=== PATIENT | male | born 1945 | race Caucasian/White ===

== ENCOUNTER 2018-03-03 17:55 | Emergency (ER) | payer MEDICARE, MEDICAID ==
[2018-03-03] MEDS ORDERED: Adacel (T-DAP) 0.5 ML VIAL ONE (18:05)
[2018-03-03] MEDS ORDERED: CEFAZOLIN/Water 2 GM/20 ML SYRINGE ONE (18:05)
[2018-03-03 18:41] LABS: #Basophils 0.1 thou/uL (0.0-0.2); #Eosinphils 0.1 thou/uL (0.0-0.7); #Lymphocytes 3.2 thou/uL (1.20-3.40); #Monocytes 0.6 thou/uL (0.11-0.59); #Neutrophils 4.7 thou/uL (1.40-6.50); %Basophils 0.6 % (0.0-1.0); %Eosinophils 1.7 % (0.0-10.0); %Lymphocytes 36.9 % (21.0-51.0); %Monocytes 6.5 % (0.0-10.0); %Neutrophils 54.3 % (42.0-75.0); Hemoglobin 13.3 g/dL (14.0-18.0); Mean Corpuscular HGB CONC 34.7 g/dL (32.0-36.0); Mean Corpuscular Hemoglobin 33.3 pg (27.0-31.0); Mean Corpuscular Volume 96.2 fl (80.0-94.0); Mean Platelet Volume 6.6 fL (7.4-10.4); Platelet Count 173 thou/uL (130-400); RBC Distribution Width 13.2 % (11.5-14.5); Red Blood Cell (RBC) Count 3.99 mill/uL (4.70-6.10); White Blood Cell (WBC) Count 8.6 thou/uL (4.8-10.8)
[2018-03-03 18:47] LABS: PTT 27.6 SEC (22.9-36.1); Prothrombin Time 13.5 SEC (12.0-14.7)
--- NOTE | 2018-03-03 18:50 | RAD ---
LEFT FOREARM: 03/03/18 Two views. HISTORY: Injury. Pain. No evidence of fracture or osseous abnormality. there is evidence of soft tissue disruption mid forea rm. IMPRESSION: No acute osseous abnormality. POS: [facility]
[2018-03-03 19:07] LABS: ALT (SGPT) 85 U/L (8-55); AST (SGOT) 97 U/L (5-34); Albumin 4.3 g/dL (3.4-4.8); Alkaline Phosphatase 75 U/L (40-150); Anion Gap 17 mmol/L (10-20); BUN (Urea Nitrogen) 18 mg/dL (8.4-25.7); Bilirubin, Total 0.5 mg/dL (0.2-1.2); Calc. Creatinine Clearance 0 mL/min (70-130); Calcium 9.5 mg/dL (7.8-10.44); Carbon Dioxide 20 mmol/L (23-31); Chloride 102 mmol/L (98-107); Estimated GFR-MDRD 68; Globulin 5.3 g/dL (2.4-3.5); Glucose 86 mg/dL (80-115); Potassium 5.8 mmol/L (3.5-5.1); Protein, Total 9.6 g/dL (5.8-8.1); Sodium 133 mmol/L (136-145)
[2018-03-03] MEDS ORDERED: Lidocaine 1% (PF) 30 ML VIAL ONE (20:15)
[2018-03-03] MEDS ORDERED: Acetaminophen 500 MG TAB ONE (20:55)
== END 2018-03-03 22:28 | disposition home or self-care (01) ==
LOC: ERS 17:55
DX: S51.812A Laceration without foreign body of left forearm, initial encounter (principal); I10 Essential (primary) hypertension; F17.210 Nicotine dependence, cigarettes, uncomplicated; Z71.6 Tobacco abuse counseling; Z79.899 Other long term (current) drug therapy; W26.8XXA Contact with other sharp object(s), not elsewhere classified, initial encounter
CPT/HCPCS: 12002; 80053; 85025; 85610; 85730; 86850; 86900; 86901; 90471; 90715; 99406; J2001

== ENCOUNTER 2019-02-23 20:51 | Inpatient (IN) | payer MEDICARE, MEDICAID ==
[2019-02-23 21:41] LABS: #Lymphocytes 1.6 thou/uL (1.20-3.40); #Monocytes 0.4 thou/uL (0.11-0.59); #Neutrophils 2.4 thou/uL (1.40-6.50); %Basophils 0.7 % (0.0-1.0); %Eosinophils 0.9 % (0.0-10.0); %Lymphocytes 35.4 % (21.0-51.0); %Monocytes 9.4 % (0.0-10.0); %Neutrophils 53.6 % (42.0-75.0); Hemoglobin 10.9 g/dL (14.0-18.0); Mean Corpuscular HGB CONC 32.8 g/dL (32.0-36.0); Mean Corpuscular Hemoglobin 31.6 pg (27.0-31.0); Mean Corpuscular Volume 96.5 fL (78.0-98.0); Mean Platelet Volume 8.1 fL (7.4-10.4); Platelet Count 130 thou/uL (130-400); RBC Distribution Width 14.2 % (11.5-14.5); Red Blood Cell (RBC) Count 3.43 mill/uL (4.70-6.10); White Blood Cell (WBC) Count 4.4 thou/uL (4.8-10.8)
--- NOTE | 2019-02-23 21:51 | RAD ---
UPRIGHT PORTABLE CHEST 1 VIEW: Date: 02/23/19 HISTORY: Altered mental status. COMPARISON: 01/09/12. FINDINGS: Heart size is within normal limits. Lungs are clear. No pneumonia, edema, pleural effusion, or other acute process. IMPRESSION: No acute intrathoracic disease. Stable cardiomegaly. Atherosclerosis of aorta. POS: [facility]
[2019-02-23 22:33] LABS: Albumin 3.9 g/dL (3.4-4.8)
[2019-02-23 22:34] LABS: Chloride 106 mmol/L (98-107); Potassium 4.7 mmol/L (3.5-5.1); Sodium 136 mmol/L (136-145)
[2019-02-23 22:35] LABS: Calcium 9.5 mg/dL (7.8-10.44); Globulin 4.2 g/dL (2.4-3.5); Glucose 104 mg/dL (83-110); Protein, Total 8.1 g/dL (5.8-8.1)
[2019-02-23 22:37] LABS: Anion Gap 15 mmol/L (10-20); Bilirubin, Total 0.4 mg/dL (0.2-1.2); Carbon Dioxide 20 mmol/L (23-31)
[2019-02-23 22:38] LABS: Alkaline Phosphatase 79 U/L (40-150); Calc. Creatinine Clearance 0 mL/min (70-130); Estimated GFR-MDRD 67
[2019-02-23 22:39] LABS: BUN (Urea Nitrogen) 29 mg/dL (8.4-25.7)
[2019-02-23 22:40] LABS: AST (SGOT) 71 U/L (5-34)
[2019-02-23 22:41] LABS: ALT (SGPT) 59 U/L (8-55)
[2019-02-24 01:14] VITALS: BMI 19.0
[2019-02-24] MEDS ORDERED: Ondansetron ODT 4 MG TAB PO PRN (04:09)
[2019-02-24] MEDS ORDERED: Ondansetron PF 4 MG/2 ML Vial IVP PRN (04:09)
[2019-02-24] MEDS ORDERED: Acetaminophen 325 MG TAB PO PRN (04:09)
[2019-02-24] MEDS ORDERED: HYDROcodone/Acetaminophen 10/325 mg Tablet PO PRN (04:10)
--- NOTE | 2019-02-24 07:53 | HP ---
PRIMARY CARE PHYSICIAN: Dr. Andrew Mendoza CODE STATUS: Full code. TIME OF EVALUATION: 3:10 a.m. CHIEF COMPLAINT: Irregular heartbeat. HISTORY OF PRESENT ILLNESS: 73 years old male patient with past medical history of hepatitis C, AAA, and hypertension, came to the hospital after having an episode of palpitation while he was carrying some batteries up a hill. He also reported that he passed out during the exercise and has been having these episodes recently. Not clear if the patient had loss of consciousness. He does not recall well the details. He also reported some cramping. Symptoms were severe with no clear triggers, no alleviating factors. He was found to be in AFib with RVR. REVIEW OF SYSTEMS: CONSTITUTIONAL: No fever, chills, or generalized weakness. RESPIRATORY: No cough, sputum production, or shortness of breath. CARDIOVASCULAR: The patient has palpitations. No chest pain. GASTROINTESTINAL: No nausea. No vomiting, diarrhea, or abdominal pain. [employer]: No dizziness, headache, or feeling lightheaded. GENITOURINARY: No burning on urination. EXTREMITIES: No leg swelling. All other systems were reviewed and negative except for the findings mentioned above. PAST MEDICAL HISTORY: As mentioned in the HPI. SURGICAL HISTORY: AAA surgery. PSYCHIATRIC HISTORY: No previous psych history. FAMILY HISTORY: Reviewed, noncontributory to current presentation. SOCIAL HISTORY: No alcohol. No drugs. The patient smokes 1.5 packs per day. KNOWN ALLERGIES: No known drug allergies. REPORTED MEDICATIONS: 1. Lisinopril. 2. Metoprolol. PHYSICAL EXAMINATION: VITAL SIGNS: On presentation, blood pressure 165/89 with heart rate 120, respiratory rate was 20, oxygen saturation 97% on room air. GENERAL APPEARANCE: The patient is alert, oriented, not in acute distress. HEENT: Eyes; normal conjunctivae. Moist oral mucosa. Anicteric. No JVD. RESPIRATORY: Bilateral air entry. No rales. No wheezes. Symmetric expansion. CARDIOVASCULAR: The patient has irregular rhythm with tachycardia. No murmurs. No gallop. No edema. ABDOMEN: Soft. Normal bowel sounds. MUSCULOSKELETAL: Baseline range of motion and strength. No tenderness. SKIN: Warm, intact. No pallor. No rash. No redness. Peripheral pulses are present. Capillary refill seems to intact. NEURO: No evidence of any new focal weakness. Cranial nerves seems to be intact. PSYCH: The patient is in good mood. No anxiety. Optimal judgment. DIAGNOSTIC DATA: EKG was reviewed and the patient has atrial fibrillation with RVR at a rate of 108, some PVCs. No acute intrathoracic disease. Stable cardiomegaly. Atherosclerosis of the aorta. LABORATORY DATA: Labs were reviewed. The patient has a white count of 4.4, hemoglobin 10.9, MCV 96.5, platelet count 230. Chemistry; sodium 136, potassium 4.7, chloride 106, carbon dioxide 20, anion gap 15, BUN 29, creatinine 1.0, GFR 67, glucose 104, calcium 9.5. LFTs were normal. Troponin 0.020. ASSESSMENT AND PLAN: The patient will be placed in the hospital with following medical problems: 1. Atrial fibrillation with rapid ventricular response. The patient has been placed on Cardizem drip. We will adjust the dose to get a rate control. We will consult Cardiology. We will do echo in the morning. Continue to monitor on tele. Metoprolol has been restarted. Continue diltiazem drip. 2. Chronic normocytic anemia of unclear etiology. We will monitor hemoglobin, does not seem to be related to current presentation. It could be followed as outpatient. 3. Uncontrolled hypertension, systolic blood pressure 165. We will monitor. We will treat accordingly. reconcile home meds 4. Deep venous thrombosis prophylaxis. Job ID: [id number] MTDD
[2019-02-24] MEDS ORDERED: Lisinopril 10 MG TAB PO SCH (09:00)
[2019-02-24] MEDS: Enoxaparin Sodium 40 MG/0.4 ML SYRINGE SC SCH (10:25)
[2019-02-24] MEDS: HYDROcodone/Acetaminophen 10/325 mg Tablet PO PRN ×3 (10:27→21:27)
--- NOTE | 2019-02-24 17:53 | CT ---
CT HEAD WITHOUT IV CONTRAST COMPARISON: None HISTORY: Stroke. Syncopal episode yesterday afternoon. Patient has slurred speech. TECHNIQUE: Axial CT imaging at 5 mm intervals from vertex through skull base without contrast FINDINGS: Small subcentimeter focus of diminished attenuation in the anterior aspect left thalamus related to a lacunar infarction of indeterminate age. There is a low-density area seen within the more inferior aspect of the left occipital lobe which hannah ears to represent a small focal area of encephalomalacia likely related to a remote infarction. There is a subtle small low-density area in the left occipital lobe, only seen on a single slice trae ction, which may be artifactual as opposed to an infarction in the left cerebellar hemisphere. A few subtle low-density areas are seen in the periventricular white matter which are nonspecific but likely reflective of mild chronic small vessel ischemic changes. No definite acute cortical infarction or hemorrhage is seen. There is no mass effect or midline shift. The ventricular system is normal in size, shape, and position. Visualized paranasal sinuses are clear. Osseous structures appear intact. IMPRESSION: 1. Small lacunar infarction left thalamus of indeterminate age. 2. Low-density area inferior aspect left occipital lobe which appears to represent a small focal area of encephalomalacia and is likely related to a remote infarction. 3. Mild chronic small vessel ischemic changes. 4. MRI brain would be more sensitive study of choice for evaluation of an acute infarction.
--- NOTE | 2019-02-24 18:06 | CON ---
DATE OF CONSULTATION: 02/24/2019 REASON FOR CONSULTATION: Atrial fibrillation with RVR. HISTORY OF PRESENT ILLNESS: Mr. Fish is a pleasant 73-year-old white gentleman, who comes to the hospital for having palpitations and slurred speech. He was carrying some batteries up a hill yesterday and felt a sudden onset of extreme dizziness, weakness on his left side. He could not control his left arm or his left leg adequately and he noticed that he felt like he had a mouthful of marshmallows. He felt he was slurring his speech, he could not talk like he normally does. He decided to come in. He was found to be in atrial fibrillation with RVR. He was started on diltiazem drip to slow him down and Cardiology has been consulted for this. On my evaluation today, he is still slurring his speech according to him. His left arm is still difficult to control. He is strong with it, but is unable to synchronize with it. He denies any chest pain, tightness, or pressure. No shortness of breath. He tells me he has been feeling palpitations for at least the last couple of months. He tells me also that several years back, he was told that he threw a clot to his eye as he lost vision on half of the right eye, he had hemianopsia. He states that he has recovered some of that vision, but he still has visual disturbances. He does not remember being told that he had a stroke, only that he had thrown a clot to his eye. PAST MEDICAL HISTORY: 1. Hepatitis C. 2. AAA, status post repair. 3. Hypertension. 4. Tobacco use. 5. Alcohol use. PAST SURGICAL HISTORY: AAA repair. SOCIAL HISTORY: Smokes about a pack and a half a day. Social alcohol use. No drug. He also uses marijuana. OUTPATIENT MEDICATIONS: 1. Lisinopril 10 mg at bedtime. 2. [place] 10/325 p.r.n. pain. 3. Toprol-XL 50 mg a day. ALLERGIES: NO KNOWN DRUG ALLERGIES. REVIEW OF SYSTEMS: A 12-point review of systems was done and was all negative unless stated in History of Present Illness. PHYSICAL EXAMINATION: VITAL SIGNS: Temperature 97.9, pulse 70, respiratory rate 17, saturating 100% on room air, blood pressure 112/58. GENERAL: Awake, alert, oriented x3. No distress. HEENT: Normocephalic and atraumatic. NECK: Supple. LUNGS: Reduced breath sounds bilaterally. CARDIOVASCULAR: S1 and S2. Irregularly irregular heart rate in the 70s to 90s. ABDOMEN: Soft. Positive bowel sounds. EXTREMITIES: No edema. NEUROLOGICAL: Cranial nerves are intact. He has difficulty with rapid alternating movements on his left arm. His strength is about 4+ in the left arm and his left leg as compared to the right arm and right leg. When he walks, he is unsteady and falls to the left because of inability to control the left side of his body that well. LABORATORY DATA: Laboratory work was reviewed. White count of 4, hemoglobin of 10, hematocrit of 33, and platelet count of 130. Chemistries were reviewed. GFR of 67. Troponin is negative x1. Albumin of 3.9. IMAGING DATA: Chest x-ray was reviewed, showed no acute intrathoracic disease with cardiomegaly and atherosclerosis of the aorta. ASSESSMENT: 1. Atrial fibrillation with rapid ventricular response. 2. Likely an acute cerebrovascular accident that happened yesterday when his event of dizziness started. 3. History of abdominal aortic aneurysm repair. 4. 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 PLAN: 1. We will do a CT without contrast tonight and make sure there is no bleeding. If there is no bleeding, we can start antiplatelets. He will also need full anticoagulation. We will await for the MRI as for the timing of the anticoagulation as he is concerned about the size of the stroke and some inflammation around it. We will have more recommendations pending results of brain imaging. 2. For atrial fibrillation, right now the only thing that can be done is rate controlled given his possible acute CVA. Thank you for letting me participate in the care of your patient. We will follow. Job ID: [id number]
[2019-02-24] MEDS: Nicotine 14 MG PATCH TD PRN (18:09)
[2019-02-24] MEDS: Diltiazem HCl 125 MG, Admixture Fee 1 EACH in Sodium Chloride 0.9% 100 ML IVPB SCH (19:53)
[2019-02-24] MEDS: Lisinopril 10 MG TAB PO SCH (21:23)
[2019-02-25] MEDS: HYDROcodone/Acetaminophen 10/325 mg Tablet PO PRN ×3 (05:31→16:27)
[2019-02-25 06:55] LABS: Anion Gap 16 mmol/L (10-20); Calcium 8.9 mg/dL (7.8-10.44); Carbon Dioxide 19 mmol/L (23-31); Chloride 103 mmol/L (98-107); Potassium 4.5 mmol/L (3.5-5.1); Sodium 133 mmol/L (136-145)
[2019-02-25 07:12] LABS: BUN (Urea Nitrogen) 17 mg/dL (8.4-25.7); Calc. Creatinine Clearance 68 mL/min (70-130); Estimated GFR-MDRD Greater than 90; Glucose 98 mg/dL (83-110)
[2019-02-25] MEDS: Enoxaparin Sodium 40 MG/0.4 ML SYRINGE SC SCH (08:32)
[2019-02-25 08:53] LABS: #Eosinphils 0.1 thou/uL (0.0-0.7); #Lymphocytes 1.5 thou/uL (1.20-3.40); #Monocytes 0.3 thou/uL (0.11-0.59); #Neutrophils 2.6 thou/uL (1.40-6.50); %Basophils 0.6 % (0.0-1.0); %Eosinophils 1.8 % (0.0-10.0); %Lymphocytes 33.7 % (21.0-51.0); %Neutrophils 57.9 % (42.0-75.0); Hemoglobin 12.7 g/dL (14.0-18.0); Mean Corpuscular HGB CONC 34.4 g/dL (32.0-36.0); Mean Corpuscular Hemoglobin 32.7 pg (27.0-31.0); Mean Corpuscular Volume 95.2 fL (78.0-98.0); Mean Platelet Volume 7.9 fL (7.4-10.4); Platelet Count 110 thou/uL (130-400); RBC Distribution Width 14.1 % (11.5-14.5); Red Blood Cell (RBC) Count 3.89 mill/uL (4.70-6.10); White Blood Cell (WBC) Count 4.5 thou/uL (4.8-10.8)
[2019-02-25 09:15] LABS: Platelet Morphology Comment Appears Decreased; RBC Morphology Normal
--- NOTE | 2019-02-25 09:50 | MRI ---
Exam: Brain MRI with and without contrast HISTORY: Atrial fibrillation. Left-sided weakness. Slurred speech. COMPARISON: None Correlation: Noncontrast head CT 02/24/2019 FINDINGS: Gradient echo sequence: No hemorrhage Calvarium: Appropriate T1 marrow signal intensity Midline brain parenchyma: Unremarkable Cerebrum:No parenchymal mass, mass effect or midline shift. Brain volume, age-appropriate. Cortical g ray-white matter differentiation preserved. T2 and FLAIR white matter hyperintensities due to chronic small vessel ischemic change. Ventricles: No evidence of hydrocephalus. Sinuses and mastoid air cells: Adequate aeration Diffusion: Central arterial flow voids are maintained. No evidence of restricted diffusion with regar ds to the cerebrum. There are 2 separate areas of restricted diffusion involving the left cerebellar hemisphere. Restricted diffusion is just inferior to the left brachium pontis and along th e posterior left cerebellar. There is associated subtle T2 and FLAIR hyperintensity. Postcontrast images: No pathologic enhancement of the brain parenchyma. IMPRESSION: 1. Acute infarct involving the left cerebellum. 2. Age-appropriate atrophy. Chronic small vessel ischemic changes. 3. No pathologic enhancement the brain parenchyma.
[2019-02-25] MEDS ORDERED: Aspirin 325 mg Enteric Coated Tablet PO SCH (15:45)
[2019-02-25 16:24] LABS: Amphetamine Detected (NotDetected); Barbiturates Screen Not Detected (NotDetected); Benzodiazepine Screen Not Detected (NotDetected); Cocaine Metabolite Screen Not Detected (NotDetected); Medtox Reader # READER 4; Methadone Not Detected (NotDetected); Methamphetamine Detected (NotDetected); Opiate Screen Detected (NotDetected); Oxycodone Screen Not Detected (NotDetected); Phencyclidine (PCP) Not Detected (NotDetected); THC/Cannabinoid Screen Not Detected (NotDetected); Tricyclic Screen Not Detected (NotDetected)
[2019-02-25 16:25] LABS: Medtox Control Line Valid? VALID (VALID)
--- NOTE | 2019-02-25 17:26 | PDOC.PN ---
- Subjective Encounter Start Date: 02/25/19 Encounter Start Time: 16:00 Patient seen and examined for Acute CVA. MRI positive for Acute CVA. Left sided weakness improving. No other complaints. No overnight events. No new focal deficits. - Objective Resuscitation Status - Order Detail: 02/24/19 04:09 Resuscitation Status Routine Resuscitation Status: FULL: Full Resuscitation MAR Reviewed: Yes Vital Signs & Weight: Vital Signs (12 hours) Temp Pulse Resp BP Pulse Ox 02/25/19 16:00 97.8 F 72 19 124/68 97 02/25/19 12:00 98.0 F 87 18 126/63 96 02/25/19 08:00 96.9 F L 76 17 131/63 97 Weight Weight 125 lb 4 oz I&O: 02/24/19 02/25/19 02/26/19 06:59 06:59 06:59 Intake Total 1550 530 Output Total 1275 800 Balance 275 -270 Result Diagrams: 02/25/19 08:44 02/25/19 06:28 Radiology Reviewed by me: Yes (MRI - reviewed) EKG Reviewed by me: Yes (Tele Afib) Phys Exam - Physical Examination Constitutional: NAD Respiratory: no wheezing, no rales, no rhonchi, clear to auscultation bilateral Cardiovascular: no rub, irregular no heaves/pulsations Gastrointestinal: soft, non-tender, no distention, positive bowel sounds Musculoskeletal: no edema Neurological: moves all 4 limbs minimal LUE weakness, No new focal deficits. Sensation to touch normal B/L Psychiatric: normal affect, A&O x 3 Skin: no rash Dx/Plan - Plan DVT proph w/lovenox, DVT proph w/SCDs IMPRESSION: Afib with RVR Acute CVA in left cerebellum Tobacco and Meth abuse Pancytopenia HTN Chronic Hep C h/o AAA repair Abn LFTs due to Hep C PLAN: Cont Cardizem drip Start Aspirin with low dose Statins due to abn LFTs Cont Lisinopril Counselled to quit Tobacco/Meth Start anticoagulants for Afib if ok with Neurology Cont current meds as below Lipid profile in AM Review of Systems - Review of Systems Respiratory: negative: Cough, Dry, Shortness of Breath, Hemoptysis, SOB with Excertion, Pleuritic Pain, Sputum, Wheezing Cardiovascular: negative: chest pain, palpitations, orthopnea, paroxysmal nocturnal dyspnea, edema, light headedness, other Gastrointestinal: negative: Nausea, Vomiting, Abdominal Pain, Diarrhea, Constipation, Melena, Hematochezia, Other - Medications/Allergies Allergies/Adverse Reactions: Allergies Allergy/AdvReac Type Severity Reaction Status Date / Time No Known Drug Allergies Allergy Verified 02/24/19 11:44 Medications: Current Medications Acetaminophen (Tylenol) 650 mg PO Q4H PRN PRN Reason: Headache/Fever/Mild Pain (1-3) Hydrocodone Bitart/Acetaminophen ([place] 10/325) 1 tab PO Q4H PRN PRN Reason: Severe Pain (7-10) Last Admin: 02/25/19 16:27 Dose: 1 tab Aspirin (Ecotrin) 325 mg PO NOW [facility] Stop: 02/25/19 17:45 Last Admin: 02/25/19 16:24 Dose: 325 mg Aspirin (Ecotrin) 325 mg PO DAILY [facility] Atorvastatin Calcium (Lipitor) 40 mg PO HS [facility] Enoxaparin Sodium (Lovenox) 40 mg SC 0900 [facility] Last Admin: 02/25/19 08:32 Dose: 40 mg Diltiazem HCl 125 mg/Miscellaneous Medication 1 each/ Sodium Chloride 125 mls @ 0 mls/hr IVPB INF [facility]; Protocol Last Admin: 02/24/19 19:53 Dose: 125 mls Lisinopril (Zestril) 10 mg PO HS [facility] Last Admin: 02/24/19 21:23 Dose: Not Given Metoprolol Succinate (Toprol Xl) 50 mg PO DAILY [facility] Last Admin: 02/25/19 08:32 Dose: 50 mg Nicotine (Nicoderm Patch) 14 mg TD Q24HR PRN PRN Reason: Smoking craving Last Admin: 02/24/19 18:09 Dose: 14 mg Ondansetron HCl (Zofran Odt) 4 mg PO Q6H PRN PRN Reason: Nausea/Vomiting Ondansetron HCl (Zofran) 4 mg IVP Q6H PRN PRN Reason: Nausea/Vomiting Sodium Chloride (Flush - Normal Saline) 10 ml IVF PRN PRN PRN Reason: Saline Flush
[2019-02-25] MEDS: Nicotine 14 MG PATCH TD PRN (18:10)
--- NOTE | 2019-02-25 19:38 | PDOC.CTH ---
Cardiology Progress Note - Subjective No new issues. He states he is able to talk better today. Still unsteady when he walks. - Objective Vital Signs Temp Pulse Resp BP Pulse Ox 02/25/19 18:43 98.0 F 80 18 149/62 H 100 02/25/19 16:00 97.8 F 72 19 124/68 97 02/25/19 12:00 98.0 F 87 18 126/63 96 02/25/19 08:00 96.9 F L 76 17 131/63 97 Weight 125 lb 4 oz 02/24/19 02/25/19 02/26/19 06:59 06:59 06:59 Intake Total 1550 530 Output Total 1275 800 Balance 275 -270 - Physical Examination General/Neuro: alert & oriented x3, NAD Neck: no JVD present Lungs: CTA, unlabored respirations Heart: RRR Abdomen: NT/ND Extremities: other: (no edema) - Telemetry Telemetry Rhythm: Afib HR 70's. - Labs Result Diagrams: 02/25/19 08:44 02/25/19 06:28 Troponin/CKMB Troponin I 0.020 ng/mL (< 0.028) 02/23/19 21:06 - Assessment/Plan 1. Acute CVA 2. Afib RVR, new onset 3. Tobacco use PLAN: - Will do full anticoagulation with Lovenox SQ - Change ASA to 81 mg daily. - Cause of CVA is afib.
[2019-02-25] MEDS ORDERED: Atorvastatin Calcium 40 MG TAB PO SCH (21:00)
[2019-02-25] MEDS ORDERED: Atorvastatin Calcium 10 MG TAB PO SCH (21:00)
[2019-02-25] MEDS: Enoxaparin Sodium 60 MG/0.6 ML SYRINGE SC SCH (22:12)
[2019-02-25] MEDS: Diltiazem HCl 125 MG, Admixture Fee 1 EACH in Sodium Chloride 0.9% 100 ML IVPB SCH (22:12)
[2019-02-25] MEDS: Lisinopril 10 MG TAB PO SCH (22:13)
[2019-02-26 05:52] LABS: Cardiac Risk 3.3 (Less than 4.5)
[2019-02-26] MEDS ORDERED: Aspirin 81 mg Enteric Coated Tablet PO SCH (09:00)
[2019-02-26] MEDS ORDERED: Aspirin 325 mg Enteric Coated Tablet PO SCH (09:00)
[2019-02-26] MEDS: HYDROcodone/Acetaminophen 10/325 mg Tablet PO PRN ×2 (09:39→22:06)
[2019-02-26] MEDS: Multivit, Therapeutic 1 TAB PO SCH (09:40)
[2019-02-26] MEDS: Enoxaparin Sodium 60 MG/0.6 ML SYRINGE SC SCH (09:41)
--- NOTE | 2019-02-26 10:56 | PDOC.PN ---
- Subjective Encounter Start Date: 02/26/19 Encounter Start Time: 10:53 Patient seen and examined for Acute CVA/Afib. On Cardizem drip. No CP or new focal deficits. No new complaints. No overnight events - Objective Resuscitation Status - Order Detail: 02/24/19 04:09 Resuscitation Status Routine Resuscitation Status: FULL: Full Resuscitation MAR Reviewed: Yes Vital Signs & Weight: Vital Signs (12 hours) Temp Pulse Resp BP Pulse Ox 02/26/19 08:00 98.5 F 77 16 138/79 95 02/26/19 03:39 97.9 F 70 16 112/63 99 02/26/19 00:00 97.8 F 73 16 137/77 95 Weight Weight 125 lb 4 oz I&O: 02/25/19 02/26/19 02/27/19 06:59 06:59 06:59 Intake Total 1550 650 Output Total 1275 800 Balance 275 -150 Result Diagrams: 02/25/19 08:44 02/25/19 06:28 EKG Reviewed by me: Yes (Tele Afib) Phys Exam - Physical Examination Constitutional: NAD Respiratory: no wheezing, no rhonchi Cardiovascular: no rub, irregular Gastrointestinal: soft, non-tender, positive bowel sounds Musculoskeletal: no edema Neurological: moves all 4 limbs Dx/Plan - Plan DVT proph w/lovenox, DVT proph w/SCDs IMPRESSION: Afib with RVR - on Cardizem drip, on anticoag 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 Cont current meds as below Monitor Platelets Review of Systems - Review of Systems Respiratory: negative: Cough, Dry, Shortness of Breath, Hemoptysis, SOB with Excertion, Pleuritic Pain, Sputum, Wheezing Cardiovascular: negative: chest pain, palpitations, orthopnea, paroxysmal nocturnal dyspnea, edema, light headedness, other Gastrointestinal: negative: Nausea, Vomiting, Abdominal Pain, Diarrhea, Constipation, Melena, Hematochezia, Other - Medications/Allergies Allergies/Adverse Reactions: Allergies Allergy/AdvReac Type Severity Reaction Status Date / Time No Known Drug Allergies Allergy Verified 02/24/19 11:44 Medications: Current Medications Acetaminophen (Tylenol) 650 mg PO Q4H PRN PRN Reason: Headache/Fever/Mild Pain (1-3) Hydrocodone Bitart/Acetaminophen ([place] 10/325) 1 tab PO Q4H PRN PRN Reason: Severe Pain (7-10) Last Admin: 02/26/19 09:39 Dose: 1 tab Aspirin (Ecotrin) 81 mg PO DAILY [facility] Last Admin: 02/26/19 09:40 Dose: 81 mg Atorvastatin Calcium (Lipitor) 10 mg PO HS [facility] Last Admin: 02/25/19 22:13 Dose: 10 mg Enoxaparin Sodium (Lovenox) 60 mg SC 0900,2100 [facility] Last Admin: 02/26/19 09:41 Dose: 60 mg Diltiazem HCl 125 mg/Miscellaneous Medication 1 each/ Sodium Chloride 125 mls @ 0 mls/hr IVPB INF [facility]; Protocol Last Admin: 02/25/19 22:12 Dose: 125 mls Lisinopril (Zestril) 10 mg PO HS [facility] Last Admin: 02/25/19 22:13 Dose: Not Given Metoprolol Succinate (Toprol Xl) 50 mg PO DAILY [facility] Last Admin: 02/26/19 09:40 Dose: 50 mg Multivitamins (Theragran) 1 tab PO DAILY [facility] Last Admin: 02/26/19 09:40 Dose: 1 tab Nicotine (Nicoderm Patch) 14 mg TD Q24HR PRN PRN Reason: Smoking craving Last Admin: 02/25/19 18:10 Dose: 14 mg Ondansetron HCl (Zofran Odt) 4 mg PO Q6H PRN PRN Reason: Nausea/Vomiting Ondansetron HCl (Zofran) 4 mg IVP Q6H PRN PRN Reason: Nausea/Vomiting Sodium Chloride (Flush - Normal Saline) 10 ml IVF PRN PRN PRN Reason: Saline Flush
--- NOTE | 2019-02-26 16:30 | CON ---
DATE OF TELEMEDICINE CONSULTATION: 02/26/2019 Registered nurse, Wyatt Martines. CHIEF COMPLAINT: Dizziness and weakness with acute stroke. HISTORY OF PRESENT ILLNESS: The patient is a 73-year-old man, [place]. He was carrying battery to hookup his solar panel and he felt a spinning sensation which lasts about 30 to 40 minutes , he was out of it. He crawled in his bed and his brother came and called 911. He experienced significant lightheadedness and felt that the left side was not under control, is a lot better now since admission. He has slurred speech for a couple of days and is better, which is improved. He is also able to walk now. No history of difficulty with vision or loss of consciousness. PREVIOUS MEDICAL HISTORY: The patient has atrial fibrillation, hypertension, AAA surgery, blood clot in the right eye 5 to 6 years ago, and hepatitis C. PAST SURGICAL HISTORY: Abdominal aortic aneurysm repair 5 to 6 years ago after they discovered the clot in the right eye, which resulted in loss of field of vision. SOCIAL HISTORY: He smokes pot occasionally. He used to drink a lot. He use to drink up to 12 beers per day. He started drinking in high school and he stopped drinking much in the last 6 months to 1 year. He does smoke one and half pack of cigarettes per day and he also has been smoking since high school and he lives by himself. FAMILY HISTORY: Positive for COPD in one of his brothers, who at 65. His second brother is healthy and he is 67. His father in his late 60s following cancer of the esophagus and stomach. Mother in her early 70s from congestive heart failure. HOME MEDICATIONS: The patient reports he takes aspirin 325 mg per day without statin. LABORATORY WORKUP: White count 4.5, hemoglobin 12.7, hematocrit 37, platelets 110. Chemistry; sodium 133, potassium 4.5, chloride 103, BUN 17, creatinine 0.8, glucose 98, and calcium 8.9. AST 71, ALT 59, alkaline phosphatase 79, and his triglycerides 114. Cholesterol 144, LDL 78, HDL 43, heart disease risk ratio 3.3. Urine was positive for methamphetamines and amphetamines. His MRI of the brain showed acute left cerebellar infarct. No CT angiogram was available for review. REVIEW OF SYSTEMS: PULMONARY: Negative for shortness of breath or cough. GI: Negative for nausea, vomiting, or abdominal pain. NEUROLOGIC: Positive for loss of balance and dizziness plus left-sided incoordination. CARDIAC: Negative for chest pain or palpitations. GENITOURINARY: Negative for bladder dysfunction,. HEMATOLOGICAL: Negative for bleeding diathesis or clotting dysfunction. DERMATOLOGIC: Negative for any skin rash. PHYSICAL EXAMINATION: VITAL SIGNS: Blood pressure was 116/74, pulse 97, and temperature 98.8. GENERAL APPEARANCE: Well-built, well-nourished gentleman, who seems comfortable. CHEST: Clear vesicular breathing. CARDIOVASCULAR: S1 and S2 heard. No murmurs. ABDOMEN: Soft. NEUROLOGICAL: Higher intellectual functions. Normal orientation to time, place , and person. Cranial nerves 2 through 12: normal extraocular movements. No facial asymmetry noted. Normal sensation of face bilaterally. Tongue midline. No atrophy noted. Normal elevation of palate. Normal hearing to finger rub bilaterally. Extraocular movements are normal. Pupils are 2 mm, reactive bilaterally. Motor examination: bulk normal, tone normal. Strength 5/5 throughout in the iliopsoas , hamstrings, quadriceps, ankle dorsiflexion, plantar flexion, deltoid, biceps, triceps, wrist extension and flexion, and finger extension and flexion bilaterally. Deep tendon reflexes were 2+ throughout. Sensory examination: normal to touch bilaterally. Cerebellar examination: normal [id number]. No dysdiadochokinesis on the right side. On the left side, he had dysdiadochokinesis and incoordination on the left side. Gait was normal. IMPRESSION: The patient is a 73-year-old man with atrial fibrillation and rapid ventricular rate. He was brought in with dizziness and left-sided incoordination. He had dizziness which lasted about 30 to 40 minutes. He felt his left side was not under control. He also experienced slurred speech. He has multiple cardiac issues including atrial fibrillation, hypertension, prior history of abdominal aortic aneurysm repair. His family history is negative for coronary artery disease or stroke. His examination shows left-sided incoordination. Rest of examination is normal. Clinical diagnosis is consistent with an acute infarct in the left cerebellum and his MRI showed appropriate localization of the infarct. However , due to symptoms of dizziness, it is important to make sure there is no basilar artery occlusion. RECOMMENDATIONS: 1. CT angiogram. 2. Please add aspirin 325 mg instead of 81 mg along with statin. 3. Please consult Cardiology and see if we can add Plavix to his medication regimen. I will follow up the patient tomorrow. Job ID: [id number] MTDD
--- NOTE | 2019-02-26 16:39 | PDOC.CTH ---
Cardiology Progress Note - Subjective Doing much better. No new issues. Walking better, using his left side better. - Objective Vital Signs Temp Pulse Pulse Pulse Resp BP BP 02/26/19 16:06 97.9 F 85 16 02/26/19 14:14 68 87 136/70 156/83 H 02/26/19 11:31 98.8 F 73 16 02/26/19 08:42 97 80 133/83 116/74 02/26/19 08:00 98.5 F 77 16 BP Pulse Ox 02/26/19 16:06 111/60 98 02/26/19 14:14 02/26/19 11:31 126/71 97 02/26/19 08:42 02/26/19 08:00 138/79 95 Weight 125 lb 4 oz 02/25/19 02/26/19 02/27/19 06:59 06:59 06:59 Intake Total 1550 650 Output Total 1275 800 Balance 275 -150 - Physical Examination General/Neuro: alert & oriented x3, NAD Neck: no JVD present Lungs: CTA, unlabored respirations Heart: other: (Irreg irreg) Abdomen: NT/ND Extremities: + edema B - Telemetry Telemetry Rhythm: Afib HR 70's. - Labs Result Diagrams: 02/25/19 08:44 02/25/19 06:28 Troponin/CKMB Troponin I 0.020 ng/mL (< 0.028) 02/23/19 21:06 - Assessment/Plan 1. Acute CVA 2. Afib RVR, new onset 3. Tobacco use PLAN: - Will switch full anticoagulation to Eliquis 5 mg BID. - ASA to 81 mg daily. - Cause of CVA is afib. - Switch diltiazem to PO for rate control. - May discharge home any time from cardiac perspective.
[2019-02-26] MEDS ORDERED: Melatonin 3 MG TAB PO PRN (20:41)
[2019-02-26] MEDS: Apixaban 5 MG TAB PO SCH (22:03)
[2019-02-26] MEDS: Diltiazem HCl SR 60 mg Capsule PO SCH (22:04)
[2019-02-26] MEDS: Atorvastatin Calcium 20 MG TAB PO SCH (22:04)
[2019-02-26] MEDS: Lisinopril 10 MG TAB PO SCH (22:05)
[2019-02-27 06:53] LABS: #Eosinphils 0.1 thou/uL (0.0-0.7); #Lymphocytes 1.7 thou/uL (1.20-3.40); #Monocytes 0.5 thou/uL (0.11-0.59); #Neutrophils 2.5 thou/uL (1.40-6.50); %Basophils 0.8 % (0.0-1.0); %Eosinophils 2.2 % (0.0-10.0); %Lymphocytes 35.2 % (21.0-51.0); %Monocytes 9.8 % (0.0-10.0); Hemoglobin 12.2 g/dL (14.0-18.0); Mean Corpuscular HGB CONC 32.6 g/dL (32.0-36.0); Mean Corpuscular Hemoglobin 31.5 pg (27.0-31.0); Mean Corpuscular Volume 96.6 fL (78.0-98.0); Mean Platelet Volume 7.3 fL (7.4-10.4); Platelet Count 119 thou/uL (130-400); Red Blood Cell (RBC) Count 3.88 mill/uL (4.70-6.10); White Blood Cell (WBC) Count 4.8 thou/uL (4.8-10.8)
[2019-02-27 07:01] LABS: Anion Gap 14 mmol/L (10-20); BUN (Urea Nitrogen) 16 mg/dL (8.4-25.7); Calc. Creatinine Clearance 69 mL/min (70-130); Carbon Dioxide 20 mmol/L (23-31); Chloride 101 mmol/L (98-107); Estimated GFR-MDRD Greater than 90; Glucose 90 mg/dL (83-110); Potassium 4.3 mmol/L (3.5-5.1); Sodium 131 mmol/L (136-145)
--- NOTE | 2019-02-27 07:43 | CT ---
CT HEAD NONCONTRAST CTA HEAD WITH CONTRAST CTA NECK WITH CONTRAST 3D VOLUME RENDERING: Date: 02/26/19 INDICATION: 73-year-old male with syncope. FINDINGS: The noncontrast head CT portion of the exam reveals microvascular ischemic disease without intracrani al hemorrhage, mass effect, or midline shift. There are focal hypodensities of the left cerebellar he misphere indicative of lacunar infarction. There is vascular calcification involving the aortic arch and calcific plaque involving the proximal subclavian arteries bilaterally. There is a dominant right vertebral artery which is patent throughou t its course. There is diffuse small caliber of the nondominant left vertebral artery. The basilar ar tyrone is patent. There is scattered mild atherosclerotic plaque of each common carotid artery. There i s a moderate degree of localized plaque of the right carotid bulb producing mild to moderate focal st enosis of the proximal aspect of the cervical right ICA. There is mild multifocal calcific plaque of the cervical left ICA. There is calcific plaque of the bilateral carotid siphons, mild in degree. No high grade stenosis of either MCA. Each A1 segment is patent and the anterior communicating artery is patent. From the A2 level, distally, there is predominantly one visualized anterior cerebral artery which is dominant, and this could relate to a variant circulation versus sequelae from noncalcified o cclusive disease of distal anterior circulation, although there is no evidence of ischemia within thi s distribution to indicate acuity. The right CORE WINDER is patent. There is a patent left CORE WINDER. The visualize d proximal, small caliber superior cerebellar arteries are grossly patent. IMPRESSION: Scattered atherosclerotic vascular disease without high grade stenosis or occlusion. There is mild to moderate focal stenosis at the origin of the cervical right ICA. POS: MACKENZIE
[2019-02-27] MEDS ORDERED: Aspirin 325 MG TAB PO SCH (09:00)
[2019-02-27] MEDS: Diltiazem HCl SR 60 mg Capsule PO SCH ×2 (09:36→20:30)
[2019-02-27] MEDS: HYDROcodone/Acetaminophen 10/325 mg Tablet PO PRN ×2 (09:37→19:26)
[2019-02-27] MEDS: Aspirin 81 mg Enteric Coated Tablet PO SCH (09:37)
[2019-02-27] MEDS: Apixaban 5 MG TAB PO SCH ×2 (09:38→20:30)
[2019-02-27] MEDS: Multivit, Therapeutic 1 TAB PO SCH (09:38)
--- NOTE | 2019-02-27 10:40 | PDOC.PN ---
- Subjective Encounter Start Date: 02/27/19 (f/u stroke) Encounter Start Time: 10:39 Subjective: Pt without complaints, ready to go home. Denies any pain, reports -: balance is improved. Denies any new concerns. has chronic leg -: skin wounds - denies any pain - Objective Resuscitation Status - Order Detail: 02/24/19 04:09 Resuscitation Status Routine Resuscitation Status: FULL: Full Resuscitation Vital Signs & Weight: Vital Signs (12 hours) Temp Pulse Resp BP Pulse Ox 02/27/19 08:00 97.7 F 53 L 16 127/71 98 02/27/19 03:25 97.5 F L 88 16 136/84 96 02/27/19 00:00 98.2 F 80 16 120/70 98 Weight Weight 125 lb 4 oz I&O: 02/26/19 02/27/19 02/28/19 06:59 06:59 06:59 Intake Total 650 1920 Output Total 800 Balance -150 1920 Result Diagrams: 02/27/19 06:33 02/27/19 06:33 EKG Reviewed by me: Yes (tele - a fib 70's, occ 40's with slow vent response) Phys Exam - Physical Examination Constitutional: NAD thin/cachectic male Respiratory: no wheezing, no rales, no rhonchi, clear to auscultation bilateral Cardiovascular: no significant murmur, irregular Gastrointestinal: soft, non-tender Musculoskeletal: no edema Deviation from normal: multiple areas of crusting, along legs. One area along lateral right -: LE - surrounding erythema and slight induration Dx/Plan (1) Cellulitis Code(s): L03.90 - CELLULITIS, UNSPECIFIED Status: Acute Qualifiers: Site of cellulitis: extremity Site of cellulitis of extremity: lower extremity Laterality: right Qualified Code(s): L03.115 - Cellulitis of right lower limb (2) Hyponatremia Code(s): E87.1 - HYPO-OSMOLALITY AND HYPONATREMIA Status: Acute (3) Stroke Code(s): I63.9 - CEREBRAL INFARCTION, UNSPECIFIED Status: Acute Qualifiers: CVA mechanism: embolism (4) Atrial fibrillation Code(s): I48.91 - UNSPECIFIED ATRIAL FIBRILLATION Status: Acute Qualifiers: Atrial fibrillation type: chronic Qualified Code(s): I48.2 - Chronic atrial fibrillation (5) Anemia Code(s): D64.9 - ANEMIA, UNSPECIFIED Status: Chronic Qualifiers: Anemia type: unspecified type Qualified Code(s): D64.9 - Anemia, unspecified (6) Thrombocytopenia Code(s): D69.6 - THROMBOCYTOPENIA, UNSPECIFIED Status: Chronic (7) Tobacco abuse Code(s): Z72.0 - TOBACCO USE Status: Chronic (8) Methamphetamine abuse Code(s): F15.10 - OTHER STIMULANT ABUSE, UNCOMPLICATED Status: Chronic - Plan * RLE cellulitis - start Rocephin and outline erytheamtous area * Hyponatremia - urine studies, fluid restrict, monitor * anemia/thrombocytopenia stable * stroke - pt reports improvement - on low dose ASA and full anticoagulation * A fib - rate controlled on metoprolol and on full anticoagulation * * gi prophy - not indicated * code status full * * recommend hold on discharge until hyponatremia is stable * pt remains at high risk in current condition * reviewed plan of care with pt/RN, no questions or further needs at end of eval. * Reviewed urine studies - pt appears euvolemic, and FeNA <1% and urine osm >100. Suggestive of SIADH. No change to fluid restriction and monitoring.
[2019-02-27] MEDS ORDERED: cefTRIAXone\\ROCEPHIN 1 GM in Sodium Chloride 0.9% 100 ML IVPB SCH (11:00)
[2019-02-27 13:36] LABS: Bilirubin Negative (Negative); Blood, Urine Negative (Negative); Clarity CLEAR (Clear); Glucose, Urine (Dipstick) Negative (Negative); Leukocyte Negative (Negative); Nitrite Negative (Negative); Protein, Urine (Dipstick) Negative (Neg-Trace); Specific Gravity, Urine 1.022 (1.002-1.036); pH, Urine 6.5 (5.0-9.0)
[2019-02-27 13:48] LABS: Creatinine, Urine 44.26 mg/dL (63-166)
--- NOTE | 2019-02-27 14:10 | PRG ---
DATE OF SERVICE: 02/27/2019 This followup is via telemedicine and nurse accompanying is Eloisa. INTERVAL HISTORY: The patient is stable and doing well. He has been cleared from Cardiology standpoint for discharge and he has been started on Eliquis for anticoagulation. No new symptoms are reported. LABORATORY WORKUP: White count 4.8, hemoglobin 12.2, hematocrit 37.5, platelet count 119. Sodium 131, potassium 4.3, chloride 101, bicarb 20, BUN 16, creatinine 0.79. CT angiography was completed and CT angio of the neck and head was reported as scattered atherosclerotic vascular disease without high-grade stenosis or occlusion. There is [id number] focal stenosis at the origin of right cervical ICA. PHYSICAL EXAMINATION: VITAL SIGNS: Blood pressure was 127/71, temperature 97.7, pulse 53. GENERAL APPEARANCE: Well-built, well-nourished gentleman, who is comfortable in bed. NEUROLOGIC: Higher intellectual functions normal. Orientation to time, place, and person. Appropriate conversation. Cranial nerve examination, normal extraocular movements. No asymmetry of face. Motor examination, strength normal bilaterally. Coordination, improved coordination on the left side since yesterday. IMPRESSION: The patient with left cerebellar infarct. He is stable and improving steadily. There does not seem to be significant atherosclerotic disease in the cervical and cranial vasculature at this time. RECOMMENDATIONS: He can continue anticoagulation per Cardiology. He can follow up with his regular physician about his carotid occlusion which needs a followup ultrasound scan. Job ID: [id number]
[2019-02-27] MEDS: Nicotine 14 MG PATCH TD PRN (16:31)
[2019-02-27] MEDS: Atorvastatin Calcium 20 MG TAB PO SCH (20:30)
[2019-02-27] MEDS: Lisinopril 10 MG TAB PO SCH (20:31)
[2019-02-28] MEDS: HYDROcodone/Acetaminophen 10/325 mg Tablet PO PRN ×2 (01:41→08:03)
[2019-02-28 06:01] LABS: ALT (SGPT) 75 U/L (8-55); AST (SGOT) 101 U/L (5-34); Albumin 3.6 g/dL (3.4-4.8); Alkaline Phosphatase 71 U/L (40-150); Anion Gap 14 mmol/L (10-20); BUN (Urea Nitrogen) 19 mg/dL (8.4-25.7); Bilirubin, Total 0.5 mg/dL (0.2-1.2); Calc. Creatinine Clearance 67 mL/min (70-130); Carbon Dioxide 22 mmol/L (23-31); Chloride 102 mmol/L (98-107); Estimated GFR-MDRD Greater than 90; Globulin 4.1 g/dL (2.4-3.5); Glucose 90 mg/dL (83-110); Protein, Total 7.7 g/dL (5.8-8.1); Sodium 134 mmol/L (136-145)
[2019-02-28] MEDS: Aspirin 81 mg Enteric Coated Tablet PO SCH (08:02)
[2019-02-28] MEDS: Diltiazem HCl SR 60 mg Capsule PO SCH (08:02)
[2019-02-28] MEDS: Apixaban 5 MG TAB PO SCH (08:02)
[2019-02-28] MEDS: Multivit, Therapeutic 1 TAB PO SCH (08:03)
[2019-02-28 08:04] VITALS: BP 152/79; TEMP 99
[2019-02-28 08:18] LABS: #Basophils 0.1 thou/uL (0.0-0.2); #Eosinphils 0.2 thou/uL (0.0-0.7); #Lymphocytes 2.1 thou/uL (1.20-3.40); #Monocytes 0.4 thou/uL (0.11-0.59); %Basophils 1.1 % (0.0-1.0); %Eosinophils 3.2 % (0.0-10.0); %Lymphocytes 36.8 % (21.0-51.0); %Monocytes 7.1 % (0.0-10.0); %Neutrophils 51.9 % (42.0-75.0); Hemoglobin 11.7 g/dL (14.0-18.0); Mean Corpuscular HGB CONC 31.8 g/dL (32.0-36.0); Mean Corpuscular Hemoglobin 30.1 pg (27.0-31.0); Mean Corpuscular Volume 94.9 fL (78.0-98.0); Mean Platelet Volume 7.9 fL (7.4-10.4); Platelet Count 120 thou/uL (130-400); Red Blood Cell (RBC) Count 3.89 mill/uL (4.70-6.10); White Blood Cell (WBC) Count 5.7 thou/uL (4.8-10.8)
[2019-02-28] MEDS ORDERED: cefTRIAXone\\ROCEPHIN 1 GM VIAL IM SCH ×2 (09:30→10:00)
[2019-02-28] MEDS ORDERED: Lidocaine 1% PF 10 ML AMP FS SCH (10:00)
[2019-02-28] MEDS ORDERED: Lidocaine 1% PF 5 ML VIAL FS SCH (10:00)
--- NOTE | 2019-02-28 19:52 | DIS ---
DATE OF ADMISSION: 02/24/2019 DATE OF DISCHARGE: 02/28/2019 CONSULTANTS: 1. Dr. Coleman of Cardiology. 2. Dr. Otto of Neurology. MEDICATIONS: Reconciled at discharge. Medication to Continue; 1. Lisinopril 10 mg at bedtime. 2. Metoprolol succinate 50 mg daily. 3. Mayo 10/325 one tablet as directed on the bottle. New medications are; 1. Eliquis 5 mg p.o. b.i.d. 2. Aspirin 81 mg daily. 3. Lipitor 20 mg at bedtime. 4. Keflex 500 mg 4 times daily for 7 days. 5. Cardizem sustained release 60 mg b.i.d. All prescriptions provided for 30 days with further refills to come from either Dr. Coleman or the primary care provider with the exception of Keflex is only for 7 days, and aspirin is [id number]. FINAL DIAGNOSES: 1. Ischemic cerebellar stroke secondary to atrial fibrillation.. 2. Atrial fibrillation with rapid ventricular response, now rate controlled. 3. Hyponatremia, likely secondary to syndrome of inappropriate antidiuretic hormone secretion. 4. Right lower extremity cellulitis. 5. Anemia. 6. Thrombocytopenia. SECONDARY DIAGNOSES: 1. Chronic hepatitis C. 2. Tobacco abuse. 3. Methamphetamine abuse. 4. Hypertension. 5. Elevated LFTs. 6. Chronic right shoulder pain. HISTORY OF PRESENT ILLNESS: Mr. Fish is a 73-year-old male with the above medical problems, who presented to the emergency room after passing out during exercise. He was found in the emergency room to be in atrial fibrillation with rapid ventricular response. HOSPITAL COURSE: The patient admitted with a diagnosis of atrial fibrillation with RVR, as well as uncontrolled hypertension. He has been monitored on telemetry, and the following problems have been addressed. New ischemic stroke. The dizziness that the patient was experiencing was likely secondary to an acute stroke. He did receive a CT exam which was negative for an acute process, and underwent a brain MRI which showed a cerebellar stroke. He has worked with Physical Therapy, Occupational Therapy, and Speech Therapy and is overall improved. For the atrial fibrillation with rapid ventricular response, patient was kept on his home Toprol-XL and was also started on diltiazem. He has been rate controlled and is on oral medication now. He remains in atrial fibrillation with a rate in the 60s, occasionally going down into the 40s due to slow ventricular response, he is asymptomatic with this. He will follow up with Dr. Coleman in the outpatient setting within a month for re-evaluation, refills of medication, and to address any other health needs. Because of the current stroke, he was started on Eliquis as secondary stroke risk reduction, I will continue this along with a low-dose aspirin. In addition, he was also started on Lipitor for the ischemic stroke. The patient was evaluated by Neurology with recommendation to address the underlying atrial fibrillation, see above. The patient can follow up in the outpatient setting with Neurology, as the neurologist was Tele Neurology here. Cellulitis. The patient has multiple skin wounds on his legs with crusting and frequent scratching. Yesterday on exam, he had an area of erythema and induration around one of the areas of crusting on his right lower extremity. He was started on Rocephin and given one dose with minimal extension of the erythema today. He will receive a 2nd dose of Rocephin and will be discharged on a week course of Keflex. It is highly recommended that he follow up with his primary care provider for monitoring of this, determination of antibiotics, duration and type if a change is needed, in addition to stop scratching of his legs, and stop hydrogen peroxide use on his legs. Hyponatremia. The patient has had a mild hyponatremia while here with the lowest sodium of 131 yesterday. 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 This will need monitoring in the outpatient setting and it is recommended that patient be on a 2 L fluid restricted diet. The patient has known multiple medical problems to include chronic hepatitis C, elevated LFTs, tobacco and methamphetamine abuse, pancytopenia, which now is his anemia and thrombocytopenia. For all these conditions, he is recommended to avoid/abstain, and follow up in the primary care setting. PHYSICAL EXAMINATION: VITAL SIGNS: On day of discharge, blood pressure 152/79 prior to medications, temp 99, pulse 70, respirations 16, sats 98% on room air. GENERAL: Awake, alert, responsive, in no apparent distress. Able to speak in full sentences. LUNGS: Clear to auscultation bilateral. HEART: Irregularly irregular. No audible murmurs. ABDOMEN: Soft with present bowel sounds. EXTREMITIES: On his right lower extremity laterally, an area of crusting with surrounding induration and erythema. No tenderness to palpation with mild extension medially. There is no palpable fluctuance. CARREON FINDINGS AND TEST RESULTS: CBC today; 5.7, 11.7, 36.9, 120. Chemistry; 134, 4.0, 102, 22, 19, 0.81, 90. The lowest sodium here was 131 yesterday. T bilirubin 0.5, AST 101, ALT 75, alkaline phosphatase 71, total protein 7.7, albumin is 3.6. Triglycerides 114, cholesterol 144, LDL 78. HDL 43. Urinalysis negative. Urine osmolality 354. Urine creatinine 44, urine sodium 55. Toxicology is positive for opiates, amphetamine, and methamphetamine. Chest x-ray on 02/23, shows no acute intrathoracic disease, and stable cardiomegaly. Brain CT without contrast shows small lacunar infarct of the left thalamus of indeterminate age, low-density area in inferior left occipital lobe which appears to represent a small focal area of encephalomalacia, likely remote infarction, mild chronic small-vessel ischemic changes. MRI of the brain shows an acute infarct of the left cerebellum, age-appropriate atrophy and chronic small-vessel ischemic changes. CT angiogram of the head and neck shows scattered atherosclerotic vascular disease without high-grade stenosis or occlusion, mild to moderate focal stenosis at the origin of the right cervical ICA. FOLLOWUP: 1. Follow up with primary care per provider to evaluate all of these medical conditions of chronic nature, cellulitis, monitor blood pressure, monitor hyponatremia and liver function. Followup is needed regarding the carotid occlusion identified on CT angiogram. 2. Follow up with Dr. Coleman within a month for refills of medication if not able to receive from his primary care provider, monitoring of atrial fibrillation and medications for this. DIET: Heart healthy. ACTIVITY: As tolerated. The patient is counseled on avoiding all NSAIDs as this can increase the risk of bleeding in association with Eliquis. Reviewed with patient this hospitalization, the importance of followup, and to seek care precautions. He demonstrates understanding. DISCHARGE DISPOSITION: Home. CODE STATUS: Full. TOTAL TIME COORDINATING DISCHARGE: 45 minutes. Job ID: [id number] MTDD
[2019-03-01] MEDS ORDERED: Lidocaine 1% PF 10 ML AMP FS SCH (10:00)
== END 2019-02-28 10:40 | disposition home or self-care (01) | DRG 308 ==
LOC: ERS 20:51 → 2NO 02-24 00:11 → 2SE 02-25 19:02
PROVIDERS: ADMIT Hospitalist; ATTEND Hospitalist
DX: I48.91 Unspecified atrial fibrillation (principal); I63.442 Cerebral infarction due to embolism of left cerebellar artery; D61.818 Other pancytopenia; G81.94 Hemiplegia, unspecified affecting left nondominant side; L03.115 Cellulitis of right lower limb; E22.2 Syndrome of inappropriate secretion of antidiuretic hormone; I10 Essential (primary) hypertension; F17.210 Nicotine dependence, cigarettes, uncomplicated; B18.2 Chronic viral hepatitis C; G89.29 Other chronic pain; R47.81 Slurred speech; F15.10 Other stimulant abuse, uncomplicated; M25.511 Pain in right shoulder; Z86.79 Personal history of other diseases of the circulatory system; Z79.899 Other long term (current) drug therapy; D64.9 Anemia, unspecified
CPT/HCPCS: 36415; 36416; 70450; 70496; 70498; 70553; 71045; 80048; 80053; 80061; 80306; 81003; 82550; 82570; 83735; 83935; 84300; 84484; 85025; 93005; 93306; 96365; 96366; 96376; J0696; J1650; J2001; J3490

== ENCOUNTER 2019-04-08 09:52 | Observation (INO) | payer MEDICARE, MEDICAID ==
--- NOTE | 2019-04-08 10:24 | CT ---
CT BRAIN WITHOUT CONTRAST: HISTORY: Level 2 stroke. Dizziness and left-sided numbness to face COMPARISON: 02/24/2019 FINDINGS: Old infarcts in the left cerebellum and left thalamus are again seen. No evidence of acute infarct, h emorrhage, midline shift or abnormal extra-axial fluid collections is noted. The ventricular size is stable and the basilar cisterns are patent.The bony calvarium is intact. IMPRESSION: No CT evidence of acute intracranial process. Discussed over the telephone with ER physician Dr. Maycol Cabral at 10:20 AM.
[2019-04-08 10:49] LABS: Hemoglobin 10.6 g/dL (14.0-18.0); Mean Corpuscular HGB CONC 33.1 g/dL (32.0-36.0); Mean Corpuscular Volume 96.8 fL (78.0-98.0); Mean Platelet Volume 7.5 fL (7.4-10.4); Platelet Count 88 thou/uL (130-400); RBC Distribution Width 13.7 % (11.5-14.5); Red Blood Cell (RBC) Count 3.32 mill/uL (4.70-6.10); White Blood Cell (WBC) Count 5.8 thou/uL (4.8-10.8)
[2019-04-08 10:52] LABS: INR-International Normal Ratio 1.1; PTT 24.7 SEC (22.9-36.1); Prothrombin Time 14.5 SEC (12.0-14.7)
[2019-04-08 11:01] LABS: ALT (SGPT) 102 U/L (8-55); AST (SGOT) 106 U/L (5-34); Albumin 3.7 g/dL (3.4-4.8); Alkaline Phosphatase 112 U/L (40-150); Anion Gap 13 mmol/L (10-20); BUN (Urea Nitrogen) 17 mg/dL (8.4-25.7); Bilirubin, Total 0.5 mg/dL (0.2-1.2); Calc. Creatinine Clearance 0 mL/min (70-130); Calcium 9.1 mg/dL (7.8-10.44); Carbon Dioxide 22 mmol/L (23-31); Chloride 101 mmol/L (98-107); Estimated GFR-MDRD Greater than 90; Globulin 4.1 g/dL (2.4-3.5); Glucose 98 mg/dL (83-110); Potassium 4.3 mmol/L (3.5-5.1); Protein, Total 7.8 g/dL (5.8-8.1); Sodium 132 mmol/L (136-145)
[2019-04-08 11:23] LABS: Band 3 % (5-11); Eosinophils 1 % (0-10); Lymphocytes 29 % (21-51); Monocytes 6 % (0-10); Neutrophil 61 % (42-75)
[2019-04-08 13:22] LABS: Bilirubin Negative (Negative); Blood, Urine Negative (Negative); Clarity Clear (Clear); Glucose, Urine (Dipstick) Normal (Negative); Leukocyte Negative Leu/uL (Negative); Nitrite Negative (Negative); Protein, Urine (Dipstick) Negative (Neg-Trace); Urobilinogen Normal mg/dL (Less than 2)
[2019-04-08] MEDS ORDERED: Senokot S 8.6-50 MG TAB PO PRN (13:27)
[2019-04-08] MEDS ORDERED: Ondansetron PF 4 MG/2 ML Vial IVP PRN (13:27)
[2019-04-08] MEDS ORDERED: Ondansetron ODT 4 MG TAB PO PRN (13:27)
[2019-04-08 13:54] LABS: Amphetamine Not Detected (NotDetected); Barbiturates Screen Not Detected (NotDetected); Benzodiazepine Screen Not Detected (NotDetected); Cocaine Metabolite Screen Not Detected (NotDetected); Medtox Control Line Valid? VALID (VALID); Medtox Reader # READER 4; Methadone Not Detected (NotDetected); Methamphetamine Not Detected (NotDetected); Opiate Screen Detected (NotDetected); Oxycodone Screen Not Detected (NotDetected); Phencyclidine (PCP) Not Detected (NotDetected); THC/Cannabinoid Screen Not Detected (NotDetected); Tricyclic Screen Not Detected (NotDetected)
[2019-04-08 13:55] VITALS: BMI 19.2
[2019-04-08] MEDS: Sodium Chloride 0.9% 1,000 ML IV SCH (14:23)
--- NOTE | 2019-04-08 14:28 | MRI ---
MRI BRAIN WITHOUT CONTRAST: HISTORY: Dizziness, weakness on the left side, left-sided numbness to face COMPARISON: 02/25/2019 CORRELATION: CT scan from 04/08/2019. FINDINGS: There are small old infarcts in the left thalamus, the left cerebellum, and the left occipital lobe.. There is a tiny hemosiderin deposit in the left occipital lobe on the gradient echo sequences. No restricted diffusion is seen. There are multiple foci of T2 prolongation in the periventricular wh ite matter, consistent with chronic small vessel ischemic disease. The ventricular size is appropriate and the basilar cisterns are patent. No evidence of acute infarct, acute hemorrhage, midline shift or abnormal extra-axial fluid collectio ns is seen. The visualized paranasal sinuses and mastoid air cells are well-aerated. IMPRESSION: No evidence of acute intracranial process.
[2019-04-08] MEDS: HYDROcodone/Acetaminophen 5/325 mg Tablet PO PRN ×2 (14:35→20:20)
--- NOTE | 2019-04-08 15:24 | HP ---
CHIEF COMPLAINT: Left facial numbness. HISTORY OF PRESENT ILLNESS: Mr. Fish is a 73-year-old man, who has presented after developing left-sided numbness early hours this morning at approximately 6 a.m. The patient states the symptoms resolved after approximately 50 minutes; however, he has continued to feel slightly dizzy since then. Denies any falls or trauma. Denies any staggering weight or lightheaded. Denies any spinning sensation. No further numbness or weakness in the face or in any of his extremities. The patient was recently discharged from the hospital on 02/28/2019 after being admitted with an ischemic stroke secondary to atrial fibrillation. The patient was seen by Dr. Coleman and Dr. Otto at that time. Advised to continue aspirin 81 mg, which he has done so, as well as his statin, which he has also been compliant with. The patient was started on diltiazem and recommended Eliquis 5 mg twice daily secondary to stroke risk reduction. The patient states he lost his bottle of Eliquis one week ago. He has been staying with some friends and states he is unsure of what happened to the prescription bottle, but has otherwise been compliant with all other medications. He denies any headache. No vision or speech disturbances. No recent fevers, chills, or sweats. Reports having occasional issues with swallowing. Denies any choking episodes, but feels it is hard to get the food to go down and initiate the swallow reflex. He states it has been intermittent for quite sometime. No trauma or injuries. No falls. No fevers, chills, or sweats. All other review of systems is negative. PAST MEDICAL HISTORY: 1. CVA. 2. Atrial fibrillation. 3. Hepatitis C. 4. Hypertension. 5. History of right lower extremity cellulitis. 6. Thrombocytopenia. 7. Anemia. 8. Tobacco abuse. 9. History of methamphetamine abuse. 10. Chronic right shoulder pain. 11. Blood clot in right eye 5-6 years ago. 12. Abdominal aortic aneurysm. PAST SURGICAL HISTORY: Abdominal aortic aneurysm repair 5-6 years ago. SOCIAL HISTORY: The patient reports smoking one pack a day. Denies any drug use. Reports occasional alcohol, 2-3 beers a day, but states this is not every day. Denies any history of withdrawal seizures or tremors. ALLERGIES: NO KNOWN DRUG ALLERGIES. CURRENT MEDICATIONS: 1. Hydrocodone. 2. Lisinopril. 3. Metoprolol. 4. Eliquis. 5. Aspirin. 6. Atorvastatin. 7. Diltiazem. PHYSICAL EXAMINATION: GENERAL: The patient appears thin, well developed and in no acute distress. VITAL SIGNS: Temperature 98, pulse 87, respirations 16, O2 saturation 98% on room air, blood pressure 132/74. HEENT: Normocephalic and atraumatic. Extraocular movements intact. Sclerae without icterus. Oropharynx is clear. NECK: Supple. LUNGS: Clear to auscultation. CARDIAC: Regular rate and rhythm. ABDOMEN: Soft, nondistended, nontender. Normoactive bowel sounds present. EXTREMITIES: No lower leg swelling or edema. NEUROLOGIC: Alert and oriented x3. Power 5/5 in all limbs. Facial movements and sensation intact. No tongue deviation. No cerebellar signs. No neuro deficits on exam. SKIN: Warm and dry. No rash or jaundice. LABORATORY DATA: White blood count 5.8, hemoglobin 10.6, hematocrit 32.1, platelets 88,000. PT 14.5, INR 1.1, APTT 24.7. Sodium 132, potassium 4.3, anion gap 13, BUN 17, GFR greater than 90, creatinine 0.83, calcium 9.1. AST 106, ALT 102, total bilirubin 0.5, alkaline phosphatase 112. Troponin negative. Albumin 3.7. Urinalysis negative. IMAGING DATA: CT of the brain showed no CT evidence of acute intracranial process. CT angiogram done on 02/26/2019 of the head and neck showed scattered atherosclerotic vascular disease without high-grade stenosis or occlusion. Mild to moderate focal stenosis at the origin of the cervical right ICA. MRI of the brain on 02/25/2019. Acute infarct involving the left cerebellum. Chronic small-vessel ischemic changes. No pathologic enhancement in the brain parenchyma. IMPRESSION AND PLAN: Mr. Fish is a 73-year-old man, who is being admitted for management of the followin. Cerebrovascular accident/transient ischemic attack. The patient is known to have a history of an acute ischemic left cerebellar stroke in February 2019 secondary to atrial fibrillation. The patient was discharged on a statin, baby aspirin, and Eliquis 5 mg twice daily. He was compliant with all medications until 1 week ago when he lost his prescription of Eliquis. The patient has been asymptomatic until today when he developed left facial numbness that lasted [address] of the brain showed no acute changes. MRI of the brain has been requested. The patient noted to have some moderate stenosis at the origin of the cervical right ICA. Followup carotid Doppler was advised, however, perhaps too soon to repeat at this time per radiologist. Therefore, carotid Doppler canceled. The patient had an EKG done in the ER showing atrial fibrillation with controlled ventricular response, heart rate of 79. We will order echocardiogram. We will resume statin, aspirin and Eliquis. The patient is asymptomatic at present. Continue stroke protocol. 2. Atrial fibrillation. The patient started on diltiazem when discharged last month. Continuous telemetry monitoring. Echo requested. We will resume Eliquis. We will discuss with attending if Cardiology consult is needed. 3. Anemia. The patient noted to have chronic anemia. Continue to monitor hemoglobin. 4. Tobacco use. The patient requesting nicotine patch. 5. Methamphetamine abuse. The patient denies any recent drug use or alcohol consumption. We will obtain urine drug screen. 6. Transaminitis. The patient with elevated AST and ALT in the 100s. We will check alcohol level and will monitor liver functions. Lipase added on. The patient without any abdominal pain or GI symptoms. 7. Gastrointestinal prophylaxis. 8. Deep venous thrombosis prophylaxis with mechanical SCDs. The patient will resume anticoagulation as stated above. 9. Code status: Full. His surrogate decision maker is Kathryn Stovall, his friend. The patient's case to be discussed with Dr. Sidhu for further recommendations. Job ID: [id number]
[2019-04-08 15:25] LABS: Troponin I Less than 0.010 ng/mL (< 0.028)
[2019-04-08 18:16] LABS: Troponin I Less than 0.010 ng/mL (< 0.028)
[2019-04-08] MEDS: Famotidine/PF 20 mg/2ml Vial SLOW IVP SCH (20:18)
[2019-04-08] MEDS: Diltiazem HCl SR 60 mg Capsule PO SCH (20:19)
[2019-04-08] MEDS: Apixaban 5 MG TAB PO SCH (20:19)
[2019-04-08] MEDS ORDERED: Lisinopril 10 MG TAB PO SCH (21:00)
[2019-04-08] MEDS ORDERED: Atorvastatin Calcium 20 MG TAB PO SCH (21:00)
[2019-04-08] MEDS ORDERED: Nicotine 14 MG PATCH TD SCH (21:00)
[2019-04-09] MEDS: HYDROcodone/Acetaminophen 5/325 mg Tablet PO PRN (00:32)
[2019-04-09] MEDS: Sodium Chloride 0.9% 1,000 ML IV SCH ×2 (03:40→10:20)
[2019-04-09 06:48] LABS: #Eosinphils 0.1 thou/uL (0.0-0.7); #Lymphocytes 1.8 thou/uL (1.20-3.40); #Monocytes 0.5 thou/uL (0.11-0.59); #Neutrophils 2.9 thou/uL (1.40-6.50); %Basophils 0.5 % (0.0-1.0); %Eosinophils 1.1 % (0.0-10.0); %Lymphocytes 33.9 % (21.0-51.0); %Monocytes 9.6 % (0.0-10.0); %Neutrophils 54.9 % (42.0-75.0); Hemoglobin 10.2 g/dL (14.0-18.0); Mean Corpuscular HGB CONC 31.8 g/dL (32.0-36.0); Mean Corpuscular Hemoglobin 30.9 pg (27.0-31.0); Mean Corpuscular Volume 97.1 fL (78.0-98.0); Platelet Count 117 thou/uL (130-400); RBC Distribution Width 13.7 % (11.5-14.5); Red Blood Cell (RBC) Count 3.29 mill/uL (4.70-6.10); White Blood Cell (WBC) Count 5.3 thou/uL (4.8-10.8)
[2019-04-09 06:55] LABS: ALT (SGPT) 98 U/L (8-55); AST (SGOT) 102 U/L (5-34); Albumin 3.4 g/dL (3.4-4.8); Alkaline Phosphatase 109 U/L (40-150); Anion Gap 11 mmol/L (10-20); BUN (Urea Nitrogen) 14 mg/dL (8.4-25.7); Bilirubin, Direct 0.3 mg/dL (0.1-0.3); Bilirubin, Total 0.5 mg/dL (0.2-1.2); Calc. Creatinine Clearance 69 mL/min (70-130); Carbon Dioxide 21 mmol/L (23-31); Chloride 102 mmol/L (98-107); Estimated GFR-MDRD Greater than 90; Glucose 102 mg/dL (83-110); Potassium 3.8 mmol/L (3.5-5.1); Protein, Total 7.5 g/dL (5.8-8.1); Sodium 130 mmol/L (136-145)
[2019-04-09] MEDS ORDERED: HYDROcodone/Acetaminophen 10/325 mg Tablet PO PRN ×2 (08:05→08:23)
[2019-04-09] MEDS: Diltiazem HCl SR 60 mg Capsule PO SCH (08:55)
[2019-04-09] MEDS: Apixaban 5 MG TAB PO SCH (08:55)
[2019-04-09] MEDS: Famotidine/PF 20 mg/2ml Vial SLOW IVP SCH (08:56)
[2019-04-09] MEDS ORDERED: Aspirin 81 mg Enteric Coated Tablet PO SCH (09:00)
[2019-04-09] MEDS ORDERED: Aspirin 325 mg Enteric Coated Tablet PO SCH (09:00)
[2019-04-09 12:15] VITALS: BP 144/70; TEMP 98
--- NOTE | 2019-04-09 12:39 | CON ---
DATE OF CONSULTATION: 04/09/2019 CHIEF COMPLAINT: Possible acute stroke. HISTORY OF PRESENT ILLNESS: The patient reports he had numbness of the left face and felt lightheaded and came in because he was afraid he was having another stroke. He did this as a matter of precaution. His AC broke down. He lives in the [facility]. We had seen him last in February. The patient thinks he had pills in his box and lost a few bottles. He thinks he lost Eliquis and another medication, he could not remember, but he has not been taking his meds for a week. At this time, his symptoms are back to baseline. PAST MEDICAL HISTORY: As noted, he was recently admitted for a stroke in last month. He has atrial fibrillation, hepatitis C, hypertension, right lower extremity cellulitis, thrombocytopenia, anemia, history of abdominal aortic aneurysm, and methamphetamine abuse. PAST SURGICAL HISTORY: Positive for abdominal aortic aneurysm repair 5 to 6 years ago and . SOCIAL HISTORY: Smokes pot occasionally. He used to drink a lot. He used to drink up to 12 beers a day, and he stopped drinking about 6 months ago. He does smoke 1-1/2 pack of cigarettes per day and lives by himself. Brother checks on him. He lives in the [facility] in a cabin. FAMILY HISTORY: Positive for COPD in his brother, who at age 65. Father in his 60s following esophagus and stomach cancer. Mother in her early 70s from heart failure. MEDICATIONS: He forgot that he is supposed to take his medicines at home, but lost some Eliquis recently and has stopped it. REVIEW OF SYSTEMS: PULMONARY: Negative for shortness of breath or cough. GI: Negative for nausea, vomiting, or diarrhea. GENITOURINARY: Negative for any bladder dysfunction. NEUROLOGICAL: Positive for numbness of the left side of face and dizziness. HEMATOLOGICAL: Negative for any bleeding diathesis or anemia. DERMATOLOGIC: Negative for any rash. LABORATORY WORKUP: White count 5.3, hemoglobin 10.2, hematocrit 31.9, platelets 117. Sodium 130, potassium 3.8, chloride 102, bicarb 21, BUN is 14, creatinine 0.8. His coagulation panel is within normal limits. Urine tox screen is positive for opiates. IMAGING STUDIES: His MRI of the brain was completed and it is negative for any evidence any acute stroke. PHYSICAL EXAMINATION: VITAL SIGNS: Blood pressure 152/85, pulse 79, temperature 97.5. GENERAL APPEARANCE: Thin-built, well-nourished man. CHEST: Clear vesicular breathing. CARDIOVASCULAR: S1 and S2 heard. No murmurs. ABDOMEN: Soft and nontender. No organomegaly noted. NEUROLOGICAL: General; thin built, well-nourished man, oriented to time, place, person and appropriate conversation. Cranial nerves 2 through 12. Pupils 2 mm reactive bilaterally and normal extraocular movements. Tongue midline. Normal sensation of face bilaterally. Normal elevation of palate. Motor and bulk normal tone, normal strength, 5/5 in upper and lower extremities. Muscle groups tested are deltoid, biceps, triceps, wrist extension and flexion, finger extension and flexion bilaterally. Sensory exam, normal to touch bilaterally. Cerebellar, normal [id number] and [id number] and gait not tested. IMPRESSION: The patient is a 73-year-old man, who came in with numbness of the left side of his face and his recent workup showed atrial fibrillation and he had no acute stroke in February of this year. At this time, he is back to baseline and his examination is normal. Diagnosis is more consistent with a transient ischemic attack rather than acute stroke. MRI is negative. RECOMMENDATIONS: The patient was noncompliant with his medication since he lost his med supply recently. I advised him to go back to this medication regimen with Eliquis and aspirin on a daily basis. I will see him again as needed. Job ID: [id number]
== END 2019-04-09 12:11 | disposition home or self-care (01) ==
LOC: ERS 09:52 → 2SE 12:00
PROVIDERS: ADMIT Internal Medicine; ATTEND Internal Medicine
DX: I65.21 Occlusion and stenosis of right carotid artery (principal); I48.91 Unspecified atrial fibrillation; D64.9 Anemia, unspecified; I10 Essential (primary) hypertension; F15.10 Other stimulant abuse, uncomplicated; D69.6 Thrombocytopenia, unspecified; M25.511 Pain in right shoulder; G89.29 Other chronic pain; F17.210 Nicotine dependence, cigarettes, uncomplicated; R74.0 Nonspecific elevation of levels of transaminase and lactic acid dehydrogenase [LDH]; Z86.73 Personal history of transient ischemic attack (TIA), and cerebral infarction without residual deficits; Z91.14 Patient's other noncompliance with medication regimen; Z79.82 Long term (current) use of aspirin; Z79.899 Other long term (current) drug therapy
CPT/HCPCS: 70450; 70551; 80048; 80053; 80076; 80306; 80307; 81003; 83690; 84484 ×2; 85025 ×2; 85610; 85730; 93005; 93306; 96361 ×3; 96374; 96376; 97139 ×2; 99285; G0378 ×3; 36415; 96360; S0028

== ENCOUNTER 2019-07-01 11:01 | Inpatient (IN) | payer MEDICARE, MEDICAID ==
[2019-07-01] MEDS ORDERED: Aspirin Chewable 81 MG TAB ONE (11:43)
[2019-07-01] MEDS ORDERED: Nitroglycerin 2% Ointment 1 INCH/1 GM Packet ONE (11:44)
[2019-07-01 12:06] LABS: INR-International Normal Ratio 1.1; PTT 34.4 SEC (22.9-36.1); Prothrombin Time 14.3 SEC (12.0-14.7)
--- NOTE | 2019-07-01 12:09 | RAD ---
EXAM: Chest one view: HISTORY: Dyspnea COMPARISON: 04/20/2019 and 05/12/2019 FINDINGS: Heart size: Upper range of normal. Lungs: Clear of acute process. No evidence for pneumonia, pleural effusion, acute edema, or pneumothorax, or other significant acute process. IMPRESSION: No significant acute intrathoracic disease. Atherosclerosis of the aorta. Stable exam.
[2019-07-01 12:12] LABS: #Eosinphils 0.1 thou/uL (0.0-0.7); #Lymphocytes 1.6 thou/uL (1.20-3.40); #Monocytes 0.5 thou/uL (0.11-0.59); #Neutrophils 2.7 thou/uL (1.40-6.50); %Basophils 0.3 % (0.0-1.0); %Eosinophils 1.9 % (0.0-10.0); %Lymphocytes 32.1 % (21.0-51.0); %Monocytes 10.7 % (0.0-10.0); Hemoglobin 9.7 g/dL (14.0-18.0); Mean Corpuscular HGB CONC 33.6 g/dL (32.0-36.0); Mean Corpuscular Hemoglobin 32.6 pg (27.0-31.0); Mean Corpuscular Volume 96.9 fL (78.0-98.0); Mean Platelet Volume 7.8 fL (7.4-10.4); Platelet Count 106 thou/uL (130-400); RBC Distribution Width 13.3 % (11.5-14.5); Red Blood Cell (RBC) Count 2.97 mill/uL (4.70-6.10)
[2019-07-01 12:22] LABS: ALT (SGPT) 70 U/L (8-55); AST (SGOT) 80 U/L (5-34); Albumin 3.6 g/dL (3.4-4.8); Alkaline Phosphatase 73 U/L (40-110); Anion Gap 12 mmol/L (10-20); BUN (Urea Nitrogen) 16 mg/dL (8.4-25.7); Bilirubin, Total 0.4 mg/dL (0.2-1.2); CK (CPK) 71 U/L (30-200); Calc. Creatinine Clearance 0 mL/min (70-130); Calcium 8.9 mg/dL (7.8-10.44); Carbon Dioxide 24 mmol/L (23-31); Chloride 101 mmol/L (98-107); Estimated GFR-MDRD 84; Globulin 3.9 g/dL (2.4-3.5); Glucose 116 mg/dL (83-110); Potassium 4.3 mmol/L (3.5-5.1); Protein, Total 7.5 g/dL (5.8-8.1); Sodium 133 mmol/L (136-145)
[2019-07-01] MEDS ORDERED: Furosemide 40 MG/4 ML VIAL ONE (12:57)
[2019-07-01] MEDS ORDERED: Enoxaparin Sodium 60 MG/0.6 ML SYRINGE ONE (13:20)
[2019-07-01] MEDS ORDERED: Acetaminophen 650 MG Suppository PR PRN (14:11)
[2019-07-01] MEDS ORDERED: Ondansetron ODT 4 MG TAB PO PRN (14:11)
[2019-07-01] MEDS ORDERED: Acetaminophen 325 MG TAB PO PRN (14:11)
[2019-07-01] MEDS ORDERED: Ondansetron PF 4 MG/2 ML Vial IVP PRN (14:11)
[2019-07-01] MEDS ORDERED: Nicotine 14 MG PATCH ONE (15:10)
[2019-07-01 15:16] LABS: Troponin I 0.028 ng/mL (< 0.028)
--- NOTE | 2019-07-01 15:32 | HP ---
TIME OF ASSESSMENT: 1300 hours. PRIMARY CARE PHYSICIAN: Dr. Mendoza. CHIEF COMPLAINT: Progressive exertional shortness of breath and orthopnea. HISTORY OF PRESENT ILLNESS: Mr. Fish is a very pleasant 74-year-old gentleman with a known history of COPD, hypertension, and atrial fibrillation, who presents with complaints of worsening shortness of breath for the last 3 to 4 weeks. The patient states it tends to be noticeable at night when he is trying to sleep. He finds it most comfortable when he is lying on his side, but is able to sleep flat on his back without any increased shortness of breath. He states the episodes are associated with palpitations causing him to get up out of bed and walk around. He denies any associated lightheadedness, dizziness, or chest pain. He also reports in the last week noting worsening shortness of breath with exertion. He had difficulty sleeping the last couple of nights and then today when walking to his truck, he noted he was extremely winded. He denies any cough or hemoptysis. Did not note any lower extremity swelling. Has not had any recent fevers, chills, or sweats. He does continue smoking about a pack per day. He also smokes marijuana occasionally. Denies any other drug use, though he does have a history of polysubstance abuse in the past. He also reports drinking heavily previously, but in the last several months he drinks 2 to 3 beers a week and it can go several days without drinking at all. He denies any withdrawal symptoms or seizures associated with alcohol abstinence. In the emergency department, the patient has undergone laboratory studies, which were notable for hemoglobin of 9.7 and BNP of 707. He underwent a chest x-ray which showed no significant acute intrathoracic disease. There was atherosclerosis of the aorta present. Otherwise, exam appeared stable. Given the elevated BNP and shortness of breath, the patient was referred to us for further management and workup of new onset CHF. The patient has undergone an echocardiogram in the past on April 09, 2019 as part of TIA workup. At that time, the echo showed an EF of 45% to 50% with overall left ventricular function mildly depressed, left atrium mildly dilated, mildly enlarged right atrium, moderate mitral regurgitation present. Also present was severe tricuspid regurgitation. The patient has been seen by Cardiology during a previous admission in February 2019 for atrial fibrillation, RVR and seen by Dr. Coleman with recommendations to follow up with him as an outpatient, however, he never attended. The patient states he has continued to take the metoprolol, but ran out of his Eliquis one week ago and has not followed up with his primary care physician. REVIEW OF SYSTEMS: Apart from those mentioned above in HPI, all other review of systems are negative. PAST MEDICAL HISTORY: 1. COPD. 2. Hypertension. 3. Atrial fibrillation. 4. Severe tricuspid regurgitation and moderate mitral valve regurgitation. 5. Hypertension. 6. Tobacco use. 7. Chronic hepatitis, never treated. 8. History of TIA. 9. Dyslipidemia. 10. Polysubstance abuse. PAST SURGICAL HISTORY: AAA repair. FAMILY HISTORY: Noncontributory. SOCIAL HISTORY: The patient smokes a pack a day. He drinks 2 to 3 beers a week. Reports occasional marijuana use. No other illicit drug use for the last several months. ALLERGIES: NO KNOWN DRUG ALLERGIES. CURRENT MEDICATIONS: 1. Metoprolol. 2. Eliquis, ran out one week ago. 3. Lisinopril. PHYSICAL EXAMINATION: GENERAL: The patient appears thin, well developed, and in no acute distress. VITAL SIGNS: Temperature 98.4, pulse 59, respirations 18, O2 saturation 99% on room air, blood pressure 140/61. HEENT: Normocephalic and atraumatic. Pupils are equal, round, and reactive to light. Sclerae icterus. Oropharynx is clear. NECK: Supple. LUNGS: Clear to auscultation bilaterally without any wheezes, rales, or rhonchi. CARDIAC: Irregular, no audible murmurs, rubs, or gallops. ABDOMEN: Soft, nontender, nondistended. Normoactive bowel sounds present. EXTREMITIES: No calf tenderness. He does have +1 pitting edema. NEUROLOGIC: Alert and oriented x3. SKIN: Warm and dry. No rash or jaundice. INVESTIGATIONS: As mentioned above in HPI. IMPRESSION AND PLAN: Mr. Fish is a pleasant 74-year-old gentleman, who is being admitted for management of the following. 1. Progressive exertional shortness of breath. The patient with an elevated BNP in the 700s. Last echo done in March 2019 showed an EF of 45% to 50% with moderate MR and severe TR. We will repeat an echo to assess for any further changes and have consulted Cardiology. We will discuss with Dr. Flores who is on-call today regarding resumption of Eliquis. Initial troponin negative. We will obtain urine drug screen. We will place consultation to cardiac rehab. 2. Atrial fibrillation. EKG done in the emergency department showed atrial fibrillation with controlled ventricular response. Heart rate 72. Again, we will discuss with Dr. Flores if okay to resume Eliquis or if need to hold until evaluated by them. 3. Hypertension. Monitor blood pressure and resume home medications once reconciled. 4. Chronic obstructive pulmonary disease. P.r.n. DuoNeb. 5. GI prophylaxis. Famotidine. 6. Deep venous thrombosis prophylaxis. Mechanical SCDs. 7. Code status, full. His surrogate decision maker is his friend, Kathryn Wilman. The patient's case was discussed with Dr. Montalvo, who agrees with plan of care as described above. Job ID: [id number]
[2019-07-01 17:35] LABS: Bilirubin Negative (Negative); Blood, Urine Negative (Negative); Clarity Clear (Clear); Glucose, Urine (Dipstick) Normal (Negative); Leukocyte Negative Leu/uL (Negative); Nitrite Negative (Negative); Protein, Urine (Dipstick) Negative (Neg-Trace); Urobilinogen Normal mg/dL (Less than 2)
[2019-07-01 17:37] LABS: Urine Culture Reflex No No
[2019-07-01 17:49] LABS: Amphetamine Not Detected (NotDetected); Barbiturates Screen Not Detected (NotDetected); Benzodiazepine Screen Not Detected (NotDetected); Cocaine Metabolite Screen Not Detected (NotDetected); Medtox Control Line Valid? VALID (VALID); Medtox Reader # READER 4; Methadone Not Detected (NotDetected); Methamphetamine Not Detected (NotDetected); Opiate Screen Detected (NotDetected); Oxycodone Screen Not Detected (NotDetected); Phencyclidine (PCP) Not Detected (NotDetected); THC/Cannabinoid Screen Not Detected (NotDetected); Tricyclic Screen Not Detected (NotDetected)
[2019-07-01 18:25] LABS: Troponin I Less than 0.010 ng/mL (< 0.028)
--- NOTE | 2019-07-01 19:20 | CON ---
DATE OF CONSULTATION: REASON FOR CONSULTATION: Elevated BNP and history of mild cardiomyopathy and COPD. Dr. Coleman is the primary buckle and button maker. HISTORY OF PRESENT ILLNESS: Mr. Fish is an unfortunate 74-year-old gentleman, who has had a previous history of atrial fibrillation. In addition to mild cardiomyopathy, he ran out of his medications. He states over the last several days he has had progressive shortness of breath. He has had minimal lower extremity edema. No changes in weight. No PND or orthopnea. He likely has underlying COPD. He continues to smoke both tobacco and marijuana. He states he feels much better and is back to baseline. PAST MEDICAL HISTORY: Atrial fibrillation, COPD, hypertension, severe tricuspid regurgitation, tobacco abuse, hepatitis, TIA, and hyperlipidemia. SOCIAL HISTORY: As above. ALLERGIES: NONE. HOME MEDICATIONS: Include: 1. Metoprolol. 2. Lisinopril. REVIEW OF SYSTEMS: A 10-point review of systems is reviewed and as above, otherwise negative. PHYSICAL EXAMINATION: GENERAL: Patient is a pleasant gentleman, who is in no acute distress. The patient appears their stated age. He does appear older than stated age. VITAL SIGNS: Blood pressure 132/81, pulse 87, and temperature 97.3. NEUROLOGIC: The patient is alert and oriented x3 with no focal neurologic deficits. HEENT: Sclerae without icterus. Mouth has moist mucous membranes with normal pallor. NECK: No JVD. Carotid upstroke brisk. No bruits bilaterally. LUNGS: Clear to auscultation with unlabored respirations. BACK: No scoliosis or kyphosis. CARDIAC: Regular rate and rhythm with normal S1 and S2. No S3 or S4 noted. No significant rubs, murmurs, thrills, or gallops noted throughout the precordium. PMI is not displaced. There is no parasternal heave. ABDOMEN: Soft, nontender, nondistended. No peritoneal signs present. No hepatosplenomegaly. No abnormal striae. EXTREMITIES: 2+ femoral and 2+ dorsalis pedis pulses. No cyanosis, clubbing, or edema. SKIN: No gross abnormalities. PERTINENT LABORATORY DATA: Hemoglobin 9.7. Creatinine 0.9 and BNP of 707. Troponin negative. IMPRESSION: 1. Shortness of breath. 2. Elevated BNP. 3. Likely chronic obstructive pulmonary disease. 4. Tobacco abuse. RECOMMENDATIONS: Mr. Fish does have a mild cardiomyopathy. LVEF 45% to 50%. He also has severe TR, likely related to underlying lung disease. At this point, we will treat his lungs aggressively. He does not appear to be volume overloaded from a physical examination standpoint. He feels much better. He has no lower extremity edema and no crackles noted bilaterally. The patient has been on a previous anticoagulation therapy for atrial fibrillation, will resume. His heart rate appears stable. I counseled on cessation of tobacco products. Otherwise, I have no further recommendations. Job ID: [id number]
[2019-07-01] MEDS: Famotidine/PF 20 mg/2ml Vial SLOW IVP SCH (20:22)
[2019-07-01] MEDS ORDERED: HYDROcodone/Acetaminophen 10/325 mg Tablet PO SCH (21:15)
[2019-07-02 06:25] LABS: #Eosinphils 0.1 thou/uL (0.0-0.7); #Lymphocytes 1.7 thou/uL (1.20-3.40); #Monocytes 0.4 thou/uL (0.11-0.59); %Basophils 0.7 % (0.0-1.0); %Eosinophils 2.9 % (0.0-10.0); %Lymphocytes 40.4 % (21.0-51.0); %Monocytes 8.7 % (0.0-10.0); %Neutrophils 47.3 % (42.0-75.0); Hemoglobin 10.7 g/dL (14.0-18.0); Mean Corpuscular HGB CONC 33.8 g/dL (32.0-36.0); Mean Corpuscular Hemoglobin 32.5 pg (27.0-31.0); Mean Platelet Volume 7.7 fL (7.4-10.4); Platelet Count 118 thou/uL (130-400); RBC Distribution Width 13.2 % (11.5-14.5); Red Blood Cell (RBC) Count 3.28 mill/uL (4.70-6.10); White Blood Cell (WBC) Count 4.1 thou/uL (4.8-10.8)
[2019-07-02 06:35] LABS: Anion Gap 12 mmol/L (10-20); BUN (Urea Nitrogen) 17 mg/dL (8.4-25.7); Calc. Creatinine Clearance 60 mL/min (70-130); Calcium 9.2 mg/dL (7.8-10.44); Carbon Dioxide 25 mmol/L (23-31); Chloride 100 mmol/L (98-107); Estimated GFR-MDRD 87; Glucose 86 mg/dL (83-110); Potassium 4.1 mmol/L (3.5-5.1); Sodium 133 mmol/L (136-145)
[2019-07-02] MEDS ORDERED: Rivaroxaban 10 MG TAB PO SCH (07:45)
[2019-07-02] MEDS: Famotidine/PF 20 mg/2ml Vial SLOW IVP SCH ×2 (08:14→21:30)
[2019-07-02] MEDS ORDERED: Furosemide 40 MG/4 ML VIAL IVP SCH (10:45)
--- NOTE | 2019-07-02 11:17 | PRG ---
DATE OF SERVICE: 07/02/2019 SUBJECTIVE: Mr. Fish states he has had some shortness of breath overnight. He is much better than his arrival. He states he did feel much better after neb treatment. He has not received Lasix. OBJECTIVE: VITAL SIGNS: Blood pressure 165/81, pulse 88, and temperature 97.6. LUNGS: Crackles noted bilaterally. HEART: Regular rate and rhythm. ABDOMEN: Soft, nontender, nondistended. EXTREMITIES: No edema. PERTINENT LABORATORY DATA: Hemoglobin 10.7, creatinine 0.86. IMPRESSION: 1. Mild cardiomyopathy. 2. Shortness of breath. 3. Chronic obstructive pulmonary disease. 4. Continued tobacco abuse. 5. Paroxysmal atrial fibrillation. RECOMMENDATIONS: 1. Give one dose of Lasix IV at 40 mg. 2. Continue pulmonary support. 3. I feel his pulmonary status is likely causing most of his symptoms. He has no lower extremity edema with minimal crackles noted. We will challenge with Lasix. 4. Add novel oral anticoagulation therapy as specified by Dr. Coleman on his previous admission. 5. Home soon. Job ID: [id number]
[2019-07-02] MEDS ORDERED: Aspirin 81 mg Enteric Coated Tablet PO SCH (13:15)
[2019-07-02] MEDS ORDERED: Cyanocobalamin (Vitamin B-12) 1,000 MCG TAB PO SCH (13:15)
[2019-07-02] MEDS ORDERED: Famotidine/PF 20 mg/2ml Vial SLOW IVP SCH (13:15)
[2019-07-02] MEDS ORDERED: Folic Acid 1 MG TAB PO SCH (13:15)
[2019-07-02] MEDS ORDERED: Diltiazem HCl SR 60 mg Capsule PO SCH (13:15)
[2019-07-02] MEDS: Nicotine 21 MG PATCH TD SCH (13:41)
--- NOTE | 2019-07-02 14:25 | PDOC.HOSPP ---
- Subjective Encounter Date: 07/02/19 Encounter Time: 07:40 Subjective: Pt seen for followup re: shortness of breath. Feels slightly better. - Objective Vital Signs & Weight: Vital Signs (12 hours) Temp Pulse Resp BP Pulse Ox 07/02/19 11:25 98.2 F 83 18 151/76 H 100 07/02/19 08:10 97.6 F 88 16 165/81 H 99 07/02/19 03:28 98.1 F 84 16 126/66 97 Weight Weight 119 lb 8 oz I&O: 07/01/19 07/02/19 07/03/19 06:59 06:59 06:59 Intake Total 390 Output Total 300 Balance 90 Result Diagrams: 07/02/19 04:58 07/02/19 04:58 Additional Labs: Labs and MARs reviewed by wi Hospitalist ROS - Review of Systems Respiratory: reports: SOB with excertion. denies: cough, shortness of breath, pleuritic pain, wheezing Cardiovascular: denies: chest pain, palpitations, orthopnea, paroxysmal noc. dyspnea, edema, light headedness - Medication Medications: Active Medications Generic Name Dose Route Start Last Admin Trade Name Freq PRN Reason Stop Dose Admin Aspirin 81 mg 07/02/19 13:15 07/02/19 13:40 Ecotrin PO 07/02/19 15:15 81 mg NOW HIPOLITO Administration Cyanocobalamin 1,000 mcg 07/02/19 13:15 07/02/19 13:40 Vitamin B-12 PO 07/02/19 15:15 1,000 mcg NOW HIPOLITO Administration Famotidine 20 mg 07/01/19 21:00 07/02/19 08:14 Pepcid SLOW IVP 20 mg Q12HR HIPOLITO Administration Folic Acid 1 mg 07/02/19 13:15 07/02/19 13:40 Folvite PO 07/02/19 15:15 1 mg NOW HIPOLITO Administration Metoprolol Succinate 50 mg 07/02/19 13:15 07/02/19 13:40 Toprol Xl PO 07/02/19 15:15 50 mg NOW HIPOLITO Administration Nicotine 21 mg 07/02/19 14:00 07/02/19 13:41 Nicoderm Patch TD 21 mg Q24HR HIPOLITO Administration Sodium Chloride 10 ml 07/01/19 14:11 07/02/19 11:28 Flush - Normal Saline IVF 10 ml Q12H PRN Administration Saline Flush - Exam General Appearance: NAD Eye: anicteric sclera ENT: normocephalic atraumatic, moist mucosa Neck: supple Heart: RRR, no rubs Respiratory - other findings: few bibasal crackles Gastrointestinal: soft, non-tender Extremities: no edema Psychiatric: normal affect, normal behavior Hosp A/P (1) Shortness of breath Code(s): R06.02 - SHORTNESS OF BREATH Status: Acute (2) Hyponatremia Code(s): E87.1 - HYPO-OSMOLALITY AND HYPONATREMIA Status: Acute (3) Hypertension Code(s): I10 - ESSENTIAL (PRIMARY) HYPERTENSION Status: Chronic (4) PAF (paroxysmal atrial fibrillation) Code(s): I48.0 - PAROXYSMAL ATRIAL FIBRILLATION Status: Chronic (5) Protein-calorie malnutrition, mild Code(s): E44.1 - MILD PROTEIN-CALORIE MALNUTRITION Status: Chronic (6) Tobacco abuse Code(s): Z72.0 - TOBACCO USE Status: Chronic - Plan out of bed/ambulate Shortnerss of breath improving, likely combination of COPD and CHRF. Hyponatremia mild, likely asymptomatic. Pt counseled re; tobacco and marijuana cessation, start nicotine replacement therapy. Echo pending.
[2019-07-02 14:43] VITALS: BMI 18.1
[2019-07-02] MEDS ORDERED: Prevnar 13-Val Conj/PF 0.5 ML SYRINGE IM ONE (18:15)
[2019-07-02] MEDS ORDERED: FLU VACC TS2019-20(65YR UP)/PF 180 MCG/0.5 ML SYRINGE IM ONE (18:15)
[2019-07-02] MEDS: Lisinopril 10 MG TAB PO SCH (21:29)
[2019-07-02] MEDS: Diltiazem HCl SR 60 mg Capsule PO SCH (21:29)
[2019-07-02] MEDS: Atorvastatin Calcium 20 MG TAB PO SCH (21:30)
[2019-07-03] MEDS ORDERED: Rivaroxaban 10 MG TAB PO SCH (06:00)
[2019-07-03] MEDS: Cyanocobalamin (Vitamin B-12) 1,000 MCG TAB PO SCH (08:46)
[2019-07-03] MEDS: Aspirin 81 mg Enteric Coated Tablet PO SCH (08:46)
[2019-07-03] MEDS: Diltiazem HCl SR 60 mg Capsule PO SCH (08:46)
[2019-07-03] MEDS: Folic Acid 1 MG TAB PO SCH (08:46)
[2019-07-03] MEDS: Famotidine/PF 20 mg/2ml Vial SLOW IVP SCH (08:52)
[2019-07-03] MEDS ORDERED: Famotidine 20 MG TAB PO SCH (10:45)
[2019-07-03] MEDS ORDERED: ALPRAZolam 0.25 MG TAB PO PRN (12:28)
--- NOTE | 2019-07-03 12:35 | PDOC.HOSPP ---
- Subjective Encounter Date: 07/03/19 Encounter Time: 08:00 Subjective: Pt seen for followup re: cardiomyopathy. Feels okay. - Objective Vital Signs & Weight: Vital Signs (12 hours) Temp Pulse Resp BP Pulse Ox 07/03/19 12:00 98.3 F 70 17 126/65 98 07/03/19 07:59 98.3 F 82 17 117/69 82 L 07/03/19 04:00 98.1 F 82 18 114/62 96 Weight Admit Weight 122 lb 12.8 oz Weight 119 lb 8 oz I&O: 07/02/19 07/03/19 07/04/19 06:59 06:59 06:59 Intake Total 390 1400 Output Total 300 725 Balance 90 675 Result Diagrams: 07/02/19 04:58 07/02/19 04:58 Additional Labs: labs and MARs reviewed by me EKG Reviewed by me: Yes (Tele: kun mcfadden) Hospitalist ROS - Review of Systems Respiratory: reports: SOB with excertion. denies: cough, shortness of breath, pleuritic pain, wheezing Cardiovascular: denies: chest pain, palpitations, orthopnea, paroxysmal noc. dyspnea, edema, light headedness - Medication Medications: Active Medications Generic Name Dose Route Start Last Admin Trade Name Freq PRN Reason Stop Dose Admin Albuterol/Ipratropium 3 ml 07/01/19 14:27 07/02/19 21:34 Duoneb NEB 3 ml [id number] PRN Administration SOB &/or Wheezing Aspirin 81 mg 07/03/19 09:00 07/03/19 08:46 Ecotrin PO 81 mg DAILY HIPOLITO Administration Atorvastatin Calcium 20 mg 07/02/19 21:00 07/02/19 21:30 Lipitor PO 20 mg HS HIPOLITO Administration Cyanocobalamin 1,000 mcg 07/03/19 09:00 07/03/19 08:46 Vitamin B-12 PO 1,000 mcg DAILY HIPOLITO Administration Famotidine 20 mg 07/03/19 10:45 07/03/19 12:08 Pepcid PO 07/03/19 12:45 20 mg NOW HIPOLITO Administration Folic Acid 1 mg 07/03/19 09:00 07/03/19 08:46 Folvite PO 1 mg DAILY HIPOLITO Administration Lisinopril 10 mg 07/02/19 21:00 07/02/19 21:29 Zestril PO 10 mg HS HIPOLITO Administration Nicotine 21 mg 07/02/19 14:00 07/02/19 13:41 Nicoderm Patch TD 21 mg Q24HR HIPOLITO Administration Pantoprazole Sodium 40 mg 07/03/19 09:00 07/03/19 08:47 Protonix PO 40 mg DAILY HIPOLITO Administration Sodium Chloride 10 ml 07/01/19 14:11 07/02/19 11:28 Flush - Normal Saline IVF 10 ml Q12H PRN Administration Saline Flush - Exam General - other findings: malnourished Eye: anicteric sclera ENT: normocephalic atraumatic, moist mucosa Neck: supple, no thyromegaly Heart: irregular, murmur present Respiratory: wheezes Gastrointestinal: soft, non-tender Neurological: no weakness Musculoskeletal: normal strength Psychiatric: normal affect, normal behavior Hosp A/P (1) Cardiomyopathy Code(s): I42.9 - CARDIOMYOPATHY, UNSPECIFIED Status: Acute (2) Acute on chronic systolic heart failure, NYHA class 3 Code(s): I50.23 - ACUTE ON CHRONIC SYSTOLIC (CONGESTIVE) HEART FAILURE Status : Acute (3) Hyponatremia Code(s): E87.1 - HYPO-OSMOLALITY AND HYPONATREMIA Status: Acute (4) Hypertension Code(s): I10 - ESSENTIAL (PRIMARY) HYPERTENSION Status: Chronic (5) PAF (paroxysmal atrial fibrillation) Code(s): I48.0 - PAROXYSMAL ATRIAL FIBRILLATION Status: Chronic (6) Protein-calorie malnutrition, mild Code(s): E44.1 - MILD PROTEIN-CALORIE MALNUTRITION Status: Chronic (7) Tobacco abuse Code(s): Z72.0 - TOBACCO USE Status: Chronic - Plan Shortnes of breath improving, likely from systolic CHF. Hyponatremia likely asymptomatic. Continue nicotine replacement therapy. EF 30-35%, pt needs Life Vest.
[2019-07-03] MEDS: Nicotine 21 MG PATCH TD SCH (13:21)
[2019-07-03] MEDS ORDERED: Carvedilol 3.125 MG TAB PO SCH (17:00)
[2019-07-03] MEDS: Atorvastatin Calcium 20 MG TAB PO SCH (22:14)
[2019-07-03] MEDS: Lisinopril 10 MG TAB PO SCH ×2 (22:14→22:15)
[2019-07-03] MEDS: Apixaban 5 MG TAB PO SCH (22:16)
[2019-07-03] MEDS: Famotidine 20 MG TAB PO SCH (22:16)
--- NOTE | 2019-07-04 02:52 | EKG ---
Test Reason : WEAKNESS Blood Pressure : / mmHG Vent. Rate : 072 BPM Atrial Rate : 089 BPM P-R Int : 000 ms QRS Dur : 088 ms QT Int : 416 ms P-R-T Axes : 000 006 003 degrees QTc Int : 455 ms Atrial fibrillation rate controlled Low voltage QRS Septal infarct , age undetermined Abnormal ECG Confirmed by CARLO CHIU, PILI ([id number]), school photograph editor TRACIE GANDHI ([id number]) on 07/04/2019 2:52:24 AM Referred By: Confirmed By:PILI MATOS MD
[2019-07-04] MEDS: Folic Acid 1 MG TAB PO SCH (09:33)
[2019-07-04] MEDS: Famotidine 20 MG TAB PO SCH (09:33)
[2019-07-04] MEDS: Aspirin 81 mg Enteric Coated Tablet PO SCH (09:33)
[2019-07-04] MEDS: Apixaban 5 MG TAB PO SCH (09:33)
[2019-07-04] MEDS: Cyanocobalamin (Vitamin B-12) 1,000 MCG TAB PO SCH (09:33)
[2019-07-04 11:34] VITALS: BP 127/66; TEMP 97.6
--- NOTE | 2019-07-04 16:25 | DIS ---
DATE OF ADMISSION: 07/01/2019 DATE OF DISCHARGE: 07/04/2019 PRIMARY CARE PHYSICIAN: Dr. Heriberto Mendoza. DISCHARGE DIAGNOSES: 1. Cardiomyopathy. 2. Acute on chronic systolic congestive heart failure, [place] [employer], class III. 3. Hyponatremia. 4. Paroxysmal atrial fibrillation. 5. Mild protein-calorie malnutrition. 6. Tobacco abuse. CONDITION: Condition of the patient on the day of discharge: Stable. I assessed Mr. Fish on the day of discharge. He denies any chest pain or shortness of breath. Vital signs are stable. S1 and S2 are heard, regular. Lungs are clear to auscultation bilaterally. FOLLOWUP APPOINTMENTS: With primary care provider in 3 to 5 days' time and with onsite health coach, Dr. Coleman, in 2 weeks' time. CONSULTATIONS DURING THIS HOSPITALIZATION: Cardiology, Dr. Flores. DISCHARGE MEDICATIONS: 1. [place] p.r.n. 2. Lisinopril 10 mg at bedtime. 3. Nicoderm 21 mg patch daily. 4. Apixaban 5 mg 2 times a day. 5. Aspirin 81 mg daily. 6. Lipitor 20 mg at bedtime. 7. Coreg 3.125 mg 2 times a day. 8. Vitamin B12 of 1000 mcg daily. 9. Folic acid 1 mg daily. 10. Protonix 40 mg daily. 11. Metoprolol has been discontinued. 12. Cardizem is contraindicated because of low ejection fraction. HOSPITAL COURSE: Mr. Fish is a pleasant 74-year-old gentleman, who was admitted to [facility] on July 01, 2019, for congestive heart failure exacerbation. He was treated with intravenous diuretics with improvement in his symptoms. He underwent transthoracic echocardiogram, which showed moderately increased left ventricular size, left ventricular ejection fraction estimated at 30% to 35% and atrial fibrillation. Right ventricular size and function were normal. Left atrium was severely dilated. He had moderate to severely enlarged right atrium size, [id number] mitral regurgitation, severe tricuspid regurgitation, and moderately to severely elevated pulmonary artery pressure. There was no evidence of pericardial effusion. Because of his low ejection fraction, he was advised LifeVest. He is being discharged home on LifeVest. Many thanks for allowing me to participate in your patient's care. Please feel free to contact me with any questions or concerns. He has been advised to stop smoking. DISCHARGE DESTINATION: Home. TIME SPENT: Total amount of time spent in coordinating this discharge: 32 minutes. Job ID: [id number]
[2019-07-04] MEDS ORDERED: Carvedilol 3.125 MG TAB PO SCH (17:00)
== END 2019-07-04 12:55 | disposition home or self-care (01) | DRG 292 ==
LOC: ERS 11:01 → 2NO 13:01
PROVIDERS: ADMIT Internal Medicine; ATTEND Internal Medicine
DX: I11.0 Hypertensive heart disease with heart failure (principal); E44.1 Mild protein-calorie malnutrition; E87.1 Hypo-osmolality and hyponatremia; Z68.1 Body mass index [BMI] 19.9 or less, adult; J96.11 Chronic respiratory failure with hypoxia; J44.9 Chronic obstructive pulmonary disease, unspecified; I08.1 Rheumatic disorders of both mitral and tricuspid valves; B18.2 Chronic viral hepatitis C; E78.5 Hyperlipidemia, unspecified; F19.10 Other psychoactive substance abuse, uncomplicated; I48.0 Paroxysmal atrial fibrillation; I50.23 Acute on chronic systolic (congestive) heart failure; I42.9 Cardiomyopathy, unspecified; F17.210 Nicotine dependence, cigarettes, uncomplicated; Z79.01 Long term (current) use of anticoagulants; Z86.73 Personal history of transient ischemic attack (TIA), and cerebral infarction without residual deficits
CPT/HCPCS: 36415; 71045; 80048; 80053; 80306; 81001; 82550; 83880; 84484; 85025; 85610; 85730; 93005; 93306; 93798; 94640; 94760; 96372; 96374; J1650; J1940; J7620; S0028

== ENCOUNTER 2019-07-05 15:18 | Observation (INO) | payer MEDICARE, MEDICAID ==
[2019-07-05 17:17] LABS: #Eosinphils 0.1 thou/uL (0.0-0.7); #Lymphocytes 1.7 thou/uL (1.20-3.40); #Monocytes 0.7 thou/uL (0.11-0.59); #Neutrophils 3.1 thou/uL (1.40-6.50); %Basophils 0.6 % (0.0-1.0); %Eosinophils 1.6 % (0.0-10.0); %Lymphocytes 31.4 % (21.0-51.0); %Monocytes 11.6 % (0.0-10.0); %Neutrophils 54.8 % (42.0-75.0); Hemoglobin 10.3 g/dL (14.0-18.0); Mean Corpuscular Hemoglobin 32.5 pg (27.0-31.0); Mean Corpuscular Volume 95.7 fL (78.0-98.0); Mean Platelet Volume 7.2 fL (7.4-10.4); Platelet Count 128 thou/uL (130-400); RBC Distribution Width 13.2 % (11.5-14.5); Red Blood Cell (RBC) Count 3.18 mill/uL (4.70-6.10); White Blood Cell (WBC) Count 5.6 thou/uL (4.8-10.8)
--- NOTE | 2019-07-05 17:43 | RAD ---
Exam: Chest one view HISTORY:Dyspnea Comparison: 07/01/2019 FINDINGS: Lungs: Hyperinflated. No consolidation. Mild interstitial prominence of the left lung base. Cardiac silhouette:Enlarged. Vascular calcification is present Pulmonary vessels: Normal Pleural Spaces: Clear Pneumothorax: None Osseous abnormalities: Stable chronic deformity of the posterior left fifth rib IMPRESSION: Stable chest.
[2019-07-05 17:47] LABS: ALT (SGPT) 89 U/L (8-55); AST (SGOT) 100 U/L (5-34); Albumin 3.8 g/dL (3.4-4.8); Alkaline Phosphatase 70 U/L (40-110); Anion Gap 12 mmol/L (10-20); BUN (Urea Nitrogen) 26 mg/dL (8.4-25.7); Bilirubin, Total 0.6 mg/dL (0.2-1.2); CK (CPK) 38 U/L (30-200); Calc. Creatinine Clearance 0 mL/min (70-130); Calcium 9.6 mg/dL (7.8-10.44); Carbon Dioxide 24 mmol/L (23-31); Chloride 101 mmol/L (98-107); Estimated GFR-MDRD 69; Globulin 3.8 g/dL (2.4-3.5); Glucose 104 mg/dL (83-110); Protein, Total 7.6 g/dL (5.8-8.1); Sodium 133 mmol/L (136-145)
[2019-07-05] MEDS ORDERED: Digoxin 0.5 MG/2 ML AMP ONE (18:55)
[2019-07-05] MEDS ORDERED: Acetaminophen 325 MG TAB PO PRN (22:10)
--- NOTE | 2019-07-05 22:38 | PDOC.EVN ---
Event Note - Event Note Event Note: H and P dictated. Has afib with variable rate. Had Dig 0.5 mg IV. HR decreased to 80's for two hours. Now starting to increase a bit again. Will give Lopressor 5 mg IV. If he does not improve, may need amio gtt.
[2019-07-05] MEDS ORDERED: Metoprolol Tartrate 25 MG TAB ONE (22:39)
[2019-07-05] MEDS ORDERED: Metoprolol Tartrate 5 MG/5 ML VIAL ONE (22:41)
[2019-07-05] MEDS ORDERED: Metoprolol Tartrate 5 MG/5 ML VIAL IVP SCH (22:45)
--- NOTE | 2019-07-05 23:38 | HP ---
CHIEF COMPLAINT: Shortness of breath. HISTORY OF PRESENT ILLNESS: This patient is a 74-year-old male, who was just discharged from the hospital yesterday. At that time, the patient was admitted on July 01 with some congestive heart failure exacerbation, had a transthoracic echo revealing an EF of 30% to 35%, and the patient was in atrial fibrillation as well, had a severely dilated left atrium, moderate to severely enlarged right atrium, moderate to severe mitral regurgitation, severe tricuspid regurgitation, and moderate to severe elevated pulmonary artery pressures. Now the patient was felt to have a primary pulmonary disease resulting in significant congestive heart failure and valvular disease. He had medications initiated and was discharged to home on a LifeVest. Today, the patient was at home. He tried to walk around his house a little bit and felt the onset of some shortness of breath. Subsequently, he started feeling palpitations and his defibrillator started to vibrate, per his report in the right back area. It subsequently made some noise and he pushed some buttons and its a treatment delayed bystander stand back and he subsequently got scared, called an ambulance, came to the emergency department. En route, the patient had an EKG showing atrial fibrillation with a rate of 128 beats per minute. On arrival to the emergency department, he continued to have similar heart rate and was given 0.5 of IV digoxin load and subsequently his heart rate has improved. His EKG with a heart rate at 128 revealed some T-wave inversions and ST-segment changes in anterolateral leads, which may have been purely rate related. The patient currently is feeling better. He reports that he did not actually have any discharge of the defibrillator. REVIEW OF SYSTEMS: The patient has had no significant other issues since his discharge from the hospital yesterday. All symptoms reviewed and all pertinent positives and negatives in the HPI. PAST MEDICAL HISTORY: COPD, hypertension, atrial fibrillation. The cardiomyopathy with an EF of 30% to 35% with the above-listed valvular disease, has hypertension, tobacco abuse, marijuana abuse, chronic hepatitis, history of TIA, dyslipidemia. PAST SURGICAL HISTORY: AAA repair. FAMILY HISTORY: Reviewed, noncontributory. SOCIAL HISTORY: The patient is a pack-a-day smoker. Drinks 2 to 3 beers a week. Occasional marijuana use. He denies any other drug use. He is full code. ALLERGIES: NONE. MEDICATIONS: 1. [place] p.r.n. 2. Lisinopril 10 mg at bedtime. 3. Nicoderm 21 mg patch daily. 4. Apixaban 5 mg b.i.d. 5. Aspirin 81 mg daily. 6. Lipitor 20 mg at bedtime. 7. Coreg 3.125 b.i.d. 8. Vitamin B12 1000 mcg daily. 9. Folic acid 1 mg daily. 10. Protonix 40 mg daily. PHYSICAL EXAMINATION: VITAL SIGNS: Most recent vitals, BP 137/79, pulse 82, respirations 19, O2 saturation 99% on 2 L oxygen. Currently he is taking his oxygen off. Appears quite comfortable. HEENT: PERRL. No OP lesions. NECK: Supple and symmetric without lymphadenopathy, JVD, or bruits. HEART: Irregular rate without murmurs, gallops, or rubs. LUNGS: Clear bilaterally. ABDOMEN: Soft, nontender, and nondistended. Positive bowel sounds. No masses. No organomegaly. There is a ventral hernia at the superior abdomen. EXTREMITIES: No cyanosis, clubbing, or edema. PSYCHIATRIC: Normal affect and behavior. NEUROLOGIC: Cognitively intact. He has no focal deficits. LABORATORY DATA: White count 5.6, hemoglobin 10.3, platelets 128. Sodium 133, potassium 4.0, chloride 101, CO2 24, BUN 26, creatinine 1.05, glucose 104, total bilirubin 0.6, AST 100, ALT 89. BNP 332.5. Troponin 0.019. Chest x-ray, stable chest. IMPRESSION AND PLAN: 1. Atrial fibrillation with rapid ventricular response. The patient currently has improved rate control with 0.5 of IV digoxin. We will keep the patient in observation. Keep him on telemetry. Ask Cardiology to see him to see if we get any more information from the LifeVest in order to determine if this was purely just the atrial fibrillation that might have triggered whatever occurred with the LifeVest versus true ventricular tachycardia episode. In the interim, we will continue with his Coreg and apixaban for the atrial fibrillation. We will not give any further digoxin unless indicated at this time. 2. Chronic obstructive pulmonary disease. We will give p.r.nWill Narvaez. Some possible ischemic changes on EKG with the tachycardia and not clear the patient has had ischemic workup previously. We will defer that to Cardiology. Job ID: [id number]
[2019-07-06 03:58] VITALS: BMI 19.3
[2019-07-06 05:04] LABS: Cocaine Metabolite Screen Not Detected (NotDetected); Medtox Reader # READER 4; Phencyclidine (PCP) Not Detected (NotDetected); THC/Cannabinoid Screen Detected (NotDetected)
[2019-07-06 05:05] LABS: Amphetamine Not Detected (NotDetected); Barbiturates Screen Not Detected (NotDetected); Benzodiazepine Screen Not Detected (NotDetected); Medtox Control Line Valid? VALID (VALID); Methadone Not Detected (NotDetected); Methamphetamine Not Detected (NotDetected); Opiate Screen Detected (NotDetected); Oxycodone Screen Not Detected (NotDetected); Tricyclic Screen Not Detected (NotDetected)
[2019-07-06] MEDS: Carvedilol 3.125 MG TAB PO SCH ×2 (08:22→16:16)
[2019-07-06] MEDS ORDERED: Apixaban 5 MG TAB PO SCH (09:00)
[2019-07-06] MEDS ORDERED: Aspirin 81 mg Enteric Coated Tablet PO SCH (09:00)
[2019-07-06] MEDS ORDERED: Nicotine 21 MG PATCH TOP SCH (12:00)
[2019-07-06] MEDS ORDERED: HYDROcodone/Acetaminophen 5/325 mg Tablet PO PRN (12:14)
--- NOTE | 2019-07-06 12:16 | PDOC.HOSPP ---
- Subjective Encounter Date: 07/06/19 Encounter Time: 11:00 Subjective: no chest pain or palp now - Objective Vital Signs & Weight: Vital Signs (12 hours) Temp Pulse Resp BP BP BP Pulse Ox 07/06/19 11:28 97.7 F 78 16 103/64 97 07/06/19 08:20 98.3 F 83 18 136/82 94 L 07/06/19 03:44 97.5 F L 66 18 129/78 97 Weight Weight 123 lb I&O: 07/05/19 07/06/19 07/07/19 06:59 06:59 06:59 Intake Total 120 Output Total 200 Balance -80 Result Diagrams: 07/05/19 17:08 07/05/19 17:08 Hospitalist ROS - Medication Medications: Active Medications Generic Name Dose Route Start Last Admin Trade Name Freq PRN Reason Stop Dose Admin Apixaban 5 mg 07/06/19 09:00 07/06/19 08:22 Eliquis PO 5 mg BID HIPOLITO Administration Aspirin 81 mg 07/06/19 09:00 07/06/19 08:22 Ecotrin PO 81 mg DAILY HIPOLITO Administration Carvedilol 3.125 mg 07/06/19 08:00 07/06/19 08:22 Coreg PO 3.125 mg BID-WM HIPOLITO Administration Pantoprazole Sodium 40 mg 07/06/19 09:00 07/06/19 08:22 Protonix PO 40 mg DAILY HIPOLITO Administration - Exam General Appearance: NAD, awake alert Eye: PERRL, anicteric sclera ENT: no oropharyngeal lesions, moist mucosa Neck: symmetric, no JVD Heart: no murmur, irregular Respiratory: no wheezes, no rales Gastrointestinal: soft, non-distended, normal bowel sounds Extremities: no clubbing, no edema Neurological: cranial nerve grossly intact, no focal deficits Psychiatric: normal affect, A&O x 3 Hosp A/P (1) Afib Code(s): I48.91 - UNSPECIFIED ATRIAL FIBRILLATION Status: Acute (2) COPD (chronic obstructive pulmonary disease) Status: Chronic Qualifiers: COPD type: chronic bronchitis (3) Hepatitis C Code(s): B19.20 - UNSPECIFIED VIRAL HEPATITIS C WITHOUT HEPATIC COMA Status: Chronic Qualifiers: Viral hepatitis chronicity: chronic Hepatic coma status: without hepatic coma Qualified Code(s): B18.2 - Chronic viral hepatitis C (4) h/o aaa repair Status: Chronic (5) Dyslipidemia Code(s): E78.5 - HYPERLIPIDEMIA, UNSPECIFIED Status: Chronic (6) Cardiomyopathy Code(s): I42.9 - CARDIOMYOPATHY, UNSPECIFIED Status: Chronic Plan: ef of 30% (7) Hypertension Code(s): I10 - ESSENTIAL (PRIMARY) HYPERTENSION Status: Chronic Qualifiers: Hypertension type: essential hypertension Qualified Code(s): I10 - Essential (primary) hypertension (8) Tobacco abuse Code(s): Z72.0 - TOBACCO USE Status: Chronic - Plan hemostable needs [employer] life vest teaching, he is not sure what the various warnings that come out of it are for? life vest report shows he has afib with rvr will need rate control meds, prior ef is 30%, ?amiodarone (on going tob use/copd ), ?sotalol/digoxin await cardiology opinion dc plan per cardio adv if patient needs to stay overnight will switch to inpatient status (afib with rvr)
[2019-07-06 16:08] VITALS: BP 115/60; TEMP 97.6
--- NOTE | 2019-07-06 18:01 | CON ---
DATE OF CONSULTATION: 07/06/2019 REASON FOR CONSULTATION: LifeVest suggesting shocks. HISTORY OF PRESENT ILLNESS: Mr. Fish is a pleasant 74-year-old white gentleman, who comes to the hospital a day after he was discharged. He was admitted on 07/01 with CHF exacerbation. He was found to have a new onset EF of 30% to 35%. In the past, he was at 45% to 50%. He is mostly in chronic AFib now and was rate controlled and discharged home on a LifeVest. He came back yesterday as his device was recommending a shock. He felt palpitations, so he decided to come in. He aborted the shock by hitting the button and did not require another pushing the button since then. Interrogating the device, he actually had AFib in RVR. He was given 0.5 IV digoxin when he came into the hospital as he was in AFib with RVR and admitted for further evaluation. He denies any chest pain, tightness, or pressure. PAST MEDICAL HISTORY: 1. COPD. 2. Hypertension. 3. Atrial fibrillation, mostly chronic. 4. Cardiomyopathy, EF at 30% to 35%. 5. Hypertension. 6. Tobacco use. 7. Marijuana use. 8. Chronic hepatitis. 9. History of TIAs. 10. Hyperlipidemia. SURGICAL HISTORY: AAA repair. FAMILY HISTORY: Noncontributory. SOCIAL HISTORY: Half a pack a day smoker. Drinks about 2-3 beers a week. Uses marijuana occasionally. OUTPATIENT MEDICATIONS: 1. [place] p.r.n. 2. Lisinopril 10 mg nightly. 3. Nicoderm patch. 4. Apixaban 5 mg b.i.d. 5. Aspirin 81 a day. 6. Lipitor 20 mg nightly. 7. Coreg 3.125 b.i.d. 8. Vitamin B12. 9. Folic acid. 10. Protonix 40 mg a day. ALLERGIES: NO KNOWN DRUG ALLERGIES. REVIEW OF SYSTEMS: A 12-point review of systems was done and is all negative except noted in the history of present illness. PHYSICAL EXAMINATION: VITAL SIGNS: Temperature 97.6, pulse 76, respiratory rate 16, saturating 99% on room air, and blood pressure 115/60. GENERAL: Awake, alert, and oriented x3, in no distress. HEENT: Normocephalic and atraumatic. NECK: Supple. LUNGS: Clear. CARDIOVASCULAR: S1 and S2. Irregularly irregular. Heart rate in the 70s. ABDOMEN: Soft. Positive bowel sounds. EXTREMITIES: No edema. SKIN: Warm and dry. LABORATORY DATA: Laboratory work was reviewed. CBC is unremarkable except for hemoglobin of 10.3, which is most likely anemia of chronic disease and is chronic for him. Chemistries were unremarkable. BNP was 332 and troponin was negative. Albumin was normal. Toxicology with positive cannabis and opiates. Review of telemetry, he is in AFib, mostly rate controlled in the 70s. Review of the tracings from his LifeVest show AFib with RVR. No VT or VF is seen. ASSESSMENT AND PLAN: 1. Atrial fibrillation with rapid ventricular rate, likely related to his drug use and medication noncompliance. 2. Dilated cardiomyopathy, ejection fraction at 30% to 35%. 3. Presence of a LifeVest. PLAN: 1. Continue rate control. He was restarted on all his medications and he is rate controlled again in the 70s. 2. He may be discharged home today. We will follow up in 1 month. At that point, we will consider heart catheterization as long as he is compliant with follows. 3. Continue other medications for heart failure. 4. Continue LifeVest use. 5. May be discharged home from the cardiac perspective. Thank you for letting us to participate in the care of your patient. We will sign off. Please call with any questions. Job ID: [id number]
--- NOTE | 2019-07-07 12:03 | DIS ---
DATE OF ADMISSION: 07/05/2019 DATE OF DISCHARGE: 07/06/2019 PRIMARY DISCHARGE DIAGNOSES: Atrial fibrillation with rapid ventricular response, rate controlled. History of new onset dilated cardiomyopathy with ejection fraction of around 30%, chronic hepatitis C, chronic obstructive pulmonary disease, dyslipidemia, history of abdominal aortic aneurysm repair, marijuana abuse, hypertension, tobacco abuse. PROCEDURES DONE DURING HOSPITALIZATION: The patient's LifeVest was interrogated which showed atrial fibrillation with RVR. Chest x-ray done showed no acute infiltrate. There is stable chronic deformity of the posterior left 5th rib. H and H 10 and 30, platelet count 128, white count of 5.6, BUN 26, creatinine 1.0, BNP 332. Troponin I was normal. AST 100, ALT 89, total bilirubin 0.6, alkaline phosphatase 70, albumin 3.8. Urine drug screen was positive for cannabinoids and opiates. INPATIENT CONSULT: Dr. Coleman for Cardiology. DISCHARGE PLAN: The patient to follow up with [facility] in 1 week. He needs to follow up with Dr. Coleman in [address] Andrew Mendoza, his primary care physician on 07/09/2019, at 10:20 a.m. DISCHARGE MEDICATIONS: 1. Lisinopril 10 mg p.o. at bedtime. 2. Eliquis 5 mg p.o. twice daily. 3. Aspirin 81 mg p.o. daily. 4. Atorvastatin 20 mg p.o. at bedtime. 5. Coreg 3.125 mg p.o. twice daily. 6. Vitamin B12 1000 mcg p.o. daily. 7. Folic acid 1 mg p.o. daily. 8. Nicoderm transdermal patch 21 mg for 2 weeks. 9. Protonix 40 mg p.o. daily. ALLERGIES: NO KNOWN DRUG ALLERGIES. BRIEF COURSE DURING HOSPITALIZATION: The patient initially came back after being discharged within 24 hours with complaints of his LifeVest attempting to shock him. He was also short of breath on arrival. In view of this, the patient was placed under observation on telemetry. His LifeVest was interrogated. He was found to have had incidences of atrial fibrillation with RVR on the LifeVest interrogation. The patient's urine drug screen was also positive for marijuana. The patient was not sure if he took all his medications. He was placed back on all his home medications which he was recently discharged and his atrial fibrillation was rate controlled in the 70s. No further addition of any medications was done. He was re-educated on LifeVest use and various alarms that go off. He was counseled with regard to medication compliance and dietary compliance. He is also counseled against using any substance use or alcohol in view of his new onset cardiomyopathy. The patient likely will need a coronary angiogram in the next 4-6 weeks if he is very compliant with his medications. He is otherwise hemodynamically stable, ambulating in the room. He is cleared for discharge by Dr. Coleman. Please note , I have seen and examined the patient on the day of discharge. Job ID: [id number] MTDD
== END 2019-07-06 18:20 | disposition home or self-care (01) ==
LOC: ERS 15:18 → ERHOLD 18:43 → 2NO 07-06 03:38
PROVIDERS: ADMIT Internal Medicine; ATTEND Internal Medicine
DX: I48.91 Unspecified atrial fibrillation (principal); J44.9 Chronic obstructive pulmonary disease, unspecified; I08.1 Rheumatic disorders of both mitral and tricuspid valves; E78.5 Hyperlipidemia, unspecified; I10 Essential (primary) hypertension; B18.2 Chronic viral hepatitis C; F17.210 Nicotine dependence, cigarettes, uncomplicated; Z79.82 Long term (current) use of aspirin; Z79.01 Long term (current) use of anticoagulants; Z79.899 Other long term (current) drug therapy; Z86.73 Personal history of transient ischemic attack (TIA), and cerebral infarction without residual deficits
CPT/HCPCS: 71045; 80053; 80306; 82550; 83880; 84484; 85025; 93005; 96374; 99285; G0378 ×3; 36415; J1160

== ENCOUNTER 2019-07-13 21:58 | Emergency (ER) | payer MEDICARE, MEDICAID ==
[2019-07-13 23:47] LABS: #Eosinphils 0.1 thou/uL (0.0-0.7); #Monocytes 0.7 thou/uL (0.11-0.59); #Neutrophils 2.9 thou/uL (1.40-6.50); %Basophils 0.7 % (0.0-1.0); %Eosinophils 2.2 % (0.0-10.0); %Lymphocytes 34.9 % (21.0-51.0); %Monocytes 11.6 % (0.0-10.0); %Neutrophils 50.6 % (42.0-75.0); Hemoglobin 10.9 g/dL (14.0-18.0); Mean Corpuscular HGB CONC 34.2 g/dL (32.0-36.0); Mean Corpuscular Hemoglobin 32.6 pg (27.0-31.0); Mean Corpuscular Volume 95.3 fL (78.0-98.0); Mean Platelet Volume 7.2 fL (7.4-10.4); Platelet Count 168 thou/uL (130-400); RBC Distribution Width 12.8 % (11.5-14.5); Red Blood Cell (RBC) Count 3.35 mill/uL (4.70-6.10); White Blood Cell (WBC) Count 5.6 thou/uL (4.8-10.8)
[2019-07-14 00:18] LABS: ALT (SGPT) 90 U/L (8-55); AST (SGOT) 94 U/L (5-34); Albumin 3.9 g/dL (3.4-4.8); Alkaline Phosphatase 77 U/L (40-110); Anion Gap 10 mmol/L (10-20); BUN (Urea Nitrogen) 17 mg/dL (8.4-25.7); Bilirubin, Total 0.4 mg/dL (0.2-1.2); CK (CPK) 62 U/L (30-200); Calc. Creatinine Clearance 0 mL/min (70-130); Calcium 9.6 mg/dL (7.8-10.44); Carbon Dioxide 31 mmol/L (23-31); Chloride 97 mmol/L (98-107); Estimated GFR-MDRD 81; Globulin 4.3 g/dL (2.4-3.5); Glucose 97 mg/dL (83-110); Potassium 4.6 mmol/L (3.5-5.1); Protein, Total 8.2 g/dL (5.8-8.1); Sodium 133 mmol/L (136-145)
[2019-07-14 00:31] LABS: CKMB 1.7 ng/mL (0-6.6)
[2019-07-14 03:53] LABS: Troponin I Less than 0.010 ng/mL (< 0.028)
--- NOTE | 2019-07-14 07:21 | RAD ---
PORTABLE AP CHEST: Date: 07/13/19 HISTORY: Chest pain. Patient reports the defibrillator has discharged 6 or 7 times today. COMPARISON: 07/05/19. FINDINGS: Multiple monitor leads overlie the chest. Cardiac silhouette and pulmonary vasculature are within nor mal limits. Lungs are clear. Vascular calcifications seen in thoracic aorta. There has been no signif icant interval change compared to prior study. IMPRESSION: Limited evaluation of the chest due to overlying monitor leads, but no definite acute cardiopulmonary process is seen. POS: OFF
== END 2019-07-14 04:35 | disposition home or self-care (01) ==
LOC: ERS 21:58
DX: T82.199A Other mechanical complication of unspecified cardiac device, initial encounter (principal); I11.0 Hypertensive heart disease with heart failure; I50.9 Heart failure, unspecified; I48.91 Unspecified atrial fibrillation; Z79.82 Long term (current) use of aspirin; Z79.899 Other long term (current) drug therapy; Z87.891 Personal history of nicotine dependence
CPT/HCPCS: 36415; 71045; 80053; 82550; 82553; 84484; 85025; 93005; 94760

== ENCOUNTER 2019-08-06 07:53 | Inpatient (IN) | payer MEDICARE, MEDICAID ==
[2019-08-06 08:19] LABS: #Basophils 0.1 thou/uL (0.0-0.2); #Eosinphils 0.1 thou/uL (0.0-0.7); #Lymphocytes 2.4 thou/uL (1.20-3.40); #Monocytes 0.6 thou/uL (0.11-0.59); #Neutrophils 2.1 thou/uL (1.40-6.50); %Eosinophils 2.5 % (0.0-10.0); %Lymphocytes 45.2 % (21.0-51.0); %Monocytes 10.8 % (0.0-10.0); %Neutrophils 40.5 % (42.0-75.0); Hemoglobin 11.9 g/dL (14.0-18.0); Mean Corpuscular HGB CONC 34.1 g/dL (32.0-36.0); Mean Corpuscular Hemoglobin 32.5 pg (27.0-31.0); Mean Corpuscular Volume 95.3 fL (78.0-98.0); Mean Platelet Volume 6.7 fL (7.4-10.4); Platelet Count 169 thou/uL (130-400); RBC Distribution Width 13.1 % (11.5-14.5); Red Blood Cell (RBC) Count 3.66 mill/uL (4.70-6.10); White Blood Cell (WBC) Count 5.3 thou/uL (4.8-10.8)
--- NOTE | 2019-08-06 08:29 | RAD ---
Exam: Chest one view HISTORY:Pain Comparison: 07/13/2019 FINDINGS: Lungs: No masses or consolidation. Cardiac silhouette:Accentuated by technique. There is vascular calcification. Pulmonary vessels: Normal Pleural Spaces: Clear Pneumothorax: None Osseous abnormalities: End-stage osteoarthritis, right shoulder IMPRESSION: No focal consolidation.
[2019-08-06 08:42] LABS: ALT (SGPT) 93 U/L (8-55); AST (SGOT) 96 U/L (5-34); Albumin 4.2 g/dL (3.4-4.8); Alkaline Phosphatase 60 U/L (40-110); Anion Gap 12 mmol/L (10-20); BUN (Urea Nitrogen) 31 mg/dL (8.4-25.7); Bilirubin, Total 0.5 mg/dL (0.2-1.2); CK (CPK) 68 U/L (30-200); Calc. Creatinine Clearance 0 mL/min (70-130); Calcium 9.7 mg/dL (7.8-10.44); Carbon Dioxide 29 mmol/L (23-31); Chloride 98 mmol/L (98-107); Estimated GFR-MDRD 69; Globulin 4.3 g/dL (2.4-3.5); Glucose 99 mg/dL (83-110); Potassium 4.8 mmol/L (3.5-5.1); Protein, Total 8.5 g/dL (5.8-8.1); Sodium 134 mmol/L (136-145)
--- NOTE | 2019-08-06 09:36 | CT ---
CTA OF THE CHEST AND ABDOMEN UTILIZING AN AORTIC DISSECTION PROTOCOL AND 3-D REFORMATTED IMAGING INDICATION: Chest pain and abdominal pain COMPARISON: None FINDINGS: Aorta: There are severe vascular calcifications seen involving the visualized vasculature. There is p ostprocedural change of an aortobiiliac bypass. There is mild diffuse aneurysmal dilatation of the aortic arch and descending thoracic aorta. There is diffuse aneurysmal dilatation of the abdominal ao rta. There is mild aneurysmal dilatation of the right common iliac artery measuring 1.8 cm. There is 40% luminal caliber narrowing involving the proximal left subclavian artery. There is mild/moderat e narrowing involving the origin of the SMA. There is mild narrowing involving the origin left renal artery. 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 Central pulmonary artery: No central pulmonary embolus demonstrated. Additional thorax findings: No focal consolidation, pleural effusion or pneumothorax is evident. Additional abdominal findings: No focal hepatic lesion is evident. The pancreas, adrenal glands and s pleen appear within normal limits. There are small bilateral renal cysts. There are layered gallstones within the gallbladder. Unopacified large and small bowel is visualized appear within norm al limits. Osseous structures: No acute osseous abnormality. IMPRESSION: 1. Mild diffuse aneurysmal dilatation of the aorta. No acute aortic stenosis, occlusion or dissection demonstrated. There is post procedural change of an aortobiiliac bypass. There is mild aneurysmal dilatation of the right common iliac artery. 2. Mild/moderate narrowing involving the origin of the SMA. 3. Mild narrowing involving the origin of the left renal artery. 4. Cholelithiasis. 5. Bilateral renal cysts
[2019-08-06] MEDS ORDERED: Guaifenesin DM 100-10/5 ML UDCUP PO PRN (11:35)
[2019-08-06] MEDS ORDERED: Ondansetron PF 4 MG/2 ML Vial IVP PRN (11:35)
[2019-08-06] MEDS ORDERED: Acetaminophen 325 MG TAB PO PRN (11:35)
[2019-08-06] MEDS ORDERED: Bisacodyl 10 MG SUPP PR PRN (11:35)
[2019-08-06] MEDS ORDERED: Senokot S 8.6-50 MG TAB PO PRN (11:35)
[2019-08-06] MEDS ORDERED: Diltiazem 125 MG in Sodium Chloride 0.9% 100 ML IVPB SCH (13:00)
[2019-08-06] MEDS ORDERED: Sodium Chloride 0.9% 1,000 ML IV SCH (13:15)
--- NOTE | 2019-08-06 14:54 | HP ---
REASON FOR ADMISSION: AFib with RVR. HISTORY OF PRESENTING ILLNESS: The patient gives history of developing palpitations and dizziness. He has been getting these off and on for the last 3 to 4 days now. His LifeVest has been giving him warnings at least 2 times a day. When it starts a beep, he cuts it off, sometimes the LifeVest tells the bystanders to standby. This morning when home health nurse came to check on him and take him for cardiac cath around [address] Coleman, he was dizzy and had severe palpitation. His heart rates were in the 140s. He has been in the LifeVest for the last 1 month now for low ejection fraction of around 30% to 35%. PAST MEDICAL AND SURGICAL HISTORY: History of chronic hepatitis C, cardiomyopathy with EF of 30% to 35%, hypertension, chronic AFib, history of CVA with right eye blindness, and history of AAA repair. CURRENT MEDICATIONS: The patient is on, 1. Eliquis 5 mg twice daily. 2. Aspirin 81 mg daily. 3. Lipitor 20 mg daily. 4. Carvedilol 3.125 mg twice daily. 5. Aldactone 25 mg daily. 6. Xanax twice daily p.r.n. ALLERGIES: NO KNOWN DRUG ALLERGIES. PERSONAL HISTORY: The patient states he quit smoking around 3 to 4 weeks now. He has smoked 2 packs a day for nearly 60 years. He drinks 1 to 2 beers off and on. Prior to this, the patient was drinking 12 pack a day and he quit this 6 months back. He also mentions that he quit IV drug abuse 2 years back. He last used marijuana 3 weeks ago. He does not use methamphetamine, heroin, or cocaine anymore. FAMILY HISTORY: He has 2 brothers and the patient has 3 children. Father at the age of 65 years, he had esophageal and stomach cancer. Mom at the age of 72 years, she has had history of heart failure. CODE STATUS: Full. Power of attorney law clerk is his brother, Mr. Reddy Fish. REVIEW OF SYSTEMS: CONSTITUTIONAL: Negative for weight loss or gain, ability to conduct usual activities. SKIN: Negative for rash, itching. EYES: Negative for double vision, pain. ENT/MOUTH: Negative for nose bleeding, neck stiffness, pain, tenderness. CARDIOVASCULAR: Negative for palpitations, dyspnea on exertion, orthopnea. RESPIRATORY: Negative for shortness of breath, wheezing, cough, hemoptysis, fever or night sweats. GASTROINTESTINAL: Negative for poor appetite, abdominal pain, heartburn, nausea , vomiting, constipation, or diarrhea. GENITOURINARY: Negative for urgency, frequency, dysuria, nocturia. MUSCULOSKELETAL: Negative for pain, swelling. NEUROLOGIC/PSYCHIATRIC: Negative for anxiety, depression. ALLERGY/IMMUNOLOGIC: Negative for skin rash, bleeding tendency. PHYSICAL EXAMINATION: GENERAL: The patient is a 74-year-old male, who is currently not in any acute distress. VITAL SIGNS: Blood pressure 130/64, pulse 68 per minute, respiratory rate 18 per minute, temperature 97.8 degrees Fahrenheit, and saturating 95% on room air. NECK: Supple. No elevated JVD. HEENT: Eyes; extraocular muscles intact. Pupils reacting to light. Oral cavity, mucous membranes are moist. No exudates or congestion. CARDIOVASCULAR: S1 and S2 heard, irregular rhythm. RESPIRATORY: Air entry 1+ bilateral. Scattered rhonchi plus no rales or wheezes. ABDOMEN: Soft. Bowel sounds heard. No tenderness, rigidity, or guarding. EXTREMITIES: No peripheral edema or calf tenderness. VASCULAR: Peripheral pulses 1+ bilateral. No ischemic ulcerations or gangrene. CENTRAL NERVOUS SYSTEM: No gross focal deficits noted. The patient is alert, awake, and oriented well. PSYCHIATRIC: The patient's mood is euthymic. No hallucinations or delusions. LABORATORY AND DIAGNOSTIC DATA: CT dissection protocol done, shows mild diffuse aneurysmal dilatation of the aorta. No acute aortic stenosis or occlusion or dissection seen. Mild aneurysmal dilatation of the right common iliac artery, [id number] narrowing involving the origin of SMA. Mild narrowing involving the origin of left renal artery. Cholelithiasis. Bilateral renal cysts. EKG done shows atrial fibrillation at 80 beats per minute, it has low voltage. Serum bicarb 29, BUN 31, creatinine 1.0, AST 96, ALT 93, and alkaline phosphatase 60. Troponin I x2 negative. BNP 413. Albumin is 4.2. TSH 1.57. Electrolytes stable. White count of 5, H and H 11 and 34, and platelet count 169 with 40% neutrophils, 45% lymphocytes. CLINICAL IMPRESSION AND PLAN: The patient will be admitted to telemetry for atrial fibrillation with rapid ventricular response, off and on for last 3 to 4 days now. The patient is symptomatic with it and is feeling dizzy as well. He will be on Cardizem drip 5 mg an hour. I have discussed his findings with Dr. Bradford. We will continue his Eliquis, aspirin, Lipitor, Coreg, vitamin B12, Zullinger, Protonix, and spironolactone as before. I have discussed code status with him and he wants to be a full code. His brother is his POA. We will consult Dr. Bradford who is on- call for Dr. Coleman. Please note, his LifeVest has not given him any shocks so far. Job ID: [id number] [facility]
[2019-08-06 15:05] LABS: Troponin I Less than 0.010 ng/mL (< 0.028)
[2019-08-06] MEDS ORDERED: Iopamidol-370 76% 500 ML 1 ML ONE (16:10)
--- NOTE | 2019-08-06 18:31 | CON ---
DATE OF CONSULTATION: 08/06/2019 REASON FOR CONSULTATION: Atrial fibrillation with a rapid rate. PRIMARY STAMPING BENCH DIE MAKER: [place] Coleman MD HISTORY OF PRESENT ILLNESS: Mr. Fish is a pleasant 74-year-old gentleman. He was diagnosed with having depressed left ventricular function and also atrial fibrillation, was fitted for LifeVest. He did have a defibrillator discharge previously due to atrial fibrillation with a rapid rate. Today, he had episodes where the device was telling him that he was about to be shocked, but fortunately, was not shocked again. He came to the hospital, where he was found to have atrial fibrillation with increased ventricular response intermittently, rate still going up to 150 at times. The patient is not having chest pain or pressure. Otherwise, feels well. MEDICATIONS: 1. Coreg 3.125 mg twice a day, which he has been taking. 2. Atorvastatin. 3. Apixaban. 4. Spironolactone. 5. Entresto. ALLERGIES: NONE KNOWN. REVIEW OF SYSTEMS: CONSTITUTIONAL: No significant weight gain or loss. VISION: No changes. HEARING: No changes. PULMONARY: No cough or wheezing. GASTROINTESTINAL: No nausea, vomiting, or diarrhea. SKIN: No rashes. NEUROLOGIC: No unilateral weakness or numbness. PSYCHIATRIC: No unusual depression or anxiety. PHYSICAL EXAMINATION: GENERAL: This is a pleasant elderly gentleman. He is alert and oriented. VITAL SIGNS: Blood pressure was 106/60; pulse was very variable, sometimes in the 90s, sometimes up to 140, atrial fibrillation. EYES: Sclerae, nonicteric. MOUTH: Mucous membranes moist. NECK: Supple. No lymphadenopathy. LUNGS: Clear. CARDIAC: Irregularly irregular. ABDOMEN: Soft and nontender. EXTREMITIES: Warm and dry. No clubbing or cyanosis. There is no edema. PERTINENT LABORATORY DATA: Hemoglobin is 11.9. Sodium is 134. BNP 413. Troponins are negative. ASSESSMENT: 1. Atrial fibrillation with intermittent rapid ventricular response, nearly a triggering defibrillator discharge. 2. Gjoiwuxroz-[id number]-uaathscd depressed left ventricular function. PLAN: 1. He is on intravenous diltiazem. 2. Increase carvedilol. 3. Keep a day or two to make sure his heart rate is adequate before releasing home. Ultimately, the patient will be a candidate for defibrillator implantation. Job ID: [id number]
[2019-08-06] MEDS ORDERED: Carvedilol 6.25 MG TAB PO SCH (21:00)
[2019-08-06] MEDS ORDERED: Carvedilol 3.125 MG TAB PO SCH (21:00)
[2019-08-06] MEDS: Atorvastatin Calcium 20 MG TAB PO SCH (21:16)
[2019-08-06] MEDS: Apixaban 5 MG TAB PO SCH (21:16)
[2019-08-06] MEDS: HYDROcodone/Acetaminophen 10/325 mg Tablet PO PRN (21:17)
[2019-08-06] MEDS: Carvedilol 6.25 MG TAB PO SCH (21:17)
[2019-08-07 05:03] LABS: #Eosinphils 0.2 thou/uL (0.0-0.7); #Lymphocytes 2.7 thou/uL (1.20-3.40); #Monocytes 0.6 thou/uL (0.11-0.59); #Neutrophils 2.2 thou/uL (1.40-6.50); %Basophils 0.7 % (0.0-1.0); %Eosinophils 3.2 % (0.0-10.0); %Lymphocytes 47.4 % (21.0-51.0); %Monocytes 10.1 % (0.0-10.0); %Neutrophils 38.6 % (42.0-75.0); Hemoglobin 11.6 g/dL (14.0-18.0); Mean Corpuscular HGB CONC 34.5 g/dL (32.0-36.0); Mean Corpuscular Hemoglobin 32.6 pg (27.0-31.0); Mean Corpuscular Volume 94.6 fL (78.0-98.0); Mean Platelet Volume 6.8 fL (7.4-10.4); Platelet Count 133 thou/uL (130-400); Red Blood Cell (RBC) Count 3.54 mill/uL (4.70-6.10); White Blood Cell (WBC) Count 5.8 thou/uL (4.8-10.8)
[2019-08-07 05:17] LABS: ALT (SGPT) 85 U/L (8-55); AST (SGOT) 91 U/L (5-34); Albumin 3.8 g/dL (3.4-4.8); Alkaline Phosphatase 53 U/L (40-110); Anion Gap 14 mmol/L (10-20); BUN (Urea Nitrogen) 30 mg/dL (8.4-25.7); Bilirubin, Total 0.6 mg/dL (0.2-1.2); Calc. Creatinine Clearance 52 mL/min (70-130); Carbon Dioxide 23 mmol/L (23-31); Chloride 99 mmol/L (98-107); Estimated GFR-MDRD 79; Globulin 3.7 g/dL (2.4-3.5); Glucose 90 mg/dL (83-110); Magnesium 2.2 mg/dL (1.6-2.6); Potassium 4.7 mmol/L (3.5-5.1); Protein, Total 7.5 g/dL (5.8-8.1); Sodium 131 mmol/L (136-145)
[2019-08-07] MEDS: Carvedilol 6.25 MG TAB PO SCH ×2 (08:13→20:28)
[2019-08-07] MEDS: Apixaban 5 MG TAB PO SCH (08:14)
[2019-08-07] MEDS: Folic Acid 1 MG TAB PO SCH (08:14)
[2019-08-07] MEDS: Cyanocobalamin (Vitamin B-12) 1,000 MCG TAB PO SCH (08:14)
[2019-08-07] MEDS: Aspirin Chewable 81 MG TAB PO SCH (08:14)
[2019-08-07] MEDS: Spironolactone 25 MG TAB PO SCH (08:14)
[2019-08-07] MEDS ORDERED: Prevnar 13-Val Conj/PF 0.5 ML SYRINGE IM ONE (09:00)
--- NOTE | 2019-08-07 11:43 | PDOC.HOSPP ---
- Subjective Encounter Date: 08/07/19 Encounter Time: 10:30 Subjective: no palpitations or sob is off cardizem drip from ovenight ambulating in room watching tv with no dyscomfort now - Objective Vital Signs & Weight: Vital Signs (12 hours) Temp Pulse Resp BP BP Pulse Ox 08/07/19 07:45 98.1 F 67 18 124/65 98 08/07/19 04:15 97.8 F 78 17 128/87 98 Weight Admit Weight 114 lb 4.8 oz Weight 112 lb I&O: 08/06/19 08/07/19 08/08/19 06:59 06:59 06:59 Intake Total 480 Balance 480 Result Diagrams: 08/07/19 04:45 08/07/19 04:45 Hospitalist ROS - Medication Medications: Active Medications Generic Name Dose Route Start Last Admin Trade Name Freq PRN Reason Stop Dose Admin Hydrocodone Bitart/Acetaminophen 1 tab 08/06/19 11:35 08/06/19 21:17 [place] 10/325 PO 1 tab Q6H PRN Administration Moderate to Severe Pain (6-10) Apixaban 5 mg 08/06/19 21:00 08/07/19 08:14 Eliquis PO 5 mg BID HIPOLITO Administration Aspirin 81 mg 08/07/19 09:00 08/07/19 08:14 Aspirin Chewable PO 81 mg DAILY HIPOLITO Administration Atorvastatin Calcium 20 mg 08/06/19 21:00 08/06/19 21:16 Lipitor PO 20 mg HS HIPOLITO Administration Carvedilol 6.25 mg 08/06/19 21:00 08/07/19 08:13 Coreg PO 6.25 mg BID HIPOLITO Administration Cyanocobalamin 1,000 mcg 08/07/19 09:00 08/07/19 08:14 Vitamin B-12 PO 1,000 mcg DAILY HIPOLITO Administration Folic Acid 1 mg 08/07/19 09:00 08/07/19 08:14 Folvite PO 1 mg DAILY HIPOLITO Administration Diltiazem HCl 125 mg/ Sodium 125 mls @ 5 mls/hr 08/06/19 13:00 08/06/19 17:58 Chloride IVPB 125 mls INF HIPOLITO Administration Protocol 5 MG/HR Pantoprazole Sodium 40 mg 08/07/19 09:00 08/07/19 08:14 Protonix PO 40 mg DAILY HIPOLITO Administration Sodium Chloride 10 ml 08/06/19 21:00 08/07/19 08:15 Flush - Normal Saline IVF 10 ml Q12HR HIPOLITO Administration Spironolactone 12.5 mg 08/07/19 08:00 08/07/19 08:14 Aldactone PO 12.5 mg QAM-WM HIPOLITO Administration - Exam General Appearance: awake alert Eye: PERRL, anicteric sclera ENT: no oropharyngeal lesions, moist mucosa Neck: supple, no JVD Heart: no murmur, irregular Respiratory: no wheezes, no rales Gastrointestinal: soft, non-tender, non-distended, normal bowel sounds Extremities: no cyanosis, no edema Neurological: cranial nerve grossly intact, no focal deficits Psychiatric: normal affect, A&O x 3 Hosp A/P (1) PAF (paroxysmal atrial fibrillation) Code(s): I48.0 - PAROXYSMAL ATRIAL FIBRILLATION Status: Chronic (2) Chronic systolic CHF (congestive heart failure), NYHA class 3 Code(s): I50.22 - CHRONIC SYSTOLIC (CONGESTIVE) HEART FAILURE Status: Chronic (3) COPD (chronic obstructive pulmonary disease) Status: Chronic Qualifiers: COPD type: chronic bronchitis (4) Cardiomyopathy Code(s): I42.9 - CARDIOMYOPATHY, UNSPECIFIED Status: Chronic Qualifiers: Cardiomyopathy type: unspecified Qualified Code(s): I42.9 - Cardiomyopathy , unspecified (5) Dyslipidemia Code(s): E78.5 - HYPERLIPIDEMIA, UNSPECIFIED Status: Chronic (6) Hepatitis C Code(s): B19.20 - UNSPECIFIED VIRAL HEPATITIS C WITHOUT HEPATIC COMA Status: Chronic Qualifiers: (7) Hypertension Code(s): I10 - ESSENTIAL (PRIMARY) HYPERTENSION Status: Chronic Qualifiers: (8) h/o aaa repair Status: Chronic - Plan has recurrent afib with rvr on asp, lipitor, coreg, spironolactone hold eliquis, likely cath on friday, await 's opinion about it was scheduled for cath yesterday which couldn't be done due to afib with rvr is off tobacco and drugs, may qualify for aicd this admission, await cardio input has had 2 hospitalizations for life vest going off/alarms (he usually has 2 alarms/day at home) to ambulate as tolerated
[2019-08-07 16:09] LABS: Hemoglobin 11.3 g/dL (14.0-18.0); Platelet Count 158 thou/uL (130-400)
[2019-08-07] MEDS: Atorvastatin Calcium 20 MG TAB PO SCH (20:29)
[2019-08-07] MEDS: HYDROcodone/Acetaminophen 10/325 mg Tablet PO PRN (20:30)
[2019-08-08] MEDS: Spironolactone 25 MG TAB PO SCH (08:19)
[2019-08-08] MEDS: Cyanocobalamin (Vitamin B-12) 1,000 MCG TAB PO SCH (08:20)
[2019-08-08] MEDS: Carvedilol 6.25 MG TAB PO SCH ×2 (08:20→16:22)
[2019-08-08] MEDS: Folic Acid 1 MG TAB PO SCH (08:20)
[2019-08-08] MEDS: Aspirin Chewable 81 MG TAB PO SCH (08:20)
--- NOTE | 2019-08-08 10:14 | PDOC.HOSPP ---
- Subjective Encounter Date: 08/08/19 Encounter Time: 10:10 Subjective: Patient seen and examined. No new complaints. No overnight events. No cp or sob reported. No palpitations. - Objective Vital Signs & Weight: Vital Signs (12 hours) Temp Pulse Resp BP Pulse Ox 08/08/19 07:36 97.7 F 94 18 127/67 93 L 08/08/19 03:45 97.4 F L 90 16 106/62 98 Weight Admit Weight 114 lb 4.8 oz Weight 112 lb 8 oz I&O: 08/07/19 08/08/19 08/09/19 06:59 06:59 06:59 Intake Total 480 2160 Balance 480 2160 Result Diagrams: 08/07/19 15:38 08/07/19 15:38 Hospitalist ROS - Medication Medications: Active Medications Generic Name Dose Route Start Last Admin Trade Name Freq PRN Reason Stop Dose Admin Hydrocodone Bitart/Acetaminophen 1 tab 08/06/19 11:35 08/07/19 20:30 [place] 10/325 PO 1 tab Q6H PRN Administration Moderate to Severe Pain (6-10) Aspirin 81 mg 08/07/19 09:00 08/08/19 08:20 Aspirin Chewable PO 81 mg DAILY HIPOLITO Administration Atorvastatin Calcium 20 mg 08/06/19 21:00 08/07/19 20:29 Lipitor PO 20 mg HS HIPOLITO Administration Cyanocobalamin 1,000 mcg 08/07/19 09:00 08/08/19 08:20 Vitamin B-12 PO 1,000 mcg DAILY HIPOLITO Administration Folic Acid 1 mg 08/07/19 09:00 08/08/19 08:20 Folvite PO 1 mg DAILY HIPOLITO Administration Diltiazem HCl 125 mg/ Sodium 125 mls @ 5 mls/hr 08/06/19 13:00 08/06/19 17:58 Chloride IVPB 125 mls INF HIPOLITO Administration Protocol 5 MG/HR Pantoprazole Sodium 40 mg 08/07/19 09:00 08/08/19 08:20 Protonix PO 40 mg DAILY HIPOLITO Administration Sodium Chloride 10 ml 08/06/19 21:00 08/08/19 08:21 Flush - Normal Saline IVF 10 ml Q12HR HIPOLITO Administration Spironolactone 12.5 mg 08/07/19 08:00 08/08/19 08:19 Aldactone PO 12.5 mg QAM-WM HIPOLITO Administration - Exam General Appearance: NAD Eye: anicteric sclera ENT: normocephalic atraumatic Neck: supple Heart: irregular Respiratory: CTAB Gastrointestinal: soft Extremities: no edema Neurological: no weakness, no focal deficits Psychiatric: normal affect Hosp A/P (1) Chronic systolic CHF (congestive heart failure), NYHA class 3 Code(s): I50.22 - CHRONIC SYSTOLIC (CONGESTIVE) HEART FAILURE Status: Chronic (2) Afib Code(s): I48.91 - UNSPECIFIED ATRIAL FIBRILLATION Status: Acute (3) Hyponatremia Code(s): E87.1 - HYPO-OSMOLALITY AND HYPONATREMIA Status: Acute (4) COPD (chronic obstructive pulmonary disease) Status: Chronic Qualifiers: COPD type: chronic bronchitis (5) Cardiomyopathy Code(s): I42.9 - CARDIOMYOPATHY, UNSPECIFIED Status: Chronic Qualifiers: Cardiomyopathy type: unspecified Qualified Code(s): I42.9 - Cardiomyopathy , unspecified (6) Chronic anticoagulation Code(s): Z79.01 - SHELTER (CURRENT) USE OF ANTICOAGULANTS Status: Chronic (7) Dyslipidemia Code(s): E78.5 - HYPERLIPIDEMIA, UNSPECIFIED Status: Chronic (8) Hypertension Code(s): I10 - ESSENTIAL (PRIMARY) HYPERTENSION Status: Chronic Qualifiers: (9) Tobacco abuse Code(s): Z72.0 - TOBACCO USE Status: Chronic (10) h/o aaa repair Status: Chronic - Plan PT/OT, social services coordinator continue cardiac meds Rate better. on ASA, coreg and lipitor with aldactone Eliquis on hold tentative plan to have LHC tomorrow. NPO past MN. continue life vest need AICD eventually. Appreciate cardiology input. AM labs.
[2019-08-08 14:55] LABS: AST (SGOT) 101 U/L (5-34); Anion Gap 17 mmol/L (10-20); Bilirubin, Total 0.4 mg/dL (0.2-1.2); Calcium 8.8 mg/dL (7.8-10.44); Carbon Dioxide 16 mmol/L (23-31); Chloride 103 mmol/L (98-107); Potassium 5.6 mmol/L (3.5-5.1); Protein, Total 5.3 g/dL (5.8-8.1); Sodium 130 mmol/L (136-145)
[2019-08-08 15:02] LABS: Albumin 3.8 g/dL (3.4-4.8); Globulin 1.5 g/dL (2.4-3.5)
[2019-08-08 15:05] LABS: Glucose 116 mg/dL (83-110)
[2019-08-08 15:08] LABS: Alkaline Phosphatase 48 U/L (40-110); Calc. Creatinine Clearance 37 mL/min (70-130); Estimated GFR-MDRD 54
[2019-08-08 15:11] LABS: ALT (SGPT) 91 U/L (8-55)
[2019-08-08 15:27] LABS: BUN (Urea Nitrogen) 31 mg/dL (8.4-25.7)
[2019-08-08 16:12] LABS: #Eosinphils 0.1 thou/uL (0.0-0.7); #Lymphocytes 1.6 thou/uL (1.20-3.40); #Monocytes 0.5 thou/uL (0.11-0.59); #Neutrophils 2.2 thou/uL (1.40-6.50); %Basophils 0.4 % (0.0-1.0); %Eosinophils 2.4 % (0.0-10.0); %Lymphocytes 37.2 % (21.0-51.0); %Monocytes 10.3 % (0.0-10.0); %Neutrophils 49.7 % (42.0-75.0); Hemoglobin 11.2 g/dL (14.0-18.0); Mean Corpuscular HGB CONC 33.6 g/dL (32.0-36.0); Mean Corpuscular Hemoglobin 31.8 pg (27.0-31.0); Mean Corpuscular Volume 94.8 fL (78.0-98.0); Mean Platelet Volume 6.9 fL (7.4-10.4); Platelet Count 144 thou/uL (130-400); RBC Distribution Width 13.1 % (11.5-14.5); Red Blood Cell (RBC) Count 3.53 mill/uL (4.70-6.10); White Blood Cell (WBC) Count 4.4 thou/uL (4.8-10.8)
[2019-08-08] MEDS: HYDROcodone/Acetaminophen 10/325 mg Tablet PO PRN (21:00)
[2019-08-08] MEDS: ALPRAZolam 0.5 MG TAB PO PRN (21:00)
[2019-08-08] MEDS: Atorvastatin Calcium 20 MG TAB PO SCH (21:01)
[2019-08-09 05:32] LABS: #Eosinphils 0.1 thou/uL (0.0-0.7); #Lymphocytes 2.1 thou/uL (1.20-3.40); #Monocytes 0.4 thou/uL (0.11-0.59); %Basophils 0.8 % (0.0-1.0); %Lymphocytes 44.9 % (21.0-51.0); %Neutrophils 42.3 % (42.0-75.0); Hemoglobin 10.7 g/dL (14.0-18.0); Mean Corpuscular HGB CONC 34.2 g/dL (32.0-36.0); Mean Corpuscular Hemoglobin 32.8 pg (27.0-31.0); Mean Corpuscular Volume 95.8 fL (78.0-98.0); Platelet Count 122 thou/uL (130-400); Red Blood Cell (RBC) Count 3.25 mill/uL (4.70-6.10); White Blood Cell (WBC) Count 4.7 thou/uL (4.8-10.8)
[2019-08-09 06:07] LABS: ALT (SGPT) 86 U/L (8-55); AST (SGOT) 89 U/L (5-34); Albumin 3.7 g/dL (3.4-4.8); Alkaline Phosphatase 48 U/L (40-110); Anion Gap 11 mmol/L (10-20); BUN (Urea Nitrogen) 28 mg/dL (8.4-25.7); Bilirubin, Total 0.4 mg/dL (0.2-1.2); Calc. Creatinine Clearance 41 mL/min (70-130); Calcium 9.3 mg/dL (7.8-10.44); Carbon Dioxide 26 mmol/L (23-31); Chloride 99 mmol/L (98-107); Estimated GFR-MDRD 61; Globulin 3.5 g/dL (2.4-3.5); Glucose 90 mg/dL (83-110); Potassium 4.5 mmol/L (3.5-5.1); Protein, Total 7.2 g/dL (5.8-8.1); Sodium 131 mmol/L (136-145)
[2019-08-09] MEDS: Carvedilol 6.25 MG TAB PO SCH ×2 (08:30→17:20)
[2019-08-09] MEDS: Cyanocobalamin (Vitamin B-12) 1,000 MCG TAB PO SCH (08:30)
[2019-08-09] MEDS: Aspirin Chewable 81 MG TAB PO SCH (08:30)
[2019-08-09] MEDS: Spironolactone 25 MG TAB PO SCH (08:31)
[2019-08-09] MEDS: Folic Acid 1 MG TAB PO SCH (08:32)
[2019-08-09] MEDS ORDERED: Lidocaine 1% (PF) 30 ML VIAL ONE (10:33)
[2019-08-09] MEDS ORDERED: Heparin (Artline) 1,000 ML ONE (10:33)
[2019-08-09] MEDS ORDERED: Iopamidol 370 76% 100 ML VIAL ONE (10:53)
--- NOTE | 2019-08-09 12:21 | PDOC.HOSPP ---
- Subjective Encounter Date: 08/09/19 Encounter Time: 09:45 Subjective: no chest pain or palp is npo for cath today - Objective Vital Signs & Weight: Vital Signs (12 hours) Temp Pulse Resp BP BP Pulse Ox 08/09/19 08:16 98.4 F 72 14 143/78 H 99 08/09/19 04:20 97.7 F 62 16 103/56 L 95 Weight Admit Weight 114 lb 4.8 oz Weight 111 lb 12.8 oz I&O: 08/08/19 08/09/19 08/10/19 06:59 06:59 06:59 Intake Total 2160 2880 Balance 2160 2880 Result Diagrams: 08/09/19 05:07 08/09/19 05:07 Hospitalist ROS - Medication Medications: Active Medications Generic Name Dose Route Start Last Admin Trade Name Freq PRN Reason Stop Dose Admin Hydrocodone Bitart/Acetaminophen 1 tab 08/06/19 11:35 08/08/19 21:00 [place] 10/325 PO 1 tab Q6H PRN Administration Moderate to Severe Pain (6-10) Alprazolam 0.5 mg 08/06/19 11:35 08/08/19 21:00 Xanax PO 0.5 mg BIDPRN PRN Administration Anxiety/Agitation Aspirin 81 mg 08/07/19 09:00 08/09/19 08:30 Aspirin Chewable PO 81 mg DAILY HIPOLITO Administration Atorvastatin Calcium 20 mg 08/06/19 21:00 08/08/19 21:01 Lipitor PO 20 mg HS HIPOLITO Administration Carvedilol 12.5 mg 08/08/19 17:00 08/09/19 08:30 Coreg PO 12.5 mg BID-WM HIPOLITO Administration Cyanocobalamin 1,000 mcg 08/07/19 09:00 08/09/19 08:30 Vitamin B-12 PO 1,000 mcg DAILY HIPOLITO Administration Folic Acid 1 mg 08/07/19 09:00 08/09/19 08:32 Folvite PO 1 mg DAILY HIPOLITO Administration Diltiazem HCl 125 mg/ Sodium 125 mls @ 5 mls/hr 08/06/19 13:00 08/06/19 17:58 Chloride IVPB 125 mls INF HIPOLITO Administration Protocol 5 MG/HR Pantoprazole Sodium 40 mg 08/07/19 09:00 08/09/19 08:30 Protonix PO 40 mg DAILY HIPOLITO Administration Sodium Chloride 10 ml 08/06/19 21:00 08/09/19 08:32 Flush - Normal Saline IVF 10 ml Q12HR HIPOLITO Administration Spironolactone 12.5 mg 08/07/19 08:00 08/09/19 08:31 Aldactone PO 12.5 mg QAM-WM HIPOLITO Administration - Exam General Appearance: NAD, awake alert Eye: PERRL, anicteric sclera ENT: no oropharyngeal lesions, moist mucosa Neck: symmetric, no JVD Heart: RRR, no murmur Respiratory: no wheezes, no rales Gastrointestinal: soft, non-tender, non-distended, normal bowel sounds Extremities: no cyanosis, no edema Neurological: cranial nerve grossly intact, no focal deficits Psychiatric: normal affect, A&O x 3 Hosp A/P (1) PAF (paroxysmal atrial fibrillation) Code(s): I48.0 - PAROXYSMAL ATRIAL FIBRILLATION Status: Chronic (2) Chronic systolic CHF (congestive heart failure), NYHA class 3 Code(s): I50.22 - CHRONIC SYSTOLIC (CONGESTIVE) HEART FAILURE Status: Chronic (3) COPD (chronic obstructive pulmonary disease) Status: Chronic Qualifiers: COPD type: chronic bronchitis (4) Cardiomyopathy Code(s): I42.9 - CARDIOMYOPATHY, UNSPECIFIED Status: Chronic Qualifiers: Cardiomyopathy type: unspecified Qualified Code(s): I42.9 - Cardiomyopathy , unspecified (5) Dyslipidemia Code(s): E78.5 - HYPERLIPIDEMIA, UNSPECIFIED Status: Chronic (6) Hepatitis C Code(s): B19.20 - UNSPECIFIED VIRAL HEPATITIS C WITHOUT HEPATIC COMA Status: Chronic Qualifiers: (7) Hypertension Code(s): I10 - ESSENTIAL (PRIMARY) HYPERTENSION Status: Chronic Qualifiers: (8) h/o aaa repair Status: Chronic - Plan For cath today has recurrent afib with rvr on asp, lipitor, coreg, spironolactone was scheduled for cath on friday which couldn't be done due to afib with rvr is off tobacco and drugs, may qualify for aicd this admission, await cardio input has had 2 hospitalizations for life vest going off/alarms (he usually has 2 alarms/day at home) to ambulate as tolerated
[2019-08-09] MEDS ORDERED: Fentanyl 100 MCG/2 ML VIAL ONE (12:35)
[2019-08-09] MEDS ORDERED: Midazolam HCl 2 mg/2 ml Vial ONE (12:35)
[2019-08-09] MEDS ORDERED: Nitroglycerin 0.4 MG TAB (25 Tab Bottle) SL PRN (13:11)
[2019-08-09] MEDS ORDERED: Acetaminophen/Codeine 30-300mg Tablet PO PRN (13:11)
[2019-08-09] MEDS ORDERED: Sodium Chloride 0.9% 250 ML IV SCH (13:15)
[2019-08-09] MEDS: HYDROcodone/Acetaminophen 10/325 mg Tablet PO PRN (14:11)
[2019-08-09] MEDS: ALPRAZolam 0.5 MG TAB PO PRN (14:12)
[2019-08-09 19:20] LABS: Platelet Count 140 thou/uL (130-400)
[2019-08-09] MEDS: Atorvastatin Calcium 20 MG TAB PO SCH (22:02)
--- NOTE | 2019-08-10 00:42 | CON ---
DATE OF CONSULTATION: HISTORY OF PRESENT ILLNESS: This is a 74-year-old gentleman with multiple medical problems, who underwent cardiac catheterization today showing a 60% left main, 70% LAD lesion and a very small right coronary artery with significant proximal disease. He has been hospitalized several times this summer with atrial fibrillation with RVR and was wearing a LifeVest for an EF of 30% to 35%, which has fired at least one time and threatened to fire again for rapid ventricular response to his atrial fibrillation. He has had negative troponins on this admission. PAST MEDICAL HISTORY: Significant for untreated hepatitis C with probable cirrhosis per Dr. Danny Barbosa on an evaluation earlier this summer. He also has COPD and the atrial fibrillation. He has known polysubstance drug abuse including a smoking history of 2 packs a day. He states he has been off it for 1 month. He has had positive drug screens for both amphetamine, opiates and cannabis. He had a stroke earlier this year with some left-sided weakness, they resolved over the course of a couple of days. 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 He currently lives alone in [place]. PHYSICAL EXAMINATION: GENERAL: On examination, he is thin, ill-appearing gentleman with a height of 5 feet 7 inches, a weight of 110 pounds with the a BMI of 17. NECK: No carotid bruits. LUNGS: Clear to auscultation. CARDIAC: Irregular rhythm. No murmurs. ABDOMEN: Well-healed midline scar. No ascites. EXTREMITIES: He has palpable femoral and pedal pulses with multiple healed wounds in the bilateral lower legs. He has no edema. PAST SURGICAL HISTORY: Abdominal aortic aneurysm repair for ruptured abdominal aneurysm that included a left iliac limb. This surgery was complicated by requiring prolonged ventilation. Cardiac catheterization, a 5-Pashto catheter wedged in the left main. Estimated left main stenosis of 60%, LAD stenosis 70%. Left ventricle ejection fraction appeared to be about 35%. The patient with multiple medical problems, malnutrition, cirrhosis, probably Child-A with a platelet count of a 122,000, normal albumin and normal INR. Potential targets include LAD, diagonal, OM and on the right probably is too small to graft. We will have to give this some given his general condition. Job ID: [id number]
[2019-08-10 04:35] LABS: #Eosinphils 0.1 thou/uL (0.0-0.7); #Lymphocytes 1.7 thou/uL (1.20-3.40); #Monocytes 0.4 thou/uL (0.11-0.59); #Neutrophils 1.9 thou/uL (1.40-6.50); %Basophils 0.9 % (0.0-1.0); %Eosinophils 3.3 % (0.0-10.0); %Lymphocytes 40.7 % (21.0-51.0); %Monocytes 9.3 % (0.0-10.0); %Neutrophils 45.8 % (42.0-75.0); Hemoglobin 10.3 g/dL (14.0-18.0); Mean Corpuscular HGB CONC 33.9 g/dL (32.0-36.0); Mean Corpuscular Volume 94.5 fL (78.0-98.0); Platelet Count 120 thou/uL (130-400); RBC Distribution Width 12.8 % (11.5-14.5); Red Blood Cell (RBC) Count 3.22 mill/uL (4.70-6.10); White Blood Cell (WBC) Count 4.1 thou/uL (4.8-10.8)
[2019-08-10 04:59] LABS: ALT (SGPT) 91 U/L (8-55); AST (SGOT) 92 U/L (5-34); Albumin 3.6 g/dL (3.4-4.8); Alkaline Phosphatase 51 U/L (40-110); Anion Gap 11 mmol/L (10-20); BUN (Urea Nitrogen) 25 mg/dL (8.4-25.7); Bilirubin, Total 0.3 mg/dL (0.2-1.2); Calc. Creatinine Clearance 44 mL/min (70-130); Calcium 9.1 mg/dL (7.8-10.44); Carbon Dioxide 28 mmol/L (23-31); Chloride 99 mmol/L (98-107); Estimated GFR-MDRD 66; Globulin 3.7 g/dL (2.4-3.5); Glucose 96 mg/dL (83-110); Potassium 4.6 mmol/L (3.5-5.1); Protein, Total 7.3 g/dL (5.8-8.1); Sodium 133 mmol/L (136-145)
[2019-08-10] MEDS: Carvedilol 6.25 MG TAB PO SCH ×2 (10:36→16:33)
[2019-08-10] MEDS: Spironolactone 25 MG TAB PO SCH (10:36)
[2019-08-10] MEDS: Aspirin Chewable 81 MG TAB PO SCH (10:37)
[2019-08-10] MEDS: Cyanocobalamin (Vitamin B-12) 1,000 MCG TAB PO SCH (10:37)
[2019-08-10] MEDS: Folic Acid 1 MG TAB PO SCH (10:37)
--- NOTE | 2019-08-10 11:51 | PDOC.HOSPP ---
- Subjective Encounter Date: 08/10/19 Encounter Time: 09:00 Subjective: no chest pain or palp is amb in room - Objective Vital Signs & Weight: Vital Signs (12 hours) Temp Pulse Resp BP BP Pulse Ox 08/10/19 07:13 98.8 F 84 22 H 115/72 99 08/10/19 04:00 97.4 F L 76 14 113/62 99 08/09/19 23:53 88 104/67 Weight Admit Weight 114 lb 4.8 oz Weight 118 lb 11.2 oz I&O: 08/09/19 08/10/19 08/11/19 06:59 06:59 06:59 Intake Total 2880 960 Balance 2880 960 Result Diagrams: 08/10/19 04:14 08/10/19 04:14 Hospitalist ROS - Medication Medications: Active Medications Generic Name Dose Route Start Last Admin Trade Name Freq PRN Reason Stop Dose Admin Hydrocodone Bitart/Acetaminophen 1 tab 08/06/19 11:35 08/09/19 14:11 [place] 10/325 PO 1 tab Q6H PRN Administration Moderate to Severe Pain (6-10) Alprazolam 0.5 mg 08/06/19 11:35 08/09/19 14:12 Xanax PO 0.5 mg BIDPRN PRN Administration Anxiety/Agitation Aspirin 81 mg 08/07/19 09:00 08/10/19 10:37 Aspirin Chewable PO 81 mg DAILY [facility] Administration Atorvastatin Calcium 20 mg 08/06/19 21:00 08/09/19 22:02 Lipitor PO 20 mg HS [facility] Administration Carvedilol 12.5 mg 08/08/19 17:00 08/10/19 10:36 Coreg PO 12.5 mg BID-WM [facility] Administration Cyanocobalamin 1,000 mcg 08/07/19 09:00 08/10/19 10:37 Vitamin B-12 PO 1,000 mcg DAILY [facility] Administration Folic Acid 1 mg 08/07/19 09:00 08/10/19 10:37 Folvite PO 1 mg DAILY [facility] Administration Diltiazem HCl 125 mg/ Sodium 125 mls @ 5 mls/hr 08/06/19 13:00 08/06/19 17:58 Chloride IVPB 125 mls INF [facility] Administration Protocol 5 MG/HR Pantoprazole Sodium 40 mg 08/07/19 09:00 08/10/19 10:37 Protonix PO 40 mg DAILY [facility] Administration Sodium Chloride 10 ml 08/06/19 21:00 08/10/19 10:38 Flush - Normal Saline IVF 10 ml Q12HR [facility] Administration Spironolactone 12.5 mg 08/07/19 08:00 08/10/19 10:36 Aldactone PO 12.5 mg QAM-WM [facility] Administration - Exam General Appearance: NAD, awake alert Eye: PERRL, anicteric sclera ENT: no oropharyngeal lesions, moist mucosa Neck: supple, no JVD Heart: no murmur, irregular Respiratory: no wheezes, no rales Gastrointestinal: soft, non-tender, non-distended, normal bowel sounds Extremities: no cyanosis, no edema Neurological: cranial nerve grossly intact, no focal deficits Psychiatric: normal affect, A&O x 3 Hosp A/P (1) CAD (coronary artery disease) Code(s): I25.10 - ATHSCL HEART DISEASE OF [place] CORONARY ARTERY W/O ANG PCTRS Status: Acute Qualifiers: Coronary Disease-Associated Artery/Lesion type: [place] artery [place] vs. transplanted heart: [place] heart Associated angina: without angina Qualified Code(s): I25.10 - Atherosclerotic heart disease of [place] coronary artery without angina pectoris (2) PAF (paroxysmal atrial fibrillation) Code(s): I48.0 - PAROXYSMAL ATRIAL FIBRILLATION Status: Chronic (3) Chronic systolic CHF (congestive heart failure), NYHA class 3 Code(s): I50.22 - CHRONIC SYSTOLIC (CONGESTIVE) HEART FAILURE Status: Chronic (4) COPD (chronic obstructive pulmonary disease) Status: Chronic Qualifiers: COPD type: chronic bronchitis (5) Cardiomyopathy Code(s): I42.9 - CARDIOMYOPATHY, UNSPECIFIED Status: Chronic Qualifiers: Cardiomyopathy type: ischemic Qualified Code(s): I25.5 - Ischemic cardiomyopathy (6) Dyslipidemia Code(s): E78.5 - HYPERLIPIDEMIA, UNSPECIFIED Status: Chronic (7) Hepatitis C Code(s): B19.20 - UNSPECIFIED VIRAL HEPATITIS C WITHOUT HEPATIC COMA Status: Chronic Qualifiers: (8) Hypertension Code(s): I10 - ESSENTIAL (PRIMARY) HYPERTENSION Status: Chronic Qualifiers: (9) h/o aaa repair Status: Chronic (10) Malnutrition of moderate degree Code(s): E44.0 - MODERATE PROTEIN-CALORIE MALNUTRITION Status: Chronic - Plan cath showed left main and lad disease, rca is a small vessel has recurrent afib with rvr on asp, lipitor, increased dose of coreg, spironolactone is off tobacco and drugs, may qualify for aicd this admission, await cardio input has had 2 hospitalizations for life vest going off/alarms (he usually has 2 alarms/day at home) to ambulate as tolerated dc plan per cardiology adv he needs to f/u with Dr.Charles Barbosa for Hep C treatment if he qualifies. Likely cabg when he is more stronger physically and gains a bit of weight (bmi is 18 now) and stays away from drugs/alc and tobacco.
--- NOTE | 2019-08-10 18:04 | PDOC.CPN ---
- Subjective Date: 08/10/19 Time: 17:57 Interval history: No new issues. He had his LHC yesterday and it showed 50-60% left main disease and diffuse RCA disease. He denies angina. - Review of Systems General: denies: fever/chills, weight/appetite/sleep changes, night sweats, fatigue Respiratory: denies: cough, congestion, shortness of breath, exercise intolerance Cardiovascular: denies: chest pain, palpitation, edema, paroxysmal nocturnal dyspnea, orthopnea Gastrointestinal: denies: nausea, vomiting, diarrhea, constipation, abd pain, GI bleeding Musculoskeletal: denies: pain, tenderness, stiffness, swelling, arthritis/ arthralgias Neurological: denies: numbness, syncope, seizure, weakness - Objective Allergies/Adverse Reactions: Allergies Allergy/AdvReac Type Severity Reaction Status Date / Time No Known Drug Allergies Allergy Verified 08/06/19 14:38 Visit Medications: Current Medications Acetaminophen (Tylenol) 650 mg PO Q4H PRN PRN Reason: Headache/Fever/Mild Pain (1-3) Acetaminophen/Codeine Phosphate (Tylenol #3) 1 tab PO Q4H PRN PRN Reason: Mild Pain (1-3) Hydrocodone Bitart/Acetaminophen ([place] 10/325) 1 tab PO Q6H PRN PRN Reason: Moderate to Severe Pain (6-10) Last Admin: 08/09/19 14:11 Dose: 1 tab Alprazolam (Xanax) 0.5 mg PO BIDPRN PRN PRN Reason: Anxiety/Agitation Last Admin: 08/09/19 14:12 Dose: 0.5 mg Aspirin (Aspirin Chewable) 81 mg PO DAILY [facility] Last Admin: 08/10/19 10:37 Dose: 81 mg Atorvastatin Calcium (Lipitor) 20 mg PO HS [facility] Last Admin: 08/09/19 22:02 Dose: 20 mg Bisacodyl (Dulcolax) 10 mg [place] DAILYPRN PRN PRN Reason: Constipation Carvedilol (Coreg) 12.5 mg PO BID-[facility] Last Admin: 08/10/19 16:33 Dose: 12.5 mg Cyanocobalamin (Vitamin B-12) 1,000 mcg PO DAILY [facility] Last Admin: 08/10/19 10:37 Dose: 1,000 mcg Folic Acid (Folvite) 1 mg PO DAILY [facility] Last Admin: 08/10/19 10:37 Dose: 1 mg Guaifenesin/Dextromethorphan (Robitussin Dm) 15 ml PO Q4H PRN PRN Reason: Cough Diltiazem HCl 125 mg/ Sodium (Chloride) 125 mls @ 5 mls/hr IVPB INF [facility]; Protocol Last Admin: 08/06/19 17:58 Dose: 125 mls Nitroglycerin (Nitrostat) 0.4 mg SL Q5MIN PRN PRN Reason: Chest Pain Ondansetron HCl (Zofran) 4 mg IVP Q6H PRN PRN Reason: Nausea/Vomiting Pantoprazole Sodium (Protonix) 40 mg PO DAILY [facility] Last Admin: 08/10/19 10:37 Dose: 40 mg Senna/Docusate Sodium (Senokot S) 2 tab PO BID PRN PRN Reason: Constipation Sodium Chloride (Flush - Normal Saline) 10 ml IVF Q12HR [facility] Last Admin: 08/10/19 10:38 Dose: 10 ml Sodium Chloride (Flush - Normal Saline) 10 ml IVF PRN PRN PRN Reason: Saline Flush Spironolactone (Aldactone) 12.5 mg PO QAM-WM [facility] Last Admin: 08/10/19 10:36 Dose: 12.5 mg Vital Signs & Weight: Vital Signs Temp Pulse Pulse Resp BP BP BP 08/10/19 16:00 98.0 F 76 16 122/60 08/10/19 13:48 69 107/61 08/10/19 12:00 97.9 F 80 18 158/72 H 08/10/19 07:13 98.8 F 84 22 H 115/72 Pulse Ox 08/10/19 16:00 95 08/10/19 13:48 08/10/19 12:00 97 08/10/19 07:13 99 Admit Weight 114 lb 4.8 oz Weight 118 lb 11.2 oz - Physical Exam General: alert & oriented x3 HEENT: mucus membranes moist Neck: supple neck Cardiac: regular rate and rhythm Lungs: clear to auscultation Neuro: grossly intact Abdomen: active bowel sounds Extremities: no edema Skin: clear Musculoskeletal: no pain - Labs Result Diagrams: 08/10/19 04:14 08/10/19 04:14 Troponin/CKMB Troponin I Less than 0.010 ng/mL (< 0.028) 08/06/19 14:18 - Telemetry Sinus rhythms and dysrhythmias: sinus rhythm - Assessment/Plan Assessment/Plan: 1. Ischemic CM. 2. CAD, LM and RCA 3. Chronic afib, rate controlled. 4. EF at 40% PLAN: - He is certainly high risk for open heart surgery given his social situation, he lives out in the [facility] and [place] no one to be with him after surgery, he has been trying to get a place in the city but has bee unable to. Would also need his Hep C treated. - Will plan tyo do medical therpay for his ischemic CM. - Continue rate control. - Restart Eliquis now. - May stop using lifevest as LV function improved.
[2019-08-10] MEDS: HYDROcodone/Acetaminophen 10/325 mg Tablet PO PRN (18:36)
[2019-08-10] MEDS: ALPRAZolam 0.5 MG TAB PO PRN (18:37)
[2019-08-10] MEDS: Apixaban 5 MG TAB PO SCH (20:48)
[2019-08-10] MEDS: Atorvastatin Calcium 20 MG TAB PO SCH (20:48)
[2019-08-11 05:00] LABS: #Eosinphils 0.2 thou/uL (0.0-0.7); #Lymphocytes 1.7 thou/uL (1.20-3.40); #Monocytes 0.3 thou/uL (0.11-0.59); #Neutrophils 2.2 thou/uL (1.40-6.50); %Eosinophils 4.5 % (0.0-10.0); %Lymphocytes 37.6 % (21.0-51.0); %Monocytes 7.8 % (0.0-10.0); %Neutrophils 49.2 % (42.0-75.0); Hemoglobin 9.8 g/dL (14.0-18.0); Mean Corpuscular HGB CONC 33.6 g/dL (32.0-36.0); Mean Corpuscular Hemoglobin 32.1 pg (27.0-31.0); Mean Corpuscular Volume 95.4 fL (78.0-98.0); Platelet Count 124 thou/uL (130-400); RBC Distribution Width 12.9 % (11.5-14.5); Red Blood Cell (RBC) Count 3.04 mill/uL (4.70-6.10); White Blood Cell (WBC) Count 4.4 thou/uL (4.8-10.8)
[2019-08-11 05:22] LABS: ALT (SGPT) 95 U/L (8-55); AST (SGOT) 96 U/L (5-34); Albumin 3.9 g/dL (3.4-4.8); Alkaline Phosphatase 48 U/L (40-110); Anion Gap 13 mmol/L (10-20); BUN (Urea Nitrogen) 28 mg/dL (8.4-25.7); Bilirubin, Total 0.5 mg/dL (0.2-1.2); Calc. Creatinine Clearance 39 mL/min (70-130); Calcium 9.5 mg/dL (7.8-10.44); Carbon Dioxide 28 mmol/L (23-31); Chloride 98 mmol/L (98-107); Estimated GFR-MDRD 55; Globulin 3.6 g/dL (2.4-3.5); Glucose 94 mg/dL (83-110); Potassium 4.6 mmol/L (3.5-5.1); Protein, Total 7.5 g/dL (5.8-8.1); Sodium 134 mmol/L (136-145)
--- NOTE | 2019-08-11 08:28 | CT ---
PRELIMINARY REPORT/[facility]/EMERGENCY AFTER HOURS PROCEDURE: PROCEDURE INFORMATION: Exam: CT Head Without Contrast Exam date and time: 08/11/2019 3:40 AM Age: 74 years old Clinical history: Injury or trauma; Initial encounter; Abrasion; Not specified; Patient HX: Fall form standing TECHNIQUE: Imaging protocol: Computed tomography of the head without contrast. COMPARISON: No relevant prior studies available. FINDINGS: Brain: Normal. No hemorrhage. Unremarkable white matter. No mass effect. Ventricles: Normal. No ventriculomegaly. Bones/joints: Unremarkable. No acute fracture. Sinuses: Visualized sinuses are unremarkable. No fluid levels. Mastoid air cells: Visualized mastoid air cells are well aerated. Soft tissues: Unremarkable. IMPRESSION: No acute intracranial hemorrhage. Thank you for allowing us to participate in the care of your patient. Dictated and Authenticated by: Shemar Edmonds MD 08/11/2019 3:53 AM Central Time ([place] & [place]) FINAL REPORT HEAD CT WITHOUT CONTRAST: HISTORY: Fall from standing position. COMPARISON: 04/08/19. FINDINGS/IMPRESSION: This report is in agreement with the preliminary report by Didi. No intracranial post-traumatic seque lae. POS: [facility]
[2019-08-11] MEDS: Carvedilol 6.25 MG TAB PO SCH ×2 (08:44→15:46)
[2019-08-11] MEDS: Spironolactone 25 MG TAB PO SCH (08:44)
[2019-08-11] MEDS: Cyanocobalamin (Vitamin B-12) 1,000 MCG TAB PO SCH (08:45)
[2019-08-11] MEDS: Folic Acid 1 MG TAB PO SCH (08:45)
[2019-08-11] MEDS: Aspirin Chewable 81 MG TAB PO SCH (08:45)
[2019-08-11] MEDS: Apixaban 5 MG TAB PO SCH ×2 (08:45→19:07)
[2019-08-11 14:15] VITALS: BMI 18.2
[2019-08-11 14:17] LABS: Hemoglobin 10.3 g/dL (14.0-18.0); Platelet Count 132 thou/uL (130-400)
--- NOTE | 2019-08-11 17:46 | PDOC.CPN ---
- Subjective Date: 08/11/19 Time: 17:45 Interval history: He is doing well. No new issues. - Review of Systems General: denies: fever/chills, weight/appetite/sleep changes, night sweats, fatigue Respiratory: denies: cough, congestion, shortness of breath, exercise intolerance Cardiovascular: denies: chest pain, palpitation, edema, paroxysmal nocturnal dyspnea, orthopnea Gastrointestinal: denies: nausea, vomiting, diarrhea, constipation, abd pain, GI bleeding Musculoskeletal: denies: pain, tenderness, stiffness, swelling, arthritis/ arthralgias - Objective Allergies/Adverse Reactions: Allergies Allergy/AdvReac Type Severity Reaction Status Date / Time No Known Drug Allergies Allergy Verified 08/06/19 14:38 Visit Medications: Current Medications Acetaminophen (Tylenol) 650 mg PO Q4H PRN PRN Reason: Headache/Fever/Mild Pain (1-3) Acetaminophen/Codeine Phosphate (Tylenol #3) 1 tab PO Q4H PRN PRN Reason: Mild Pain (1-3) Hydrocodone Bitart/Acetaminophen ([place] 10/325) 1 tab PO Q6H PRN PRN Reason: Moderate to Severe Pain (6-10) Last Admin: 08/10/19 18:36 Dose: 1 tab Alprazolam (Xanax) 0.5 mg PO BIDPRN PRN PRN Reason: Anxiety/Agitation Last Admin: 08/10/19 18:37 Dose: 0.5 mg Apixaban (Eliquis) 5 mg PO BID [facility] Last Admin: 08/11/19 08:45 Dose: 5 mg Aspirin (Aspirin Chewable) 81 mg PO DAILY [facility] Last Admin: 08/11/19 08:45 Dose: 81 mg Atorvastatin Calcium (Lipitor) 20 mg PO HS [facility] Last Admin: 08/10/19 20:48 Dose: 20 mg Bisacodyl (Dulcolax) 10 mg [place] DAILYPRN PRN PRN Reason: Constipation Carvedilol (Coreg) 12.5 mg PO BID[facility] Last Admin: 08/11/19 15:46 Dose: Not Given Cyanocobalamin (Vitamin B-12) 1,000 mcg PO DAILY [facility] Last Admin: 08/11/19 08:45 Dose: 1,000 mcg Folic Acid (Folvite) 1 mg PO DAILY [facility] Last Admin: 08/11/19 08:45 Dose: 1 mg Guaifenesin/Dextromethorphan (Robitussin Dm) 15 ml PO Q4H PRN PRN Reason: Cough Nitroglycerin (Nitrostat) 0.4 mg SL Q5MIN PRN PRN Reason: Chest Pain Ondansetron HCl (Zofran) 4 mg IVP Q6H PRN PRN Reason: Nausea/Vomiting Pantoprazole Sodium (Protonix) 40 mg PO DAILY [facility] Last Admin: 08/11/19 08:45 Dose: 40 mg Sacubitril/Valsartan (Entresto 24 Mg-26 Mg Tablet) 1 tab PO BID [facility] Last Admin: 08/11/19 08:45 Dose: 1 tab Senna/Docusate Sodium (Senokot S) 2 tab PO BID PRN PRN Reason: Constipation Sodium Chloride (Flush - Normal Saline) 10 ml IVF Q12HR [facility] Last Admin: 08/11/19 08:45 Dose: 10 ml Sodium Chloride (Flush - Normal Saline) 10 ml IVF PRN PRN PRN Reason: Saline Flush Spironolactone (Aldactone) 12.5 mg PO QAM-WM [facility] Last Admin: 08/11/19 08:44 Dose: 12.5 mg Vital Signs & Weight: Vital Signs Temp Pulse Pulse Pulse Resp BP BP 08/11/19 15:40 97.9 F 87 16 08/11/19 12:26 103 H 86 113/75 115/55 L 08/11/19 11:33 98.2 F 98 18 08/11/19 07:52 98.5 F 80 14 BP BP Pulse Ox 08/11/19 15:40 93/62 96 08/11/19 12:26 08/11/19 11:33 93/62 95 08/11/19 07:52 126/67 94 L Admit Weight 114 lb 4.8 oz Weight 116 lb 9 oz - Physical Exam General: alert & oriented x3 HEENT: mucus membranes moist, normocephaly Neck: supple neck, midline trachea Cardiac: no murmur, irregularly regular Lungs: normal breath sounds, normal exam Neuro: grossly intact Abdomen: active bowel sounds Extremities: no edema Skin: clear Musculoskeletal: no pain - Labs Result Diagrams: 08/11/19 14:12 08/11/19 14:12 Troponin/CKMB Troponin I Less than 0.010 ng/mL (< 0.028) 08/06/19 14:18 - Telemetry Supraventricular conduction: atrial fibrillation - Assessment/Plan Assessment/Plan: 1. Ischemic CM. 2. CAD, LM and RCA 3. Chronic afib, rate controlled. 4. EF at 40% PLAN: - He is certainly high risk for open heart surgery given his social situation, he lives out in the [facility] and [place] no one to be with him after surgery, he has been trying to get a place in the city but has bee unable to. Would also need his Hep C treated. - Continue medical therapy. - Continue rate control. - Continue Eliquis. - May stop using lifevest as LV function improved. - May discharge tomorrow and will follow up in the office in 1 month.
--- NOTE | 2019-08-11 18:39 | PDOC.HOSPP ---
- Subjective Encounter Date: 08/11/19 Encounter Time: 10:37 Subjective: 74 y/o male with cardimyopathy with EF of 30-35 , Hep C, COPD admitted with recurrent palpitations and dizziness associated with recurrent lifevest alarms. Found to have paroxysmal atrial fib with RVR and was started on cardizen infusion which was later transition to beta mya. Later had LHC which showed multiple vessel disease with involvement of left main and LAD. cardothoracic surgery consult was obtained but patient was deem high risk for due to moderate PCM and post surgery care as patient lives in the [facility] hence medical management recommended. Feeling better. - Objective Vital Signs & Weight: Vital Signs (12 hours) Temp Pulse Pulse Pulse Resp BP BP 08/11/19 15:40 97.9 F 87 16 08/11/19 12:26 103 H 86 113/75 115/55 L 08/11/19 11:33 98.2 F 98 18 08/11/19 07:52 98.5 F 80 14 BP BP Pulse Ox 08/11/19 15:40 93/62 96 08/11/19 12:26 08/11/19 11:33 93/62 95 08/11/19 07:52 126/67 94 L Weight Admit Weight 114 lb 4.8 oz Weight 116 lb 9 oz I&O: 08/10/19 08/11/19 08/12/19 06:59 06:59 06:59 Intake Total 702 795 3325 Balance 052 896 8328 Result Diagrams: 08/11/19 14:12 08/11/19 14:12 Hospitalist ROS - Medication Medications: Active Medications Generic Name Dose Route Start Last Admin Trade Name Freq PRN Reason Stop Dose Admin Hydrocodone Bitart/Acetaminophen 1 tab 08/06/19 11:35 08/10/19 18:36 [place] 10/325 PO 1 tab Q6H PRN Administration Moderate to Severe Pain (6-10) Alprazolam 0.5 mg 08/06/19 11:35 08/10/19 18:37 Xanax PO 0.5 mg BIDPRN PRN Administration Anxiety/Agitation Apixaban 5 mg 08/10/19 21:00 08/11/19 08:45 Eliquis PO 5 mg BID [facility] Administration Aspirin 81 mg 08/07/19 09:00 08/11/19 08:45 Aspirin Chewable PO 81 mg DAILY [facility] Administration Atorvastatin Calcium 20 mg 08/06/19 21:00 08/10/19 20:48 Lipitor PO 20 mg HS [facility] Administration Carvedilol 12.5 mg 08/08/19 17:00 08/11/19 15:46 Coreg PO Not Given BID-WM [facility] Cyanocobalamin 1,000 mcg 08/07/19 09:00 08/11/19 08:45 Vitamin B-12 PO 1,000 mcg DAILY [facility] Administration Folic Acid 1 mg 08/07/19 09:00 08/11/19 08:45 Folvite PO 1 mg DAILY [facility] Administration Pantoprazole Sodium 40 mg 08/07/19 09:00 08/11/19 08:45 Protonix PO 40 mg DAILY [facility] Administration Sacubitril/Valsartan 1 tab 08/10/19 21:00 08/11/19 08:45 Entresto 24 Mg-26 Mg Tablet PO 1 tab BID [facility] Administration Sodium Chloride 10 ml 08/06/19 21:00 08/11/19 08:45 Flush - Normal Saline IVF 10 ml Q12HR [facility] Administration Spironolactone 12.5 mg 08/07/19 08:00 08/11/19 08:44 Aldactone PO 12.5 mg QAM-WM [facility] Administration - Exam General Appearance: awake alert Eye: anicteric sclera ENT: normocephalic atraumatic Neck: symmetric, no JVD Heart: irregular Respiratory: no wheezes, no ronchi, normal chest expansion Gastrointestinal: soft, non-tender, non-distended, normal bowel sounds Extremities: no cyanosis, no edema Neurological: cranial nerve grossly intact, no focal deficits Psychiatric: normal affect, A&O x 3 Hosp A/P (1) CAD (coronary artery disease) Code(s): I25.10 - ATHSCL HEART DISEASE OF [place] CORONARY ARTERY W/O ANG PCTRS Status: Acute Qualifiers: Coronary Disease-Associated Artery/Lesion type: [place] artery [place] vs. transplanted heart: [place] heart Associated angina: without angina Qualified Code(s): I25.10 - Atherosclerotic heart disease of [place] coronary artery without angina pectoris (2) Malnutrition of moderate degree Code(s): E44.0 - MODERATE PROTEIN-CALORIE MALNUTRITION Status: Chronic (3) Acute on chronic systolic heart failure, NYHA class 3 Code(s): I50.23 - ACUTE ON CHRONIC SYSTOLIC (CONGESTIVE) HEART FAILURE Status : Acute (4) Anemia due to acute blood loss Code(s): D62 - ACUTE POSTHEMORRHAGIC ANEMIA Status: Acute (5) Hepatitis C Code(s): B19.20 - UNSPECIFIED VIRAL HEPATITIS C WITHOUT HEPATIC COMA Status: Chronic Qualifiers: (6) Hypertension Code(s): I10 - ESSENTIAL (PRIMARY) HYPERTENSION Status: Chronic Qualifiers: (7) Methamphetamine abuse Code(s): F15.10 - OTHER STIMULANT ABUSE, UNCOMPLICATED Status: Chronic (8) Moderate mitral regurgitation by prior echocardiography Code(s): I34.0 - NONRHEUMATIC MITRAL (VALVE) INSUFFICIENCY Status: Chronic (9) PAF (paroxysmal atrial fibrillation) Code(s): I48.0 - PAROXYSMAL ATRIAL FIBRILLATION Status: Chronic (10) Severe tricuspid regurgitation by prior echocardiography Code(s): I07.1 - RHEUMATIC TRICUSPID INSUFFICIENCY Status: Chronic (11) Tobacco abuse Code(s): Z72.0 - TOBACCO USE Status: Chronic (12) h/o aaa repair Status: Chronic (13) Cardiomyopathy Code(s): I42.9 - CARDIOMYOPATHY, UNSPECIFIED Status: Chronic Qualifiers: Cardiomyopathy type: ischemic Qualified Code(s): I25.5 - Ischemic cardiomyopathy - Plan Continue current medications. Monitor BP with commencemnt of entresto. Continue rate control as per cardiology. Continue anticoagulation For discharge tomorrow.
[2019-08-11] MEDS: HYDROcodone/Acetaminophen 10/325 mg Tablet PO PRN (19:06)
[2019-08-11] MEDS: ALPRAZolam 0.5 MG TAB PO PRN (19:07)
[2019-08-11] MEDS: Atorvastatin Calcium 20 MG TAB PO SCH (19:07)
[2019-08-12 04:46] LABS: #Eosinphils 0.3 thou/uL (0.0-0.7); #Lymphocytes 2.1 thou/uL (1.20-3.40); #Monocytes 0.7 thou/uL (0.11-0.59); #Neutrophils 5.2 thou/uL (1.40-6.50); %Basophils 0.4 % (0.0-1.0); %Eosinophils 3.6 % (0.0-10.0); %Lymphocytes 25.6 % (21.0-51.0); %Monocytes 8.2 % (0.0-10.0); %Neutrophils 62.3 % (42.0-75.0); Hemoglobin 9.8 g/dL (14.0-18.0); Mean Corpuscular Hemoglobin 33.9 pg (27.0-31.0); Mean Corpuscular Volume 94.3 fL (78.0-98.0); Mean Platelet Volume 7.3 fL (7.4-10.4); Platelet Count 104 thou/uL (130-400); RBC Distribution Width 12.8 % (11.5-14.5); White Blood Cell (WBC) Count 8.3 thou/uL (4.8-10.8)
[2019-08-12 05:00] LABS: ALT (SGPT) 82 U/L (8-55); AST (SGOT) 84 U/L (5-34); Albumin 3.4 g/dL (3.4-4.8); Alkaline Phosphatase 51 U/L (40-110); Anion Gap 12 mmol/L (10-20); BUN (Urea Nitrogen) 29 mg/dL (8.4-25.7); Bilirubin, Total 0.4 mg/dL (0.2-1.2); Calc. Creatinine Clearance 49 mL/min (70-130); Calcium 9.1 mg/dL (7.8-10.44); Carbon Dioxide 27 mmol/L (23-31); Chloride 97 mmol/L (98-107); Estimated GFR-MDRD 69; Globulin 3.5 g/dL (2.4-3.5); Glucose 105 mg/dL (83-110); Potassium 4.9 mmol/L (3.5-5.1); Protein, Total 6.9 g/dL (5.8-8.1); Sodium 131 mmol/L (136-145)
[2019-08-12] MEDS: HYDROcodone/Acetaminophen 10/325 mg Tablet PO PRN (08:53)
[2019-08-12] MEDS: Apixaban 5 MG TAB PO SCH (08:54)
[2019-08-12] MEDS: Carvedilol 6.25 MG TAB PO SCH (08:54)
[2019-08-12] MEDS: Folic Acid 1 MG TAB PO SCH (08:54)
[2019-08-12] MEDS: Aspirin Chewable 81 MG TAB PO SCH (08:54)
[2019-08-12] MEDS: Spironolactone 25 MG TAB PO SCH (08:57)
[2019-08-12] MEDS: Cyanocobalamin (Vitamin B-12) 1,000 MCG TAB PO SCH (08:57)
[2019-08-12 11:06] VITALS: BP 95/53; TEMP 98.1
--- NOTE | 2019-08-13 07:33 | DIS ---
DATE OF ADMISSION: 08/06/2019 DATE OF DISCHARGE: 08/12/2019 PRIMARY CARE PHYSICIAN: Heriberto Mendoza MD. DISCHARGE DIAGNOSES: 1. Paroxysmal atrial fibrillation with rapid ventricular response. 2. Acute on chronic systolic heart failure. 3. Multivessel coronary artery disease. 4. Moderate protein-calorie malnutrition. 5. Hepatitis C infection. 6. Hypertension. 7. History of methamphetamine abuse. 8. History of tobacco abuse. 9. Moderate mitral regurgitation. 10. Severe tricuspid regurgitation. 11. Tobacco abuse disorder. 12. History of abdominal aortic aneurysm repair. 13. Cardiomyopathy with ejection fraction of 40%. CONSULTATIONS: 1. Cardiology. 2. Cardiothoracic Surgery. PROCEDURES PERFORMED: Left heart catheterization. The patient had multiple vessel disease with involvement of left main and LAD as well as diffuse disease of right coronary artery. HOSPITAL COURSE: A 74-year-old male with known history of cardiomyopathy with ejection fraction of 30-35% on LifeVest, hepatitis C, COPD, admitted with recurrent palpitations and dizziness associated with recurrent LifeVest alarms. Note that there was no shock. The patient was found to have paroxysmal atrial fibrillation with rapid ventricular response on presentation and was started on Cardizem infusion. Cardizem infusion was later transitioned to beta mya by Cardiology. The patient later was further evaluated with left heart catheterization, which showed multiple vessel disease with involvement of left main as well as LAD and diffuse disease of right coronary artery. Cardiothoracic Surgery consult was obtained and the patient was deemed to be high risk due to moderate protein-calorie malnutrition and anticipated difficulty post surgery care as the patient lives in the [facility]. Because of these, medical management was recommended at this time and the patient was advised to improve his nutrition, stop smoking and recreational drugs. He will be re-evaluated later for possible CABG. Atrial fibrillation, rate control improved and the patient remained stable and was subsequently discharged home. Given that the left heart catheterization showed improved cardiomyopathy with ejection fraction now said to be 40% the patient was instructed to stop using LifeVest. PHYSICAL EXAMINATION: VITAL SIGNS: Temperature 98.1, pulse 80, respiratory rate 18, SpO2 of 96% on room air, and blood pressure is 95/53. GENERAL: Slim, elderly male, in no distress. Afebrile. Anicteric. Acyanotic. HEENT: Normocephalic and atraumatic. Oral mucosa is moist. CARDIOVASCULAR: Irregular rhythm and rate. Systolic murmur noted. RESPIRATORY: Fair air entry bilaterally with no obvious crackle or rhonchi or use of accessory muscles. GI: Full, soft, nontender, nondistended with normal bowel sounds. EXTREMITIES: Grossly normal looking, atraumatic with no edema or erythema. STORE MANAGER: Conscious, alert and oriented x3 with appropriate mental status. The patient is ambulant. DISCHARGE CONDITION: Improved. DISCHARGE DISPOSITION: Home. DISCHARGE INSTRUCTIONS: 1. The patient is to follow up with PCP in 7 days. 2. The patient is to follow up with Cardiology, Dr. Coleman, in 2 to 3 weeks. DISCHARGE MEDICATIONS: 1. Hydrocodone-acetaminophen 1 tablet q.6 p.r.n. for pain. 2. Entresto 24/26 mg 1 tablet p.o. b.i.d. 3. Spironolactone 25 mg p.o. daily. 4. Nitroglycerin 0.4 mg sublingual q.5 minutes for chest pain. 5. Eliquis 5 mg p.o. b.i.d. 6. Aspirin 81 mg p.o. daily. 7. Lipitor 20 mg p.o. daily at bedtime. 8. Coreg 12.5 mg p.o. b.i.d. 9. Cyanocobalamin 1000 mcg p.o. daily. 10. Folic acid 1 mg p.o. daily. This discharge took more than 37 minutes. Job ID: [id number]
== END 2019-08-12 12:01 | disposition home or self-care (01) | DRG 286 ==
LOC: ERS 07:53 → 2NO 11:10
PROVIDERS: ADMIT Internal Medicine Cardiovascular Disease; ATTEND Internal Medicine
PROC: 4A023N7 Measurement of Cardiac Sampling and Pressure, Left Heart, Percutaneous Approach (ICD-10-PCS; principal; 2019-08-09)
PROC: B2111ZZ Fluoroscopy of Multiple Coronary Arteries using Low Osmolar Contrast (ICD-10-PCS; 2019-08-09)
PROC: B2151ZZ Fluoroscopy of Left Heart using Low Osmolar Contrast (ICD-10-PCS; 2019-08-09)
DX: I48.0 Paroxysmal atrial fibrillation (principal); I50.23 Acute on chronic systolic (congestive) heart failure; E87.1 Hypo-osmolality and hyponatremia; E44.0 Moderate protein-calorie malnutrition; D62 Acute posthemorrhagic anemia; I69.354 Hemiplegia and hemiparesis following cerebral infarction affecting left non-dominant side; Z68.1 Body mass index [BMI] 19.9 or less, adult; B18.2 Chronic viral hepatitis C; I11.0 Hypertensive heart disease with heart failure; I25.10 Atherosclerotic heart disease of native coronary artery without angina pectoris; H54.40 Blindness, one eye, unspecified eye; J44.9 Chronic obstructive pulmonary disease, unspecified; E78.5 Hyperlipidemia, unspecified; K74.60 Unspecified cirrhosis of liver; I25.5 Ischemic cardiomyopathy; F15.10 Other stimulant abuse, uncomplicated; I08.1 Rheumatic disorders of both mitral and tricuspid valves; Z87.891 Personal history of nicotine dependence; I69.398 Other sequelae of cerebral infarction; Z95.810 Presence of automatic (implantable) cardiac defibrillator; Z79.01 Long term (current) use of anticoagulants; Z79.82 Long term (current) use of aspirin; Z79.899 Other long term (current) drug therapy
CPT/HCPCS: 36415; 36416; 70450; 71045; 71275; 72191; 74175; 80053; 82550; 82565; 83735; 83880; 84443; 84484; 85014; 85018; 85025; 85049; 93005; 93458; 93798; 99152; 99153; C1769; J1644; J2001; J2250; J3010; J3490; Q9967

== ENCOUNTER 2019-11-25 09:37 | Outpatient (CLI) | payer MEDICARE, MEDICAID ==
--- NOTE | 2019-11-26 14:29 | NM ---
NUCLEAR MEDICINE MYOCARDIAL THALLIUM SCAN: HISTORY: A 74-year-old male with coronary artery disease of [place] artery of [place] heart with stable angina p ectoris. TECHNIQUE: A thallium viability scan was performed following the intravenous administration of 3.7 mCi thallium- 201. SPECT imaging at rest was performed at 15 minutes and 24 hours. FINDINGS: There is fairly homogeneous tracer distribution to all the myocardial segments on 15-minute and 24-ho ur delayed images. IMPRESSION: Viable left ventricular myocardium. POS: [facility]
== END 2019-11-25 09:38 | disposition home or self-care (01) ==
LOC: NM 09:37
PROVIDERS: ATTEND Internal Medicine Cardiovascular Disease
DX: I25.118 Atherosclerotic heart disease of native coronary artery with other forms of angina pectoris (principal)
CPT/HCPCS: 78466; A9505

== ENCOUNTER 2019-12-28 01:45 | Emergency (ER) | payer MEDICARE, MEDICAID ==
[2019-12-28] MEDS ORDERED: Ketorolac Tromethamine 30 MG/ML VIAL ONE (01:56)
[2019-12-28] MEDS ORDERED: Acetaminophen 500 MG TAB ONE (02:46)
--- NOTE | 2019-12-28 07:07 | RAD ---
3 VIEWS RIGHT SHOULDER: Date: 12/28/2019 INDICATION: Right shoulder pain. COMPARISON: None. FINDINGS: There is moderate right glenohumeral osteoarthrosis. There is moderate to severe right AC joint osteo arthrosis. No acute fracture is evident. Visualized right lung is clear. IMPRESSION: No acute osseous abnormality. POS: [facility]
== END 2019-12-28 02:38 | disposition home or self-care (01) ==
LOC: ERS 01:45
DX: M25.511 Pain in right shoulder (principal); I48.91 Unspecified atrial fibrillation; I11.0 Hypertensive heart disease with heart failure; I50.9 Heart failure, unspecified; Z86.73 Personal history of transient ischemic attack (TIA), and cerebral infarction without residual deficits; Z87.891 Personal history of nicotine dependence; Z79.82 Long term (current) use of aspirin; Z79.01 Long term (current) use of anticoagulants; Z79.899 Other long term (current) drug therapy
CPT/HCPCS: 96372; J1885

== ENCOUNTER 2020-01-07 13:37 | Inpatient (IN) | payer MEDICARE, MEDICAID, OTHER ==
[2020-01-07] MEDS ORDERED: Ketorolac Tromethamine 30 MG/ML VIAL ONE (14:07)
[2020-01-07 15:03] LABS: #Eosinphils 0.1 thou/uL (0.0-0.7); #Monocytes 0.3 thou/uL (0.11-0.59); #Neutrophils 9.1 thou/uL (1.40-6.50); %Basophils 0.1 % (0.0-1.0); %Eosinophils 0.5 % (0.0-10.0); %Lymphocytes 9.9 % (21.0-51.0); %Monocytes 2.7 % (0.0-10.0); %Neutrophils 86.8 % (42.0-75.0); Hemoglobin 7.5 g/dL (14.0-18.0); Mean Corpuscular HGB CONC 32.5 g/dL (32.0-36.0); Mean Corpuscular Hemoglobin 31.2 pg (27.0-31.0); Mean Corpuscular Volume 96.3 fL (78.0-98.0); Mean Platelet Volume 7.2 fL (7.4-10.4); Platelet Count 218 thou/uL (130-400); RBC Distribution Width 13.9 % (11.5-14.5); Red Blood Cell (RBC) Count 2.39 mill/uL (4.70-6.10); White Blood Cell (WBC) Count 10.5 thou/uL (4.8-10.8)
--- NOTE | 2020-01-07 15:10 | CT ---
Exam: Head CT without contrast HISTORY: Altered mental status COMPARISON: 08/11/2019 FINDINGS: Hemorrhage: No intraparenchymal hemorrhage or extra-axial hematoma. Brain parenchyma: Cortical cheatham-white matter differentiation is preserved. No mass effect or midline shift. Basilar cisterns are patent. Ventricular system: Ventricles and sulci are patent and symmetric. Calvarium: Intact. Sinuses and mastoid air cells: Adequate aeration. IMPRESSION: No acute intracranial process.
[2020-01-07 15:23] LABS: Alcohol Less than 10 mg/dL (Less than 10); Salicylate Less than 8.0 mg/dL (15.0-30.0)
[2020-01-07 15:24] LABS: ALT (SGPT) 35 U/L (8-55); AST (SGOT) 46 U/L (5-34); Albumin 2.4 g/dL (3.4-4.8); Alkaline Phosphatase 80 U/L (40-110); Anion Gap 16 mmol/L (10-20); BUN (Urea Nitrogen) 60 mg/dL (8.4-25.7); Bilirubin, Total 0.5 mg/dL (0.2-1.2); Calc. Creatinine Clearance 0 mL/min (70-130); Calcium 8.1 mg/dL (7.8-10.44); Carbon Dioxide 19 mmol/L (23-31); Chloride 99 mmol/L (98-107); Estimated GFR-MDRD 42; Globulin 3.5 g/dL (2.4-3.5); Glucose 109 mg/dL (83-110); Potassium 3.3 mmol/L (3.5-5.1); Protein, Total 5.9 g/dL (5.8-8.1); Sodium 131 mmol/L (136-145)
[2020-01-07 16:55] LABS: Bacteria/HPF None Seen HPF (None Seen); Bilirubin Negative (Negative); Blood, Urine Negative (Negative); Clarity Clear (Clear); Glucose, Urine (Dipstick) Normal (Negative); Leukocyte Negative Leu/uL (Negative); Nitrite Negative (Negative); Protein, Urine (Dipstick) 50 mg/dL (Neg-Trace); RBC/HPF None Seen HPF (0-3); Squamous Epithelial 0-3 HPF (0-3); Urobilinogen Normal mg/dL (Less than 2); WBC/HPF 0-3 HPF (0-3)
[2020-01-07 17:00] LABS: Cocaine Metabolite Screen Not Detected (NotDetected); Medtox Reader # READER 1; Methamphetamine Not Detected (NotDetected); Phencyclidine (PCP) Not Detected (NotDetected); THC/Cannabinoid Screen Not Detected (NotDetected)
[2020-01-07 17:01] LABS: Amphetamine Not Detected (NotDetected); Barbiturates Screen Not Detected (NotDetected); Benzodiazepine Screen Detected (NotDetected); Medtox Control Line Valid? VALID (VALID); Methadone Not Detected (NotDetected); Opiate Screen Detected (NotDetected); Oxycodone Screen Not Detected (NotDetected); Tricyclic Screen Not Detected (NotDetected)
[2020-01-07] MEDS ORDERED: Acetaminophen 325 MG TAB ONE (17:46)
[2020-01-07] MEDS ORDERED: Morphine 2 MG/ML SYRINGE ONE (20:31)
[2020-01-07 20:51] LABS: CKMB 2.6 ng/mL (0-6.6)
[2020-01-07] MEDS ORDERED: Morphine 4 MG/ML VIAL ONE (22:28)
--- NOTE | 2020-01-07 23:44 | PDOC.FPRHP ---
- History of Present Illness Chief Complaint: Shoulder pain History of Present Illness: Pt is a 74 yo M with pmh Torn rotator cuff, HTN, AAA s/p repair, A-fib, Hx of CVA, HFrEF, and Hep C who present for shoulder pain. He says he hurt his right shoulder 2 weeks ago cutting wood and came to the hospital. He was told not to continued use of that arm so he is using his left arm and has hurt it as well. He says today one of his friends came to his house and said he did not look well and told him he needed to come to the hospital. He denies any chest pain, shortness of breath, N/V/D, edema, AJSMINE, fevers, chills. [employer]: Jared Colonoscopy: Normal- 5 wks ago, does not recall doctors name ED Course: He was given Tylenol and Morphine in the ED. He was found to have an indeterminate trop of 0.047. UA was negative for infection. UDS was positive for opiates and benzos. K was found to be 3.3, Na of 131, BUN/Cre: 60/1.61, and AST 46. CT Brain showed no acute changes. H&H: 7.5/. - Allergies/Adverse Reactions Allergies Allergy/AdvReac Type Severity Reaction Status Date / Time No Known Drug Allergies Allergy Verified 01/07/20 23:11 - Home Medications Medication Instructions Recorded Confirmed Type HYDROcodone/Acetaminophen [[place] 1 each PO Q6HR PRN 02/24/19 01/07/20 History 10-325 Tablet] Aspirin [Ecotrin Low Strength] 81 mg PO DAILY tab 02/28/19 01/08/20 Rx Atorvastatin Calcium [Lipitor] 20 mg PO HS #30 tab 04/09/19 01/08/20 Rx Apixaban [Eliquis] 5 mg PO BID #60 tab 07/06/19 01/08/20 Rx Spironolactone [Aldactone] 25 mg PO DAILY 08/06/19 01/08/20 History Carvedilol [Coreg] 12.5 mg PO BID #60 tab 08/12/19 01/08/20 Rx Folic Acid [Folvite] 1 mg PO DAILY #30 tab 08/12/19 01/08/20 Rx ALPRAZolam [Xanax] 0.25 mg PO DAILY PRN 01/07/20 01/07/20 History Cyanocobalamin (Vitamin B-12) 1,000 mcg PO DAILY 01/08/20 01/08/20 History [Vitamin B-12] Sertraline HCl [Zoloft] 100 mg PO DAILY 01/08/20 01/08/20 History - History PMHx: Torn rotator cuff, HTN, AAA s/p repair, A-fib, Hx of CVA, HFrEF, Hep C PSHx: Triple A Bypass- 7 years ago, Tonsillectomy FHx: Father- Esophageal Cancer (64, ), Mother- CHF (72, ), Brother- COPD Social: Tobacco- quit smoking 4 months ago, smoked 50 years 1 to 1 and half PPD. Alcohol- drank beer, quit 4 months ago. Marijuana- last used 1 month ago, uses it socially. - Review of Systems General: denies: fever/chills Eyes: denies: vision changes ENT: denies: nasal congestion, rhinorrhea Respiratory: denies: cough, congestion, shortness of breath Cardiovascular: denies: chest pain, edema Gastrointestinal: reports: constipation. denies: nausea, vomiting, diarrhea, abdominal pain Genitourinary: denies: dysuria Skin: denies: rashes, lesions Musculoskeletal: denies: pain, tenderness Neurological: denies: numbness, weakness - Vital signs BP: 127/74 HR: 105 RR: 16 Tmax: 97.5 Pox: 96% on RA Wt: 58.377 kg - Physical Exam Constitutional: NAD HEENT: normocephalic and atraumatic, PERRLA, EOMI, conjunctiva clear, no scleral icterus, MMM -HEENT: Dried blood on posterior palate. Neck: supple, trachea midline Heart: RRR, normal S1/S2, no murmurs/rubs/gallops, pulses present, no edema Lungs: CTAB, no respiratory distress, good air movement, no rales/rhonchi, no wheezing, no retractions Abdomen: soft, non-tender, bowel sounds present, other (Ventral hernia over triple A incision) Musculoskeletal: normal structure, normal tone, ROM grossly normal -Musculoskeletal: Strength 5/5 in upper and lower extremities Neurological: CN II-XII intact -Neurological: Normal sensation throughout Skin: no rash/lesions, no jaundice Heme/Lymphatic: no unusual bruising or bleeding, no purpura, no petechia Psychiatric: normal mood and affect FMR H&P: Results - Labs Result Diagrams: 01/08/20 16:29 01/08/20 12:38 Lab results: WBC 10.5 thou/uL (4.8-10.8) 01/07/20 14:54 Hgb 7.5 g/dL (14.0-18.0) L 01/07/20 14:54 Hct 23.0 % (42.0-52.0) L 01/07/20 14:54 MCV 96.3 fL (78.0-98.0) 01/07/20 14:54 Plt Count 218 thou/uL (130-400) 01/07/20 14:54 Neutrophils % 86.8 % (42.0-75.0) H 01/07/20 14:54 Sodium 131 mmol/L (136-145) L 01/07/20 14:54 Potassium 3.3 mmol/L (3.5-5.1) L 01/07/20 14:54 Chloride 99 mmol/L (98-107) 01/07/20 14:54 Carbon Dioxide 19 mmol/L (23-31) L 01/07/20 14:54 BUN 60 mg/dL (8.4-25.7) H 01/07/20 14:54 Creatinine 1.61 mg/dL (0.7-1.3) H 01/07/20 14:54 Glucose 109 mg/dL (83-110) 01/07/20 14:54 Calcium 8.1 mg/dL (7.8-10.44) 01/07/20 14:54 Total Bilirubin 0.5 mg/dL (0.2-1.2) 01/07/20 14:54 AST 46 U/L (5-34) H 01/07/20 14:54 ALT 35 U/L (8-55) 01/07/20 14:54 Alkaline Phosphatase 80 U/L (40-110) 01/07/20 14:54 Ammonia 21 umol/L (18-72) 01/07/20 14:54 CK-MB (CK-2) 2.6 ng/mL (0-6.6) 01/07/20 20:04 Serum Total Protein 5.9 g/dL (5.8-8.1) 01/07/20 14:54 Albumin 2.4 g/dL (3.4-4.8) L 01/07/20 14:54 Urine Ketones Negative mg/dL (Negative) 01/07/20 16:00 Urine Blood Negative (Negative) 01/07/20 16:00 Urine Nitrite Negative (Negative) 01/07/20 16:00 Ur Leukocyte Esterase Negative Nell/uL (Negative) 01/07/20 16:00 Urine RBC None Seen HPF (0-3) 01/07/20 16:00 Urine WBC 0-3 HPF (0-3) 01/07/20 16:00 Ur Squamous Epith Cells 0-3 HPF (0-3) 01/07/20 16:00 Urine Bacteria None Seen HPF (None Seen) 01/07/20 16:00 FMR H&P: A/P - Problem List (1) Elevated troponin Current Visit: Yes Status: Acute Code(s): R79.89 - OTHER SPECIFIED ABNORMAL FINDINGS OF BLOOD CHEMISTRY (2) Afib Current Visit: No Status: Acute Code(s): I48.91 - UNSPECIFIED ATRIAL FIBRILLATION (3) Anemia Current Visit: Yes Status: Acute Code(s): D64.9 - ANEMIA, UNSPECIFIED (4) Acute on chronic systolic heart failure, NYHA class 3 Current Visit: No Status: Acute Code(s): I50.23 - ACUTE ON CHRONIC SYSTOLIC (CONGESTIVE) HEART FAILURE (5) Hyponatremia Current Visit: No Status: Acute Code(s): E87.1 - HYPO-OSMOLALITY AND HYPONATREMIA (6) Hepatitis C Current Visit: No Status: Chronic Code(s): B19.20 - UNSPECIFIED VIRAL HEPATITIS C WITHOUT HEPATIC COMA Qualifiers: (7) Hypertension Current Visit: No Status: Chronic Code(s): I10 - ESSENTIAL (PRIMARY) HYPERTENSION Qualifiers: (8) h/o aaa repair Current Visit: No Status: Chronic - Plan Pt is a 74 yo M with pmh Torn rotator cuff, HTN, AAA s/p repair, A-fib, Hx of CVA, HFrEF, and Hep C who is being admitted for elevated troponin and generalized weakness. 1. Elevated Troponin with CAD and Afib Trop: 0.047 * EKG: Afib, No ST elevation or depression, normal axis * Will trend trops * Cath on 08/06 for triple A repair * [employer]: Jared * Continue home medications: ASA, Eliquis, Lipitor, Carvedilol 2. Anemia H&H: 7.02/11 * Pt had dried blood on back of palate, denies coughing or spitting up blood * FOBT ordered * Colonoscopy 5 weeks ago, per patient normal * Rectal Performed 01/07 and showed normal tone, no hemorrhoids, no enlarged prostate, and no blood 3. Torn Rotator Cuff Right shoulder with effusion * Decreased ROM of shoulders * Continue home pain medication: [place] 4. PB Cre: 1.61 * Previously 0.7-1.1 * Will monitor with BMP 5. HTN BP: 127/74 * Continue home medication * Will continue to monitor 6. Hx of Stroke in the past No focal deficits on neuro exam 7. HFrEF Continue home medication: Spironolactone * ECHO (07/02/19): EF 30-35%, Increased LA, LV, RA with Moderate-Severe MR, Severe TR, Mild-Moderate pulmonic regurge 8. Hep C Normal ALT & Alk Phos, Increased AST * Will continue to monitor 9. Hyponatremia Na: 131 * Will monitor with BMP 10. Hypokalemia K: 3.3 * Will replace and monitor Code Status: Full Diet: HHLSo Activity: As tolerated DVT PPx: Eliquis GI PPx: Protonix IVF: SL PCP: GARY Mendoza Dispo: Tele obs to rule out cardiac causes, LOS < 48H. FMR H&P: Upper Level - Pertinent history Mr Fish is a 74yo male with pmh of CAD, HFrEF, Afib, Hx of CVA, Hep C who presents with bilateral shoulder pain. Reports it is chronic and due to a torn rotator cuff but over the past week has become severe after he was chopping wood. He cannot move either shoulder and has been unable to care for himself. Reports decreased PO intake, increased shoulder swelling. Ran out of pain medication 7-10 days ago, has been needing increased amts of [place] that he is prescribed. Unable to have surgery for rotator cuff until he has CABG which he reports has been cancelled due to surgery being nonemergent. Program[employer] is Dr Coleman. Denies chest pain, palpitations, melena, BRBPR. His primary care provider an MARKETING SERVICES SPECIALIST from [facility] came to see him in the ED and reported he was altered, workup including CT was preformed which was all unremarkable. On exam he is A&O x3. [facility] was contacted from ED, pt denied due to Hep C status. [facility] willing to accept on Friday once medically stable per ED. - Pertinent findings PE: General: NAD, A&O x3 CV: Tachycardic, no murmur. No edema Pulm: CTA b/l Abdomen: Vertical incision scar, hernia underlying scar. MSK: Very diminished active and passive ROM of b/l shoulders. Right shoulder with extensive amount of effusion. No overlying redness. Painful to palpation diffusely b/l. A/P: Deconditioning: CM consulted for [place] placement. PT/OT consulted PB: Oral rehydration, Check BMP in AM Afib: Rate controlled, missed AM dose of Coreg so HR higher than usual, 90-110. Restart Coreg. Continue Eliquis. Prolonged QTc: Recheck EKG in AM Anemia: Hgb 7.5. Asymptomatic but does have CAD. Recheck in AM and consider transfusion at that time. Ordered iron studies and peripheral smear. Rectal exam nml. Hep C Hx of drug abuse: UDS appropriately positive for prescribed meds Hx of Alcohol abuse: No daily use for >4 months. Tobacco Abuse: quit 4 months ago. Continue home meds for other chronic medical conditions - Plan Date/Time: 01/07/20 7408 I, Marissa Krause, have evaluated this patient and agree with findings/plan as outlined by international tax manager resident. Pertinent changes/additions are listed here. Addendum - Attending - Attending Attestation Date/Time: 01/08/202014 I personally evaluated the patient and discussed the management with Dr. Krause on 01/06. I agree with the History, Examination, Assessment and Plan documented above with any addition or exceptions noted below. Patient presented for severe shoulder pain and was found to have pb, elevated tnI. He is now unable to care for himself as he cannot use either arm and defers extensive exam 2/2 pain. On exam he is thin, multiple suspicious moles, right shoulder markedly larger than left, ballotable without erythema overlying. Irreg irreg rhythm, no prominent murmur, no edema, lungs ctab s inc wob, abd scaphoid and NTTP. Shoulder pain - likely cuff injury, low suspicion for infection -pain managemetn prn, consider tapping shoulder -pt to eval PB -anticipate prerenal, hydrate and monitor Elevated TnI in setting on CAD -likely just chronic myocardial injury, no evidence of active ischemia Anemia, worsened -fecal occult -trend -possible transfusion if downtrending -iron studies
[2020-01-07 23:49] LABS: Troponin I 0.044 ng/mL (< 0.028)
[2020-01-08] MEDS: HYDROcodone/Acetaminophen 10/325 mg Tablet PO PRN ×4 (00:05→21:26)
[2020-01-08] MEDS ORDERED: Potassium Chloride 20 MEQ TAB PO SCH (02:30)
[2020-01-08 02:35] LABS: Troponin I 0.035 ng/mL (< 0.028)
[2020-01-08] MEDS ORDERED: Digoxin 0.5 MG/2 ML AMP SLOW IVP SCH (06:00)
--- NOTE | 2020-01-08 06:45 | PDOC.FM ---
- Subjective Subjective: Mr. Fish was laying in bed. Denies chest pain, heart palpitations, difficulty breathing. Only complaint is that he wants water to drink. - Objective Vital Signs & Weight: Vital Signs (12 hours) Temp Pulse Resp BP BP Pulse Ox 01/08/20 06:07 115 H 01/08/20 05:49 96/56 L 01/08/20 03:20 98.1 F 115 H 20 103/59 L 98 01/07/20 23:08 97.5 F L 105 H 16 127/74 96 Weight Weight 58.377 kg I&O: 01/06/20 01/07/20 01/08/20 06:59 06:59 06:59 Output Total 550 Balance -550 Result Diagrams: 01/07/20 14:54 01/07/20 14:54 Phys Exam - Physical Examination Constitutional: NAD (thin) Respiratory: no wheezing, clear to auscultation bilateral Cardiovascular: irregular Gastrointestinal: soft, non-tender Musculoskeletal: no edema Neurological: non-focal Skin: normal turgor Dx/Plan - Plan Plan: 74 yo M with pmh Torn rotator cuff, HTN, AAA s/p repair, A-fib, Hx of CVA, HFrEF, and Hep C who is being admitted for elevated troponin and generalized weakness. Afib with RVR - missed AM dose of home Coreg yesterday. Continue Eliquis. - s/p dig x1 this am. - rate ranges 115-140s. Caution as BPs 90/60s, already given home coreg this am - consult cardiology Elevated Troponin, downtrended, likely 2/2 demand * EKG: Afib, No ST elevation or depression, normal axis, prolong qtc * Cath on 08/06 for triple A repair * Intake Nurse: Jared * Continue home medications: ASA, Eliquis, Lipitor, Carvedilol Anemia H&H: 7.02/11 * Pt had dried blood on back of palate, denies coughing or spitting up blood * FOBT pending * Colonoscopy 5 weeks ago, per patient normal * Rectal Performed 01/07 and showed normal tone, no hemorrhoids, no enlarged prostate, and no blood * Iron studies pending Physical Deconditioning - CM consulted for [place] placement. PT/OT consulted Torn Rotator Cuff with effusion, right * Decreased ROM of shoulders * Continue home pain medication: [place] PB Cre: 1.61 * Previously 0.7-1.1 * Will monitor with BMP HTN * Continue home medication Hx of Stroke in the past - No focal deficits on neuro exam HFrEF Continue home medication: Spironolactone * ECHO (07/02/19): EF 30-35%, Increased LA, LV, RA with Moderate-Severe MR, Severe TR, Mild-Moderate pulmonic regurge Hep C Normal ALT & Alk Phos, Increased AST * Will continue to monitor Hyponatremia Na: 131 * Will monitor with BMP, pending Hypokalemia K: 3.3 * am repeat pending Hx of drug abuse: UDS appropriately positive for prescribed meds Hx of Alcohol abuse: No daily use for >4 months. Tobacco Abuse: quit 4 months ago. Code Status: Full Diet: HHLSo Activity: As tolerated DVT PPx: Eliquis GI PPx: Protonix IVF: SL PCP: GARY Mendoza Dispo: Consult cardiology today, s/p dig, will need better rate control. Ordered 1u prbc, anemia workup pending. Addendum - Attending - Attending Attestation Date/Time: 01/08/20 1040 I personally evaluated the patient and discussed the management with Dr. Bro. I agree with the History, Examination, Assessment and Plan documented above with any addition or exceptions noted below. Patient here for Afib RVR. He continues to have RVR despite Digoxin loading. Cardiology consult. 1 unit PRBCs given his cardiac history and anemia, completing workup on cause of that.
[2020-01-08] MEDS: Folic Acid 1 MG TAB PO SCH (08:57)
[2020-01-08] MEDS: Cyanocobalamin (Vitamin B-12) 1,000 MCG TAB PO SCH (08:57)
[2020-01-08] MEDS: ALPRAZolam 0.25 MG TAB PO PRN (08:58)
[2020-01-08] MEDS ORDERED: Apixaban 5 MG TAB PO SCH (09:00)
[2020-01-08] MEDS ORDERED: Spironolactone 25 MG TAB PO SCH (09:00)
[2020-01-08] MEDS ORDERED: Aspirin 81 mg Enteric Coated Tablet PO SCH (09:00)
[2020-01-08] MEDS ORDERED: Carvedilol 6.25 MG TAB PO SCH (09:00)
[2020-01-08] MEDS ORDERED: Heparin 1,000 UNITS/ML VIAL ONE (09:19)
[2020-01-08] MEDS ORDERED: Furosemide 20 MG/2 ML VIAL SLOW IVP SCH (12:00)
[2020-01-08 12:51] LABS: #Lymphocytes 0.8 thou/uL (1.20-3.40); #Monocytes 0.4 thou/uL (0.11-0.59); #Neutrophils 9.8 thou/uL (1.40-6.50); %Basophils 0.1 % (0.0-1.0); %Eosinophils 0.1 % (0.0-10.0); %Lymphocytes 7.1 % (21.0-51.0); %Monocytes 3.5 % (0.0-10.0); %Neutrophils 89.2 % (42.0-75.0); Hemoglobin 6.7 g/dL (14.0-18.0); Mean Corpuscular HGB CONC 32.1 g/dL (32.0-36.0); Mean Corpuscular Hemoglobin 30.6 pg (27.0-31.0); Mean Corpuscular Volume 95.1 fL (78.0-98.0); Mean Platelet Volume 6.9 fL (7.4-10.4); Platelet Count 214 thou/uL (130-400)
[2020-01-08 13:08] LABS: ALT (SGPT) 31 U/L (8-55); AST (SGOT) 47 U/L (5-34); Albumin 2.2 g/dL (3.4-4.8); Alkaline Phosphatase 87 U/L (40-110); Anion Gap 14 mmol/L (10-20); BUN (Urea Nitrogen) 45 mg/dL (8.4-25.7); Bilirubin, Total 0.4 mg/dL (0.2-1.2); Calc. Creatinine Clearance 50 mL/min (70-130); Calcium 8.4 mg/dL (7.8-10.44); Carbon Dioxide 18 mmol/L (23-31); Chloride 99 mmol/L (98-107); Estimated GFR-MDRD 65; Glucose 119 mg/dL (83-110); Potassium 4.3 mmol/L (3.5-5.1); Protein, Total 6.2 g/dL (5.8-8.1); Sodium 127 mmol/L (136-145)
[2020-01-08 13:09] LABS: Iron Less than 8 ug/dL (65-175); Iron Binding Capacity, Total 173 mcg/dL (261-462); Transferrin, Serum 138 mg/dL (163-344)
--- NOTE | 2020-01-08 14:18 | CON ---
DATE OF CONSULTATION: HISTORY OF PRESENT ILLNESS: The patient is a 74-year-old gentleman with a history of atrial fibrillation, coronary artery disease, and cardiomyopathy, who presents for evaluation of weakness and shoulder discomfort. The patient has a long history of coronary artery disease. The patient previously underwent a cardiac evaluation including a cardiac catheterization, which revealed diffuse 3-vessel coronary artery disease. He had an ejection fraction of 30% to 35%. The patient was felt to be a prohibitive risk for undergoing coronary artery bypass graft surgery. The patient has been on medical therapy. The patient presents with increasing weakness. He denied having any chest discomfort. PAST MEDICAL HISTORY: 1. Coronary artery disease. 2. Atrial fibrillation. 3. Cirrhosis. 4. COPD. PAST SURGICAL HISTORY: Abdominal aneurysm surgery. SOCIAL HISTORY: He has a long previous history of drug use and tobacco abuse. FAMILY HISTORY: Positive for family history of coronary artery disease. MEDICATIONS: See nursing list. REVIEW OF SYSTEMS: Ten-point system otherwise unremarkable. The patient denies any bright red blood per rectum or hematuria. PHYSICAL EXAMINATION: GENERAL: Pale gentleman, in acute distress. VITAL SIGNS: With a blood pressure of 93/56, heart rate was 115 and irregular. NECK: No jugular venous distention. LUNGS: Clear to auscultation. HEART: Irregular rate and rhythm. Normal S1 and S2. ABDOMEN: Nondistended. EXTREMITIES: Trace edema. VASCULAR: Radial pulses are 2+. LABORATORY RESULTS: Sodium 131, potassium 3.3, chloride 99, bicarbonate 19, BUN 60, and creatinine 1.6. Troponin was 0.047. White blood cell count 10.5, hemoglobin 7.5, hematocrit 23.0, and platelets are 218. EKG : atrial fibrillation with a rapid ventricular response. IMPRESSION: 1. Atrial fibrillation with rapid ventricular response. 2. Severe inoperable coronary artery disease. 3. History of cerebrovascular accident. 4. History of cardiomyopathy. 5. Renal insufficiency. 6. Malnutrition. PLAN: This unfortunate gentleman with inoperable coronary artery disease and long history of substance abuse. He is markedly anemic with worsening renal failure. From a cardiac standpoint, we would hold all of his antihypertensive medications.At this time, I would discontinue his Lasix. We would hold his Eliquis and aspirin. Would repeat his hemoglobin and hematocrit and transfuse several units of packed red blood cells. We would continue the patient on digoxin to control his heart rate. The patient's prognosis is very guarded. Job ID: [id number] MTDD
[2020-01-08 17:04] LABS: Hemoglobin 8.3 g/dL (14.0-18.0)
[2020-01-08] MEDS: Atorvastatin Calcium 20 MG TAB PO SCH (21:26)
[2020-01-09] MEDS: HYDROcodone/Acetaminophen 10/325 mg Tablet PO PRN ×3 (05:54→21:27)
--- NOTE | 2020-01-09 07:03 | PDOC.FM ---
- Subjective Subjective: Mr. Fish was sitting up in bed having breakfast. Says he still doesnt feel great. Reports continued R shoulder pain. Denies palpitations, chest pain, difficulty breathing. - Objective Vital Signs & Weight: Vital Signs (12 hours) Temp Pulse Pulse Resp BP BP Pulse Ox 01/09/20 03:56 98.0 F 95 16 114/74 95 01/09/20 00:00 98.5 F 98 20 108/69 99 01/08/20 20:00 98.8 F 117 H 26 H 131/88 95 01/08/20 19:22 99.6 F 83 20 126/74 97 Weight Admit Weight 58.06 kg Weight 59.148 kg I&O: 01/08/20 01/09/20 01/10/20 06:59 06:59 06:59 Intake Total 836 1236 Output Total 800 650 Balance 36 586 Result Diagrams: 01/08/20 16:29 01/08/20 12:38 Phys Exam - Physical Examination Constitutional: NAD (thin) Respiratory: clear to auscultation bilateral (anteriorly) Cardiovascular: irregular Gastrointestinal: soft, positive bowel sounds Musculoskeletal: no edema Dx/Plan - Plan Plan: 74 yo M with pmh Torn rotator cuff, HTN, AAA s/p repair, A-fib, Hx of CVA, HFrEF , and Hep C who is being admitted for elevated troponin and generalized weakness. Afib with RVR - Started on digoxin - Rate was up to 140s, now improving. Caution with BP. - Appreciate cardiology recommendations. - Home leiquis held due to Hgb drop Elevated Troponin, downtrended, likely 2/2 demand * EKG: Afib, No ST elevation or depression, normal axis, prolong qtc * Cath on 08/06 for triple A repair * Community Affairs Manager: Jared * Home medications: ASA, Eliquis, Carvedilol all held. Acute on chronic anemia, iron deficient Hgb 7.5 on admission * Pt had dried blood on back of palate on palate, denies change in stool * FOBT positive * Colonoscopy 5 weeks ago, per patient normal * Rectal Performed 01/07 and showed normal tone, no hemorrhoids, no enlarged prostate, and no blood * Iron deficiency- ordered iron infusion today. Consider GI consult tomorrow when things have better improved from cardiac standpoint. No signs of acute bleeding. Repeat Hgb pending this am. Physical Deconditioning - CM consulted for [place] placement. PT/OT consulted Torn Rotator Cuff with effusion, right * Decreased ROM of shoulders * Continue home pain medication: [place] * Try topical NSAID PB * Previously 0.7-1.1 * Will monitor with BMP HTN * Home meds held Hx of Stroke in the past - No focal deficits on neuro exam HFrEF Continue home medication: Spironolactone * ECHO (07/02/19): EF 30-35%, Increased LA, LV, RA with Moderate-Severe MR, Severe TR, Mild-Moderate pulmonic regurge Hep C Normal ALT & Alk Phos, Increased AST * Will continue to monitor Hyponatremia Na: 131 * Will monitor with BMP, pending am repeat Hypokalemia, improved * monitor on BMP Hx of drug abuse: UDS appropriately positive for prescribed meds Hx of Alcohol abuse: No daily use for >4 months. Tobacco Abuse: quit 4 months ago. Code Status: Full Diet: HHLSo Activity: As tolerated DVT PPx: Eliquis (held) IVF: SL PCP: GARY Mendoza Dispo: Appreciate cardiology recommendations, afib management. Patient overall in poor health. Iron infusion today. Addendum - Attending - Attending Attestation Date/Time: 01/09/20 1028 I personally evaluated the patient and discussed the management with Dr. Bro. I agree with the History, Examination, Assessment and Plan documented above with any addition or exceptions noted below. Patient here for Afib RVR and Anemia s/p 2 unit PRBCs. H/H improved. He is still overall generally weak. Cardiology on board for refractory Afib. Currently rate controlled. Iron infusion today for iron deficiency and heart failure.
[2020-01-09] MEDS: ALPRAZolam 0.25 MG TAB PO PRN (08:34)
[2020-01-09] MEDS: Cyanocobalamin (Vitamin B-12) 1,000 MCG TAB PO SCH (08:34)
[2020-01-09] MEDS: Ferrous Sulfate 325 MG TAB PO SCH (08:34)
[2020-01-09] MEDS: Ascorbic Acid 500 mg Chewable Tablet PO SCH (08:34)
[2020-01-09] MEDS: Folic Acid 1 MG TAB PO SCH (08:34)
[2020-01-09] MEDS: Digoxin 0.25 MG TAB PO SCH (08:34)
[2020-01-09] MEDS ORDERED: Iron Sucrose Complex 200 MG in Sodium Chloride 0.9% 250 ML 250 ML IVPB SCH (09:15)
[2020-01-09] MEDS ORDERED: Iron, Sodium Ferric Gluconate 250 MG in Sodium Chloride 0.9% 250 ML 250 ML IVPB SCH (09:30)
[2020-01-09 11:16] LABS: Burr Cells SLIGHT = 2-5 cells (100X) (0-1/hpf); Hemoglobin 8.7 g/dL (14.0-18.0); Lymphocytes 8 % (21-51); MDiff Complete? YES; Mean Corpuscular HGB CONC 33.3 g/dL (32.0-36.0); Mean Corpuscular Hemoglobin 30.5 pg (27.0-31.0); Mean Corpuscular Volume 91.8 fL (78.0-98.0); Mean Platelet Volume 7.7 fL (7.4-10.4); Monocytes 9 % (0-10); Neutrophil 83 % (42-75); Platelet Count 196 thou/uL (130-400); Platelet Morphology Comment Appears Adequate; Red Blood Cell (RBC) Count 2.84 mill/uL (4.70-6.10); Target Cells SLIGHT = 2-5 cells (100X) (0-1/hpf); Vacuoles SLIGHT; White Blood Cell (WBC) Count 23.6 thou/uL (4.8-10.8)
[2020-01-09 11:33] LABS: ALT (SGPT) 32 U/L (8-55); AST (SGOT) 65 U/L (5-34); Albumin 2.1 g/dL (3.4-4.8); Alkaline Phosphatase 94 U/L (40-110); Anion Gap 20 mmol/L (10-20); BUN (Urea Nitrogen) 40 mg/dL (8.4-25.7); Bilirubin, Total 0.8 mg/dL (0.2-1.2); Calc. Creatinine Clearance 55 mL/min (70-130); Calcium 8.6 mg/dL (7.8-10.44); Carbon Dioxide 12 mmol/L (23-31); Chloride 102 mmol/L (98-107); Estimated GFR-MDRD 73; Globulin 4.4 g/dL (2.4-3.5); Glucose 120 mg/dL (83-110); Potassium 5.9 mmol/L (3.5-5.1); Protein, Total 6.5 g/dL (5.8-8.1); Sodium 128 mmol/L (136-145)
[2020-01-09] MEDS: Diclofenac 1% 100 GM GEL TP SCH ×3 (12:09→21:28)
[2020-01-09] MEDS: Carvedilol 3.125 MG TAB PO SCH (17:17)
[2020-01-09] MEDS: Atorvastatin Calcium 20 MG TAB PO SCH (21:27)
[2020-01-10] MEDS: HYDROcodone/Acetaminophen 10/325 mg Tablet PO PRN ×3 (04:57→21:52)
[2020-01-10] MEDS ORDERED: Digoxin 0.5 MG/2 ML AMP SLOW IVP SCH (06:15)
--- NOTE | 2020-01-10 06:18 | PDOC.FM ---
- Subjective Subjective: Patient states he feels SOB and having some congestion. Denies any chest pain. States he overall just doesn't feel good. Telemetry showed runs into HR 130s. Patient was started on Cardizem gtt @ 5 this AM. - Objective Vital Signs & Weight: Vital Signs (12 hours) Temp Pulse Resp BP Pulse Ox 01/10/20 04:25 98.2 F 120 H 20 119/72 96 01/09/20 19:40 98.2 F 105 H 20 124/84 96 Weight Admit Weight 58.06 kg Weight 59.148 kg I&O: 01/08/20 01/09/20 01/10/20 06:59 06:59 06:59 Intake Total 836 1236 740 Output Total 800 650 200 Balance 36 586 540 Result Diagrams: 01/10/20 07:02 01/10/20 07:02 Phys Exam - Physical Examination Constitutional: NAD HEENT: moist MMs, sclera anicteric Neck: supple Rhonchi in bilateral lower lobes Cardiovascular: no significant murmur tachycardic Gastrointestinal: soft, non-tender, positive bowel sounds Musculoskeletal: no edema, pulses present Neurological: normal sensation, moves all 4 limbs Psychiatric: normal affect, A&O x 3 Skin: normal turgor Deviation from normal: multiple scarred lesions on bilateral lower legs Dx/Plan (1) Torn rotator cuff Code(s): M75.100 - UNSP ROTATR-CUFF TEAR/RUPTR OF UNSP SHOULDER, NOT TRAUMA Status: Acute Qualifiers: Rotator cuff tear extent: unspecified tear extent Rotator cuff tear trauma status: unspecified whether traumatic Laterality: right Qualified Code(s): M75.101 - Unspecified rotator cuff tear or rupture of right shoulder, not specified as traumatic (2) Anemia Code(s): D64.9 - ANEMIA, UNSPECIFIED Status: Acute Qualifiers: Anemia type: iron deficiency Iron deficiency anemia type: other iron deficiency Qualified Code(s): D50.8 - Other iron deficiency anemias (3) Elevated troponin Code(s): R79.89 - OTHER SPECIFIED ABNORMAL FINDINGS OF BLOOD CHEMISTRY Status : Acute (4) Afib Code(s): I48.91 - UNSPECIFIED ATRIAL FIBRILLATION Status: Acute Qualifiers: Atrial fibrillation type: other persistent Qualified Code(s): I48.19 - Other persistent atrial fibrillation (5) Hyponatremia Code(s): E87.1 - HYPO-OSMOLALITY AND HYPONATREMIA Status: Acute (6) Chronic systolic CHF (congestive heart failure), NYHA class 3 Code(s): I50.22 - CHRONIC SYSTOLIC (CONGESTIVE) HEART FAILURE Status: Chronic - Plan Plan: 74 yo M with pmh Torn rotator cuff, HTN, AAA s/p repair, A-fib, Hx of CVA, HFrEF , and Hep C who is being admitted for elevated troponin and generalized weakness. #Afib with RVR - Started on digoxin - Rate was up to 140s initially, was controlled on Digoxin 0.25 mg (01/08) but now rate in 130s so starting on Cardizem gtt (01/09) - Caution with BP-holding Lasix & BP meds - Cardiology consulted, Appreciate recommendations. - Home Eliquis & ASA held due to Hgb drop - order CXR this AM given reported sx and exam (01/09) #Elevated Troponin, downtrended, likely 2/2 demand - EKG: Afib, No ST elevation or depression, normal axis, prolong qtc - Cath on 08/06 for triple A repair - outpt [facility]: Jared - Home medications: ASA, Eliquis, Carvedilol all held. #Acute on chronic anemia, iron deficient - Hgb 7.5 on admission, now s/p 2 units pRBCs on 01/07 with most recent Hgb 8.7 on 01/08 Pt had dried blood on back of palate on palate, denies change in stool FOBT positive Colonoscopy 5 weeks ago, per patient normal Rectal Performed 01/07 and showed normal tone, no hemorrhoids, no enlarged prostate, and no blood Iron deficiency- ordered iron infusion today. Consider GI consult when things have better improved from cardiac standpoint. No signs of acute bleeding. - Repeat Hgb pending this am. #Physical Deconditioning - CM consulted for [place] placement. - PT/OT consulted #Torn Rotator Cuff with effusion, right - Decreased ROM of shoulders - Continue home pain medication: [place] - Try topical NSAID-Voltaren gel #PB - Previously 0.7-1.1 - Will monitor with CMP #HTN - Home meds held #Hx of Stroke in the past - No focal deficits on neuro exam #HFrEF - Continue home medication: Spironolactone - ECHO (07/02/19): EF 30-35%, Increased LA, LV, RA with Moderate-Severe MR, Severe TR, Mild-Moderate pulmonic regurge #Hep C - Normal ALT & Alk Phos, Increased AST - Will continue to monitor #Hyponatremia - initial Na: 131 - Will monitor with CMP, pending am repeat #Hypokalemia, improved - monitor on BMP - K actually elevated to 5.9 on 01/08, repeat pending this AM #Hx of drug abuse: UDS appropriately positive for prescribed meds #Hx of Alcohol abuse: No daily use for >4 months. #Tobacco Abuse: quit 4 months ago. Code Status: Full Diet: HHLSo Activity: As tolerated DVT PPx: Eliquis (held) IVF: SL PCP: GARY Mendoza Dispo: Guarded, Appreciate cardiology recommendations, afib management. Patient overall in poor health. CM consulted for [place] placement. Addendum - Attending - Attending Attestation Date/Time: 01/10/20 4467 I personally evaluated the patient and discussed the management with Dr. Stafford. I agree with the History, Examination, Assessment and Plan documented above with any addition or exceptions noted below. Transfuse 1 u PRBC to keep hemoglobin >9. New ground glass opacity on CXR. Procal 0.23. Will start abx for CAP.
[2020-01-10] MEDS: Diltiazem HCl 125 MG, Admixture Fee 1 EACH in Sodium Chloride 0.9% 100 ML IVPB SCH (06:40)
[2020-01-10 07:19] LABS: #Monocytes 0.5 thou/uL (0.11-0.59); #Neutrophils 14.2 thou/uL (1.40-6.50); %Basophils 0.2 % (0.0-1.0); %Eosinophils 0.1 % (0.0-10.0); %Lymphocytes 6.2 % (21.0-51.0); %Monocytes 3.4 % (0.0-10.0); %Neutrophils 90.2 % (42.0-75.0); Hemoglobin 8.5 g/dL (14.0-18.0); Mean Corpuscular Hemoglobin 30.7 pg (27.0-31.0); Mean Corpuscular Volume 93.1 fL (78.0-98.0); Mean Platelet Volume 7.1 fL (7.4-10.4); Platelet Count 223 thou/uL (130-400); Red Blood Cell (RBC) Count 2.75 mill/uL (4.70-6.10); White Blood Cell (WBC) Count 15.7 thou/uL (4.8-10.8)
[2020-01-10 07:41] LABS: ALT (SGPT) 31 U/L (8-55); AST (SGOT) 58 U/L (5-34); Albumin 2.2 g/dL (3.4-4.8); Alkaline Phosphatase 85 U/L (40-110); Anion Gap 12 mmol/L (10-20); BUN (Urea Nitrogen) 27 mg/dL (8.4-25.7); Bilirubin, Total 0.9 mg/dL (0.2-1.2); Calc. Creatinine Clearance 71 mL/min (70-130); Calcium 8.7 mg/dL (7.8-10.44); Carbon Dioxide 20 mmol/L (23-31); Chloride 98 mmol/L (98-107); Estimated GFR-MDRD Greater than 90; Globulin 4.1 g/dL (2.4-3.5); Glucose 100 mg/dL (83-110); Protein, Total 6.3 g/dL (5.8-8.1); Sodium 126 mmol/L (136-145)
[2020-01-10] MEDS: Aspirin 81 mg Enteric Coated Tablet PO SCH (09:14)
[2020-01-10] MEDS: Ferrous Sulfate 325 MG TAB PO SCH (09:14)
[2020-01-10] MEDS: Digoxin 0.25 MG TAB PO SCH (09:14)
[2020-01-10] MEDS: Ascorbic Acid 500 mg Chewable Tablet PO SCH (09:15)
[2020-01-10] MEDS: Carvedilol 3.125 MG TAB PO SCH ×3 (09:15→17:24)
[2020-01-10] MEDS: Diclofenac 1% 100 GM GEL TP SCH ×4 (09:15→21:53)
[2020-01-10] MEDS: Folic Acid 1 MG TAB PO SCH (09:15)
[2020-01-10] MEDS: Cyanocobalamin (Vitamin B-12) 1,000 MCG TAB PO SCH (09:15)
--- NOTE | 2020-01-10 11:00 | RAD ---
CHEST 1 VIEW: HISTORY: Shortness of breath, new chest congestion. FINDINGS: Patchy interstitial and ground-glass opacity changes as well as some linear parenchymal changes noted in the right suprahilar region, right infrahilar region, and left infrahilar regions which are new w hen compared to the prior exam, 08/06/2019. Heart size is within normal limits. Small left pleural effusion. Mild hyperinflation and chronic dee ng changes. IMPRESSION: Patchy alveolar and ground-glass opacity changes in the right upper and right lower and left lower dee ng zones. Mild hyperinflation. Evidence for small left pleural effusion. Atherosclerosis of the ao rta. Continued short-term followup for clearing or stability. POS: C
--- NOTE | 2020-01-10 11:32 | EKG ---
Test Reason : Blood Pressure : / mmHG Vent. Rate : 134 BPM Atrial Rate : 105 BPM P-R Int : 000 ms QRS Dur : 090 ms QT Int : 322 ms P-R-T Axes : 000 008 024 degrees QTc Int : 480 ms Atrial fibrillation with rapid ventricular response Low voltage QRS Cannot rule out Anterior infarct , age undetermined Abnormal ECG Confirmed by NEY DASILVA ([id number]) on 01/10/2020 11:32:07 AM Referred By: ROHAN Confirmed By:NEY DASILVA
[2020-01-10] MEDS: cefTRIAXone\\ROCEPHIN 1 GM in Sodium Chloride 0.9% 100 ML IVPB SCH (15:25)
[2020-01-10] MEDS ORDERED: Furosemide 40 MG/4 ML VIAL SLOW IVP SCH (16:30)
[2020-01-10] MEDS: Azithromycin 500 MG in Sodium Chloride 0.9% 250 ML 250 ML IVPB SCH (16:46)
[2020-01-10 16:56] LABS: Actual Bicarbonate (HCO3a) 21.9 mEq/L (22-28); Base Excess (BEa) -0.6 mEq/L (-2.0 to +3.0); CO2 Tension 28.7 mmHg (35.0-45.0); Calcium, Ionized 1.18 mmol/L (1.12-1.30); Carboxyhemoglobin (COHb) 0.5 gm% (0.0-3.0); Hemoglobin (Hb) 10.4 g/dL (14.0-18.0); O2 Tension (PaO2), arterial 75.9 mmHg (> 70.0); Potassium - ABG Lab 4.24 mmol/L (3.70-5.30)
[2020-01-10 17:00] LABS: ALV-art Gradient 37.955 (0-20); Puncture Site LRA
[2020-01-10 17:33] LABS: Hemoglobin 8.7 g/dL (14.0-18.0)
--- NOTE | 2020-01-10 18:19 | PDOC.CPN ---
- Subjective Date: 01/10/20 Time: 18:17 Interval history: Breathing at baseline. - Review of Systems General: denies: fever/chills, weight/appetite/sleep changes, night sweats, fatigue Respiratory: denies: cough, congestion, shortness of breath, exercise intolerance Cardiovascular: denies: chest pain, palpitation, edema, paroxysmal nocturnal dyspnea, orthopnea Gastrointestinal: denies: nausea, vomiting, diarrhea, constipation, abd pain, GI bleeding Musculoskeletal: reports: pain. denies: tenderness, stiffness, swelling, arthritis/arthralgias Neurological: denies: numbness, syncope, seizure, weakness - Objective Allergies/Adverse Reactions: Allergies Allergy/AdvReac Type Severity Reaction Status Date / Time No Known Drug Allergies Allergy Verified 01/07/20 23:11 Visit Medications: Current Medications Hydrocodone Bitart/Acetaminophen ([place] 10/325) 1 tab PO Q6HR PRN PRN Reason: Pain Last Admin: 01/10/20 11:52 Dose: 1 tab Alprazolam (Xanax) 0.25 mg PO DAILY PRN PRN Reason: Anxiety Last Admin: 01/09/20 08:34 Dose: 0.25 mg Ascorbic Acid (Vitamin C) 500 mg PO DAILY [facility] Last Admin: 01/10/20 09:15 Dose: 500 mg Aspirin (Ecotrin) 81 mg PO DAILY [facility] Last Admin: 01/10/20 09:14 Dose: 81 mg Atorvastatin Calcium (Lipitor) 20 mg PO HS [facility] Last Admin: 01/09/20 21:27 Dose: 20 mg Carvedilol (Coreg) 3.125 mg PO BID-[facility] Last Admin: 01/10/20 17:24 Dose: Not Given Cyanocobalamin (Vitamin B-12) 1,000 mcg PO DAILY [facility] Last Admin: 01/10/20 09:15 Dose: 1,000 mcg Diclofenac Sodium (Voltaren) 4 gm TP QID [facility] Last Admin: 01/10/20 16:47 Dose: 1 applic Digoxin (Lanoxin) 0.25 mg PO DAILY [facility] Last Admin: 01/10/20 09:14 Dose: 0.25 mg Ferrous Sulfate (Feosol) 325 mg PO QAM-[facility] Last Admin: 01/10/20 09:14 Dose: 325 mg Folic Acid (Folvite) 1 mg PO DAILY [facility] Last Admin: 01/10/20 09:15 Dose: 1 mg Diltiazem HCl 125 mg/Miscellaneous Medication 1 each/ Sodium Chloride 125 mls @ 5 mls/hr IVPB INF [facility]; Protocol Last Admin: 01/10/20 06:40 Dose: 125 mls Azithromycin 500 mg/ Sodium (Chloride) 250 mls @ 250 mls/hr IVPB Q24HR [facility] Stop: 01/12/20 14:59 Last Admin: 01/10/20 16:46 Dose: 250 mls Ceftriaxone Sodium 1 gm/ (Sodium Chloride) 100 mls @ 200 mls/hr IVPB Q24HR [facility] Stop: 01/14/20 13:59 Last Admin: 01/10/20 15:25 Dose: 100 mls Pantoprazole Sodium (Protonix) 40 mg PO DAILY [facility] Last Admin: 01/10/20 09:15 Dose: 40 mg Sertraline HCl (Zoloft) 100 mg PO DAILY [facility] Sodium Chloride (Flush - Normal Saline) 10 ml IVF Q12HR [facility] Last Admin: 01/10/20 09:30 Dose: 10 ml Sodium Chloride (Flush - Normal Saline) 10 ml IVF PRN PRN PRN Reason: Saline Flush Vital Signs & Weight: Vital Signs Temp Pulse Pulse Resp BP BP Pulse Ox 01/10/20 16:20 101.5 F H 105 H 22 H 114/56 L 96 01/10/20 14:56 99.3 F 82 22 H 116/60 96 01/10/20 11:20 98.0 F 90 24 H 119/61 97 01/10/20 09:14 112 H 01/10/20 07:39 98.7 F 110 H 18 114/56 L 96 01/10/20 06:40 120 H Admit Weight 128 lb Weight 128 lb 8 oz - Physical Exam General: alert & oriented x3 HEENT: mucus membranes moist Neck: supple neck Cardiac: irregularly regular Lungs: normal breath sounds Neuro: grossly intact Abdomen: active bowel sounds Extremities: no edema Skin: clear Musculoskeletal: no pain - Labs Result Diagrams: 01/11/20 07:14 01/11/20 07:14 Troponin/CKMB CK-MB (CK-2) 2.6 ng/mL (0-6.6) 01/07/20 20:04 Troponin I 0.035 ng/mL (< 0.028) H 01/08/20 02:09 - Telemetry Supraventricular conduction: atrial fibrillation - Assessment/Plan Assessment/Plan: 1. Anemia, likely slow blood loss. 2. Afib RVR, likely from anemia, better now. 3. Type 2 demand ischemia 4. Severe CAD 5. Chronic anticoagulation with Eliquis. PLAN: - Lenient rate control. - Will likely have to stop Eliquis. - May need to consider CABG with MARGE ligation soon. - Continue diltiazem drip.
[2020-01-10] MEDS: Atorvastatin Calcium 20 MG TAB PO SCH (21:52)
[2020-01-10] MEDS: Acetaminophen 650 MG/20.3 ML UDCUP PO PRN (21:53)
[2020-01-11 00:57] LABS: Legionella Urinary Ag Negative (Negative)
[2020-01-11 00:58] LABS: Strep pneumo Urine Ag NEGATIVE (NEGATIVE)
[2020-01-11] MEDS: Diltiazem HCl 125 MG, Admixture Fee 1 EACH in Sodium Chloride 0.9% 100 ML IVPB SCH (03:48)
--- NOTE | 2020-01-11 07:24 | PDOC.FM ---
- Subjective Subjective: Nursing reports ALEXANDRE. She did get checkout that he had a large dark stool last night and that she would keep an eye out for that today. - Objective MAR Reviewed: Yes Vital Signs & Weight: Vital Signs (12 hours) Temp Pulse Pulse Resp BP BP Pulse Ox 01/11/20 05:30 96 F L 96 20 94/49 L 01/11/20 02:26 96.3 F L 96 20 107/53 L 01/11/20 02:11 97.3 F L 83 20 98/48 L 01/10/20 19:41 103 F H 109 H 22 H 129/60 94 L Weight Admit Weight 58.06 kg Weight 58.287 kg I&O: 01/10/20 01/11/20 01/12/20 06:59 06:59 06:59 Intake Total 1090 1310 Output Total 200 Balance 890 1310 Result Diagrams: 01/11/20 07:14 01/11/20 07:14 Phys Exam - Physical Examination Constitutional: NAD More interactive today than yesterday, less work of breathing dry mm Neck: no JVD mild rhonchi bilaterally Cardiovascular: no significant murmur regular rate, irregular rhythm Gastrointestinal: soft, no distention, positive bowel sounds Musculoskeletal: no edema, pulses present Neurological: moves all 4 limbs Skin: cap refill <2 seconds Dx/Plan (1) Anemia Code(s): D64.9 - ANEMIA, UNSPECIFIED Status: Acute Qualifiers: Anemia type: iron deficiency Iron deficiency anemia type: other iron deficiency Qualified Code(s): D50.8 - Other iron deficiency anemias (2) Elevated troponin Code(s): R79.89 - OTHER SPECIFIED ABNORMAL FINDINGS OF BLOOD CHEMISTRY Status : Acute (3) Acute on chronic systolic heart failure, NYHA class 3 Code(s): I50.23 - ACUTE ON CHRONIC SYSTOLIC (CONGESTIVE) HEART FAILURE Status : Acute (4) Afib Code(s): I48.91 - UNSPECIFIED ATRIAL FIBRILLATION Status: Acute Qualifiers: Atrial fibrillation type: other persistent Qualified Code(s): I48.19 - Other persistent atrial fibrillation (5) Anemia due to acute blood loss Code(s): D62 - ACUTE POSTHEMORRHAGIC ANEMIA Status: Acute (6) CAD (coronary artery disease) Code(s): I25.10 - ATHSCL HEART DISEASE OF [place] CORONARY ARTERY W/O ANG PCTRS Status: Acute Qualifiers: Coronary Disease-Associated Artery/Lesion type: [place] artery [place] vs. transplanted heart: [place] heart Associated angina: without angina Qualified Code(s): I25.10 - Atherosclerotic heart disease of [place] coronary artery without angina pectoris (7) Hyponatremia Code(s): E87.1 - HYPO-OSMOLALITY AND HYPONATREMIA Status: Acute (8) Shortness of breath Code(s): R06.02 - SHORTNESS OF BREATH Status: Acute (9) Upper GI bleed Code(s): K92.2 - GASTROINTESTINAL HEMORRHAGE, UNSPECIFIED Status: Acute - Plan Plan: This is a 74 yo male with a pmh of HTN, AAA s/p repair, afib, hx of CVA, HFref, cad Afib with RVR, improved rate -On oral digoxin and IV diltiazem -Cardiology consulted, recommend holding anticoagulation, lenient rate control, and possible CABG with MARGE litigation Acute hypoxic respiratory failure 2/2 possible PNA -New during this hospitalization -Negative procal -CXR shows new patchy alveolar and ground-glass opacity changes in bilateral lung bui -Covid test pending, Influenza negative, Viral respiratory panel negative, strep and legionella urine negative -Azithromycin and rocephin started NSTEMI type 2 -Likely 2/2 anemia and afib -Improved -Cardiology consulted -Continuing ASA and coreg at this time Acute on chronic anemia -S/P 3 units transfused, pending post transfusion H/H -Consider urgent GI consult if acutely worsening and consult when improved Physical deconditioning -CM for manor placement, PT/OT Torn rotator cuff with effusion, right -Decreased ROM -Continue home norco PB, resolved HTN -Continue home meds Hx CVA HFrEF -Echo EF 30-35%, continue spironolactone Hep C Hyponatremia -Will monitor, continue fluid restriction Hypokalemia, improving Hx of drug abuse Hx of alcohol abuse, no recent daily use Tobacco abuse, quit 4 months ago Addendum - Attending - Attending Attestation Date/Time: 01/11/20 0361 I personally evaluated the patient and discussed the management with Dr. Jin. I agree with the History, Examination, Assessment and Plan documented above with any addition or exceptions noted below. Mentation improved today. COVID eval underway. Still on dilt gtt. Will consider stopping but awaiting cards approval. Per cards, may need to consider CABG in near future. will have further discussion with the patient over next few days.
[2020-01-11 07:32] LABS: Hemoglobin 8.9 g/dL (14.0-18.0); Mean Corpuscular HGB CONC 32.3 g/dL (32.0-36.0); Mean Corpuscular Hemoglobin 30.6 pg (27.0-31.0); Mean Corpuscular Volume 94.9 fL (78.0-98.0); Mean Platelet Volume 7.3 fL (7.4-10.4); Platelet Count 177 thou/uL (130-400); RBC Distribution Width 13.9 % (11.5-14.5); Red Blood Cell (RBC) Count 2.92 mill/uL (4.70-6.10); White Blood Cell (WBC) Count 11.7 thou/uL (4.8-10.8)
[2020-01-11 07:43] LABS: ALT (SGPT) 56 U/L (8-55); AST (SGOT) 126 U/L (5-34); Alkaline Phosphatase 79 U/L (40-110); Anion Gap 14 mmol/L (10-20); BUN (Urea Nitrogen) 35 mg/dL (8.4-25.7); Bilirubin, Total 1.3 mg/dL (0.2-1.2); Calc. Creatinine Clearance 57 mL/min (70-130); Carbon Dioxide 19 mmol/L (23-31); Chloride 99 mmol/L (98-107); Estimated GFR-MDRD 77; Globulin 3.5 g/dL (2.4-3.5); Glucose 129 mg/dL (83-110); Potassium 3.4 mmol/L (3.5-5.1); Protein, Total 5.5 g/dL (5.8-8.1); Sodium 129 mmol/L (136-145)
[2020-01-11 08:56] LABS: Band 12 % (5-11); Lymphocytes 8 % (21-51); MDiff Complete? YES; Monocytes 1 % (0-10); Neutrophil 79 % (42-75); Platelet Morphology Comment Appears Adequate; Polychromasia SLIGHT = 2-3 cells (100X) (0-2/hpf)
[2020-01-11] MEDS: Ferrous Sulfate 325 MG TAB PO SCH (09:03)
[2020-01-11] MEDS: Carvedilol 3.125 MG TAB PO SCH ×2 (09:03→16:43)
[2020-01-11] MEDS: Digoxin 0.25 MG TAB PO SCH (09:04)
[2020-01-11] MEDS: Aspirin 81 mg Enteric Coated Tablet PO SCH (09:04)
[2020-01-11] MEDS: Cyanocobalamin (Vitamin B-12) 1,000 MCG TAB PO SCH (09:04)
[2020-01-11] MEDS: Ascorbic Acid 500 mg Chewable Tablet PO SCH (09:04)
[2020-01-11] MEDS: Folic Acid 1 MG TAB PO SCH (09:06)
[2020-01-11] MEDS: Diclofenac 1% 100 GM GEL TP SCH ×4 (09:15→21:24)
[2020-01-11] MEDS: HYDROcodone/Acetaminophen 10/325 mg Tablet PO PRN ×3 (09:32→23:49)
[2020-01-11] MEDS: cefTRIAXone\\ROCEPHIN 1 GM in Sodium Chloride 0.9% 100 ML IVPB SCH (12:40)
[2020-01-11] MEDS ORDERED: Lactated Ringer's 1,000 ML IV SCH (13:00)
[2020-01-11] MEDS: Azithromycin 500 MG in Sodium Chloride 0.9% 250 ML 250 ML IVPB SCH (13:17)
[2020-01-11] MEDS: Acetaminophen 650 MG/20.3 ML UDCUP PO PRN (15:15)
[2020-01-11] MEDS: Potassium Chloride 20 MEQ TAB PO SCH (16:44)
--- NOTE | 2020-01-11 18:16 | PDOC.CPN ---
- Subjective Date: 01/11/20 Time: 18:14 - Review of Systems General: denies: fever/chills, weight/appetite/sleep changes, night sweats, fatigue Respiratory: denies: cough, congestion, shortness of breath, exercise intolerance Cardiovascular: denies: chest pain, palpitation, edema, paroxysmal nocturnal dyspnea, orthopnea Gastrointestinal: denies: nausea, vomiting, diarrhea, constipation, abd pain, GI bleeding Musculoskeletal: denies: pain, tenderness, stiffness, swelling, arthritis/ arthralgias Neurological: denies: numbness, syncope, seizure, weakness - Objective Allergies/Adverse Reactions: Allergies Allergy/AdvReac Type Severity Reaction Status Date / Time No Known Drug Allergies Allergy Verified 01/07/20 23:11 Visit Medications: Current Medications Acetaminophen (Tylenol Elixir) 650 mg PO Q4H PRN PRN Reason: Fever > 101 Last Admin: 01/11/20 15:15 Dose: 650 mg Hydrocodone Bitart/Acetaminophen ([place] 10/325) 1 tab PO Q6HR PRN PRN Reason: Pain Last Admin: 01/11/20 16:44 Dose: 1 tab Alprazolam (Xanax) 0.25 mg PO DAILY PRN PRN Reason: Anxiety Last Admin: 01/09/20 08:34 Dose: 0.25 mg Ascorbic Acid (Vitamin C) 500 mg PO DAILY [facility] Last Admin: 01/11/20 09:04 Dose: 500 mg Aspirin (Ecotrin) 81 mg PO DAILY [facility] Last Admin: 01/11/20 09:04 Dose: 81 mg Atorvastatin Calcium (Lipitor) 20 mg PO [facility] Last Admin: 01/10/20 21:52 Dose: 20 mg Carvedilol (Coreg) 3.125 mg PO BID-[facility] Last Admin: 01/11/20 16:43 Dose: 3.125 mg Cyanocobalamin (Vitamin B-12) 1,000 mcg PO DAILY [facility] Last Admin: 01/11/20 09:04 Dose: 1,000 mcg Diclofenac Sodium (Voltaren) 4 gm TP QID [facility] Last Admin: 01/11/20 16:44 Dose: 1 applic Digoxin (Lanoxin) 0.25 mg PO DAILY [facility] Last Admin: 01/11/20 09:04 Dose: 0.25 mg Ferrous Sulfate (Feosol) 325 mg PO QAM-[facility] Last Admin: 01/11/20 09:03 Dose: 325 mg Folic Acid (Folvite) 1 mg PO DAILY [facility] Last Admin: 01/11/20 09:06 Dose: 1 mg Diltiazem HCl 125 mg/Miscellaneous Medication 1 each/ Sodium Chloride 125 mls @ 5 mls/hr IVPB INF [facility]; Protocol Last Admin: 01/11/20 03:48 Dose: 125 mls Azithromycin 500 mg/ Sodium (Chloride) 250 mls @ 250 mls/hr IVPB Q24HR [facility] Stop: 01/12/20 14:59 Last Admin: 01/11/20 13:17 Dose: 250 mls Ceftriaxone Sodium 1 gm/ (Sodium Chloride) 100 mls @ 200 mls/hr IVPB Q24HR [facility] Stop: 01/14/20 13:59 Last Admin: 01/11/20 12:40 Dose: 100 mls Lactated Ringer's (Lactated Ringer's) 1,000 mls @ 50 mls/hr IV .Q20H [facility] Stop: 01/12/20 08:59 Last Admin: 01/11/20 14:43 Dose: 1,000 mls Pantoprazole Sodium (Protonix) 40 mg PO DAILY [facility] Last Admin: 01/11/20 09:06 Dose: 40 mg Potassium Chloride (K-Dur) 20 meq PO BID-[facility] Stop: 01/13/20 08:01 Last Admin: 01/11/20 16:44 Dose: 20 meq Sertraline HCl (Zoloft) 100 mg PO DAILY [facility] Last Admin: 01/11/20 09:06 Dose: 100 mg Sodium Chloride (Flush - Normal Saline) 10 ml IVF Q12HR [facility] Last Admin: 01/11/20 09:06 Dose: 10 ml Sodium Chloride (Flush - Normal Saline) 10 ml IVF PRN PRN PRN Reason: Saline Flush Vital Signs & Weight: Vital Signs Temp Pulse Resp BP BP Pulse Ox 01/11/20 16:47 99.6 F 01/11/20 15:07 101.0 F H 72 26 H 105/50 L 100 01/11/20 12:32 103/59 L 01/11/20 12:05 99.9 F H 87 24 H 89/50 L 95 01/11/20 09:04 86 01/11/20 07:18 97.2 F L 86 20 104/59 L 94 L Admit Weight 128 lb 11.2 oz Weight 124 lb - Physical Exam General: alert & oriented x3 HEENT: mucus membranes moist Neck: supple neck Cardiac: irregularly regular Lungs: clear to auscultation Neuro: grossly intact Abdomen: active bowel sounds Extremities: no edema Skin: clear Musculoskeletal: no pain - Labs Result Diagrams: 01/11/20 07:14 01/11/20 07:14 Troponin/CKMB CK-MB (CK-2) 2.6 ng/mL (0-6.6) 01/07/20 20:04 Troponin I 0.035 ng/mL (< 0.028) H 01/08/20 02:09 - Telemetry Supraventricular conduction: atrial fibrillation - Assessment/Plan Assessment/Plan: 1. Anemia, likely slow blood loss. 2. Afib RVR, likely from anemia, rate controlled. 3. Type 2 demand ischemia 4. Severe CAD 5. Chronic anticoagulation with Eliquis. 6. Bacteremia. Gram positive cocci on 2 BCx. PLAN: - HR better in the 80's. - Will likely have to stop Eliquis indefinitely. - May need to consider CABG with MARGE ligation soon. - Abx per primary team. - Will get echo to assess valvular structure for endocarditis. - Will stop diltiazem drip.
[2020-01-11] MEDS: Atorvastatin Calcium 20 MG TAB PO SCH (21:23)
--- NOTE | 2020-01-12 07:10 | PDOC.FM ---
- Subjective Subjective: Pt eating breakfast this morning, no complaints, denies fever, chills, or SOB. - Objective MAR Reviewed: Yes Vital Signs & Weight: Vital Signs (12 hours) Temp Pulse Resp BP Pulse Ox 01/12/20 03:23 97.8 F 84 20 130/84 100 01/11/20 19:20 98 F 60 20 114/56 L 96 Weight Admit Weight 58.377 kg Weight 57.334 kg I&O: 01/11/20 01/12/20 01/13/20 06:59 06:59 06:59 Intake Total 2310 1570 Output Total 300 500 Balance 2009 1070 Result Diagrams: 01/12/20 07:18 01/12/20 07:18 Phys Exam - Physical Examination Constitutional: NAD eating breakfast good air movement, improving breath sounds regular rate, irregular rhythm Gastrointestinal: soft, no distention, positive bowel sounds Musculoskeletal: no edema, pulses present Neurological: moves all 4 limbs Skin: cap refill <2 seconds Dx/Plan (1) Anemia Code(s): D64.9 - ANEMIA, UNSPECIFIED Status: Acute Qualifiers: Anemia type: iron deficiency Iron deficiency anemia type: other iron deficiency Qualified Code(s): D50.8 - Other iron deficiency anemias (2) Elevated troponin Code(s): R79.89 - OTHER SPECIFIED ABNORMAL FINDINGS OF BLOOD CHEMISTRY Status : Acute (3) Acute on chronic systolic heart failure, NYHA class 3 Code(s): I50.23 - ACUTE ON CHRONIC SYSTOLIC (CONGESTIVE) HEART FAILURE Status : Acute (4) Afib Code(s): I48.91 - UNSPECIFIED ATRIAL FIBRILLATION Status: Acute Qualifiers: Atrial fibrillation type: other persistent Qualified Code(s): I48.19 - Other persistent atrial fibrillation (5) Anemia due to acute blood loss Code(s): D62 - ACUTE POSTHEMORRHAGIC ANEMIA Status: Acute (6) CAD (coronary artery disease) Code(s): I25.10 - ATHSCL HEART DISEASE OF [place] CORONARY ARTERY W/O ANG PCTRS Status: Acute Qualifiers: Coronary Disease-Associated Artery/Lesion type: [place] artery [place] vs. transplanted heart: [place] heart Associated angina: without angina Qualified Code(s): I25.10 - Atherosclerotic heart disease of [place] coronary artery without angina pectoris (7) Hyponatremia Code(s): E87.1 - HYPO-OSMOLALITY AND HYPONATREMIA Status: Acute (8) Shortness of breath Code(s): R06.02 - SHORTNESS OF BREATH Status: Acute (9) Upper GI bleed Code(s): K92.2 - GASTROINTESTINAL HEMORRHAGE, UNSPECIFIED Status: Acute - Plan Plan: This is a 74 yo male with a pmh of HTN, AAA s/p repair, afib, hx of CVA, HFrEF, cad Afib with RVR, improved rate -On oral digoxin -Cardiology consulted, recommend holding anticoagulation, lenient rate control Acute hypoxic respiratory failure 2/2 possible PNA -New during this hospitalization -Negative procal -CXR shows new patchy alveolar and ground-glass opacity changes in bilateral lung bui -Covid test negative, Influenza negative, Viral respiratory panel negative, strep and legionella urine negative -Azithromycin and rocephin started MRSA bacteremia -Starting vancomycin, pending OSKAR for ID consult -Pending TTE -Consider midline as possible source -Will reculture in 2 days NSTEMI type 2 -Likely 2/2 anemia and afib -Improved -Cardiology consulted -Continuing ASA and coreg at this time Acute on chronic anemia -S/P 3 units transfused, stable Hgb -Consider urgent GI consult if acutely worsening and consult when improved Physical deconditioning -CM for manor placement, PT/OT Torn rotator cuff with effusion, right -Decreased ROM -Continue home norco PB, resolved HTN -Continue home meds Hx CVA HFrEF -Echo EF 30-35%, continue spironolactone Hep C Hyponatremia -Will monitor, continue fluid restriction Hypokalemia, improving Hx of drug abuse Hx of alcohol abuse, no recent daily use Tobacco abuse, quit 4 months ago Addendum - Attending - Attending Attestation Date/Time: 01/12/20 1222 I personally evaluated the patient and discussed the management with Dr. Jin I agree with the History, Examination, Assessment and Plan documented above with any addition or exceptions noted below. Start vanc. Consult ID. TTE to evaluate for valvular disease. No obvious source at this time for MRSA infection. Denies back pain. H&H stable. Sodium stable. continue fluid restriction. Oxygen requirement decreasing.
[2020-01-12 07:55] LABS: #Lymphocytes 1.4 thou/uL (1.20-3.40); #Monocytes 0.4 thou/uL (0.11-0.59); %Basophils 0.1 % (0.0-1.0); %Eosinophils 0.4 % (0.0-10.0); %Lymphocytes 12.5 % (21.0-51.0); %Monocytes 3.8 % (0.0-10.0); %Neutrophils 83.2 % (42.0-75.0); Hemoglobin 9.4 g/dL (14.0-18.0); Mean Corpuscular HGB CONC 32.2 g/dL (32.0-36.0); Mean Corpuscular Hemoglobin 30.6 pg (27.0-31.0); Mean Corpuscular Volume 95.3 fL (78.0-98.0); Mean Platelet Volume 7.6 fL (7.4-10.4); Platelet Count 161 thou/uL (130-400); RBC Distribution Width 13.8 % (11.5-14.5); Red Blood Cell (RBC) Count 3.05 mill/uL (4.70-6.10); White Blood Cell (WBC) Count 10.8 thou/uL (4.8-10.8)
[2020-01-12 08:18] LABS: ALT (SGPT) 70 U/L (8-55); AST (SGOT) 141 U/L (5-34); Albumin 2.1 g/dL (3.4-4.8); Alkaline Phosphatase 89 U/L (40-110); Anion Gap 12 mmol/L (10-20); BUN (Urea Nitrogen) 32 mg/dL (8.4-25.7); Bilirubin, Total 0.5 mg/dL (0.2-1.2); Calc. Creatinine Clearance 66 mL/min (70-130); Calcium 8.6 mg/dL (7.8-10.44); Carbon Dioxide 20 mmol/L (23-31); Chloride 100 mmol/L (98-107); Estimated GFR-MDRD Greater than 90; Glucose 92 mg/dL (83-110); Protein, Total 6.1 g/dL (5.8-8.1); Sodium 128 mmol/L (136-145)
[2020-01-12] MEDS ORDERED: Vancomycin HCl 1 GM in Sodium Chloride 0.9% 250 ML 250 ML IVPB SCH (09:00)
[2020-01-12] MEDS: Vancomycin HCl 1.25 GM in Sodium Chloride 0.9% 250 ML 250 ML IVPB SCH (09:19)
[2020-01-12] MEDS: Cyanocobalamin (Vitamin B-12) 1,000 MCG TAB PO SCH (09:20)
[2020-01-12] MEDS: Digoxin 0.25 MG TAB PO SCH (09:20)
[2020-01-12] MEDS: Folic Acid 1 MG TAB PO SCH (09:20)
[2020-01-12] MEDS: Aspirin 81 mg Enteric Coated Tablet PO SCH (09:20)
[2020-01-12] MEDS: Carvedilol 3.125 MG TAB PO SCH ×2 (09:21→17:16)
[2020-01-12] MEDS: Ferrous Sulfate 325 MG TAB PO SCH (09:21)
[2020-01-12] MEDS: Potassium Chloride 20 MEQ TAB PO SCH ×2 (09:21→17:16)
[2020-01-12] MEDS: Ascorbic Acid 500 mg Chewable Tablet PO SCH (09:21)
[2020-01-12] MEDS: Diclofenac 1% 100 GM GEL TP SCH ×4 (09:22→21:03)
[2020-01-12] MEDS: HYDROcodone/Acetaminophen 10/325 mg Tablet PO PRN ×3 (09:27→23:40)
--- NOTE | 2020-01-12 14:12 | PDOC.CPN ---
- Subjective Date: 01/12/20 Time: 14:10 Interval history: He is more confused today. He asked me today where he was. - Review of Systems ROS unobtainable: due to mental status - Objective Allergies/Adverse Reactions: Allergies Allergy/AdvReac Type Severity Reaction Status Date / Time No Known Drug Allergies Allergy Verified 01/07/20 23:11 Visit Medications: Current Medications Acetaminophen (Tylenol Elixir) 650 mg PO Q4H PRN PRN Reason: Fever > 101 Last Admin: 01/11/20 15:15 Dose: 650 mg Hydrocodone Bitart/Acetaminophen ([place] 10/325) 1 tab PO Q6HR PRN PRN Reason: Pain Last Admin: 01/12/20 09:27 Dose: 1 tab Alprazolam (Xanax) 0.25 mg PO DAILY PRN PRN Reason: Anxiety Last Admin: 01/09/20 08:34 Dose: 0.25 mg Ascorbic Acid (Vitamin C) 500 mg PO DAILY [facility] Last Admin: 01/12/20 09:21 Dose: 500 mg Aspirin (Ecotrin) 81 mg PO DAILY [facility] Last Admin: 01/12/20 09:20 Dose: 81 mg Atorvastatin Calcium (Lipitor) 20 mg PO HS [facility] Last Admin: 01/11/20 21:23 Dose: 20 mg Carvedilol (Coreg) 3.125 mg PO BID-WM [facility] Last Admin: 01/12/20 09:21 Dose: 3.125 mg Cyanocobalamin (Vitamin B-12) 1,000 mcg PO DAILY [facility] Last Admin: 01/12/20 09:20 Dose: 1,000 mcg Diclofenac Sodium (Voltaren) 4 gm TP QID [facility] Last Admin: 01/12/20 09:22 Dose: 1 applic Digoxin (Lanoxin) 0.25 mg PO DAILY [facility] Last Admin: 01/12/20 09:20 Dose: 0.25 mg Ferrous Sulfate (Feosol) 325 mg PO QAM-WM [facility] Last Admin: 01/12/20 09:21 Dose: 325 mg Folic Acid (Folvite) 1 mg PO DAILY [facility] Last Admin: 01/12/20 09:20 Dose: 1 mg Azithromycin 500 mg/ Sodium (Chloride) 250 mls @ 250 mls/hr IVPB Q24HR [facility] Stop: 01/12/20 14:59 Last Admin: 04/21/20 13:17 Dose: 250 mls Ceftriaxone Sodium 1 gm/ (Sodium Chloride) 100 mls @ 200 mls/hr IVPB Q24HR [facility] Stop: 01/14/20 13:59 Last Admin: 01/11/20 12:40 Dose: 100 mls Vancomycin HCl 1.25 gm/ Sodium (Chloride) 250 mls @ 166.67 mls/hr IVPB 0800 [facility] Last Admin: 01/12/20 09:19 Dose: 250 mls Pantoprazole Sodium (Protonix) 40 mg PO DAILY [facility] Last Admin: 01/12/20 09:21 Dose: 40 mg Potassium Chloride (K-Dur) 20 meq PO BID-[facility] Stop: 01/13/20 08:01 Last Admin: 01/12/20 09:21 Dose: 20 meq Sertraline HCl (Zoloft) 100 mg PO DAILY [facility] Last Admin: 01/12/20 09:20 Dose: 100 mg Sodium Chloride (Flush - Normal Saline) 10 ml IVF Q12HR [facility] Last Admin: 01/12/20 10:07 Dose: Not Given Sodium Chloride (Flush - Normal Saline) 10 ml IVF PRN PRN PRN Reason: Saline Flush Vital Signs & Weight: Vital Signs Temp Pulse Pulse Pulse Resp BP BP 01/12/20 12:00 99 F 106 H 16 01/12/20 09:20 108 H 01/12/20 08:45 107 H 87 143/69 H 169/72 H 01/12/20 08:00 99.7 F H 78 18 01/12/20 03:23 97.8 F 84 20 BP BP Pulse Ox 01/12/20 12:00 119/61 99 01/12/20 09:20 01/12/20 08:45 01/12/20 08:00 142/69 H 99 01/12/20 03:23 130/84 100 Admit Weight 128 lb 11.2 oz Weight 126 lb 6.4 oz - Physical Exam General: alert & oriented x3 HEENT: mucus membranes moist Neck: supple neck Cardiac: irregularly regular Lungs: normal breath sounds Neuro: grossly intact Abdomen: active bowel sounds Extremities: no edema Skin: clear Musculoskeletal: no pain - Labs Result Diagrams: 01/12/20 07:18 01/12/20 07:18 Troponin/CKMB CK-MB (CK-2) 2.6 ng/mL (0-6.6) 01/07/20 20:04 Troponin I 0.035 ng/mL (< 0.028) H 01/08/20 02:09 - Telemetry Supraventricular conduction: atrial fibrillation - Assessment/Plan Assessment/Plan: 1. Anemia, likely slow blood loss. 2. Afib RVR, likely from anemia and bacteremia, rate controlled. 3. Type 2 demand ischemia 4. Severe CAD 5. Chronic anticoagulation with Eliquis. 6. MRSA bacteremia. PLAN: - Rate controlled. - Continue to hold Eliquis indefinitely. - May need to consider CABG with MARGE ligation soon. Not at this time given MRSA bacteremia - Abx per primary team to cover MRSA appropriate. - Echo pending to assess valvular structure for endocarditis. - Will follow.
[2020-01-12] MEDS: cefTRIAXone\\ROCEPHIN 1 GM in Sodium Chloride 0.9% 100 ML IVPB SCH (14:23)
[2020-01-12] MEDS: Azithromycin 500 MG in Sodium Chloride 0.9% 250 ML 250 ML IVPB SCH (14:58)
--- NOTE | 2020-01-12 17:15 | CON ---
DATE OF CONSULTATION: 01/12/2020 REQUESTING PHYSICIAN: Dr. Jin. REASON FOR CONSULTATION: Concern for GI bleeding. HISTORY OF PRESENT ILLNESS: Link Fish is a 74-year-old man with a complex past medical history. He has severe coronary artery disease with coronary artery bypass graft considered, but unclear whether he is a good candidate for this. He has CHF with ejection fraction 30% to 35%. He has a prior history of AAA repair as well as alcohol abuse and untreated hepatitis C. He has atrial fibrillation and history of TIA, and he has been on chronic anticoagulation with Eliquis. He presented to the hospital and was admitted 5 days ago on 01/07/2020, complaining of right shoulder pain, but he was found to have acute kidney injury, elevation in troponin as well as significant anemia with hemoglobin 6.7 at that time. The patient was found to have MRSA bacteremia, but which is being treated. Transesophageal echocardiogram has been planned. He went to rapid ventricular rate, which had to be controlled. His Eliquis has been held. He received 3 units of RBC transfusion over the course of this hospitalization with hemoglobin up to 9.4 today. The patient reports 1 to 2 bowel movements per day. He does not ever really look. He thinks sometimes that they are dark. Evidently, there was concern for some GI bleeding today. FOBT is positive, but I do not see any report of concern for melena. His stool in his briefs currently does not appear bloody, but brown in color. Looking back, I note that he had an EGD in March 2019 due to concern for melena and chronic anemia. He was found to have a hiatal hernia, but the EGD was otherwise normal. It does not appear he underwent colonoscopy. There is some documentation in the chart that the patient reported having undergone colonoscopy about 5 weeks to presentation elsewhere, but I do not see that in any of our records, and now he is not so sure. REVIEW OF SYSTEMS: Full review of systems including constitutional; head, eyes, ears, nose, throat; GI; ; cardiovascular; respiratory; musculoskeletal; neurologic systems is negative except as noted in the HPI. Specifically, he denies any abdominal pain or nausea. PAST MEDICAL HISTORY: AAA repair, severe three-vessel coronary artery disease, CHF with ejection fraction 30% to 35%, alcohol abuse, hepatitis C, tobacco abuse, marijuana abuse, C difficile in 2011, hypertension, atrial fibrillation, TIA, hyperlipidemia, hiatal hernia seen on EGD in March 2019. ALLERGIES: HYDROCODONE. CURRENT MEDICATIONS: 1. Acetaminophen p.r.n. 2. [place] p.r.n. 3. Xanax. 4. Vitamin C. 5. Aspirin 81 mg daily. 6. Lipitor. 7. Coreg. 8. Ceftriaxone IV. 9. Vitamin B12. 10. Diclofenac. 11. Digoxin. 12. Ferrous sulfate 325 mg p.o. daily. 13. Folic acid. 14. Pantoprazole 40 mg p.o. daily. 15. Potassium chloride 20 mEq b.i.d. 16. Zoloft. 17. Vancomycin IV. FAMILY HISTORY: His father had esophageal cancer. SOCIAL HISTORY: The patient reports quitting smoking and alcohol 4 months ago. Marijuana use is social. PHYSICAL EXAMINATION: VITAL SIGNS: Temperature 99.0, pulse 106, blood pressure 119/61, 99% oxygen saturation on room air. GENERAL: Very frail and weak appearing 74-year-old man, lying in bed, in mild distress from shoulder pain. SKIN: He is pale. No jaundice. HEENT: Eyes, no scleral icterus. Extraocular movements are intact. ENT, mucous membranes are moist. Poor dentition. LYMPH: No submandibular or supraclavicular lymphadenopathy. THYROID: Nontender to palpation. HEART: Regular, tachycardia. LUNGS: Bibasilar crackles. ABDOMEN: Flat. Bowel sounds present. Soft, nontender to palpation. EXTREMITIES: No peripheral edema. LABORATORY STUDIES: WBC 10.8; hemoglobin initially 6.7, up to 9.4 today, he has received 3 units RBC transfusion, but hemoglobin is stable from yesterday; platelets 161; MCV 95. BUN 32, creatinine 0.82, sodium 128, potassium 4.0. Total bilirubin 0.5, alkaline phosphatase 89, AST 141, ALT 70, albumin 2.1. FOBT is positive. COVID swab negative. Influenza swab negative. Urine Legionella and strep antigens negative. Blood cultures growing MRSA. Urine culture showing staph aureus. IMAGING STUDIES: Brain CT showed no acute processes. Chest x-ray from a couple of days ago showed bilateral patchy opacities. ASSESSMENT AND PLAN: 1. Concern for possible melena. I examined his stools today and it appears normal and brown in color. 2. Chronic anemia. He has received 2 units RBC transfusion here. This is in the context of chronic Eliquis use, but no overt bleeding that I can tell. FOBT is positive, which is not really meaningful in the setting of chronic anticoagulation in a hospitalized patient. Note that, he did have an EGD showing hiatal hernia about 1 year ago, and I am unclear whether he has ever had a colonoscopy. He may indeed have some chronic gastrointestinal hemorrhage at a low rate, but with his overall frailty and tenuous cardiopulmonary status, active bacteremia, I do not think now is the time for any endoscopic investigation. I would advise treating empirically as if he had peptic ulcer disease, so we will go ahead and start Protonix 40 mg IV q.12 hours. Trend the hemoglobin and hematocrit and monitor for any evidence of overt bleeding. Continue to hold the anticoagulation. GI can follow along. 3. Methicillin-resistant Staphylococcus aureus bacteremia. He is on vancomycin and cefepime. Note, Infectious Disease has been consulted and I believe transesophageal echocardiogram was planned to rule out endocarditis. 4. Severe coronary artery disease. The patient is followed by Dr. Coleman. 5. Hepatitis C, untreated. Note, he has a history of thrombocytopenia, but platelets are currently normal. He may have some early cirrhosis. Thank you for the consultation. Please call anytime with questions or concerns. Job ID: [id number]
--- NOTE | 2020-01-12 18:43 | CON ---
DATE OF CONSULTATION: 01/12/2020 REASON FOR CONSULTATION: Bacteremia. HISTORY OF PRESENT ILLNESS: A 74-year-old, history of chronic hep C with unknown history of treatment, the last HCV RNA PCR was 2,000,900 in March last year, as well as a history of abdominal aortic aneurysm, presumably with prior surgery, hypertension, prior CVA, and ischemic cardiomyopathy, who was last in the hospital in July last year with paroxysmal atrial fibrillation with RVR, CHF with systolic heart failure, malnutrition, history of methamphetamine abuse, chronic smoking. He did have at that time left heart catheterization with diffuse coronary artery disease and the patient was deemed to be too high of a risk for surgery, so medical management was recommended. His EF at that time was 40%. This time, he presents with pain, mostly in the upper extremities and shoulders, and he noticed swelling in the right upper extremity as well. On arrival, there was noticeable swelling of the right shoulder, and his BP is 101/64, pulse 104, temperature 97.7, O2 saturation 100. He was described as not being in distress and pain free, which is hard to believe. He is also described as oriented. The remainder aspect of the exam remarkable for limitation in range of motion in right and left shoulders and swelling of the right shoulder. Other findings; the white cell count is 10.5, hemoglobin 7.5, platelets 218, with 86% neutrophils. The creatinine is 1.61, AST 46, ALT 35, albumin 2.4. Urinalysis was within normal limits. He had a COVID rule-out test, which was negative. Two sets of blood cultures were submitted on the and they have been positive for methicillin-resistant Staphylococcus aureus. It looks like the patient had elevation in temperature on the , which prompted the submission of samples of blood for culture and that is what precipitated this consultation. Currently, Mr. Fish is lying bed in the [facility] area. He is awake, but appears to be in quite a bit of distress. The pain is centered around the right and left shoulder. He can barely abduct the upper extremities without feeling intense pain. He also has tenderness in the neck area with pretty much anywhere he moves him, he will have pain, but again mostly in the upper extremities. He denies a headache. No sore throat. No dyspnea or cough. No abdominal pain. PAST MEDICAL HISTORY: Includes atrial fibrillation; CHF, coronary artery disease; ischemic cardiomyopathy; malnutrition; chronic hep C, which appears not to have been treated yet; hypertension; history of methamphetamine use; chronic smoking; tricuspid regurg; abdominal aortic aneurysm repair. SOCIAL HISTORY: History of heroin and methamphetamine use, here it stated that he is a former smoker. He lives alone in the [place] area. ALLERGIES: NONE. CURRENT MEDICATIONS: 1. P.r.n. [place]. 2. Xanax. 3. Vitamin C. 4. Ecotrin. 5. Lipitor. 6. Coreg. 7. Ceftriaxone. 8. Voltaren. 9. Lanoxin. 10. Feosol. 11. Folvite. 12. Protonix. 13. K-Dur. 14. Zoloft. 15. Vancomycin. PHYSICAL EXAMINATION: VITAL SIGNS: T-max 103 recently, he is now 98.2. Blood pressure 140/65, pulse 98, respirations 16, and O2 saturation 95. SKIN: Bruising in upper extremities, probably from venipuncture sites. He does not have any areas of breakdown in the skin of the dependent areas. He is voiding spontaneously. No lymphadenopathy. Temporal wasting and muscle wasting are noted throughout his body. HEENT: Ocular movements are conjugate. Sclerae are white. Conjunctivae are normal. Oral cavity with a few remaining teeth with marked decay and gum disease. Oral mucosa is moist with atrophy of tongue papillae. Marked tenderness in the neck area, right and left shoulder area. LUNGS: Clear to auscultation and percussion. HEART: S1 and S2. No heart murmur noted. No S3. ABDOMEN: Soft. Not distended or tender. No ascites. No bladder distention. MUSCULOSKELETAL: Hips and knees are not tender to range of motion. Pulses 1+ in dorsalis pedis. He is not able to move the upper extremities because of severe inflammatory activity in the shoulders. He is awake. He is a little bit confused, but he knows where he is and he stated [facility] and he knew it was 2019. LABORATORY DATA: Latest labs: White cell count is at 15.7, hemoglobin 8.5, MCV 93, platelets 223, with 90% neutrophils. Sodium 128, creatinine 0.82, with AST 141 , ALT 70, bilirubin 0.5, alkaline phosphatase 89, albumin 2.14. Procalcitonin 0.19. IMAGING: We have a chest x-ray with bilateral infiltrates, patchy ground-glass opacity changes. There is a brain CT, no acute intracranial process noted. There is shoulder x-ray from December 27 with no acute osseous abnormality. ASSESSMENT: 1. Ischemic cardiomyopathy with ejection fraction in the 40% range. Previous abdominal aortic aneurysm, which apparently has had surgery, it looks like this most likely was endovascular implant. 2. Chronic hep C, which appears not to have been treated yet. 3. 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 4. Chronic smoking. 5. Bilateral shoulder and neck pain with progressive worsening over the past few months. May be also with thoracic and lumbosacral spine pain, but hard to tell because the patient hurts in multiple sites. 6. Methicillin-resistant Staphylococcus aureus bacteremia. DISCUSSION: Differential diagnosis includes likely infection of the shoulders, possibly C-spine. Other sites in his thoracic and lumbar spine not ruled out. The lower extremity joints do not appear to be involved at this time. The sources could be the heart with endocarditis for example or the abdominal aortic aneurysm area of repair. He has an endovascular implant, then that could be a source. I believe the urinary tract is likely a secondary site of involvement, not primary. The patient is on vancomycin. We will go ahead and discontinue ceftriaxone that the patient is on. The patient will need protracted therapy and may need a GET. Also an MRI of the shoulders and neck would be also recommended. A CT of chest might show embolic phenomena in the lungs, which would be consistent with right-sided endocarditis. It is not clear that he has completely discontinued IV drug use and maybe actually have endocarditis. Job ID: [id number] [facility]
[2020-01-12] MEDS: Atorvastatin Calcium 20 MG TAB PO SCH (21:02)
[2020-01-12] MEDS: Pantoprazole 40 MG VIAL IVP SCH (21:03)
[2020-01-13] MEDS: HYDROcodone/Acetaminophen 10/325 mg Tablet PO PRN ×2 (05:32→11:47)
--- NOTE | 2020-01-13 06:29 | PDOC.FM ---
- Subjective Subjective: Pt has no complaints this morning. He denies chest pain or SOB. Nursing reports he did well overnight. Plans to go down to MRI this AM. - Objective MAR Reviewed: Yes Vital Signs & Weight: Vital Signs (12 hours) Temp Pulse Resp BP BP Pulse Ox 01/13/20 03:39 98.4 F 87 24 H 148/72 H 93 L 01/12/20 19:33 97.7 F 89 24 H 125/58 L 100 Weight Admit Weight 58.377 kg Weight 58.922 kg I&O: 01/11/20 01/12/20 01/13/20 06:59 06:59 06:59 Intake Total 2310 1570 2774 Output Total 300 500 Balance 2009 1070 2774 Result Diagrams: 01/13/20 08:28 01/12/20 07:18 Phys Exam - Physical Examination Constitutional: NAD HEENT: moist MMs Poor dentition Neck: no JVD Respiratory: no wheezing, clear to auscultation bilateral Cardiovascular: no significant murmur Irregular rhythm, regular rate Gastrointestinal: soft, no distention, positive bowel sounds Neurological: moves all 4 limbs Psychiatric: normal affect Skin: cap refill <2 seconds Dx/Plan (1) Anemia Code(s): D64.9 - ANEMIA, UNSPECIFIED Status: Acute Qualifiers: Anemia type: iron deficiency Iron deficiency anemia type: other iron deficiency Qualified Code(s): D50.8 - Other iron deficiency anemias (2) Elevated troponin Code(s): R79.89 - OTHER SPECIFIED ABNORMAL FINDINGS OF BLOOD CHEMISTRY Status : Acute (3) Acute on chronic systolic heart failure, NYHA class 3 Code(s): I50.23 - ACUTE ON CHRONIC SYSTOLIC (CONGESTIVE) HEART FAILURE Status : Acute (4) Afib Code(s): I48.91 - UNSPECIFIED ATRIAL FIBRILLATION Status: Acute Qualifiers: Atrial fibrillation type: other persistent Qualified Code(s): I48.19 - Other persistent atrial fibrillation (5) Anemia due to acute blood loss Code(s): D62 - ACUTE POSTHEMORRHAGIC ANEMIA Status: Acute (6) CAD (coronary artery disease) Code(s): I25.10 - ATHSCL HEART DISEASE OF [place] CORONARY ARTERY W/O ANG PCTRS Status: Acute Qualifiers: Coronary Disease-Associated Artery/Lesion type: [place] artery [place] vs. transplanted heart: [place] heart Associated angina: without angina Qualified Code(s): I25.10 - Atherosclerotic heart disease of [place] coronary artery without angina pectoris (7) Hyponatremia Code(s): E87.1 - HYPO-OSMOLALITY AND HYPONATREMIA Status: Acute (8) Shortness of breath Code(s): R06.02 - SHORTNESS OF BREATH Status: Acute (9) Upper GI bleed Code(s): K92.2 - GASTROINTESTINAL HEMORRHAGE, UNSPECIFIED Status: Acute - Plan Plan: This is a 74 yo male with a pmh of HTN, AAA s/p repair, afib, hx of CVA, HFrEF, cad Afib with RVR, improved rate -On oral digoxin -Cardiology consulted, recommend holding anticoagulation, lenient rate control Acute hypoxic respiratory failure 2/2 possible PNA, resolved -Covid test negative, Influenza negative, Viral respiratory panel negative, strep and legionella urine negative MRSA bacteremia -Starting vancomycin, pending OSKAR -Pending TTE -Consider midline as possible source -Will reculture in 2 days -MRI of cervical spine and bilateral upper extremities NSTEMI type 2 -Likely 2/2 anemia and afib -Cardiology consulted -Continuing ASA and coreg at this time Acute on chronic anemia -S/P 3 units transfused, stable Hgb -GI consulted, no urgent imaging or procedures required. Will treat empirically with protonix Physical deconditioning -CM for manor placement, PT/OT Torn rotator cuff with effusion, right -Decreased ROM -Continue home norco PB, resolved HTN -Continue home meds Hx CVA HFrEF -Echo EF 30-35%, continue spironolactone Hep C Hyponatremia -Will monitor, continue fluid restriction Hypokalemia, improving Hx of drug abuse Hx of alcohol abuse, no recent daily use Tobacco abuse, quit 4 months ago Addendum - Attending - Attending Attestation Date/Time: 01/13/20 5050 I personally evaluated the patient and discussed the management with Dr. Jin. I agree with the History, Examination, Assessment and Plan documented above with any addition or exceptions noted below. MRI C-spine today to evaluate for osteo. TTE read pending. Continue abx.
[2020-01-13 08:44] LABS: #Eosinphils 0.1 thou/uL (0.0-0.7); #Lymphocytes 1.4 thou/uL (1.20-3.40); #Monocytes 0.5 thou/uL (0.11-0.59); #Neutrophils 8.4 thou/uL (1.40-6.50); %Basophils 0.4 % (0.0-1.0); %Eosinophils 0.7 % (0.0-10.0); %Lymphocytes 13.3 % (21.0-51.0); %Monocytes 4.5 % (0.0-10.0); Hemoglobin 9.2 g/dL (14.0-18.0); Mean Corpuscular HGB CONC 31.5 g/dL (32.0-36.0); Mean Corpuscular Hemoglobin 30.6 pg (27.0-31.0); Mean Corpuscular Volume 97.1 fL (78.0-98.0); Platelet Count 172 thou/uL (130-400); Red Blood Cell (RBC) Count 3.01 mill/uL (4.70-6.10); White Blood Cell (WBC) Count 10.3 thou/uL (4.8-10.8)
[2020-01-13] MEDS: Vancomycin HCl 1.25 GM in Sodium Chloride 0.9% 250 ML 250 ML IVPB SCH (08:52)
[2020-01-13] MEDS: Potassium Chloride 20 MEQ TAB PO SCH (09:21)
[2020-01-13] MEDS: Ascorbic Acid 500 mg Chewable Tablet PO SCH (09:21)
[2020-01-13] MEDS: Digoxin 0.25 MG TAB PO SCH (09:21)
[2020-01-13] MEDS: Cyanocobalamin (Vitamin B-12) 1,000 MCG TAB PO SCH (09:21)
[2020-01-13] MEDS: Aspirin 81 mg Enteric Coated Tablet PO SCH (09:22)
[2020-01-13] MEDS: Ferrous Sulfate 325 MG TAB PO SCH (09:22)
[2020-01-13] MEDS: Folic Acid 1 MG TAB PO SCH (09:22)
[2020-01-13] MEDS: Pantoprazole 40 MG VIAL IVP SCH ×2 (09:22→21:48)
[2020-01-13] MEDS: Carvedilol 3.125 MG TAB PO SCH ×2 (09:23→18:50)
[2020-01-13] MEDS: Diclofenac 1% 100 GM GEL TP SCH ×4 (09:23→21:48)
[2020-01-13] MEDS: ALPRAZolam 0.25 MG TAB PO PRN (11:48)
--- NOTE | 2020-01-13 13:21 | PDOC.CPN ---
- Subjective Date: 01/13/20 Time: 13:19 Interval history: Still confused, no at baseline. - Review of Systems ROS unobtainable: due to mental status - Objective Allergies/Adverse Reactions: Allergies Allergy/AdvReac Type Severity Reaction Status Date / Time No Known Drug Allergies Allergy Verified 01/07/20 23:11 Visit Medications: Current Medications Acetaminophen (Tylenol Elixir) 650 mg PO Q4H PRN PRN Reason: Fever > 101 Last Admin: 01/11/20 15:15 Dose: 650 mg Hydrocodone Bitart/Acetaminophen ([place] 10/325) 1 tab PO Q6HR PRN PRN Reason: Pain Last Admin: 01/13/20 11:47 Dose: 1 tab Alprazolam (Xanax) 0.25 mg PO DAILY PRN PRN Reason: Anxiety Last Admin: 01/13/20 11:48 Dose: 0.25 mg Ascorbic Acid (Vitamin C) 500 mg PO DAILY [facility] Last Admin: 01/13/20 09:21 Dose: 500 mg Aspirin (Ecotrin) 81 mg PO DAILY [facility] Last Admin: 01/13/20 09:22 Dose: 81 mg Atorvastatin Calcium (Lipitor) 20 mg PO HS [facility] Last Admin: 01/12/20 21:02 Dose: 20 mg Carvedilol (Coreg) 3.125 mg PO BID-[facility] Last Admin: 01/13/20 09:23 Dose: 3.125 mg Cyanocobalamin (Vitamin B-12) 1,000 mcg PO DAILY [facility] Last Admin: 01/13/20 09:21 Dose: 1,000 mcg Diclofenac Sodium (Voltaren) 4 gm TP QID [facility] Last Admin: 01/13/20 09:23 Dose: 1 applic Digoxin (Lanoxin) 0.25 mg PO DAILY [facility] Last Admin: 01/13/20 09:21 Dose: 0.25 mg Ferrous Sulfate (Feosol) 325 mg PO QAM-[facility] Last Admin: 01/13/20 09:22 Dose: 325 mg Folic Acid (Folvite) 1 mg PO DAILY [facility] Last Admin: 01/13/20 09:22 Dose: 1 mg Vancomycin HCl 1.25 gm/ Sodium (Chloride) 250 mls @ 166.67 mls/hr IVPB 0800 [facility] Last Admin: 01/13/20 08:52 Dose: 250 mls Pantoprazole Sodium (Protonix) 40 mg IVP Q12HR [facility] Last Admin: 01/13/20 09:22 Dose: 40 mg Sertraline HCl (Zoloft) 100 mg PO DAILY [facility] Last Admin: 01/13/20 09:21 Dose: 100 mg Sodium Chloride (Flush - Normal Saline) 10 ml IVF Q12HR [facility] Last Admin: 01/13/20 09:22 Dose: 10 ml Sodium Chloride (Flush - Normal Saline) 10 ml IVF PRN PRN PRN Reason: Saline Flush Last Admin: 01/12/20 14:24 Dose: 10 ml Vital Signs & Weight: Vital Signs Temp Pulse Resp BP Pulse Ox 01/13/20 09:21 87 01/13/20 08:00 99 01/13/20 03:39 98.4 F 87 24 H 148/72 H 93 L Admit Weight 128 lb 11.2 oz Weight 129 lb 14.4 oz - Physical Exam General: other (Confused but in no distress.) HEENT: normocephaly Neck: midline trachea Cardiac: irregularly regular Lungs: clear to auscultation Neuro: no lateralizing findings Abdomen: active bowel sounds Extremities: no edema Skin: clear Musculoskeletal: no pain - Labs Result Diagrams: 01/13/20 08:28 01/12/20 07:18 Troponin/CKMB CK-MB (CK-2) 2.6 ng/mL (0-6.6) 01/07/20 20:04 Troponin I 0.035 ng/mL (< 0.028) H 01/08/20 02:09 - Telemetry Supraventricular conduction: atrial fibrillation - Assessment/Plan Assessment/Plan: 1. Anemia, likely slow blood loss. 2. Afib RVR, likely from anemia and bacteremia, rate controlled. 3. Type 2 demand ischemia 4. Severe CAD 5. Chronic anticoagulation with Eliquis. 6. MRSA bacteremia. 7. Likely aortic valve endocarditis. PLAN: - Rate controlled. - Continue to hold Eliquis indefinitely. - Abx for MRSa per mario team - He has a small flail mass on aortic valve which likely is consistent with aortic valve endocarditis. Would recommend treating with IV abx for at least 6 weeks.
--- NOTE | 2020-01-13 13:34 | MRI ---
MRI CERVICAL SPINE WITHOUT CONTRAST: HISTORY: Bacteremia. Bilateral shoulder and neck pain.. COMPARISON: None. FINDINGS: Limited evaluation due to motion degradation on multiple sequences. Additionally, gadolinium was not administered due to patient's discomfort and pain. There is overall appropriate T1 marrow signal intensity lumbar vertebra. Lumbar spine vertebral body height is maintained. There is no fracture. No significant STIR hyperintensity to suggest vertebral body edema or ligamentous injury. 2.2 mm of anterolisthesis of C3 upon C4. Visualized brain parenchyma, cervicomedullary junction, cervical cord and the upper thoracic cord hav e a normal size and signal intensity. C2-C3: No significant central canal stenosis or significant neural foraminal narrowing. C3-C4: Broad-based disc bulge. Mild central canal stenosis. Mild to moderate right and moderate to se maria d left neural foraminal narrowing due to uncovertebral hypertrophy. C4-C5: Disc desiccation with moderate loss of disc space height. Broad-based disc bulge results in mo derate central canal stenosis. Moderate to severe bilateral neural foraminal narrowing due to uncovertebral hypertrophy. C5-C6: Broad-based disc bulge with a right paracentral component. Mild central canal stenosis. Mild t o moderate bilateral neural foraminal narrowing. C6-C7: Disc desiccation without significant loss of disc space height. No posterior disc abnormality. No significant central canal stenosis. Mild bilateral neural foraminal narrowing. C7-T1: No significant central canal stenosis or significant neural foraminal narrowing. IMPRESSION: 1. Limited evaluation due to motion degradation. 2. No abnormal signal intensity in the visualized cervical and upper thoracic vertebrae. 3. There are varying degrees of central canal stenosis and neural foraminal narrowing, due to degener ative change. Transcribed Date/Time: 01/13/2020 1:45 PM
--- NOTE | 2020-01-13 14:28 | PRG ---
DATE OF SERVICE: 01/13/2020 SUBJECTIVE: Mr. Fish is very sleepy. He is unable to stay awake long enough to cooperate well with neurological exam to test for asterixis. He is oriented to his name and to [facility], but not the city. OBJECTIVE: LUNGS: Clear to auscultation bilaterally. HEART: Regular rate and rhythm without murmur. ABDOMEN: Soft, nontender, and nondistended. Bowel sounds are present. EXTREMITIES: No lower extremity edema. NEUROLOGIC: No obvious asterixis by finger inventory transcriber. LABORATORY DATA: White blood cell count 10.3, hemoglobin 9.2, platelets 172, creatinine 0.82, bilirubin 0.5, AST 141, ALT 70, alkaline phosphatase 89, albumin 2.1. Ammonia was 21 on 01/06. IMPRESSION: 1. Anemia. He has no overt GI bleeding. His hemoglobin is stable and we will monitor this clinically. No need for immediate endoscopy at this time. 2. History of hepatitis C and alcohol abuse. His albumin is low and his platelets are in the normal range. His transaminases are elevated with an AST greater than ALT. He could have underlying cirrhosis. Ultrasound from last March showed coarse echogenicity of the liver. He is sleepy today suggestive of encephalopathy, but his ammonia has been normal and he has no asterixis. Consider discontinuing the alprazolam at this point. 3. Methicillin-resistant Staphylococcus aureus bacteremia on vancomycin. The patient had echo and the Cardiology note states that the patient mass in the aortic valve consistent with endocarditis. RECOMMENDATIONS: 1. Anticoagulation is held for now. 2. He is on antibiotics for endocarditis. 3. Consider avoiding further benzodiazepines in case he does have underlying cirrhosis. Job ID: [id number]
--- NOTE | 2020-01-13 17:09 | PRG ---
DATE OF SERVICE: 01/13/2020 SUBJECTIVE: Mr. Fish is quite drowsy. He knows his name. He denies any pain at the moment, although when I try to move his body, he immediately flinches probably from the upper extremities. OBJECTIVE: VITAL SIGNS: T-max of 99.7, now he is 98.3, blood pressure 170/70, pulse 80, respirations 18, and O2 saturation 95. GENERAL: He is chronically ill appearing. LUNGS: Symmetric air entry. HEART: S1 and S2 without obvious murmurs. EXTREMITIES: Markedly tender upper extremities, particularly the shoulder location with some swelling on the right side. LABORATORY DATA: White cell count is 10.3, hemoglobin 9.2, platelets 172 with 81% neutrophils. Chemistry with a creatinine 0.82, AST 141, ALT 70, albumin 2.1, and the MRSA positive blood cultures as noted previously. The patient had an MRI C-spine with limited evaluation due to motion, no signal intensity that would suggest an inflammatory process. 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 The differential diagnosis is as noted before. I think the shoulder will have to be evaluated, and maybe an arthrocentesis would be a better approach and may consider Orthopedic Surgery evaluation for arthrocentesis. Continue vancomycin for protracted periods of time, probably until the end of next month, which is February 19, with weekly labs including CBC, CRP, CMP, and vancomycin trough. Site of treatment probably will require skilled unit admission. I do not think he would be able to handle the complexity of the treatment in the area where he lives. Should we evaluate the aortic area, maybe we should with a CT to see if there is fluid collection around the graft. It looks like he must have had an endovascular graft. Job ID: [id number]
[2020-01-13] MEDS: Atorvastatin Calcium 20 MG TAB PO SCH (22:09)
[2020-01-13] MEDS ORDERED: Acetaminophen 650 MG Suppository PR SCH (23:00)
[2020-01-14 06:38] LABS: Vancomycin, Trough 11.2 ug/mL
[2020-01-14] MEDS ORDERED: VANCOMYCIN IVPB PRN (06:59)
--- NOTE | 2020-01-14 07:23 | PDOC.FM ---
- Subjective Subjective: Pt spiked fever overnight 100.9 F. Pt is not verbalizing any complaints this AM, very somnolent. Tele: a fib, with 4 beats v tach - Objective MAR Reviewed: Yes Vital Signs & Weight: Vital Signs (12 hours) Temp Pulse Resp BP Pulse Ox 01/14/20 03:24 98.3 F 87 23 H 142/71 H 93 L 01/13/20 21:16 100.9 F H 01/13/20 21:14 77 24 H 140/64 98 Weight Admit Weight 58.377 kg Weight 59.738 kg I&O: 01/13/20 01/14/20 01/15/20 06:59 06:59 06:59 Intake Total 2774 950 Balance 2774 950 Result Diagrams: 01/13/20 08:28 01/14/20 06:08 Phys Exam - Physical Examination somnolent, but arousable. HEENT: moist MMs Neck: supple good respiratory effort, equal expansion of lungs. No respiratory distress. Few scattered crackles. Cardiovascular: irregular systolic murmur Gastrointestinal: soft, non-tender, no distention Musculoskeletal: no edema, pulses present Deviation from normal: Oriented to person only Skin: normal turgor Dx/Plan (1) Aortic valve endocarditis Code(s): I35.8 - OTHER NONRHEUMATIC AORTIC VALVE DISORDERS Status: Acute (2) MRSA bacteremia Code(s): R78.81 - BACTEREMIA; B95.62 - METHICILLIN RESIS STAPH INFCT CAUSING DISEASES CLASSD ELSWHR Status: Acute (3) Anemia Code(s): D64.9 - ANEMIA, UNSPECIFIED Status: Acute Qualifiers: Anemia type: iron deficiency Iron deficiency anemia type: other iron deficiency Qualified Code(s): D50.8 - Other iron deficiency anemias (4) Torn rotator cuff Code(s): M75.100 - UNSP ROTATR-CUFF TEAR/RUPTR OF UNSP SHOULDER, NOT TRAUMA Status: Acute Qualifiers: Rotator cuff tear extent: unspecified tear extent Rotator cuff tear trauma status: unspecified whether traumatic Laterality: right Qualified Code(s): M75.101 - Unspecified rotator cuff tear or rupture of right shoulder, not specified as traumatic (5) Afib Code(s): I48.91 - UNSPECIFIED ATRIAL FIBRILLATION Status: Acute Qualifiers: Atrial fibrillation type: other persistent Qualified Code(s): I48.19 - Other persistent atrial fibrillation (6) CAD (coronary artery disease) Code(s): I25.10 - ATHSCL HEART DISEASE OF [place] CORONARY ARTERY W/O ANG PCTRS Status: Acute Qualifiers: Coronary Disease-Associated Artery/Lesion type: [place] artery [place] vs. transplanted heart: [place] heart Associated angina: without angina Qualified Code(s): I25.10 - Atherosclerotic heart disease of [place] coronary artery without angina pectoris (7) Hyponatremia Code(s): E87.1 - HYPO-OSMOLALITY AND HYPONATREMIA Status: Acute - Plan Plan: This is a 74 yo male with a pmh of HTN, AAA s/p repair, afib, hx of CVA, HFrEF, cad MRSA bacteremia -blood ccx: MRSA. Will need IV vanc till February 19. Pharm to dose vanc. Trough 11.2. -TTE: Aortic valve endocarditis -MRI of cervical spine: varying degrees of central canal stenosis with no evidence of infectious process. MRI UE's refused by pt. Aortic Valve Endocarditis - Vanc until February 19 - hx IVDA - ID, Dr. Mack consulted: rec MRI R shoulder, possible ortho vs arthrocentesis for eval for septic joint. Vand until February 19. Possible CT of chest to evaluate graft of AAA. Afib with RVR, improved rate -On oral digoxin -Cardiology consulted, recommend holding anticoagulation indefinitely, lenient rate control Acute hypoxic respiratory failure 2/2 possible PNA, resolved -Covid test negative, Influenza negative, Viral respiratory panel negative, strep and legionella urine negative NSTEMI type 2 -Likely 2/2 anemia and afib -Cardiology consulted -Continuing ASA and coreg at this time Acute on chronic anemia -S/P 3 units transfused, stable Hgb -GI consulted, no urgent imaging or procedures required. Will treat empirically with protonix Physical deconditioning -CM for manor placement, PT/OT - approved at [facility] upon D/C. Torn rotator cuff with effusion, right -Decreased ROM -Continue home norco - Martina recommends possible ortho consult as needing arthorcentesis of R shoulder. PB, resolved HTN -Continue home meds Hx CVA HFrEF -Echo EF 30-35%, continue spironolactone - Hx of IVDA. Hep C Hyponatremia -Will monitor, continue fluid restriction Hypokalemia, improved Hx of AAA - hx of graft, Possible CT to evaluate as source of infection. Hx of drug abuse Hx of alcohol abuse, no recent daily use Tobacco abuse, quit 4 months ago Addendum - Attending - Attending Attestation Date/Time: 01/14/20 5119 I personally evaluated the patient and discussed the management with Dr. Araiza. I agree with the History, Examination, Assessment and Plan documented above with any addition or exceptions noted below. CT abdomen/pelvis to evaluate involvement of aortic graft. Ortho consult to see if shoulder needs aspiration. continue vanc. awaiting additional recommendations from specialists. patient mentation stable. Will consider CT vs MRI brain tomorrow if no improvement to evaluate for infectious emboli.
[2020-01-14 08:36] LABS: ALT (SGPT) 75 U/L (8-55); AST (SGOT) 120 U/L (5-34); Albumin 2.1 g/dL (3.4-4.8); Alkaline Phosphatase 85 U/L (40-110); Anion Gap 13 mmol/L (10-20); BUN (Urea Nitrogen) 26 mg/dL (8.4-25.7); Bilirubin, Total 0.7 mg/dL (0.2-1.2); Calc. Creatinine Clearance 73 mL/min (70-130); Carbon Dioxide 20 mmol/L (23-31); Chloride 103 mmol/L (98-107); Estimated GFR-MDRD Greater than 90; Globulin 4.4 g/dL (2.4-3.5); Glucose 95 mg/dL (83-110); Potassium 4.4 mmol/L (3.5-5.1); Protein, Total 6.5 g/dL (5.8-8.1); Sodium 132 mmol/L (136-145)
[2020-01-14] MEDS: Vancomycin 1.5 GRAM/300 ML BAG 1.5 GM in Premix Bag 1 BAG IVPB SCH (08:49)
[2020-01-14] MEDS: Pantoprazole 40 MG VIAL IVP SCH ×2 (09:03→20:28)
[2020-01-14] MEDS: Folic Acid 1 MG TAB PO SCH (09:04)
[2020-01-14] MEDS: Carvedilol 3.125 MG TAB PO SCH ×2 (09:06→18:26)
[2020-01-14] MEDS: Digoxin 0.25 MG TAB PO SCH (09:08)
[2020-01-14] MEDS: Diclofenac 1% 100 GM GEL TP SCH ×4 (09:08→19:45)
[2020-01-14] MEDS ORDERED: Iopamidol 370 76% 100 ML VIAL ONE (09:59)
[2020-01-14] MEDS ORDERED: Lidocaine 1% PF 5 ML VIAL ONE (11:27)
[2020-01-14] MEDS ORDERED: Glycopyrrolate 0.2 MG/ML 5 ML SYRINGE ONE (11:27)
[2020-01-14] MEDS ORDERED: Succinylcholine Chloride 20 MG/ML 10 ml SYRINGE FS ONE (11:27)
[2020-01-14] MEDS ORDERED: Ondansetron PF 4 MG/2 ML Vial ONE (11:27)
[2020-01-14] MEDS ORDERED: PROPOFOL 200 MG/20 ML VIAL ONE (11:27)
[2020-01-14] MEDS ORDERED: Rocuronium Bromide 10 MG/ML (10ML VIAL) ONE (11:27)
[2020-01-14] MEDS ORDERED: Naloxone HCl 0.4 mg/ml Vial IVP SCH (11:30)
[2020-01-14] MEDS: Ascorbic Acid 500 mg Chewable Tablet PO SCH (11:56)
[2020-01-14] MEDS: Aspirin 81 mg Enteric Coated Tablet PO SCH (11:56)
[2020-01-14] MEDS: Ferrous Sulfate 325 MG TAB PO SCH (11:56)
[2020-01-14] MEDS: Cyanocobalamin (Vitamin B-12) 1,000 MCG TAB PO SCH (11:57)
--- NOTE | 2020-01-14 12:03 | PDOC.CPN ---
- Subjective Date: 01/14/20 Time: 12:02 Interval history: Remains confused, opens his eyes to verbal stimuli and moans. - Review of Systems ROS unobtainable: due to mental status - Objective Allergies/Adverse Reactions: Allergies Allergy/AdvReac Type Severity Reaction Status Date / Time No Known Drug Allergies Allergy Verified 01/07/20 23:11 Visit Medications: Current Medications Acetaminophen (Tylenol Elixir) 650 mg PO Q4H PRN PRN Reason: Fever > 101 Last Admin: 01/11/20 15:15 Dose: 650 mg Hydrocodone Bitart/Acetaminophen ([place] 5/325) 1 tab PO Q6H PRN PRN Reason: Pain Ascorbic Acid (Vitamin C) 500 mg PO DAILY [facility] Last Admin: 01/14/20 11:56 Dose: Not Given Aspirin (Ecotrin) 81 mg PO DAILY [facility] Last Admin: 01/14/20 11:56 Dose: Not Given Atorvastatin Calcium (Lipitor) 20 mg PO HS [facility] Last Admin: 01/13/20 22:09 Dose: Not Given Carvedilol (Coreg) 3.125 mg PO BID-[facility] Last Admin: 01/14/20 09:06 Dose: 3.125 mg Cyanocobalamin (Vitamin B-12) 1,000 mcg PO DAILY [facility] Last Admin: 01/14/20 11:57 Dose: Not Given Diclofenac Sodium (Voltaren) 4 gm TP QID [facility] Last Admin: 01/14/20 09:08 Dose: 1 applic Digoxin (Lanoxin) 0.25 mg PO DAILY [facility] Last Admin: 01/14/20 09:08 Dose: 0.25 mg Ferrous Sulfate (Feosol) 325 mg PO QAM-[facility] Last Admin: 01/14/20 11:56 Dose: Not Given Folic Acid (Folvite) 1 mg PO DAILY [facility] Last Admin: 01/14/20 09:04 Dose: Not Given Vancomycin HCl 1.5 gm/ Device 300 mls @ 150 mls/hr IVPB 0800 [facility] Last Admin: 01/14/20 08:49 Dose: 300 mls Miscellaneous Medication (Pharmacy To Dose) 1 each IVPB PRN PRN PRN Reason: Pharmacy to dose Naloxone HCl (Narcan) 0.1 mg IVP NOW [facility] Stop: 01/14/20 13:30 Last Admin: 01/14/20 11:49 Dose: 0.1 mg Pantoprazole Sodium (Protonix) 40 mg IVP Q12HR [facility] Last Admin: 01/14/20 09:03 Dose: Not Given Sertraline HCl (Zoloft) 100 mg PO DAILY [facility] Last Admin: 01/14/20 11:57 Dose: Not Given Sodium Chloride (Flush - Normal Saline) 10 ml IVF Q12HR [facility] Last Admin: 01/14/20 08:59 Dose: 10 ml Sodium Chloride (Flush - Normal Saline) 10 ml IVF PRN PRN PRN Reason: Saline Flush Last Admin: 01/14/20 11:52 Dose: 10 ml Vital Signs & Weight: Vital Signs Temp Pulse Pulse Pulse Resp BP BP 01/14/20 10:36 87 92 170/81 H 142/65 H 01/14/20 09:08 83 01/14/20 07:52 97.6 F 83 20 01/14/20 07:35 01/14/20 03:24 98.3 F 87 23 H BP Pulse Ox 01/14/20 10:36 01/14/20 09:08 01/14/20 07:52 132/95 H 95 01/14/20 07:35 95 01/14/20 03:24 142/71 H 93 L Admit Weight 128 lb 11.2 oz Weight 131 lb 11.2 oz - Physical Exam General: other (non verbal.) HEENT: mucus membranes moist Neck: supple neck Cardiac: irregularly regular Lungs: normal breath sounds Abdomen: active bowel sounds Extremities: no edema Skin: clear Musculoskeletal: no pain - Labs Result Diagrams: 01/13/20 08:28 01/14/20 06:08 Troponin/CKMB CK-MB (CK-2) 2.6 ng/mL (0-6.6) 01/07/20 20:04 Troponin I 0.035 ng/mL (< 0.028) H 01/08/20 02:09 - Telemetry Supraventricular conduction: atrial fibrillation - Assessment/Plan Assessment/Plan: 1. Anemia, likely slow blood loss. 2. Afib RVR, likely from anemia and bacteremia, rate controlled. 3. Type 2 demand ischemia 4. Severe CAD 5. Chronic anticoagulation with Eliquis. 6. MRSA bacteremia. 7. Likely aortic valve endocarditis. PLAN: - Rate controlled. - Continue to hold Eliquis indefinitely. - Abx for MRSA per mario team - He has a small flail mass on aortic valve which likely is consistent with aortic valve endocarditis. Would recommend treating with IV abx for at least 6 weeks. - More confused today. - Will follow.
--- NOTE | 2020-01-14 13:29 | CT ---
CT abdomen and pelvis with IV contrast HISTORY: Infection. Unknown source. COMPARISON: 08/06/2019. FINDINGS: Small amount of fluid at the inferior aspect of each hemithorax with compressive atelectasi s at the lung bases. Small hyperdense stone is apparent in the now nondistended gallbladder lumen. Cysts of the kidneys are stable. No evidence of bowel obstruction. Aortic stent and arterial calcification apparent. Elongated lobular fluid collections are present within each side of the retroperitoneum, extending al oral each psoas muscle. On the right, the multiloculated fluid collection does not contain gas. It measures up to 10.4 cm length by 3.9 cm depth. On the left, the fluid collection is estimated at 7.0 cm length by 2.2 cm depth. No internal gas. Centered within the left anterior abdominal wall musculature near the level of the umbilicus, a well- circumscribed homogeneous fluid density collection is 6.5 cm length by 3.9 cm depth by 2.6 cm width. Small amount of free fluid is present within the dependent portion pelvis. IMPRESSION : Loculated fluid collections within each side of the retroperitoneum and the anterior abdominal wall, likely representing additional sites of inflammation/infection. The retroperitoneal fluid collections do not appear to involve the aorta/stent. No gas is apparent within the fluid collections . Bilateral pleural effusions and dependent bibasilar atelectasis. Cholelithiasis. Findings were discussed with Dr. Araiza at 1320 hours. Code CR.
[2020-01-14] MEDS ORDERED: Lidocaine 1% (PF) 30 ML VIAL SC SCH (13:45)
--- NOTE | 2020-01-14 15:42 | PRG ---
DATE OF SERVICE: 01/14/2020 SUBJECTIVE: Mr. Fish is awake, but he is delirious. He barely answers yes when I ask him for his name, but he does not know where he is. He could not follow commands very well. This is clearly worsen compared with the initial visit. OBJECTIVE: VITAL SIGNS: His T-max of 100.9, BP 180/80, respiratory rate 20, pulse 55, and O2 saturation 95. GENERAL: Chronically ill appearing, he is little tachypneic. HEENT: His oral cavity is dry with sort of kind of a bloody dried up exudate covering his hard palate. LUNGS: With bibasilar inspiratory crackles. HEART: S1 and S2. ABDOMEN: Soft. EXTREMITIES: Able to move extremities, but does not follow commands. LABORATORY DATA: His white cell count 10.3, hemoglobin 9.2, platelets 172, and 81% neutrophils. Creatinine 0.77, AST 120, ALT 75, and albumin 2.1. We need to repeat the blood cultures. His CT of abdomen and pelvis demonstrated a loculated fluid collections in each side of the retroperitoneum and the anterior abdominal wall. The retroperitoneal fluid collections did not appear to involve the stent. ASSESSMENT: Ischemic cardiomyopathy, ejection fraction in the 40s, abdominal aortic aneurysm, chronic hepatitis C untreated, methamphetamine use and heroin use in the past, chronic smoking, shoulder inflammatory changes particularly in the right side, methicillin-resistant Staphylococcus aureus bacteremia, and now evidence of retroperitoneal fluid collections. DISCUSSION: The retroperitoneal fluid collection as described, could originate from the psoas muscle or the spine or any other retroperitoneal organ. The vascular structures are not yet ruled out that is involved in this process, but looking at those collections, they do not seem to be associated with the order. The one on the right side definitely not the one on the left side, a little bit closer to it though. He also has an anterior shaped collection. The spine is a possibility and I guess the psoas muscle is a possibility as well. Right now, I do not think any further imaging would be helpful. He needs to improve his nutritional input. Of note, he is too delirious now to have a safe oral intake. He may need a Dobbhoff feeding or something of that nature. P.S.: communication from attending MD: R shoulder will be washed via arthroscopy following a purulent aspirate by ortho. Job ID: [id number] [facility]
[2020-01-14 15:43] LABS: Synovial Fluid, Glucose Less than 7 mg/dL (Not Available); Synovial Fluid, Protein 4.4 g/dL (Not Available)
[2020-01-14 15:46] LABS: RBC Count-Automated (BF) 93055 /cumm
--- NOTE | 2020-01-14 15:53 | PRG ---
DATE OF SERVICE: 01/14/2020 SUBJECTIVE: Mr. Fish is very sleepy again. He can tell me his name and the year, but not the city. OBJECTIVE: VITAL SIGNS: Temperature 98.9, pulse 55, blood pressure 188/87. GENERAL: Oriented only to name and year. He falls asleep when not stimulated. He has a good strong hand vice president planning. He does not have obvious asterixis with this. LUNGS: Clear to auscultation bilaterally. HEART: Regular rate and rhythm. ABDOMEN: He tenses his abdominal muscles slightly when I palpate his abdomen, but it is not distended or have acute peritoneal signs. EXTREMITIES: No lower extremity edema. LABORATORY DATA: White blood cell count 10.3, hemoglobin 9.2, platelets 172. Sodium 132, creatinine 0.77, bilirubin 0.7, AST 120, ALT 75, alkaline phosphatase 85, and albumin 2.1. DIAGNOSTIC DATA: He had a CT scan of the abdomen and pelvis this afternoon that showed fluid collections along the psoas muscles bilaterally measuring up to 10 cm in length x 3.9 cm in depth. There is left anterior abdominal wall fluid density measuring 6.5 cm within the musculature near the umbilicus. IMPRESSION: 1. Anemia. He has had no overt gastrointestinal bleeding. However, given the fluid collections along the psoas muscles and anterior abdominal muscle in the setting of anticoagulation, these could be sites of spontaneous bleed. 2. History of hepatitis C and alcohol abuse. It is possible he has underlying cirrhosis. 3. Methicillin-resistant Staphylococcus aureus with endocarditis. 4. Confusion. The confusion could be related to medication side effects with opioids in the setting of chronic liver disease. Could be related to acute infectious process and metabolic encephalopathy. Hepatic encephalopathy is in consideration. However, his ammonia has been normal and he does not have obvious asterixis. It might be worth giving a trial of lactulose anyway at this point. RECOMMENDATIONS: 1. If he can safely take it orally, then I will give a dose of lactulose p.o. Otherwise, it can be given rectally. 2. Follow trend of his hemoglobin. He is off anticoagulation now, so if these are sites of muscular retroperitoneal bleeding and anterior abdominal wall bleeding, then his hemoglobin should be stable at this point. He does not appear to have ongoing bleeding into the sites. Job ID: [id number]
[2020-01-14 16:11] LABS: BF Color Yellow; Body Fluid Source Synovial Fluid; Clarity Cloudy/Turbid (Clear); Tube # EDTA; WBC/Nucleated-Auto (BF) Greater than 51000 uL
[2020-01-14] MEDS ORDERED: Phenylephrine 10 MG/ML VIAL ONE (16:31)
[2020-01-14] MEDS ORDERED: Fentanyl 100 MCG/2 ML VIAL ONE (16:38)
[2020-01-14 17:41] LABS: BF Segmented Neutrophils 86 %; Cell Count Non Hematic 10 %; Lymphocytes 4 %
[2020-01-14] MEDS ORDERED: HYDROmorphone 2 MG/ML VIAL SLOW IVP PRN (17:53)
[2020-01-14] MEDS ORDERED: Promethazine HCl 25 MG/ML VIAL IM PRN (17:53)
[2020-01-14] MEDS ORDERED: Promethazine HCl 25 MG/ML VIAL SLOW IVP PRN (17:53)
[2020-01-14] MEDS ORDERED: Meperidine HCl/PF 25 MG/ML VIAL SLOW IVP PRN (17:53)
[2020-01-14] MEDS: Atorvastatin Calcium 20 MG TAB PO SCH (19:45)
--- NOTE | 2020-01-14 22:03 | OP ---
DATE OF PROCEDURE: 01/14/2020 PRE PROCEDURAL DIAGNOSIS: Right shoulder septic arthritis POST PROCEDURAL DIAGNOSIS: same PROCEDURALIST: Gelacio Loaiza PA-C ANESTHESIA: 1% Xylocaine with skin wheal. ESTIMATED BLOOD LOSS: Negligible. INDICATION: A clinically deteriorating 74 year old man with swelling and pain in the right shoulder and blood cultures positive for MRSA. FINDINGS: 140 mL of purulent fluid removed from the subacromial and intra- articular space with an 18-gauge needle. DESCRIPTION OF PROCEDURE: After informed consent was obtained by telephone from the patient's power of banking attorney brother, Guillaume Fish, the patient was positioned appropriately in the left lateral decubitus position. A posterior approach was used. 1% Xylocaine skin wheal anesthesia was administered and this was followed by an 18-gauge needle, which easily entered the subacromial space posteriorly. I was able to aspirate copious amounts of dewitt opaque purulent fluid. I used several large syringes which total up to 140 mL in total of purulent fluid, which decompressed the shoulder quite a bit. At the end of this, I then injected approximately 8 mL of 1% lidocaine without epinephrine. The procedure was terminated without any complication. The patient tolerated the procedure well. Needle was withdrawn. Sterile dressing was applied, and he has been posted for arthroscopic irrigation debridement washout exploration to follow as soon as possible and he has been posted for this by me. PLAN: Gram stain culture and sensitivity, crystal analysis, glucose, protein, cell count with differential have been obtained and ordered on specimen. Job ID: [id number] MTDD
--- NOTE | 2020-01-14 22:59 | CON ---
DATE OF CONSULTATION: 01/14/2020 REQUESTING PHYSICIAN: Dr. Uyen Araiza. CONSULTING PHYSICIAN: Dr. Jerardo Bauer. REASON FOR CONSULTATION: Right swollen shoulder with progressive deterioration and cultures demonstrating MRSA, suspicion of septic process. BRIEF CLINICAL HISTORY: Link is a 74-year-old male who was admitted to the hospital 7 days ago for a chief complaint of right shoulder pain. Apparently, he had been relatively active and was working in his yard, and I believe, cutting wood according to the history and physical when he had an onset of right and left shoulder pain. Apparently, he has been hurting for a couple of weeks. He presented and was treated as an outpatient, and a few days later, he was feeling worse, had some constitutional symptoms and presented to the hospital where he was admitted for further workup. Cardiac rule-out was performed, and Dr. Mack was ultimately consulted on 01/11 for positive blood cultures with MRSA. He recommended having us perform arthrocentesis which is why we have been consulted to evaluate this process. PAST MEDICAL HISTORY: The patient's past medical history is significant for poor health more recently due to lifelong smoking, atrial fibrillation, COPD, and chronic alcoholism. Subjectively, he has deteriorated. He has also run some low-grade fevers. He had a white blood cell count of 23 on 01/08, which was 2 days after admission. It has slowly trended down and normalized, I believe, due to empiric vancomycin treatment. PHYSICAL EXAMINATION: Visual inspection of the patient demonstrates him to be quite somnolent. He will answer questions, but he appears very cloudy and he is a poor historian at this point. He is overall demeanor in appearance, does not match that of his admission history and physical, suggesting this patient was cutting wood in his yard 2 weeks ago. My suspicion is that he has trended down as of late. His vitals remain relatively stable. His white count has come down despite all this. He has had a swollen shoulder, and our plan is to perform arthrocentesis. The shoulder is indeed swollen, it is not hot, but appears quite edematous, but very enlarged on the right as compared to the left. This is a thin built man consistent with a COPD patient. He cannot tolerate any movement of the shoulder. He keeps it adducted and tucked close. It is fluctuant to palpation. It is not red, but is very distended and impressive. He is neurovascularly intact in the right upper extremity otherwise. IMPRESSION: Suspect right shoulder effusion based on clinical progression and elevated white counts prior, this may very well be a septic arthritis of a [place] shoulder. PLAN: Arthrocentesis now at the bedside. Please see procedure note. Job ID: [id number]
--- NOTE | 2020-01-15 00:04 | CON ---
DATE OF CONSULTATION: HISTORY OF PRESENT ILLNESS: Mr. Fish is a 74-year-old male, who is resting in bed, was consulted by primary care service for right shoulder pain and effusion. The patient had aspiration by my physician's starch treating assistant, which had about 120 mL of fluid that was extracted, had a dark purulent nature. He has bacteremia, he is currently being followed by primary care doctor's in-house. The patient has a significant cardiac history as well as IV drug use history. He lives alone in his house. I discussed with the patient's brother, his right shoulder, which has improved swelling and pain. The patient is essentially not very responsive to questioning. He has pain with movement of his right shoulder. IMPRESSION: Right shoulder infection, history of sepsis. ASSESSMENT AND PLAN: The plan will be to take the patient I and D of his right shoulder arthroscopically potentially converting to open. I discussed the risks and benefits with the patient's brother. He understands this is a difficult situation given the patient's health, the current COVID pandemic as well as his inability to try to decrease the burden of the infection of his right shoulder implanted due to arthroscopic if possible and potentially leave the drain in place. The patient will be followed up in-house. We will need to continue antibiotics under the direction of Dr. Mack. Job ID: [id number]
--- NOTE | 2020-01-15 06:56 | PDOC.FM ---
- Subjective Subjective: Pt underwent a surgical wash out of the r shoulder 01/13 evening. Pt awake this morning, but not verbalizing concerns well. No acute overnight events. VSS. - Objective MAR Reviewed: Yes Vital Signs & Weight: Vital Signs (12 hours) Temp Pulse Resp BP BP Pulse Ox 01/15/20 04:00 97.5 F L 55 L 20 145/70 H 100 01/15/20 00:00 98.3 F 82 20 155/73 H 97 01/14/20 20:00 98.2 F 89 18 148/68 H 96 Weight Admit Weight 58.377 kg Weight 59.738 kg I&O: 01/13/20 01/14/20 01/15/20 06:59 06:59 06:59 Intake Total 2774 950 160 Balance 2774 950 160 Result Diagrams: 01/13/20 08:28 01/14/20 06:08 Phys Exam - Physical Examination speaks in mumbled phrases dry MM scattered crackles and loud upper airway noise auscultated. Cardiovascular: irregular sys murmur Gastrointestinal: soft, no distention, positive bowel sounds Musculoskeletal: no edema, pulses present R shoulder bandaged, clean and dry. Pain with active movement of R arm. Neurological: moves all 4 limbs Dx/Plan (1) Aortic valve endocarditis Code(s): I35.8 - OTHER NONRHEUMATIC AORTIC VALVE DISORDERS Status: Acute (2) MRSA bacteremia Code(s): R78.81 - BACTEREMIA; B95.62 - METHICILLIN RESIS STAPH INFCT CAUSING DISEASES CLASSD ELSWHR Status: Acute (3) Anemia Code(s): D64.9 - ANEMIA, UNSPECIFIED Status: Acute Qualifiers: Anemia type: iron deficiency Iron deficiency anemia type: other iron deficiency Qualified Code(s): D50.8 - Other iron deficiency anemias (4) Torn rotator cuff Code(s): M75.100 - UNSP ROTATR-CUFF TEAR/RUPTR OF UNSP SHOULDER, NOT TRAUMA Status: Acute Qualifiers: Rotator cuff tear extent: unspecified tear extent Rotator cuff tear trauma status: unspecified whether traumatic Laterality: right Qualified Code(s): M75.101 - Unspecified rotator cuff tear or rupture of right shoulder, not specified as traumatic (5) Afib Code(s): I48.91 - UNSPECIFIED ATRIAL FIBRILLATION Status: Acute Qualifiers: Atrial fibrillation type: other persistent Qualified Code(s): I48.19 - Other persistent atrial fibrillation (6) CAD (coronary artery disease) Code(s): I25.10 - ATHSCL HEART DISEASE OF [place] CORONARY ARTERY W/O ANG PCTRS Status: Acute Qualifiers: Coronary Disease-Associated Artery/Lesion type: [place] artery [place] vs. transplanted heart: [place] heart Associated angina: without angina Qualified Code(s): I25.10 - Atherosclerotic heart disease of [place] coronary artery without angina pectoris (7) Hyponatremia Code(s): E87.1 - HYPO-OSMOLALITY AND HYPONATREMIA Status: Acute (8) Septic joint of right shoulder region Code(s): M00.9 - PYOGENIC ARTHRITIS, UNSPECIFIED Status: Acute - Plan Plan: This is a 74 yo male with a pmh of HTN, AAA s/p repair, afib, hx of CVA, HFrEF, cad MRSA bacteremia -blood ccx: MRSA. Will need IV vanc till February 19. Pharm to dose vanc. Trough 11.2. -TTE: Aortic valve endocarditis -MRI of cervical spine: varying degrees of central canal stenosis with no evidence of infectious process. MRI UE's refused by pt. -Worsening mentation. Speech re-eval to evaluate safety of swallowing. Aortic Valve Endocarditis - Vanc until February 19 - hx IVDA - ID, Dr. Mack consulted: rec MRI R shoulder, ortho vs arthrocentesis for eval for septic joint. Vanc until February 19. CT of chest to evaluate graft of AAA. CT abd pelvis revealed fluid collections along B psoas muscles and anterior abd wall. See report for full details Septic R shoulder joint -Ortho consulted, appreciate recommendations -Likely source of primary infection vs seeding of bacteria. 140 mL of purulent material aspirated from R shoulder joint before taken to surgery. - Went for wash out surgical procedure on 01/13 evening, report pending. - continue vanc X6 weeks Afib with RVR, improved rate -On oral digoxin -Cardiology consulted, recommend holding anticoagulation indefinitely, lenient rate control Acute hypoxic respiratory failure 2/2 possible PNA, resolved -Covid test negative, Influenza negative, Viral respiratory panel negative, strep and legionella urine negative NSTEMI type 2 -Likely 2/2 anemia and afib -Cardiology consulted -Continuing ASA and coreg at this time Acute on chronic anemia -S/P 3 units transfused, stable Hgb -GI consulted, no urgent imaging or procedures required. Will treat empirically with protonix Physical deconditioning -CM for manor placement, PT/OT - approved at [facility] upon D/C. Torn rotator cuff with effusion, right -Decreased ROM -Continue home norhardeep - Martina recommends ortho consult as needing arthorcentesis of R shoulder. See above. PB, resolved HTN -Continue home meds Hx CVA HFrEF -Echo EF 30-35%, continue spironolactone - Hx of IVDA. Hep C Hyponatremia -Will monitor, continue fluid restriction Hypokalemia, improved Hx of AAA - hx of graft, CT to evaluate as source of infection. See report for full details. Hx of drug abuse Hx of alcohol abuse, no recent daily use Tobacco abuse, quit 4 months ago Addendum - Attending - Attending Attestation Date/Time: 01/15/20 7402 I personally evaluated the patient and discussed the management with Dr. [] I agree with the History, Examination, Assessment and Plan documented above with any addition or exceptions noted below. S/P washout of right shoulder yesterday. Still not mentating well. Nurse unable to get blood from peripheral vein. Will bolus 1L NS and start on maintenance fluids. ID states may need dopphoff tube since unable to tolerate PO. Will talk with family today to see if they will provide consent for feeding tube.
[2020-01-15] MEDS: Digoxin 0.25 MG TAB PO SCH (08:28)
[2020-01-15] MEDS: Carvedilol 3.125 MG TAB PO SCH ×2 (08:28→17:44)
[2020-01-15] MEDS: Aspirin 81 mg Enteric Coated Tablet PO SCH (08:28)
[2020-01-15] MEDS: Pantoprazole 40 MG VIAL IVP SCH ×2 (08:31→21:26)
[2020-01-15] MEDS: Ascorbic Acid 500 mg Chewable Tablet PO SCH (08:44)
[2020-01-15] MEDS: Cyanocobalamin (Vitamin B-12) 1,000 MCG TAB PO SCH (08:44)
[2020-01-15] MEDS: Ferrous Sulfate 325 MG TAB PO SCH (08:44)
[2020-01-15] MEDS: Diclofenac 1% 100 GM GEL TP SCH ×4 (08:46→21:37)
--- NOTE | 2020-01-15 09:56 | SPC ---
SPC CVP LINE PICC INITAL >5: 01/15/2020 9:51 AM INDICATION: Endocarditis, need for long-term IV antibiotics PROCEDURE: Peripherally placed 40 cm single lumen PICC line. PICC Line Placement: The left arm was prepped and draped in sterile fashion. Under fluoroscopic guidance, a microguidewire was utilized to gain access to a left upper extremity v ein that was artery accessed with a small midline peripheral catheter. The guidewire was advanced to the level of IVC. Buffered 1% lidocaine was administered surrounding the skin access point of the left upper extremity. A vascular sheath was then advanced over a guide wire, and a single lumen PICC line was trimmed. The PICC line was then advanced into the central venous system. A final pl acement film demonstrates the tip of the catheter terminated in the caval-atrial junction. After confirmation of the catheter position, the catheter was sutured in place at the skin entry site . There was no immediate complication. Total fluoroscopic time 0.5 minutes. Total exposure 3395 mgray/sq cm IMPRESSION: Peripheral placement of a single lumen power PICC line by fluoroscopic guidance.
[2020-01-15] MEDS: Folic Acid 1 MG TAB PO SCH (10:36)
[2020-01-15] MEDS: Vancomycin 1.5 GRAM/300 ML BAG 1.5 GM in Premix Bag 1 BAG IVPB SCH ×2 (10:37→10:39)
[2020-01-15] MEDS ORDERED: Sodium Chloride 0.9% 1,000 ML IV SCH (12:30)
[2020-01-15] MEDS: Sodium Chloride 0.9% 1,000 ML IV SCH (13:38)
--- NOTE | 2020-01-15 13:46 | PDOC.CPN ---
- Subjective Date: 01/15/20 Time: 13:58 Interval history: The pt seen and examined. No overnight events. the pt is confused today - Objective Allergies/Adverse Reactions: Allergies Allergy/AdvReac Type Severity Reaction Status Date / Time No Known Drug Allergies Allergy Verified 01/07/20 23:11 Visit Medications: Current Medications Acetaminophen (Tylenol Elixir) 650 mg PO Q4H PRN PRN Reason: Fever > 101 Last Admin: 01/11/20 15:15 Dose: 650 mg Hydrocodone Bitart/Acetaminophen ([place] 5/325) 1 tab PO Q6H PRN PRN Reason: Pain Ascorbic Acid (Vitamin C) 500 mg PO DAILY [facility] Last Admin: 01/15/20 08:44 Dose: Not Given Aspirin (Ecotrin) 81 mg PO DAILY [facility] Last Admin: 01/15/20 08:28 Dose: 81 mg Atorvastatin Calcium (Lipitor) 20 mg PO HS [facility] Last Admin: 01/14/20 19:45 Dose: Not Given Carvedilol (Coreg) 3.125 mg PO BID-[facility] Last Admin: 01/15/20 08:28 Dose: 3.125 mg Cyanocobalamin (Vitamin B-12) 1,000 mcg PO DAILY [facility] Last Admin: 01/15/20 08:44 Dose: Not Given Diclofenac Sodium (Voltaren) 4 gm TP QID [facility] Last Admin: 01/15/20 12:35 Dose: 1 applic Digoxin (Lanoxin) 0.25 mg PO DAILY [facility] Last Admin: 01/15/20 08:28 Dose: 0.25 mg Ferrous Sulfate (Feosol) 325 mg PO QAM-[facility] Last Admin: 01/15/20 08:44 Dose: Not Given Folic Acid (Folvite) 1 mg PO DAILY [facility] Last Admin: 01/15/20 10:36 Dose: Not Given Vancomycin HCl 1.5 gm/ Device 300 mls @ 150 mls/hr IVPB 1100 [facility] Last Admin: 01/15/20 10:37 Dose: 300 mls Sodium Chloride (Normal Saline 0.9%) 1,000 mls @ 70 mls/hr IV .[id number] [facility] Last Admin: 01/15/20 13:38 Dose: 1,000 mls Miscellaneous Medication (Pharmacy To Dose) 1 each IVPB PRN PRN PRN Reason: Pharmacy to dose Pantoprazole Sodium (Protonix) 40 mg IVP Q12HR [facility] Last Admin: 01/15/20 08:31 Dose: 40 mg Sertraline HCl (Zoloft) 100 mg PO DAILY [facility] Last Admin: 01/15/20 08:45 Dose: Not Given Sodium Chloride (Flush - Normal Saline) 10 ml IVF Q12HR [facility] Last Admin: 01/15/20 08:46 Dose: 10 ml Sodium Chloride (Flush - Normal Saline) 10 ml IVF PRN PRN PRN Reason: Saline Flush Last Admin: 01/14/20 11:52 Dose: 10 ml Vital Signs & Weight: Vital Signs Temp Pulse Resp BP BP Pulse Ox 01/15/20 08:50 95 01/15/20 08:35 97.9 F 72 18 136/73 94 L 01/15/20 08:28 55 L 01/15/20 04:00 97.5 F L 55 L 20 145/70 H 100 Admit Weight 128 lb 11.2 oz Weight 131 lb 11.2 oz - Physical Exam General: other (confused) Neck: supple neck Cardiac: irregularly regular Lungs: decreased breath sounds Extremities: no edema - Labs Result Diagrams: 01/13/20 08:28 01/14/20 06:08 Troponin/CKMB CK-MB (CK-2) 2.6 ng/mL (0-6.6) 01/07/20 20:04 Troponin I 0.035 ng/mL (< 0.028) H 01/08/20 02:09 - Telemetry Supraventricular conduction: atrial fibrillation - Assessment/Plan Assessment/Plan: 1. Permanent Afib with RVR - Well controlled HR; On coreg, Digoxin, and ASA; not on Eliquis due to anemia 2. Aortic Valve endocarditis - IV ABX for at least 6 wks. 3. Anemia, likely slow blood loss - GI consulted, no urgent imaging or procedures required. On Protonix 3. Type 2 demand ischemia 4. MRSA bacteremia. 5. Chronic systolic HF with EF 35-40% in 12/2019 6. HTN - stable 7. Chronic Hepatitis 8. Hx of CVA in 02/2019 9. COPD 10. hx of AAA repair 11. Tobacco/[place] drug abuse MAR reviewed Pt.seen and eval.by me.I agree with the A/P by the AUTOMOTIVE SERVICE DIRECTOR. Chest clear.Irreg.rhythm.No edema. gjm
--- NOTE | 2020-01-15 15:42 | PRG ---
DATE OF SERVICE: 01/15/2020 SUBJECTIVE: Mr. Fish is much more awake and alert. He is oriented x3 and interactive this afternoon. PHYSICAL EXAMINATION: VITAL SIGNS: Temperature 97.9, pulse 57, blood pressure 132/62. GENERAL: He is in no acute distress. Alert and oriented x3. LUNGS: Clear to auscultation bilaterally. HEART: Regular rate and rhythm without murmur. ABDOMEN: Soft, nontender, and nondistended. Bowel sounds are present. EXTREMITIES: No lower extremity edema. IMPRESSION: 1. Metabolic encephalopathy. This may have been related to his sepsis and endocarditis. He had his shoulder washed, out and today, his mental status is markedly improved. 2. Anemia without overt gastrointestinal bleeding. 3. History of hepatitis C and alcohol abuse. 4. 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 RECOMMENDATIONS: 1. He is tolerating oral diet today so far. 2. He did receive a dose of lactulose yesterday. I doubt this is the reason for the improvement in his mental status. I suspect his mental status is improved due to treatment of his underlying infection, but it could have been related to lactulose. 3. I will sign off for now, please call if GI can be of assistance. Job ID: [id number]
--- NOTE | 2020-01-15 15:58 | OP ---
DATE OF PROCEDURE: 01/14/2020 PREOPERATIVE DIAGNOSIS: Right septic shoulder. POSTOPERATIVE DIAGNOSES: 1. Right septic shoulder. 2. Right massive rotator cuff tear. PROCEDURE: 1. Irrigation and debridement right septic shoulder DIRECTOR DIGITAL ANALYTICS: None. ANESTHESIOLOGIST: Nickie Wilson MD ANESTHESIA: The patient received general endotracheal intubation. ESTIMATED BLOOD LOSS: Less than 50 mL. TOURNIQUET TIME: None. ANTIBIOTICS: Ancef 2 g. FLUIDS: 5 L of fluids, in and out. SPECIMENS: Cultures were taken from the aspiration 3 hours earlier. HISTORY OF PRESENT ILLNESS: Mr. Fish is a 74-year-old male, who presents with bacteremia and aortic vegetations. The patient has had a very painful right shoulder and could not perform an MRI today. We tapped the shoulder pulling out 120 mL of a milk chocolate jai tissue which cultures are pending. The patient has positive cultures of blood as well as urine for MRSA. The patient is currently in-house. He is only minimally responsive to questioning. The patient is consented by his brother who is the [id number] for a right shoulder I and D. Discussed with the family risks and benefits of surgery, pain, scar, bleeding, infection, continued pain, need for further surgeries, loss of life or limb. The patient's family understood the risks and benefits and elected to proceed. DESCRIPTION OF PROCEDURE: Time-out was performed designating the right upper extremity as the operative site based on site, consents, and marking. After time-out, the patient's right shoulder was prepped and draped in sterile fashion. Posterior working portal was placed anterior. I visualized inside the joint, saw the massive rotator cuff tear. I then placed the portal anteriorly which would be into the area of the rotator cuff interval. With placement of that, I started using my shaver to suck out any tissue. There was obviously a massive tear but the fluid immediately filled his entire subdeltoid space. We placed a throw-away cannula to help with evacuation of fluid and kind of milking from the subdeltoid space inferiorly the fluid out, washed a total of 5 L through. I debrided some of the soft tissue that was throughout the shoulder. After completion of my 5 L washout, we left our portals open. The patient will be admitted back to Medicine, continue with his IV antibiotics, will be followed in-house. The patient's outlook is guarded given his multiple medical comorbidities, his right shoulder, no further right shoulder surgeries can be performed, pray that he can heal this right shoulder and clear his infection. Job ID: [id number] [facility] [place] DIVISIONGhassan
--- NOTE | 2020-01-15 21:12 | PRG ---
DATE OF SERVICE: 01/15/2020 HISTORY OF PRESENT ILLNESS: Mr. Fish is a 74-year-old male, presents with right shoulder fullness. The patient was having difficulty because of bacteremia. He has infection also in his right shoulder. We were able to draw fulminant amount of fluid from the patient's right shoulder, which is showing a preliminary staph species. PHYSICAL EXAMINATION: VITAL SIGNS: Currently, the patient's vitals are 97.9, 93, 20, 95% on room air, and 134/82. GENERAL: Alert and oriented male, in no acute distress. EXTREMITIES: Right shoulder dressings clean, dry, and intact. The patient is neurovascularly intact. Still pain with range of motion. LABORATORY DATA: His white count is 10.3 today, which is downtrending. IMPRESSION: Right septic shoulder rotator cuff arthropathy. ASSESSMENT AND PLAN: Given the fulminant infection of his right shoulder, I would recommend repeat washout at 48 hours to be scheduled for tomorrow. The patient will be made n.p.o. at midnight, on-call to the OR for an I and D of his right shoulder arthroscopically for repeat washout. Job ID: [id number]
[2020-01-15] MEDS: Atorvastatin Calcium 20 MG TAB PO SCH (21:26)
[2020-01-16 04:27] LABS: #Eosinphils 0.1 thou/uL (0.0-0.7); #Lymphocytes 1.9 thou/uL (1.20-3.40); #Monocytes 0.5 thou/uL (0.11-0.59); %Basophils 0.1 % (0.0-1.0); %Eosinophils 0.6 % (0.0-10.0); %Lymphocytes 18.3 % (21.0-51.0); %Monocytes 4.8 % (0.0-10.0); %Neutrophils 76.3 % (42.0-75.0); Mean Corpuscular HGB CONC 32.3 g/dL (32.0-36.0); Mean Corpuscular Hemoglobin 30.9 pg (27.0-31.0); Mean Corpuscular Volume 95.9 fL (78.0-98.0); Platelet Count 309 thou/uL (130-400); RBC Distribution Width 13.8 % (11.5-14.5); Red Blood Cell (RBC) Count 3.23 mill/uL (4.70-6.10); White Blood Cell (WBC) Count 10.4 thou/uL (4.8-10.8)
[2020-01-16 06:27] LABS: Albumin 2.3 g/dL (3.4-4.8)
[2020-01-16] MEDS: Sodium Chloride 0.9% 1,000 ML IV SCH ×2 (06:27→17:21)
[2020-01-16 06:29] LABS: Calcium 9.1 mg/dL (7.8-10.44)
[2020-01-16 06:30] LABS: Globulin 4.4 g/dL (2.4-3.5); Glucose 102 mg/dL (83-110)
[2020-01-16 06:31] LABS: Anion Gap 13 mmol/L (10-20); Carbon Dioxide 21 mmol/L (23-31)
[2020-01-16 06:32] LABS: Bilirubin, Total 0.6 mg/dL (0.2-1.2)
[2020-01-16 06:33] LABS: Alkaline Phosphatase 76 U/L (40-110); Calc. Creatinine Clearance 73 mL/min (70-130); Estimated GFR-MDRD Greater than 90
[2020-01-16 06:34] LABS: BUN (Urea Nitrogen) 26 mg/dL (8.4-25.7)
[2020-01-16 06:35] LABS: AST (SGOT) 50 U/L (5-34)
[2020-01-16 06:40] LABS: ALT (SGPT) 40 U/L (8-55); Chloride 107 mmol/L (98-107); Protein, Total 6.7 g/dL (5.8-8.1); Sodium 137 mmol/L (136-145)
[2020-01-16] MEDS: Carvedilol 3.125 MG TAB PO SCH ×2 (06:40→17:21)
[2020-01-16] MEDS ORDERED: Phenylephrine 10 MG/ML VIAL ONE (07:13)
--- NOTE | 2020-01-16 07:26 | PDOC.FM ---
- Subjective Subjective: Pt in surgery this am for repeat R shoulder septic joint wash out. Tolerated procedure well. Up in bed afterwards and taking medications with sips of c[place]-cola. Pt comfortable. A fib tele overnight with rate 70-90's - Objective MAR Reviewed: Yes Vital Signs & Weight: Vital Signs (12 hours) Temp Pulse Resp BP BP Pulse Ox 01/16/20 04:27 98.7 F 84 20 157/65 H 92 L 01/16/20 01:08 97.6 F 90 20 120/80 96 01/15/20 21:26 98.2 F 82 20 117/76 95 Weight Admit Weight 58.377 kg Weight 59.012 kg I&O: 01/15/20 01/16/20 01/17/20 06:59 06:59 06:59 Intake Total 160 2440 Balance 160 2440 Result Diagrams: 01/16/20 04:07 01/16/20 05:38 Phys Exam - Physical Examination Constitutional: NAD HEENT: moist MMs Neck: supple, full ROM Respiratory: no wheezing, no rales, no rhonchi, clear to auscultation bilateral Cardiovascular: no rub, irregular sys murmur Gastrointestinal: soft, non-tender, positive bowel sounds Musculoskeletal: no edema, pulses present R shoulder dressing clean and dry. Neurological: moves all 4 limbs Skin: normal turgor, cap refill <2 seconds Dx/Plan (1) Aortic valve endocarditis Code(s): I35.8 - OTHER NONRHEUMATIC AORTIC VALVE DISORDERS Status: Acute (2) MRSA bacteremia Code(s): R78.81 - BACTEREMIA; B95.62 - METHICILLIN RESIS STAPH INFCT CAUSING DISEASES CLASSD ELSWHR Status: Acute (3) Anemia Code(s): D64.9 - ANEMIA, UNSPECIFIED Status: Acute Qualifiers: Anemia type: iron deficiency Iron deficiency anemia type: other iron deficiency Qualified Code(s): D50.8 - Other iron deficiency anemias (4) Torn rotator cuff Code(s): M75.100 - UNSP ROTATR-CUFF TEAR/RUPTR OF UNSP SHOULDER, NOT TRAUMA Status: Acute Qualifiers: Rotator cuff tear extent: unspecified tear extent Rotator cuff tear trauma status: unspecified whether traumatic Laterality: right Qualified Code(s): M75.101 - Unspecified rotator cuff tear or rupture of right shoulder, not specified as traumatic (5) Afib Code(s): I48.91 - UNSPECIFIED ATRIAL FIBRILLATION Status: Acute Qualifiers: Atrial fibrillation type: other persistent Qualified Code(s): I48.19 - Other persistent atrial fibrillation (6) CAD (coronary artery disease) Code(s): I25.10 - ATHSCL HEART DISEASE OF [place] CORONARY ARTERY W/O ANG PCTRS Status: Acute Qualifiers: Coronary Disease-Associated Artery/Lesion type: [place] artery [place] vs. transplanted heart: [place] heart Associated angina: without angina Qualified Code(s): I25.10 - Atherosclerotic heart disease of [place] coronary artery without angina pectoris (7) Hyponatremia Code(s): E87.1 - HYPO-OSMOLALITY AND HYPONATREMIA Status: Acute (8) Septic joint of right shoulder region Code(s): M00.9 - PYOGENIC ARTHRITIS, UNSPECIFIED Status: Acute - Plan Plan: This is a 74 yo male with a pmh of HTN, AAA s/p repair, afib, hx of CVA, HFrEF, cad MRSA bacteremia -blood ccx: MRSA. Will need IV vanc till February 19. Pharm to dose vanc. Trough 11.2. -TTE: Aortic valve endocarditis, R shoulder septic joint. -MRI of cervical spine: varying degrees of central canal stenosis with no evidence of infectious process. MRI UE's refused by pt. Aortic Valve Endocarditis - Vanc until February 19 - hx IVDA - ID, Dr. Mack consulted: rec MRI R shoulder, ortho vs arthrocentesis for eval for septic joint. Vanc until February 19. CT of chest to evaluate graft of AAA. CT abd pelvis revealed fluid collections along B psoas muscles and anterior abd wall. See report for full details - Cardiology, Dr. Coleman consulted, appreciate recs. Septic R shoulder joint -Ortho consulted, Dr. Bauer; appreciate recommendations -Likely source of primary infection vs seeding of bacteria. 140 mL of purulent material aspirated from R shoulder joint before taken to surgery. CXX growing MRSA. - Went for wash out surgical procedure on 01/13 evening. Repeat arthroscopic washout 01/14. - continue vanc X6 weeks Afib with RVR, improved rate -On oral digoxin -Cardiology consulted, recommend holding anticoagulation indefinitely, lenient rate control Acute hypoxic respiratory failure 2/2 possible PNA, resolved -Covid test negative, Influenza negative, Viral respiratory panel negative, strep and legionella urine negative NSTEMI type 2 -Likely 2/2 anemia and afib -Cardiology consulted -Continuing ASA and coreg at this time Acute on chronic anemia -S/P 3 units transfused, stable Hgb -GI consulted, no urgent imaging or procedures required. Will treat empirically with protonix Physical deconditioning -CM for argyleor placement, PT/OT - approved at [place] upon D/C. Torn rotator cuff with effusion, right -Decreased ROM -Continue home norhardeep - Martina recommends ortho consult as needing arthorcentesis of R shoulder. See above. PB, resolved HTN -Continue home meds Hx CVA HFrEF -Echo EF 30-35%, continue spironolactone - Pt unsure of IVDA in the past. Hep C Hyponatremia -Will monitor, continue fluid restriction Hypokalemia, improved Hx of AAA - hx of graft, CT to evaluate as source of infection. See report for full details. Hx of drug abuse Hx of alcohol abuse, no recent daily use Tobacco abuse, quit 4 months ago Addendum - Attending - Attending Attestation Date/Time: 01/16/20 3070 I personally evaluated the patient and discussed the management with Dr. Araiza. I agree with the History, Examination, Assessment and Plan documented above with any addition or exceptions noted below. His mentation is much improved today but still not eating as well as he should. I don't feel he needs the dopphoff tube at this time as long as his mental status continues to improve. Will continue gentle IV fluids until his PO intake improves. PICC already placed. washout was successful today. Placement at the [facility] has been approved for abx and rehab once d/c is appropriate. Will need at least 6 total weeks of vanc. Awaiting f/u from ID for further recommendations. Will contact patient's brother and provide update as well as discuss possible need for temporary vs permanent feeding tube.
[2020-01-16] MEDS ORDERED: Fentanyl 100 MCG/2 ML VIAL ONE (08:06)
[2020-01-16] MEDS ORDERED: Promethazine HCl 25 MG/ML VIAL SLOW IVP PRN (09:34)
[2020-01-16] MEDS ORDERED: PACU-Morphine 4MG/ML VIAL SLOW IVP PRN (09:34)
[2020-01-16] MEDS ORDERED: Meperidine HCl/PF 25 MG/ML VIAL SLOW IVP PRN (09:34)
[2020-01-16] MEDS ORDERED: Promethazine HCl 25 MG/ML VIAL IM PRN (09:34)
[2020-01-16] MEDS: Digoxin 0.25 MG TAB PO SCH (10:20)
[2020-01-16] MEDS: Aspirin 81 mg Enteric Coated Tablet PO SCH (10:20)
[2020-01-16] MEDS: Diclofenac 1% 100 GM GEL TP SCH ×4 (10:20→20:40)
[2020-01-16] MEDS: Pantoprazole 40 MG VIAL IVP SCH ×2 (10:20→20:39)
[2020-01-16] MEDS: Cyanocobalamin (Vitamin B-12) 1,000 MCG TAB PO SCH (10:27)
[2020-01-16] MEDS: Ascorbic Acid 500 mg Chewable Tablet PO SCH (10:27)
[2020-01-16] MEDS: Folic Acid 1 MG TAB PO SCH (10:27)
[2020-01-16] MEDS: Ferrous Sulfate 325 MG TAB PO SCH (10:27)
[2020-01-16] MEDS ORDERED: Glycopyrrolate 0.2 MG/ML 5 ML SYRINGE ONE (10:44)
[2020-01-16] MEDS ORDERED: Rocuronium Bromide 10 MG/ML (10ML VIAL) ONE (10:44)
[2020-01-16] MEDS ORDERED: PROPOFOL 200 MG/20 ML VIAL ONE (10:44)
[2020-01-16] MEDS ORDERED: Succinylcholine Chloride 20 MG/ML 10 ml SYRINGE FS ONE (10:44)
[2020-01-16] MEDS ORDERED: PHENYLEPHRINE-NS 100 MCG/ML 10 ML SYRINGE ONE (10:44)
[2020-01-16] MEDS ORDERED: Lidocaine 1% PF 5 ML VIAL ONE (10:44)
[2020-01-16] MEDS ORDERED: Ondansetron PF 4 MG/2 ML Vial ONE (10:44)
[2020-01-16] MEDS: Vancomycin 1.5 GRAM/300 ML BAG 1.5 GM in Premix Bag 1 BAG IVPB SCH (11:39)
[2020-01-16 13:05] LABS: Vancomycin, Trough 33.1 ug/mL
--- NOTE | 2020-01-16 14:44 | PDOC.CPN ---
- Subjective Date: 01/16/20 Time: 14:46 Interval history: The pt seen and examined. No overnight events. No cardiac complaints. He is more alerted, but still confused today - Objective Allergies/Adverse Reactions: Allergies Allergy/AdvReac Type Severity Reaction Status Date / Time No Known Drug Allergies Allergy Verified 01/07/20 23:11 Visit Medications: Current Medications Acetaminophen (Tylenol Elixir) 650 mg PO Q4H PRN PRN Reason: Fever > 101 Last Admin: 01/11/20 15:15 Dose: 650 mg Hydrocodone Bitart/Acetaminophen ([place] 5/325) 1 tab PO Q6H PRN PRN Reason: Pain Ascorbic Acid (Vitamin C) 500 mg PO DAILY [facility] Last Admin: 01/16/20 10:27 Dose: 500 mg Aspirin (Ecotrin) 81 mg PO DAILY [facility] Last Admin: 01/16/20 10:20 Dose: 81 mg Atorvastatin Calcium (Lipitor) 20 mg PO HS [facility] Last Admin: 01/15/20 21:26 Dose: 20 mg Carvedilol (Coreg) 3.125 mg PO BID-[facility] Last Admin: 01/16/20 06:40 Dose: 3.125 mg Cyanocobalamin (Vitamin B-12) 1,000 mcg PO DAILY [facility] Last Admin: 01/16/20 10:27 Dose: 1,000 mcg Diclofenac Sodium (Voltaren) 4 gm TP QID [facility] Last Admin: 01/16/20 14:21 Dose: Not Given Digoxin (Lanoxin) 0.25 mg PO DAILY [facility] Last Admin: 01/16/20 10:20 Dose: 0.25 mg Ferrous Sulfate (Feosol) 325 mg PO QAM-WM [facility] Last Admin: 01/16/20 10:27 Dose: 325 mg Folic Acid (Folvite) 1 mg PO DAILY [facility] Last Admin: 01/16/20 10:27 Dose: 1 mg Vancomycin HCl 1.5 gm/ Device 300 mls @ 150 mls/hr IVPB 1100 [facility] Last Admin: 01/16/20 11:39 Dose: 300 mls Sodium Chloride (Normal Saline 0.9%) 1,000 mls @ 70 mls/hr IV .[id number] [facility] Last Admin: 01/16/20 06:27 Dose: Not Given Miscellaneous Medication (Pharmacy To Dose) 1 each IVPB PRN PRN PRN Reason: Pharmacy to dose Pantoprazole Sodium (Protonix) 40 mg IVP Q12HR [facility] Last Admin: 01/16/20 10:20 Dose: 40 mg Sertraline HCl (Zoloft) 100 mg PO DAILY [facility] Last Admin: 01/16/20 10:20 Dose: 100 mg Sodium Chloride (Flush - Normal Saline) 10 ml IVF Q12HR [facility] Last Admin: 01/16/20 10:20 Dose: 10 ml Sodium Chloride (Flush - Normal Saline) 10 ml IVF PRN PRN PRN Reason: Saline Flush Last Admin: 01/14/20 11:52 Dose: 10 ml Vital Signs & Weight: Vital Signs Temp Pulse Resp BP BP Pulse Ox 01/16/20 11:50 97.0 F L 92 20 126/62 94 L 01/16/20 10:20 96 01/16/20 07:20 97.1 F L 96 22 H 117/70 96 01/16/20 04:27 98.7 F 84 20 157/65 H 92 L Admit Weight 128 lb 11.2 oz Weight 130 lb 1.6 oz - Physical Exam General: other (confused) HEENT: mucus membranes moist Neck: supple neck Cardiac: regular rate and rhythm, S1/S2 Lungs: decreased breath sounds - Labs Result Diagrams: 01/16/20 04:07 01/16/20 05:38 Troponin/CKMB CK-MB (CK-2) 2.6 ng/mL (0-6.6) 01/07/20 20:04 Troponin I 0.035 ng/mL (< 0.028) H 01/08/20 02:09 - Telemetry Sinus rhythms and dysrhythmias: sinus rhythm - Assessment/Plan Assessment/Plan: 1. Permanent Afib with RVR - Well controlled HR; On coreg, Digoxin, and ASA; not on Eliquis due to anemia 2. Aortic Valve endocarditis - IV ABX for at least 6 wks. 3. Anemia, likely slow blood loss - GI consulted, no urgent imaging or procedures required. On Protonix 3. Type 2 demand ischemia 4. MRSA bacteremia infection at Rt shoulder - s/p I&D today 5. Chronic systolic HF with EF 35-40% in 12/2019 - on Coreg 6. HTN - stable 7. Chronic Hepatitis 8. Hx of CVA in 02/2019 9. COPD 10. hx of AAA repair 11. Tobacco/Ilicit drug abuse MAR reviewed * Dr Coleman's pt
--- NOTE | 2020-01-16 17:55 | OP ---
DATE OF PROCEDURE: 01/16/2020 PREOPERATIVE DIAGNOSIS: Right shoulder septic joint. POSTOPERATIVE DIAGNOSIS: Right shoulder septic joint. PROCEDURE PERFORMED: arthroscopic Irrigation and drainage, right shoulder. FOOD SERVICE REPRESENTATIVE: None. ANESTHESIA: Dr. Wilson. The patient received a general intubation. ESTIMATED BLOOD LOSS: Less than 50 mL. TOURNIQUET TIME: None. IMPLANTS: None. EXPLANTS: None. ANTIBIOTIC: Ancef 2 g. COMPLICATIONS: None. HISTORY OF PRESENT ILLNESS: Mr. Fish is a 74-year-old male with bacteremia , floridly septic right shoulder. The patient underwent I and D 48 hours ago, and the patient was brought back to the operating suite for repeat washout, given the fulminant nature of his infection and contamination of right shoulder. He has clinically improved, more alert and speaking, he was resting in bed upon evaluation. The patient understood the risks and benefits of surgery, pain, scar, bleeding, infection, continued pain, draining sinus, need for further surgeries, continued chronic infection, loss of life or limb. The patient and family understood the risks and benefits and elected to proceed DESCRIPTION OF PROCEDURE: Time-out was performed, designating the patient's right upper extremity as the operative site based on site, consent, and marking. After time-out, the patient's right upper extremity was prepped and draped with ChloraPrep. We placed back in our working portal the cannula. The patient was in semi beach chair position, placed one in the posterior and one in the anterior. I then switched my camera from anterior to posterior, washed a total 3 L of fluid through the wound, and also manipulating and pushing out any clot and any potential infection. The water was clear and more improved from the previous washout. I was happy with the completion of my wash, 3 L of fluid through, completed and left the portals open to allow for drainage as needed. The patient will be admitted back to Medicine and discharged, requiring long- term IV antibiotics. The patient's outlook is guarded, given his medical history. Job ID: [id number] [facility]
--- NOTE | 2020-01-16 18:47 | PRG ---
DATE OF SERVICE: 01/16/2020 SUBJECTIVE: Mr. Fish had a washout of the right shoulder by Dr. Bauer. The operative note was reviewed. The procedure was on January 13. The patient had a massive rotator cuff tear. There was fluid in the subdeltoid space and he had a washout and debridement, and is currently more alert, awake, establishes eye contact, still a little bit confused, but he states that he is feeling better. The pain in his shoulder is better, the pain in the back is better, but still there. No dyspnea. No abdominal pain. He is voiding in the diaper. OBJECTIVE: VITAL SIGNS: T-max 98.7, blood pressure 120/60, pulse 92, respirations 20, and O2 sat 94. GENERAL: He appears more settled and more alert. HEENT: Ocular movements conjugate. SKIN: Right shoulder dressing not removed. LUNGS: Symmetric, clear breath sounds. HEART: S1 and S2, regular rate without murmurs. ABDOMEN: Soft and not tender. EXTREMITIES: Moves extremities equally. LABORATORY DATA: White cell count 10.4, hemoglobin 10, and platelets 309 with 76% neutrophils. Sodium 137, creatinine 0.76; AST 50, which is improved from previous. Microbiology as noted before with MRSA from the shoulder, urine, and 2 sets of blood cultures. ASSESSMENT AND DISCUSSION: Ischemic cardiomyopathy, ejection fraction in the 40s, abdominal aortic aneurysm, chronic hepatitis C untreated, history of methamphetamine use and heroin use in the past, chronic smoking, septic arthritis in shoulder due to methicillin-resistant Staphylococcus aureus as well as methicillin-resistant Staphylococcus aureus bacteremia, and the retroperitoneal likely abscess has yet not clear cut source, possibilities include spine or some other retroperitoneal organ, the vascular structures are not clearly involved in this process. Anyway, it looks like it is getting better and will need protracted antimicrobial therapy, probably at least 8 weeks of an anti-MRSA agent. The setting will likely require transfer to a intermediate facility since where he lives would be impossible to safely complete the treatment course. He will need weekly labs including CBC, CRP, CMP, and vancomycin trough levels. Follow up blood cultures, make sure that blood is sterilized, and he will need to follow up imaging studies of the retroperitoneal area to see about the progress. MRI of the T and LS spine might be attempted in the near future. Job ID: [id number]
[2020-01-16] MEDS: Atorvastatin Calcium 20 MG TAB PO SCH (20:38)
[2020-01-16] MEDS: HYDROcodone/Acetaminophen 5/325 mg Tablet PO PRN (20:38)
[2020-01-17] MEDS: HYDROcodone/Acetaminophen 5/325 mg Tablet PO PRN ×2 (03:21→21:07)
[2020-01-17 04:23] LABS: #Eosinphils 0.1 thou/uL (0.0-0.7); #Lymphocytes 2.2 thou/uL (1.20-3.40); #Monocytes 0.5 thou/uL (0.11-0.59); #Neutrophils 5.8 thou/uL (1.40-6.50); %Basophils 0.4 % (0.0-1.0); %Eosinophils 0.8 % (0.0-10.0); %Lymphocytes 25.6 % (21.0-51.0); %Monocytes 6.2 % (0.0-10.0); %Neutrophils 66.9 % (42.0-75.0); Hemoglobin 9.9 g/dL (14.0-18.0); Mean Corpuscular HGB CONC 32.7 g/dL (32.0-36.0); Mean Corpuscular Hemoglobin 31.4 pg (27.0-31.0); Mean Corpuscular Volume 95.8 fL (78.0-98.0); Mean Platelet Volume 7.4 fL (7.4-10.4); Platelet Count 246 thou/uL (130-400); RBC Distribution Width 13.8 % (11.5-14.5); Red Blood Cell (RBC) Count 3.15 mill/uL (4.70-6.10); White Blood Cell (WBC) Count 8.7 thou/uL (4.8-10.8)
--- NOTE | 2020-01-17 07:00 | PRG ---
DATE OF SERVICE: 01/16/2020 This is a transition of care note. The patient was originally admitted to the hospital for elevated troponins. Troponin level of 0.047. Cardiology was consulted. The patient was found to be having difficulty breathing on the morning of 01/09. A chest x-ray was performed, which showed patchy alveolar and ground-glass opacity changes in the right upper, right lower, and left lower lung zones and mild hyperinflation, evidence for small left pleural effusion. It was elected to swab the patient for COVID-19, this test came back negative. The patient also had blood cultures drawn on 01/09, which resulted as MRSA. This led to Cardiology to do a TTE where EF was found to be 35% to 40%, and there was a small flailing mass on the right coronary cusp consistent with aortic valve endocarditis. The patient was then seen by Dr. Mack, who recommended vancomycin therapy for at least 6 weeks. He also recommended that the patient undergo cervical and upper extremity MRI. The patient underwent the cervical spine MRI, which did not show any infectious process, but he refused upper extremity MRI. Dr. Mack then recommended that we consult Ortho Surgery who came and saw the patient and did a joint aspiration on the right shoulder as he is complaining of pain and this might be the likely source of the infection. 140 mL of purulent material was aspirated from the shoulder joint, which is about 3 to 4 times normal amount they can usually aspirate from the shoulder. He was taken that evening to an arthroscopic washout for surgery, and this was repeated 48 hours later. The patient's mental status got worse and has waxed and waned, but today on 01/15, his mentation is better than upon admission, and he is deemed by Speech to be able to eat safely. His mental status was likely waxing and waning due to his fevers and infectious and inflammatory process. The patient's main point of contact is Reddy, his brother who lives in [place]. His cell phone number is #[phone]. 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 The patient had a PICC line placed on 01/14, right shoulder washout on 01/15 and 01/13. Right shoulder arthrocentesis on 01/13. Received 1 unit packed red blood cells on 01/09, received 2 units packed red blood cells on 01/07. Consults to date are Cardiology; Palliative Care; GI who has signed off; Dr. Mack with Infectious Disease; and Ortho Surgery, Dr. Bauer. Job ID: [id number]
[2020-01-17] MEDS: Digoxin 0.25 MG TAB PO SCH (08:10)
[2020-01-17] MEDS: Ferrous Sulfate 325 MG TAB PO SCH (08:10)
[2020-01-17] MEDS: Aspirin 81 mg Enteric Coated Tablet PO SCH (08:10)
[2020-01-17] MEDS: Folic Acid 1 MG TAB PO SCH (08:11)
[2020-01-17] MEDS: Pantoprazole 40 MG VIAL IVP SCH ×2 (08:11→21:07)
[2020-01-17] MEDS: Ascorbic Acid 500 mg Chewable Tablet PO SCH (08:11)
[2020-01-17] MEDS: Cyanocobalamin (Vitamin B-12) 1,000 MCG TAB PO SCH (08:11)
[2020-01-17] MEDS: Carvedilol 3.125 MG TAB PO SCH ×2 (08:11→19:37)
[2020-01-17] MEDS: Diclofenac 1% 100 GM GEL TP SCH ×4 (08:13→21:07)
--- NOTE | 2020-01-17 09:00 | PDOC.FM ---
- Subjective Subjective: Pt feeling well with no complaints, no acute events overnight. - Objective Vital Signs & Weight: Vital Signs (12 hours) Temp Pulse Resp BP BP Pulse Ox 01/17/20 08:00 97.7 F 67 18 114/68 95 01/17/20 03:27 97.4 F L 79 20 129/60 95 Weight Admit Weight 58.377 kg Weight 61.19 kg I&O: 01/16/20 01/17/20 01/18/20 06:59 06:59 06:59 Intake Total 2440 1200 Output Total 375 Balance 2440 825 Result Diagrams: 01/17/20 03:54 01/16/20 05:38 Phys Exam - Physical Examination Constitutional: NAD HEENT: moist MMs, sclera anicteric Neck: no JVD, supple Respiratory: no wheezing, clear to auscultation bilateral Cardiovascular: no significant murmur, irregular Gastrointestinal: soft, non-tender Musculoskeletal: pulses present Neurological: normal sensation, moves all 4 limbs Psychiatric: normal affect Skin: no rash, normal turgor Dx/Plan (1) Aortic valve endocarditis Code(s): I35.8 - OTHER NONRHEUMATIC AORTIC VALVE DISORDERS Status: Acute (2) MRSA bacteremia Code(s): R78.81 - BACTEREMIA; B95.62 - METHICILLIN RESIS STAPH INFCT CAUSING DISEASES CLASSD ELSWHR Status: Acute (3) Septic joint of right shoulder region Code(s): M00.9 - PYOGENIC ARTHRITIS, UNSPECIFIED Status: Acute (4) Torn rotator cuff Code(s): M75.100 - UNSP ROTATR-CUFF TEAR/RUPTR OF UNSP SHOULDER, NOT TRAUMA Status: Acute Qualifiers: Rotator cuff tear extent: unspecified tear extent Rotator cuff tear trauma status: unspecified whether traumatic Laterality: right Qualified Code(s): M75.101 - Unspecified rotator cuff tear or rupture of right shoulder, not specified as traumatic (5) Afib Code(s): I48.91 - UNSPECIFIED ATRIAL FIBRILLATION Status: Acute Qualifiers: Atrial fibrillation type: other persistent Qualified Code(s): I48.19 - Other persistent atrial fibrillation (6) CAD (coronary artery disease) Code(s): I25.10 - ATHSCL HEART DISEASE OF [place] CORONARY ARTERY W/O ANG PCTRS Status: Acute Qualifiers: Coronary Disease-Associated Artery/Lesion type: [place] artery [place] vs. transplanted heart: [place] heart Associated angina: without angina Qualified Code(s): I25.10 - Atherosclerotic heart disease of [place] coronary artery without angina pectoris (7) Hypertension Code(s): I10 - ESSENTIAL (PRIMARY) HYPERTENSION Status: Chronic Qualifiers: - Plan Plan: This is a 74 yo male with a pmh of HTN, AAA s/p repair, afib, hx of CVA, HFrEF, cad MRSA bacteremia A- stable, ID consulted, appreciate recs. blood ccx: MRSA. Will need IV vanc till February 19. Pharm to dose vanc. Trough 11.2. TTE: Aortic valve endocarditis , R shoulder septic joint. Pt also has retroperitoneal abscess. MRI of cervical spine: varying degrees of central canal stenosis with no evidence of infectious process. MRI UE's refused by pt. CT of chest to evaluate graft of AAA. CT abd pelvis revealed fluid collections along B psoas muscles and anterior abd wall. See report for full details P- continue Vanc -f/u IDs recs Aortic Valve Endocarditis A- Cardiology, Dr. Coleman consulted, appreciate recs. P- per plan above, ABX and f/u cards recs Septic R shoulder joint A- stable and s/p washout x2. Ortho consulted, Dr. Bauer; appreciate recommendations. Likely source of primary infection vs seeding of bacteria. Went for wash out surgical procedure on 01/13 evening. Repeat arthroscopic washout 01/14. P- ABX per plan above, f/u ortho recs Acute hypoxic respiratory failure A- Covid test negative, Influenza negative, Viral respiratory panel negative, strep and legionella urine negative. Pt was weaned to RA and stable until 01/15 and is now requiring 3L. No complaints of SOB or cough. P- will repeat CXR and procal -consider restarting azithro and rocephin -consider adding duonebs, COPD is listed in an old problem list but I find no documentation of this being a problem. Afib with RVR, improved rate A- Cardiology consulted, recommend holding anticoagulation indefinitely, lenient rate control P- On oral digoxin and coreg NSTEMI type 2 A- Likely 2/2 anemia and afib. Cardiology consulted P- Continuing ASA and coreg at this time Acute on chronic anemia A- S/P 3 units transfused, stable Hgb. GI consulted, no urgent imaging or procedures required. GI signed off P- Will treat empirically with protonix Physical deconditioning - for [facility]or placement, PT/OT. approved at [place] upon D/C. Torn rotator cuff with effusion, right A- Decreased ROM P- Continue home norco PB, resolved HTN -Continue home meds Hx CVA -MD aware HFrEF A- Echo EF 30-35%, cards on board P- strict I/Os -fluid restriction Hep C -MD aware Hyponatremia -resolved Hypokalemia -resolved Hx of AAA - hx of graft, CT to evaluate as source of infection. See report for full details. Social -Hx of drug abuse, Hx of alcohol abuse, no recent daily use, Tobacco abuse, quit 4 months ago CODE: full Addendum - Attending - Attending Attestation Date/Time: 01/17/20 1210 I personally evaluated the patient and discussed the management with Dr. Shelby. I agree with the History, Examination, Assessment and Plan documented above with any addition or exceptions noted below. Multiple active issues, continue IV abx for septic shoulder, bacteremia, and endocarditis. ID, Ortho, Cards on board. Having some increased SOB, will repeat CXR and give diuresis. 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
--- NOTE | 2020-01-17 10:09 | PRG ---
DATE OF SERVICE: 01/17/2020 HISTORY OF PRESENT ILLNESS: Mr. Fish is a 74-year-old male, with septic right shoulder, who has undergone two I and D's yesterday on 01/15 and previously on 01/13. The patient is currently resting in bed, more responsive, on IV antibiotics, followed by ID. OBJECTIVE: GENERAL: Alert, responding to questions. EXTREMITIES: Right upper extremity, the patient has elbow, wrist, and hand motion intact. Dressing is clean, dry, and intact. No strikethrough. No erythema. No increasing pain. IMPRESSION: Right septic shoulder, rotator cuff arthropathy. ASSESSMENT AND PLAN: The patient will be discharged by Family Practice, on long-term IV antibiotics. May begin range of motion as tolerated. May follow up in 2 to 4 weeks depending on disposition. Job ID: [id number]
--- NOTE | 2020-01-17 10:09 | RAD ---
CHEST 1 VIEW: HISTORY: Increased oxygen demand. COMPARISON: Chest radiograph of 01/10/2020. FINDINGS: Enlarging bilateral large pleural effusion. Worsening lower lobe aeration. No pneumothorax. Heart size is enlarged. IMPRESSION: 1. Enlarging bilateral moderate to large layering pleural effusions. 2. Concern for superimposed pneumonia lower lobes. POS: HOME
[2020-01-17] MEDS: Vancomycin 1.5 GRAM/300 ML BAG 1.5 GM in Premix Bag 1 BAG IVPB SCH (10:45)
[2020-01-17] MEDS ORDERED: Furosemide 40 MG/4 ML VIAL SLOW IVP SCH (11:00)
--- NOTE | 2020-01-17 11:37 | PDOC.CPN ---
- Subjective Date: 01/17/20 Time: 11:26 Interval history: He is doing better. More awake. No chest pain. - Review of Systems General: denies: fever/chills, weight/appetite/sleep changes, night sweats, fatigue Respiratory: denies: cough, congestion, shortness of breath, exercise intolerance Cardiovascular: denies: chest pain, palpitation, edema, paroxysmal nocturnal dyspnea, orthopnea Gastrointestinal: denies: nausea, vomiting, diarrhea, constipation, abd pain, GI bleeding Musculoskeletal: reports: pain. denies: tenderness, stiffness, swelling, arthritis/arthralgias Neurological: denies: numbness, syncope, seizure, weakness - Objective Allergies/Adverse Reactions: Allergies Allergy/AdvReac Type Severity Reaction Status Date / Time No Known Drug Allergies Allergy Verified 01/07/20 23:11 Visit Medications: Current Medications Acetaminophen (Tylenol Elixir) 650 mg PO Q4H PRN PRN Reason: Fever > 101 Last Admin: 01/11/20 15:15 Dose: 650 mg Hydrocodone Bitart/Acetaminophen ([place] 5/325) 1 tab PO Q6H PRN PRN Reason: Pain Last Admin: 01/17/20 03:21 Dose: 1 tab Ascorbic Acid (Vitamin C) 500 mg PO DAILY [facility] Last Admin: 01/17/20 08:11 Dose: 500 mg Aspirin (Ecotrin) 81 mg PO DAILY [facility] Last Admin: 01/17/20 08:10 Dose: 81 mg Atorvastatin Calcium (Lipitor) 20 mg PO HS [facility] Last Admin: 01/16/20 20:38 Dose: 20 mg Carvedilol (Coreg) 3.125 mg PO BID-[facility] Last Admin: 01/17/20 08:11 Dose: 3.125 mg Cyanocobalamin (Vitamin B-12) 1,000 mcg PO DAILY [facility] Last Admin: 01/17/20 08:11 Dose: 1,000 mcg Diclofenac Sodium (Voltaren) 4 gm TP QID [facility] Last Admin: 01/17/20 08:13 Dose: Not Given Digoxin (Lanoxin) 0.25 mg PO DAILY [facility] Last Admin: 01/17/20 08:10 Dose: 0.25 mg Ferrous Sulfate (Feosol) 325 mg PO QAM-[facility] Last Admin: 01/17/20 08:10 Dose: 325 mg Folic Acid (Folvite) 1 mg PO DAILY [facility] Last Admin: 01/17/20 08:11 Dose: 1 mg Furosemide (Lasix) 40 mg SLOW IVP NOW [facility] Stop: 01/17/20 14:00 Sodium Chloride (Normal Saline 0.9%) 1,000 mls @ 70 mls/hr IV .[id number] [facility] Last Admin: 01/16/20 17:21 Dose: 1,000 mls Vancomycin HCl 1.25 gm/ Sodium (Chloride) 250 mls @ 166.667 mls/hr IVPB 1100 [facility] Miscellaneous Medication (Pharmacy To Dose) 1 each IVPB PRN PRN PRN Reason: Pharmacy to dose Pantoprazole Sodium (Protonix) 40 mg IVP Q12HR [facility] Last Admin: 01/17/20 08:11 Dose: 40 mg Sertraline HCl (Zoloft) 100 mg PO DAILY [facility] Last Admin: 01/17/20 08:11 Dose: 100 mg Sodium Chloride (Flush - Normal Saline) 10 ml IVF Q12HR [facility] Last Admin: 01/17/20 08:14 Dose: 10 ml Sodium Chloride (Flush - Normal Saline) 10 ml IVF PRN PRN PRN Reason: Saline Flush Last Admin: 01/14/20 11:52 Dose: 10 ml Vital Signs & Weight: Vital Signs Temp Pulse Resp BP BP Pulse Ox 01/17/20 08:00 97.7 F 67 18 114/68 95 01/17/20 03:27 97.4 F L 79 20 129/60 95 Admit Weight 128 lb 11.2 oz Weight 134 lb 14.4 oz - Physical Exam General: no apparent distress HEENT: mucus membranes moist Neck: supple neck Cardiac: irregularly regular Lungs: clear to auscultation Neuro: grossly intact Abdomen: active bowel sounds Extremities: no edema Skin: clear Musculoskeletal: no pain - Labs Result Diagrams: 01/17/20 03:54 01/16/20 05:38 Troponin/CKMB CK-MB (CK-2) 2.6 ng/mL (0-6.6) 01/07/20 20:04 Troponin I 0.035 ng/mL (< 0.028) H 01/08/20 02:09 - Telemetry Supraventricular conduction: atrial fibrillation - Assessment/Plan Assessment/Plan: 1. Anemia, likely slow blood loss. 2. Afib RVR, likely from anemia and bacteremia, rate controlled. 3. Type 2 demand ischemia 4. Severe CAD 5. Chronic anticoagulation with Eliquis. 6. MRSA bacteremia. 7. Possible aortic valve endocarditis. 8. Septic right shoulder. PLAN: - Rate controlled. - Continue to hold Eliquis indefinitely. - Abx for MRSA per nikiy team. - He has a small flail mass on aortic valve which likely is consistent with aortic valve endocarditis. IV abx per ID. - Continue current meds.
--- NOTE | 2020-01-17 13:10 | PQF ---
CLINICAL DOCUMENTATION IMPROVEMENT CLARIFICATION FORM: ICD-10 Updated PLEASE DO AN ADDENDUM TO THE PROGRESS NOTE WITH ANY DOCUMENTATION UPDATES OR ADDITIONS AND CARRY THROUGH TO DC SUMMARY. THANK YOU. DATE: 01/17/2020; 01/18/2020; 01/19/2020; 01/24/2020 ATTN: Dr. Shelby/ Attending Dr. Sandoval Please exercise your independent, professional judgment in responding to the clarification form. Clinical indicators are provided on the bottom of this form for your review Please check appropriate box(es): [ ] Sepsis present on admission [ X ] Sepsis NOT present on admission [ ] Unable to determine [ X ] Due to MRSA bacteremia due to septic right shoulder joint. [ ] Due to MRSA bacteremia not due to septic right shoulder joint. [ ] Due to MRSA bacteremia due to other diagnosis: [ ] Severe sepsis present on admission [ ] Severe Sepsis NOT present on admission [ ] Unable to determine with acute organ dysfunction of: [ X ] Localized infection without sepsis [ ] Other diagnosis [ ] Unable to determine For continuity of documentation, please document condition throughout progress notes and discharge summary. Thank You. CLINICAL INDICATORS - SIGNS / SYMPTOMS / LABS / RESULTS AND LOCATION IN MR 01/10 (Jared) Temp. 101.0, Pulse 72, Resp 26, BP 105/50 01/11 (Jared) Afib RVR, likely from anemia and bacteremia, rate controlled Type 2 demand ischemia MRSA bacteremia 01/14 (Familia) Metabolic encephalopathy. This may have been related to his sepsis and endocarditis. He had his shoulder washed out and today, his mental status is markedly improved. 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 01/16 (Afsaneh) MRSA bacteremia. Aortic valve endocarditis, R shoulder septic joint.Pt also has retroperitoneal abscess. Septic R shoulder joint. Likely source of primary infection vs seeding of bacteria. RISKS: H&P 01/07: 74 yo with pmh Torn rotator cuff, HTN, AAA s/p repair. Hx of CVA. HFrEF, and Hep C. Admitted for Elevated Troponin with CAD and Afib. Anemia. Torn Rotator Cuff. PB. HTN 01/11 (Martina) Chronic hep C. 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 MRSA bacteremia. TREATMENT: ID Consult 01/11 Operative Note 01/13: Irrigation and debridement right septic shoulder. MAR: Order 01/14-01/16: Vancomycin 1.5 gm. IV MAR: Order 01/16: Vancomycin HCl 1.25 gm IV Thank you, Eunice (This form is maintained as a part of the permanent medical record) 2015 [employer]. All Rights Reserved Eunice Musa RN, BSN [email or web address]
[2020-01-17] MEDS: Sodium Chloride 0.9% 1,000 ML IV SCH ×2 (21:03→21:19)
[2020-01-17] MEDS: Atorvastatin Calcium 20 MG TAB PO SCH (21:07)
[2020-01-18] MEDS: HYDROcodone/Acetaminophen 5/325 mg Tablet PO PRN (02:04)
[2020-01-18 04:18] LABS: #Eosinphils 0.1 thou/uL (0.0-0.7); #Monocytes 0.4 thou/uL (0.11-0.59); %Basophils 0.4 % (0.0-1.0); %Eosinophils 0.6 % (0.0-10.0); %Lymphocytes 20.8 % (21.0-51.0); %Monocytes 4.6 % (0.0-10.0); %Neutrophils 73.6 % (42.0-75.0); Hemoglobin 9.7 g/dL (14.0-18.0); Mean Corpuscular HGB CONC 31.5 g/dL (32.0-36.0); Mean Corpuscular Hemoglobin 30.6 pg (27.0-31.0); Mean Corpuscular Volume 96.9 fL (78.0-98.0); Mean Platelet Volume 7.7 fL (7.4-10.4); Platelet Count 259 thou/uL (130-400); RBC Distribution Width 13.9 % (11.5-14.5); Red Blood Cell (RBC) Count 3.17 mill/uL (4.70-6.10); White Blood Cell (WBC) Count 9.6 thou/uL (4.8-10.8)
--- NOTE | 2020-01-18 08:51 | PDOC.FM ---
- Subjective Subjective: pt reports he feels well, denies pain, denies sob, denies fever/chills - Objective Vital Signs & Weight: Vital Signs (12 hours) Temp Pulse Resp BP BP Pulse Ox 01/18/20 07:15 97.5 F L 67 16 137/83 97 01/18/20 05:13 98 F 88 20 119/69 95 01/17/20 20:51 98.9 F 79 16 129/73 95 Weight Admit Weight 58.377 kg Weight 62.414 kg I&O: 01/17/20 01/18/20 01/19/20 06:59 06:59 06:59 Intake Total 1200 2150 Output Total 375 Balance 825 2150 Result Diagrams: 01/18/20 04:06 01/16/20 05:38 Phys Exam - Physical Examination Constitutional: NAD HEENT: moist MMs, sclera anicteric Neck: supple, full ROM Respiratory: no wheezing, clear to auscultation bilateral Cardiovascular: no significant murmur, no rub Gastrointestinal: soft, non-tender Musculoskeletal: pulses present Neurological: normal sensation, moves all 4 limbs Psychiatric: normal affect Skin: no rash, normal turgor Dx/Plan (1) Aortic valve endocarditis Code(s): I35.8 - OTHER NONRHEUMATIC AORTIC VALVE DISORDERS Status: Acute (2) MRSA bacteremia Code(s): R78.81 - BACTEREMIA; B95.62 - METHICILLIN RESIS STAPH INFCT CAUSING DISEASES CLASSD ELSWHR Status: Acute (3) Septic joint of right shoulder region Code(s): M00.9 - PYOGENIC ARTHRITIS, UNSPECIFIED Status: Acute (4) Torn rotator cuff Code(s): M75.100 - UNSP ROTATR-CUFF TEAR/RUPTR OF UNSP SHOULDER, NOT TRAUMA Status: Acute Qualifiers: Rotator cuff tear extent: unspecified tear extent Rotator cuff tear trauma status: unspecified whether traumatic Laterality: right Qualified Code(s): M75.101 - Unspecified rotator cuff tear or rupture of right shoulder, not specified as traumatic (5) Afib Code(s): I48.91 - UNSPECIFIED ATRIAL FIBRILLATION Status: Acute Qualifiers: Atrial fibrillation type: other persistent Qualified Code(s): I48.19 - Other persistent atrial fibrillation (6) CAD (coronary artery disease) Code(s): I25.10 - ATHSCL HEART DISEASE OF [place] CORONARY ARTERY W/O ANG PCTRS Status: Acute Qualifiers: Coronary Disease-Associated Artery/Lesion type: [place] artery [place] vs. transplanted heart: [place] heart Associated angina: without angina Qualified Code(s): I25.10 - Atherosclerotic heart disease of [place] coronary artery without angina pectoris (7) Hypertension Code(s): I10 - ESSENTIAL (PRIMARY) HYPERTENSION Status: Chronic Qualifiers: - Plan Plan: This is a 74 yo male with a pmh of HTN, AAA s/p repair, afib, hx of CVA, HFrEF, cad 01/18/2020 dispo: Possible [facility] to [facility] today with PICC line and plans for continued Vanc. Will touch base with ID and Cards, ortho has plans for oupt f/u. MRSA bacteremia A- stable, ID consulted, appreciate recs. blood ccx: MRSA. Will need IV vanc till February 19. Pharm to dose vanc. Trough 11.2. TTE: Aortic valve endocarditis , R shoulder septic joint. Pt also has retroperitoneal abscess. MRI of cervical spine: varying degrees of central canal stenosis with no evidence of infectious process. MRI UE's refused by pt. CT of chest to evaluate graft of AAA. CT abd pelvis revealed fluid collections along B psoas muscles and anterior abd wall. See report for full details P- continue Vanc -f/u IDs recs Aortic Valve Endocarditis A- Cardiology, Dr. Coleman consulted, appreciate recs. P- per plan above, ABX and f/u cards recs Septic R shoulder joint A- stable and s/p washout x2. Ortho consulted, Dr. Bauer; appreciate recommendations. Likely source of primary infection vs seeding of bacteria. Went for wash out surgical procedure on 01/13 evening. Repeat arthroscopic washout 01/14. P- ABX per plan above, f/u ortho outpt Acute hypoxic respiratory failure A- Likely 2/2 volume overload. Stable/slight increase of O2 need (4L up from 3L) . s/p 1 dose lasix 40mg. Covid test negative, Influenza negative, Viral respiratory panel negative, strep and legionella urine negative. Pt was weaned to RA and stable until 01/15 and is now requiring 3L. No complaints of SOB or cough. P- will give another dose of lasix, monitor further. -possible plan to DC to [facility] on O2 Afib with RVR, improved rate A- Cardiology consulted, recommend holding anticoagulation indefinitely, lenient rate control P- On oral digoxin and coreg NSTEMI type 2 A- Likely 2/2 anemia and afib. Cardiology consulted P- Continuing ASA and coreg at this time Acute on chronic anemia A- S/P 3 units transfused, stable Hgb. GI consulted, no urgent imaging or procedures required. GI signed off P- Will treat empirically with protonix Physical deconditioning - for [facility] placement, PT/OT. approved at [facility] upon D/C. Torn rotator cuff with effusion, right A- Decreased ROM P- Continue home norco PB, resolved HTN -Continue home meds Hx CVA -MD aware HFrEF A- Echo EF 30-35%, cards on board P- strict I/Os -fluid restriction -additional lasix today Hep C -MD aware Hyponatremia -resolved Hypokalemia -resolved Hx of AAA - hx of graft, CT to evaluate as source of infection. See report for full details. Social -Hx of drug abuse, Hx of alcohol abuse, no recent daily use, Tobacco abuse, quit 4 months ago CODE: full Addendum - Attending - Attending Attestation Date/Time: 01/18/20 [id number] I personally evaluated the patient and discussed the management with Dr. Shelby. I agree with the History, Examination, Assessment and Plan documented above with any addition or exceptions noted below. Patient continues to have multiple active issues. Having increased resp effort today. Will get ABG, nebs, administer Lasix and frequent re-eval. Continue abx. Cardiology on board.
[2020-01-18] MEDS ORDERED: Furosemide 40 MG/4 ML VIAL SLOW IVP SCH ×2 (09:00→13:15)
[2020-01-18] MEDS: Folic Acid 1 MG TAB PO SCH (09:20)
[2020-01-18] MEDS: Carvedilol 3.125 MG TAB PO SCH ×2 (09:20→16:41)
[2020-01-18] MEDS: Ferrous Sulfate 325 MG TAB PO SCH (09:20)
[2020-01-18] MEDS: Ascorbic Acid 500 mg Chewable Tablet PO SCH (09:20)
[2020-01-18] MEDS: Digoxin 0.25 MG TAB PO SCH (09:21)
[2020-01-18] MEDS: Cyanocobalamin (Vitamin B-12) 1,000 MCG TAB PO SCH (09:21)
[2020-01-18] MEDS: Diclofenac 1% 100 GM GEL TP SCH ×4 (09:22→20:50)
[2020-01-18] MEDS: Pantoprazole 40 MG VIAL IVP SCH ×2 (09:22→20:50)
[2020-01-18] MEDS: Aspirin 81 mg Enteric Coated Tablet PO SCH (09:36)
[2020-01-18] MEDS ORDERED: Vancomycin HCl 1.25 GM in Sodium Chloride 0.9% 250 ML 250 ML IVPB SCH (11:00)
--- NOTE | 2020-01-18 11:21 | RAD ---
Exam: Chest one view HISTORY:Shortness of breath. Wheezing. Comparison: 01/17/2020 FINDINGS: Cardiac silhouette:Persistent cardiomegaly. Aorta: Atherosclerosis. Pulmonary vessels: Prominent Costophrenic angles: Persistent bilateral pleural effusions. LUNGS: Persistent interstitial and alveolar opacities. Pneumothorax: None Osseous abnormalities: None Lines and tubes: Stable left-sided PICC line. IMPRESSION: 1. Presumed congestive heart failure. Superimposed pneumonia in the lower lobes cannot be excluded. 2. Continued surveillance.
[2020-01-18 13:29] LABS: Actual Bicarbonate (HCO3a) 18.1 mEq/L (22-28); Base Excess (BEa) -5.6 mEq/L (-2.0 to +3.0); CO2 Tension 28.6 mmHg (35.0-45.0); Calcium, Ionized 1.23 mmol/L (1.12-1.30); Hemoglobin (Hb) 8.9 g/dL (14.0-18.0); Potassium - ABG Lab 3.77 mmol/L (3.70-5.30); pH, Arterial 7.42 (7.35-7.45)
[2020-01-18 13:31] LABS: Puncture Site RRA
[2020-01-18 13:52] VITALS: BMI 22.1
--- NOTE | 2020-01-18 14:46 | PDOC.CPN ---
- Subjective Date: 01/18/20 Time: 14:44 Interval history: No new issues. Remains on room air. Still not back to baseline mentation heaton. - Review of Systems ROS unobtainable: due to mental status - Objective Allergies/Adverse Reactions: Allergies Allergy/AdvReac Type Severity Reaction Status Date / Time No Known Drug Allergies Allergy Verified 01/07/20 23:11 Visit Medications: Current Medications Acetaminophen (Tylenol Elixir) 650 mg PO Q4H PRN PRN Reason: Fever > 101 Last Admin: 01/11/20 15:15 Dose: 650 mg Hydrocodone Bitart/Acetaminophen ([place] 5/325) 1 tab PO Q6H PRN PRN Reason: Pain Last Admin: 01/18/20 02:04 Dose: 1 tab Albuterol/Ipratropium (Duoneb) 3 ml NEB [id number] PRN PRN Reason: SOB &/or Wheezing Ascorbic Acid (Vitamin C) 500 mg PO DAILY [facility] Last Admin: 01/18/20 09:20 Dose: 500 mg Aspirin (Ecotrin) 81 mg PO DAILY [facility] Last Admin: 01/18/20 09:36 Dose: 81 mg Atorvastatin Calcium (Lipitor) 20 mg PO HS [facility] Last Admin: 01/17/20 21:07 Dose: 20 mg Carvedilol (Coreg) 3.125 mg PO BID[facility] Last Admin: 01/18/20 09:20 Dose: 3.125 mg Cyanocobalamin (Vitamin B-12) 1,000 mcg PO DAILY [facility] Last Admin: 01/18/20 09:21 Dose: 1,000 mcg Diclofenac Sodium (Voltaren) 4 gm TP QID [facility] Last Admin: 01/18/20 13:38 Dose: Not Given Digoxin (Lanoxin) 0.25 mg PO DAILY [facility] Last Admin: 01/18/20 09:21 Dose: 0.25 mg Ferrous Sulfate (Feosol) 325 mg PO QAM-[facility] Last Admin: 01/18/20 09:20 Dose: 325 mg Folic Acid (Folvite) 1 mg PO DAILY [facility] Last Admin: 01/18/20 09:20 Dose: 1 mg Furosemide (Lasix) 40 mg SLOW IVP NOW [facility] Stop: 01/18/20 15:15 Last Admin: 01/18/20 13:54 Dose: 40 mg Vancomycin HCl 1.25 gm/ Sodium (Chloride) 250 mls @ 166.667 mls/hr IVPB 1100 [facility] Last Admin: 01/18/20 11:53 Dose: 250 mls Miscellaneous Medication (Pharmacy To Dose) 1 each IVPB PRN PRN PRN Reason: Pharmacy to dose Pantoprazole Sodium (Protonix) 40 mg IVP Q12HR [facility] Last Admin: 01/18/20 09:22 Dose: 40 mg Sertraline HCl (Zoloft) 100 mg PO DAILY [facility] Last Admin: 01/18/20 09:20 Dose: 100 mg Sodium Chloride (Flush - Normal Saline) 10 ml IVF Q12HR [facility] Last Admin: 01/18/20 09:22 Dose: 10 ml Sodium Chloride (Flush - Normal Saline) 10 ml IVF PRN PRN PRN Reason: Saline Flush Last Admin: 01/14/20 11:52 Dose: 10 ml Vital Signs & Weight: Vital Signs Temp Pulse Pulse Resp BP BP BP 01/18/20 13:26 63 126/70 01/18/20 11:50 97.6 F 70 16 123/75 01/18/20 09:21 120 H 01/18/20 07:15 97.5 F L 67 16 137/83 01/18/20 05:13 98 F 88 20 119/69 Pulse Ox Pulse Ox Pulse Ox Pulse Ox 01/18/20 13:26 92 L 96 94 L 01/18/20 11:50 97 01/18/20 09:21 01/18/20 07:15 97 01/18/20 05:13 95 Admit Weight 128 lb 11.2 oz Weight 137 lb 9.6 oz - Physical Exam General: no apparent distress HEENT: normocephaly Neck: supple neck Cardiac: irregularly regular Lungs: clear to auscultation Neuro: no lateralizing findings Abdomen: active bowel sounds Extremities: no edema Skin: clear Musculoskeletal: no pain - Labs Result Diagrams: 01/18/20 04:06 01/16/20 05:38 Troponin/CKMB CK-MB (CK-2) 2.6 ng/mL (0-6.6) 01/07/20 20:04 Troponin I 0.035 ng/mL (< 0.028) H 01/08/20 02:09 - Telemetry Supraventricular conduction: atrial fibrillation - Assessment/Plan Assessment/Plan: 1. Anemia, likely slow blood loss. 2. Afib RVR, likely from anemia and bacteremia, rate controlled. 3. Type 2 demand ischemia 4. Severe CAD 5. Chronic anticoagulation with Eliquis. 6. MRSA bacteremia. 7. Possible aortic valve endocarditis. 8. Septic right shoulder. PLAN: - Lenient rate control. - Continue to hold Eliquis indefinitely. - Abx for MRSA per primary team. MCC secondary to osteomyelitis and possible endocarditis. - Continue current meds. - Seems euvolemic today.
--- NOTE | 2020-01-18 15:20 | PRG ---
DATE OF SERVICE: 01/18/2020 SUBJECTIVE: Mr. Fish is a kind of delusional and delirious, complaining of shortness of breath, the patient had removed his nasal cannula O2. The remainder aspect of the review of systems are difficult to ascertain because of the patient's confusional state. OBJECTIVE: VITAL SIGNS: He has a T-max 98.9, blood pressure 120/70, his O2 saturations are 97, and pulse 70. GENERAL: He is awake, but confused, did not establish eye contact more than briefly. NECK: No jugular vein distention. LUNGS: Symmetric, clear breath sounds. HEART: S1 and S2, irregular rate. ABDOMEN: Soft. Not distended. EXTREMITIES: Right shoulder dressing in place. He is able to move extremities, but does not follow commands. LABORATORY DATA: White cell count 9.6, hemoglobin 9.7, platelets 259, and 72% neutrophils. Creatinine is 0.76. Liver profile has improved quite significantly. Cultures from the shoulder with MRSA, he needs repeat blood cultures to verify resolution of bacteremia. Repeat chest x-ray from this morning with CHF, plus/minus pneumonia noted. ASSESSMENT AND DISCUSSION: Ischemic cardiomyopathy, EF in the 40s, abdominal aortic aneurysm, chronic hepatitis C untreated, history of methamphetamine and heroin use in the past, chronic smoking, right shoulder septic arthritis and retroperitoneal abscesses of unclear origin, the possibilities include spine or some other retroperitoneal organ and vascular structures. Still delirious and that is going to be a problem going forward. The patient will need repeat imaging study ensuing 1 to 2 weeks to verify the improvement of the retroperitoneal abscesses, may need an MRI of his spine specifically the thoracic and lumbar spine depending on clinical progress. The patient is currently receiving vancomycin to be continued probably at least 6 to 8 weeks, weekly labs, PICC line and likely need to be transferred to a detention unit once he is clinically stable. Job ID: [id number]
--- NOTE | 2020-01-18 16:10 | PDOC.BPN ---
- Brief Progress Note Called brother to discuss pts progress, AMS, and O2 requirement. MPOA stated that he did not believe his brother would want to be rescuscitated at this time considering his comorbidities. States he has been trying to fax the hospital DNAR orders for his brother since 01/16 but was not sure if they were going through. Palliative care also discussed this with brother at length and greed with DNAR order being appropriate. Will change code status and arrange for out of hospital DNAR. Will confirm with pt once mentation improves.
--- NOTE | 2020-01-18 16:58 | PDOC.PALCO ---
Palliative Care Consult - Consult Details Requesting Physician: Dr Stafford Reason for Consult: goals of care, advance directives assistance - Pertinent HPI Mr Fish is a 74 year old male who has been followed by [facility] most recently outpatient. He presented to the emergency room 01/07 secondary to increasing right shoulder pain, states he injured 2 weeks prior to presentation to the emergency room. Evaluation identified Elevated troponin, anemia, torn rotator cuff, acute kidney injury. Admitted for medical management and further evaluation. - Pertinent PMH HTN, AAA s/p repair, Hx CVA, Hep C, CHF, - Social History Smoking Status: Former smoker Smoking: cigarettes Alcohol Use: heavy (history indicated he has not drank in 4 months) Drug Use History: marijuana (History states he has not smoked marijuana in a month) Living Situation: independent - Medications MAR Reviewed: Yes - Allergies Allergies/Adverse Reactions: Allergies Allergy/AdvReac Type Severity Reaction Status Date / Time No Known Drug Allergies Allergy Verified 01/07/20 23:11 - Subjective Lethargic, opens eyes but non verbal. - ROS Non Response: due to mental status - Objective Vital Signs: Vital Signs - Most Recent Temp Pulse Resp BP Pulse Ox 97.6 F 70 18 137/65 95 01/18/20 15:29 01/18/20 15:29 01/18/20 15:29 01/18/20 15:29 01/18/20 15:29 Palliative Performance Scale: 20 - Physical Exam Constitutional: cachectic, confusion, encephalitic, ill appearing HEENT: EOMI, moist MMs, poor dentition Respiratory: accessory muscle use, labored respirations Deviation from normal: irregular respirations, Cardiovascular: diminished peripheral pulses, irregular Gastrointestinal: soft, non-tender Genitourinary: incontinent Musculoskeletal: no clubbing, diffuse muscle atrophy Neurology: moves all 4 limbs Skin: cap refill <2 seconds, fragile, friable Deviation from normal: encephalopathic - Problem List (1) Palliative care encounter Code(s): Z51.5 - ENCOUNTER FOR PALLIATIVE CARE Current Visit: Yes Status: Acute (2) Physical deconditioning Code(s): R53.81 - OTHER MALAISE Current Visit: Yes Status: Acute (3) Septic joint of right shoulder region Code(s): M00.9 - PYOGENIC ARTHRITIS, UNSPECIFIED Current Visit: Yes Status: Acute (4) Torn rotator cuff Code(s): M75.100 - UNSP ROTATR-CUFF TEAR/RUPTR OF UNSP SHOULDER, NOT TRAUMA Current Visit: Yes Status: Acute Qualifiers: Rotator cuff tear extent: unspecified tear extent Rotator cuff tear trauma status: unspecified whether traumatic Laterality: right Qualified Code(s): M75.101 - Unspecified rotator cuff tear or rupture of right shoulder, not specified as traumatic (5) Acute on chronic systolic heart failure, NYHA class 3 Code(s): I50.23 - ACUTE ON CHRONIC SYSTOLIC (CONGESTIVE) HEART FAILURE Current Visit: No Status: Acute (6) COPD (chronic obstructive pulmonary disease) Current Visit: No Status: Chronic Qualifiers: COPD type: chronic bronchitis (7) Malnutrition of moderate degree Code(s): E44.0 - MODERATE PROTEIN-CALORIE MALNUTRITION Current Visit: No Status: Chronic - Plan/Recommendations Plan: Palliative Care Team has been following Mr Fish. Ghassan Pastor has secured MPOA and is located on paper chart on unit. Spoke with Reddy Fish patient brother who is MPOA. He confirmed DNAR status and this was witnessed by Dania LEVI caring for patient. OOHDNAR will be completed by two physicians secondary to patient current inability to sign for self and MPOA lives in [place]. Mr Fish is awaiting transfer to [facility], however secondary to decline and poor respiratory status consideration may be given to inpatient Hospice consult if he continues to decline. Communicated Dr Shelby [50] minutes spent on this encounter with >50% of the time in counseling and coordination of care. Thank you for this very appropriate consult.
[2020-01-18] MEDS: Atorvastatin Calcium 20 MG TAB PO SCH (20:50)
[2020-01-19] MEDS ORDERED: hydrOXYzine 10 MG/5 ML UDCUP PO SCH (01:15)
[2020-01-19] MEDS ORDERED: hydrOXYzine 25 MG TAB PO SCH (01:30)
[2020-01-19] MEDS: HYDROcodone/Acetaminophen 5/325 mg Tablet PO PRN ×3 (01:34→17:44)
--- NOTE | 2020-01-19 08:21 | PDOC.FM ---
- Subjective Subjective: Pt resting with some agonal breathing, he is oriented to person and place though he was otherwise unable to provide meaningful response to questions. Per nurse and review of tele strip pt had some 3-5 second pauses overnight. - Objective Vital Signs & Weight: Vital Signs (12 hours) Temp Pulse Resp BP Pulse Ox 01/19/20 06:58 97.4 F L 61 18 144/79 H 99 01/19/20 02:17 98.9 F 69 20 143/90 H 95 Weight Admit Weight 58.377 kg Weight 60.827 kg I&O: 01/18/20 01/19/20 01/20/20 06:59 06:59 06:59 Intake Total 2150 920 Output Total 200 Balance 2150 720 Result Diagrams: 01/19/20 10:15 01/19/20 04:07 Phys Exam - Physical Examination Constitutional: NAD HEENT: moist MMs, sclera anicteric Neck: no JVD, supple Respiratory: no wheezing, clear to auscultation bilateral Cardiovascular: no significant murmur, irregular Gastrointestinal: soft, non-tender Musculoskeletal: no edema, pulses present Neurological: normal sensation oriented to person and place Psychiatric: normal affect Skin: no rash, normal turgor Dx/Plan (1) Aortic valve endocarditis Code(s): I35.8 - OTHER NONRHEUMATIC AORTIC VALVE DISORDERS Status: Acute (2) MRSA bacteremia Code(s): R78.81 - BACTEREMIA; B95.62 - METHICILLIN RESIS STAPH INFCT CAUSING DISEASES CLASSD ELSWHR Status: Acute (3) Septic joint of right shoulder region Code(s): M00.9 - PYOGENIC ARTHRITIS, UNSPECIFIED Status: Acute (4) Torn rotator cuff Code(s): M75.100 - UNSP ROTATR-CUFF TEAR/RUPTR OF UNSP SHOULDER, NOT TRAUMA Status: Acute Qualifiers: Rotator cuff tear extent: unspecified tear extent Rotator cuff tear trauma status: unspecified whether traumatic Laterality: right Qualified Code(s): M75.101 - Unspecified rotator cuff tear or rupture of right shoulder, not specified as traumatic (5) Afib Code(s): I48.91 - UNSPECIFIED ATRIAL FIBRILLATION Status: Acute Qualifiers: Atrial fibrillation type: other persistent Qualified Code(s): I48.19 - Other persistent atrial fibrillation (6) CAD (coronary artery disease) Code(s): I25.10 - ATHSCL HEART DISEASE OF [place] CORONARY ARTERY W/O ANG PCTRS Status: Acute Qualifiers: Coronary Disease-Associated Artery/Lesion type: [place] artery [place] vs. transplanted heart: [place] heart Associated angina: without angina Qualified Code(s): I25.10 - Atherosclerotic heart disease of [place] coronary artery without angina pectoris (7) Hypertension Code(s): I10 - ESSENTIAL (PRIMARY) HYPERTENSION Status: Chronic Qualifiers: - Plan Plan: This is a 74 yo male with a pmh of HTN, AAA s/p repair, afib, hx of CVA, HFrEF, cad 01/19/2020 dispo: disposition is overall poor considering severity of condition. Pt may still be able to be discharged to [facility] today or tomorrow however a conversation about goals of care should be had with brother soon. Acute hypoxic respiratory failure A- Likely multifactorial with volume overload and poor respiratory effort 2/2 severe deconditioning. Stable/slight increase of O2 need (4L up from 3L). s/p 3 dose lasix 40mg. Covid test negative, Influenza negative, Viral respiratory panel negative, strep and legionella urine negative. Pt was weaned to RA and stable until 01/15 and is now requiring 4L. No complaints of SOB or cough. P- Will discuss on rounds, considering further diuresis MRSA bacteremia A- stable, ID consulted, appreciate recs. blood ccx: MRSA. Will need IV vanc till February 19. Pharm to dose vanc. Trough 11.2. TTE: Aortic valve endocarditis , R shoulder septic joint. Pt also has retroperitoneal abscess. MRI of cervical spine: varying degrees of central canal stenosis with no evidence of infectious process. MRI UE's refused by pt. CT of chest to evaluate graft of AAA. CT abd pelvis revealed fluid collections along B psoas muscles and anterior abd wall. See report for full details P- continue Vanc -f/u IDs recs Aortic Valve Endocarditis A- Cardiology, Dr. Coleman consulted, appreciate recs. P- per plan above, ABX and f/u cards recs Septic R shoulder joint A- stable and s/p washout x2. Ortho consulted, Dr. Bauer; appreciate recommendations. Likely source of primary infection vs seeding of bacteria. Went for wash out surgical procedure on 01/13 evening. Repeat arthroscopic washout 01/14. P- ABX per plan above, f/u ortho outpt Afib with RVR, improved rate A- Cardiology consulted, recommend holding anticoagulation indefinitely, lenient rate control P- On oral digoxin and coreg NSTEMI type 2 A- Likely 2/2 anemia and afib. Cardiology consulted P- Continuing ASA and coreg at this time Acute on chronic anemia A- S/P 3 units transfused, stable Hgb. GI consulted, no urgent imaging or procedures required. GI signed off P- Will treat empirically with protonix Physical deconditioning - for manor placement, PT/OT. approved at [facility] upon D/C. Torn rotator cuff with effusion, right A- Decreased ROM P- Continue home norco PB, resolved HTN -Continue home meds Hx CVA -MD aware HFrEF A- Echo EF 30-35%, cards on board P- strict I/Os -fluid restriction Hep C -MD aware Hyponatremia -resolved Hypokalemia -resolved Hx of AAA - hx of graft, CT to evaluate as source of infection. See report for full details. Social -Hx of drug abuse, Hx of alcohol abuse, no recent daily use, Tobacco abuse, quit 4 months ago CODE: full Addendum - Attending - Attending Attestation Date/Time: 01/19/20 1150 I personally evaluated the patient and discussed the management with Dr. Shelby. I agree with the History, Examination, Assessment and Plan documented above with any addition or exceptions noted below. Patient continues to decline despite optimal medical therapy. Continue current treatment and specialist involvement. Discussion with brother/MPOA today regarding possible hospice.
[2020-01-19 10:17] LABS: Vancomycin, Trough 27.8 ug/mL
[2020-01-19 10:23] LABS: #Lymphocytes 1.8 thou/uL (1.20-3.40); #Monocytes 0.4 thou/uL (0.11-0.59); #Neutrophils 7.3 thou/uL (1.40-6.50); %Basophils 0.3 % (0.0-1.0); %Eosinophils 0.4 % (0.0-10.0); %Lymphocytes 18.3 % (21.0-51.0); %Monocytes 4.5 % (0.0-10.0); %Neutrophils 76.5 % (42.0-75.0); Hemoglobin 9.1 g/dL (14.0-18.0); Mean Corpuscular HGB CONC 32.3 g/dL (32.0-36.0); Mean Corpuscular Volume 95.9 fL (78.0-98.0); Mean Platelet Volume 7.1 fL (7.4-10.4); Platelet Count 248 thou/uL (130-400); RBC Distribution Width 14.2 % (11.5-14.5); Red Blood Cell (RBC) Count 2.95 mill/uL (4.70-6.10); White Blood Cell (WBC) Count 9.6 thou/uL (4.8-10.8)
[2020-01-19 10:24] LABS: Anion Gap 17 mmol/L (10-20); BUN (Urea Nitrogen) 30 mg/dL (8.4-25.7); Calc. Creatinine Clearance 59 mL/min (70-130); Calcium 8.5 mg/dL (7.8-10.44); Carbon Dioxide 14 mmol/L (23-31); Chloride 110 mmol/L (98-107); Estimated GFR-MDRD 75; Glucose 92 mg/dL (83-110); Potassium 4.1 mmol/L (3.5-5.1); Sodium 137 mmol/L (136-145)
[2020-01-19] MEDS: Pantoprazole 40 MG VIAL IVP SCH ×2 (10:27→20:56)
[2020-01-19] MEDS: Carvedilol 3.125 MG TAB PO SCH ×2 (10:30→17:41)
[2020-01-19] MEDS: Ascorbic Acid 500 mg Chewable Tablet PO SCH (10:30)
[2020-01-19] MEDS: Ferrous Sulfate 325 MG TAB PO SCH (10:30)
[2020-01-19] MEDS: Cyanocobalamin (Vitamin B-12) 1,000 MCG TAB PO SCH (10:31)
[2020-01-19] MEDS: Digoxin 0.25 MG TAB PO SCH (10:31)
[2020-01-19] MEDS: Folic Acid 1 MG TAB PO SCH (10:31)
[2020-01-19] MEDS: Aspirin 81 mg Enteric Coated Tablet PO SCH (10:33)
[2020-01-19] MEDS: Furosemide 40 MG/4 ML VIAL SLOW IVP SCH (10:33)
[2020-01-19] MEDS: Diclofenac 1% 100 GM GEL TP SCH ×4 (10:35→21:16)
--- NOTE | 2020-01-19 12:09 | PRG ---
DATE OF SERVICE: 01/19/2020 SUBJECTIVE: Link is now postop day 6 from arthroscopic washout of his septic right shoulder. He is slowly, but surely improving with antibiotics. PHYSICAL EXAMINATION: VITAL SIGNS: Temperature is 97.6, pulse 85, and blood pressure 137/89. His respiratory rate is 16 and unlabored. He is on 3 L nasal cannula currently, but he does respond appropriately to examiner and converses, albeit slowly. GENERAL: He is alert and responsive, but he appears quite somnolent otherwise, but he is arousable. EXTREMITIES: Visual inspection of the right shoulder demonstrates him to have far less swelling than the last time I saw him, which was preoperatively and just prior to his diagnostic arthrocentesis. His swelling is appreciably improved. IMPRESSION: Postop day #6, right shoulder septic arthritis, status post irrigation and debridement x2. PLAN: Continue antibiotics. He may require long-term care in his current state, but he is improving from the last time I saw him. Job ID: [id number]
--- NOTE | 2020-01-19 12:42 | PDOC.CPN ---
- Subjective Date: 01/19/20 Time: 12:40 Interval history: More awake but still very very weak and unable to answer questions without maximum effort. - Review of Systems ROS unobtainable: due to mental status - Objective Allergies/Adverse Reactions: Allergies Allergy/AdvReac Type Severity Reaction Status Date / Time No Known Drug Allergies Allergy Verified 01/07/20 23:11 Visit Medications: Current Medications Acetaminophen (Tylenol Elixir) 650 mg PO Q4H PRN PRN Reason: Fever > 101 Last Admin: 01/11/20 15:15 Dose: 650 mg Hydrocodone Bitart/Acetaminophen ([place] 5/325) 1 tab PO Q6H PRN PRN Reason: Pain Last Admin: 01/19/20 11:07 Dose: 1 tab Albuterol/Ipratropium (Duoneb) 3 ml NEB [id number] PRN PRN Reason: SOB &/or Wheezing Ascorbic Acid (Vitamin C) 500 mg PO DAILY [facility] Last Admin: 01/19/20 10:30 Dose: 500 mg Aspirin (Ecotrin) 81 mg PO DAILY [facility] Last Admin: 01/19/20 10:33 Dose: 81 mg Atorvastatin Calcium (Lipitor) 20 mg PO HS [facility] Last Admin: 01/18/20 20:50 Dose: 20 mg Carvedilol (Coreg) 3.125 mg PO BID[facility] Last Admin: 01/19/20 10:30 Dose: 3.125 mg Cyanocobalamin (Vitamin B-12) 1,000 mcg PO DAILY [facility] Last Admin: 01/19/20 10:31 Dose: 1,000 mcg Diclofenac Sodium (Voltaren) 4 gm TP QID [facility] Last Admin: 01/19/20 10:35 Dose: Not Given Ferrous Sulfate (Feosol) 325 mg PO QAM[facility] Last Admin: 01/19/20 10:30 Dose: 325 mg Folic Acid (Folvite) 1 mg PO DAILY [facility] Last Admin: 01/19/20 10:31 Dose: 1 mg Furosemide (Lasix) 40 mg SLOW IVP DAILY [facility] Last Admin: 01/19/20 10:33 Dose: 40 mg Vancomycin HCl 1 gm/ Device 200 mls @ 200 mls/hr IVPB 1100 [facility] Miscellaneous Medication (Pharmacy To Dose) 1 each IVPB PRN PRN PRN Reason: Pharmacy to dose Pantoprazole Sodium (Protonix) 40 mg IVP Q12HR [facility] Last Admin: 01/19/20 10:27 Dose: 40 mg Sertraline HCl (Zoloft) 100 mg PO DAILY [facility] Last Admin: 01/19/20 10:31 Dose: 100 mg Sodium Chloride (Flush - Normal Saline) 10 ml IVF Q12HR [facility] Last Admin: 01/19/20 09:00 Dose: 10 ml Sodium Chloride (Flush - Normal Saline) 10 ml IVF PRN PRN PRN Reason: Saline Flush Last Admin: 01/14/20 11:52 Dose: 10 ml Vital Signs & Weight: Vital Signs Temp Pulse Resp BP Pulse Ox 01/19/20 11:13 97.6 F 85 16 137/89 98 01/19/20 10:31 89 01/19/20 06:58 97.4 F L 61 18 144/79 H 99 01/19/20 02:17 98.9 F 69 20 143/90 H 95 Admit Weight 128 lb 11.2 oz Weight 134 lb 1.6 oz - Physical Exam General: other HEENT: normocephaly Neck: supple neck Cardiac: irregularly regular Lungs: bibasilar rales Neuro: no lateralizing findings Abdomen: active bowel sounds Extremities: no edema Skin: clear - Labs Result Diagrams: 01/19/20 10:15 01/19/20 04:07 Troponin/CKMB CK-MB (CK-2) 2.6 ng/mL (0-6.6) 01/07/20 20:04 Troponin I 0.035 ng/mL (< 0.028) H 01/08/20 02:09 - Telemetry Supraventricular conduction: atrial fibrillation - Assessment/Plan Assessment/Plan: 1. Anemia, likely slow blood loss. 2. Afib RVR, likely from anemia and bacteremia, rate controlled. 3. Type 2 demand ischemia 4. Severe CAD 5. Chronic anticoagulation with Eliquis. 6. MRSA bacteremia. 7. Possible aortic valve endocarditis. 8. Septic right shoulder. PLAN: - He is now bradycardic with short pauses. Will stop digoxin. - Continue to hold Eliquis indefinitely. - Abx for MRSA per primary team. senior living secondary to osteomyelitis and possible endocarditis. - Continue current meds. - Continue Lasix daily. - Poor [facility] prognosis.
--- NOTE | 2020-01-19 15:58 | PDOC.PALPN ---
Palliative Progress Note - Subjective Sleeping but arousable, mildly confused. Soft speech with labored respirations. - Objective Vital Signs: Vital Signs - Most Recent Temp Pulse Resp BP Pulse Ox 97.6 F 73 16 122/65 94 L 01/19/20 11:13 01/19/20 13:35 01/19/20 11:13 01/19/20 13:35 01/19/20 13:35 - Physical Exam Constitutional: cachectic, confusion, emaciated, ill appearing HEENT: moist MMs Respiratory: accessory muscle use, labored respirations Cardiovascular: irregular Gastrointestinal: soft, non-tender, positive bowel sounds, incontinent Genitourinary: incontinent Musculoskeletal: no clubbing, no edema, diffuse muscle atrophy Neurology: moves all 4 limbs Skin: fragile - Assessment (1) Palliative care encounter Code(s): Z51.5 - ENCOUNTER FOR PALLIATIVE CARE Current Visit: Yes Status: Acute (2) Physical deconditioning Code(s): R53.81 - OTHER MALAISE Current Visit: Yes Status: Acute (3) Septic joint of right shoulder region Code(s): M00.9 - PYOGENIC ARTHRITIS, UNSPECIFIED Current Visit: Yes Status: Acute (4) Torn rotator cuff Code(s): M75.100 - UNSP ROTATR-CUFF TEAR/RUPTR OF UNSP SHOULDER, NOT TRAUMA Current Visit: Yes Status: Acute Qualifiers: Rotator cuff tear extent: unspecified tear extent Rotator cuff tear trauma status: unspecified whether traumatic Laterality: right Qualified Code(s): M75.101 - Unspecified rotator cuff tear or rupture of right shoulder, not specified as traumatic (5) Acute on chronic systolic heart failure, NYHA class 3 Code(s): I50.23 - ACUTE ON CHRONIC SYSTOLIC (CONGESTIVE) HEART FAILURE Current Visit: No Status: Acute (6) COPD (chronic obstructive pulmonary disease) Current Visit: No Status: Chronic Qualifiers: COPD type: chronic bronchitis (7) Malnutrition of moderate degree Code(s): E44.0 - MODERATE PROTEIN-CALORIE MALNUTRITION Current Visit: No Status: Chronic - Plan Plan: Mr Fish remains confused. States "I want to get out of here". Dr Shelby initiated conversation with patient brother who is also MPOA in relation to hospice care secondary to continued decline. I also called and psoke with Reddy Fish and we discussed comfort at the end of life. He would like a transition of care to hospice, no further aggressive measures for his brother. Answered questions in relation to hospice. *Order placed for Hospice *Spoke with Swetha in relation to evaluation for hospice care. Consideration to inpatient as well as transfer to [facility] with Hospice care. Hospice will eval and determine best course. [40] minutes spent on this encounter with >50% of the time in counseling and coordination of care. - ROS Non Response: due to mental status
[2020-01-19] MEDS: Atorvastatin Calcium 20 MG TAB PO SCH (20:57)
[2020-01-20 04:46] LABS: #Basophils 0.1 thou/uL (0.0-0.2); #Eosinphils 0.1 thou/uL (0.0-0.7); #Lymphocytes 1.9 thou/uL (1.20-3.40); #Monocytes 0.5 thou/uL (0.11-0.59); #Neutrophils 7.8 thou/uL (1.40-6.50); %Basophils 0.6 % (0.0-1.0); %Eosinophils 0.8 % (0.0-10.0); %Lymphocytes 18.1 % (21.0-51.0); %Monocytes 4.8 % (0.0-10.0); %Neutrophils 75.7 % (42.0-75.0); Hemoglobin 9.4 g/dL (14.0-18.0); Mean Corpuscular HGB CONC 31.3 g/dL (32.0-36.0); Mean Corpuscular Hemoglobin 30.2 pg (27.0-31.0); Mean Corpuscular Volume 96.3 fL (78.0-98.0); Mean Platelet Volume 7.6 fL (7.4-10.4); Platelet Count 293 thou/uL (130-400); RBC Distribution Width 15.5 % (11.5-14.5); White Blood Cell (WBC) Count 10.2 thou/uL (4.8-10.8)
[2020-01-20] MEDS ORDERED: Morphine 10 MG/0.5 ML ORAL SYRINGE SL PRN (08:35)
--- NOTE | 2020-01-20 08:35 | PDOC.FM ---
- Subjective Subjective: Pt complains of feeling SOB, he does not answer questions appropriately but appears to be in mild distress. - Objective Vital Signs & Weight: Vital Signs (12 hours) Temp Pulse Resp BP Pulse Ox 01/20/20 03:07 97.1 F L 67 20 140/99 H 92 L Weight Admit Weight 58.377 kg Weight 59.103 kg I&O: 01/19/20 01/20/20 01/21/20 06:59 06:59 06:59 Intake Total 920 575 Output Total 200 500 Balance 720 75 Result Diagrams: 01/20/20 04:20 01/19/20 04:07 Phys Exam - Physical Examination mild distress 2/2 sob HEENT: moist MMs, sclera anicteric Neck: supple, full ROM Respiratory: no wheezing, clear to auscultation bilateral Cardiovascular: RRR, no significant murmur Gastrointestinal: soft, non-tender Musculoskeletal: no edema, pulses present Neurological: moves all 4 limbs Psychiatric: normal affect Skin: no rash, normal turgor Dx/Plan (1) Aortic valve endocarditis Code(s): I35.8 - OTHER NONRHEUMATIC AORTIC VALVE DISORDERS Status: Acute (2) MRSA bacteremia Code(s): R78.81 - BACTEREMIA; B95.62 - METHICILLIN RESIS STAPH INFCT CAUSING DISEASES CLASSD ELSWHR Status: Acute (3) Septic joint of right shoulder region Code(s): M00.9 - PYOGENIC ARTHRITIS, UNSPECIFIED Status: Acute (4) Torn rotator cuff Code(s): M75.100 - UNSP ROTATR-CUFF TEAR/RUPTR OF UNSP SHOULDER, NOT TRAUMA Status: Acute Qualifiers: Rotator cuff tear extent: unspecified tear extent Rotator cuff tear trauma status: unspecified whether traumatic Laterality: right Qualified Code(s): M75.101 - Unspecified rotator cuff tear or rupture of right shoulder, not specified as traumatic (5) Afib Code(s): I48.91 - UNSPECIFIED ATRIAL FIBRILLATION Status: Acute Qualifiers: Atrial fibrillation type: other persistent Qualified Code(s): I48.19 - Other persistent atrial fibrillation (6) CAD (coronary artery disease) Code(s): I25.10 - ATHSCL HEART DISEASE OF [place] CORONARY ARTERY W/O ANG PCTRS Status: Acute Qualifiers: Coronary Disease-Associated Artery/Lesion type: [place] artery [place] vs. transplanted heart: [place] heart Associated angina: without angina Qualified Code(s): I25.10 - Atherosclerotic heart disease of [place] coronary artery without angina pectoris (7) Hypertension Code(s): I10 - ESSENTIAL (PRIMARY) HYPERTENSION Status: Chronic Qualifiers: - Plan Plan: This is a 74 yo male with a pmh of HTN, AAA s/p repair, afib, hx of CVA, HFrEF, cad 01/20/2020 dispo: pt is pending hospice evaluation (to be done today). Will stop non palliative meds, ABX to be stopped or continued by hospice. Acute hypoxic respiratory failure A- Likely multifactorial with volume overload and poor respiratory effort 2/2 severe deconditioning. Stable/slight increase of O2 need (4L up from 3L). s/p 3 dose lasix 40mg. Covid test negative, Influenza negative, Viral respiratory panel negative, strep and legionella urine negative. Pt was weaned to RA and stable until 01/15 and is now requiring 4L. No complaints of SOB or cough. P- Will give SL morphine for air hunger MRSA bacteremia A- stable, ID consulted, appreciate recs. blood ccx: MRSA. Will need IV vanc till February 19. Hospice may consider ABX to be palliative P- continue Vanc, to be stopped or continued by hospice Aortic Valve Endocarditis A- Cardiology, Dr. Coleman consulted, appreciate recs. P- per plan above, ABX Septic R shoulder joint A- stable and s/p washout x2. Ortho consulted, Dr. Bauer; appreciate recommendations. Likely source of primary infection vs seeding of bacteria. Went for wash out surgical procedure on 01/13 evening. Repeat arthroscopic washout 01/14. P- ABX per plan above, norco for pain Afib with RVR, improved rate A- Cardiology consulted, recommend holding anticoagulation indefinitely, lenient rate control P- On oral digoxin and coreg NSTEMI type 2 A- Likely 2/2 anemia and afib. Cardiology consulted P- Continuing ASA and coreg at this time Acute on chronic anemia A- S/P 3 units transfused, stable Hgb. GI consulted, no urgent imaging or procedures required. GI signed off P- continue protonix Physical deconditioning -hospice consulted Torn rotator cuff with effusion, right A- Decreased ROM P- Continue home norco PB, resolved HTN -DCing meds that do not also controll HR for palliative reasons Hx CVA -MD aware HFrEF A- Echo EF 30-35%, cards on board P- strict I/Os -fluid restriction Hep C -MD aware Hyponatremia -resolved Hypokalemia -resolved Hx of AAA - hx of graft, CT to evaluate as source of infection. See report for full details. Social -Hx of drug abuse, Hx of alcohol abuse, no recent daily use, Tobacco abuse, quit 4 months ago CODE: DNAR Addendum - Attending - Attending Attestation Date/Time: 01/20/20 1200 I personally evaluated the patient and discussed the management with Dr. Shelby. I agree with the History, Examination, Assessment and Plan documented above with any addition or exceptions noted below. Patient stable, working on comfort measures and transition to hospice.
[2020-01-20] MEDS ORDERED: Lorazepam 2 MG/ML VIAL SLOW IVP PRN (08:38)
[2020-01-20] MEDS ORDERED: Morphine 10 MG/0.5 ML ORAL SYRINGE SL SCH (08:40)
[2020-01-20] MEDS: Furosemide 40 MG/4 ML VIAL SLOW IVP SCH (09:09)
[2020-01-20] MEDS: Carvedilol 3.125 MG TAB PO SCH ×2 (09:09→16:14)
[2020-01-20] MEDS: Aspirin 81 mg Enteric Coated Tablet PO SCH (09:09)
[2020-01-20] MEDS: Diclofenac 1% 100 GM GEL TP SCH ×4 (09:10→20:55)
[2020-01-20] MEDS: Pantoprazole 40 MG VIAL IVP SCH ×2 (09:10→20:54)
[2020-01-20 10:18] LABS: Vancomycin, Random 18.5 ug/mL (See Comment)
--- NOTE | 2020-01-20 17:01 | PDOC.CPN ---
- Subjective Date: 01/20/20 Time: 16:59 Interval history: More alert but still confused. No chest oain., Breathing better off oxygen now. - Review of Systems ROS unobtainable: due to mental status - Objective Allergies/Adverse Reactions: Allergies Allergy/AdvReac Type Severity Reaction Status Date / Time No Known Drug Allergies Allergy Verified 01/07/20 23:11 Visit Medications: Current Medications Acetaminophen (Tylenol Elixir) 650 mg PO Q4H PRN PRN Reason: Fever > 101 Last Admin: 01/11/20 15:15 Dose: 650 mg Hydrocodone Bitart/Acetaminophen ([place] 5/325) 1 tab PO Q6H PRN PRN Reason: Pain Last Admin: 01/19/20 17:44 Dose: 1 tab Albuterol/Ipratropium (Duoneb) 3 ml NEB [id number] PRN PRN Reason: SOB &/or Wheezing Aspirin (Ecotrin) 81 mg PO DAILY [facility] Last Admin: 01/20/20 09:09 Dose: 81 mg Carvedilol (Coreg) 3.125 mg PO BID-WM [facility] Last Admin: 01/20/20 16:14 Dose: Not Given Diclofenac Sodium (Voltaren) 4 gm TP QID [facility] Last Admin: 01/20/20 16:14 Dose: Not Given Furosemide (Lasix) 40 mg SLOW IVP DAILY [facility] Last Admin: 01/20/20 09:09 Dose: 40 mg Vancomycin HCl 1 gm/ Device 200 mls @ 200 mls/hr IVPB 1800 [facility] Lorazepam (Ativan) 1 mg SLOW IVP Q6H PRN PRN Reason: Anxiety/Agitation Miscellaneous Medication (Pharmacy To Dose) 1 each IVPB PRN PRN PRN Reason: Pharmacy to dose Morphine Sulfate (Roxanol Solution) 10 mg SL Q2H PRN PRN Reason: air hunger/agitation Pantoprazole Sodium (Protonix) 40 mg IVP Q12HR [facility] Last Admin: 01/20/20 09:10 Dose: 40 mg Sertraline HCl (Zoloft) 100 mg PO DAILY [facility] Last Admin: 01/20/20 09:09 Dose: 100 mg Sodium Chloride (Flush - Normal Saline) 10 ml IVF Q12HR [facility] Last Admin: 01/20/20 09:33 Dose: 10 ml Sodium Chloride (Flush - Normal Saline) 10 ml IVF PRN PRN PRN Reason: Saline Flush Last Admin: 01/14/20 11:52 Dose: 10 ml Vital Signs & Weight: Vital Signs Temp Pulse Resp BP Pulse Ox 01/20/20 15:58 97.7 F 59 L 20 124/64 99 01/20/20 12:50 98.6 F 80 20 126/72 98 01/20/20 08:58 98.2 F 69 20 141/74 H 93 L Admit Weight 128 lb 11.2 oz Weight 130 lb 4.8 oz - Physical Exam General: no apparent distress HEENT: normocephaly Neck: supple neck Cardiac: irregularly regular Lungs: normal breath sounds Neuro: no lateralizing findings Abdomen: active bowel sounds Extremities: no edema Skin: clear Musculoskeletal: no pain - Labs Result Diagrams: 01/20/20 04:20 01/19/20 04:07 Troponin/CKMB CK-MB (CK-2) 2.6 ng/mL (0-6.6) 01/07/20 20:04 Troponin I 0.035 ng/mL (< 0.028) H 01/08/20 02:09 - Telemetry Supraventricular conduction: atrial fibrillation - Assessment/Plan Assessment/Plan: 1. Anemia, likely slow blood loss. 2. Afib RVR, likely from anemia and bacteremia, rate controlled. 3. Type 2 demand ischemia 4. Severe CAD 5. Chronic anticoagulation with Eliquis. 6. MRSA bacteremia. 7. Possible aortic valve endocarditis. 8. Septic right shoulder. PLAN: - Continues to be bradycardic, pauses have becmoe more prominent HR down to the 20's and 4.5 sec pause. Will stop BB. - Continue to hold Eliquis indefinitely. - Abx for MRSA per primary team. terminal makeup operator secondary to osteomyelitis and possible endocarditis. - Continue current meds. - Will cut back on Lasix today. - Poor [facility] prognosis.
--- NOTE | 2020-01-20 17:35 | PRG ---
DATE OF SERVICE: 01/20/2020 SUBJECTIVE: Mr. Fish is more alert, was able to interact with me fairly easily and hold a conversation, still does know the year, but he knew he was in the hospital and the name of the hospital as well. Denies any headache. He has no dyspnea. His right shoulder pain has improved markedly. Denies any back pain. No abdominal pain. He is urinating without difficulty in the diaper. OBJECTIVE: VITAL SIGNS: He has been afebrile for a while now. His blood pressure is 120/60, O2 sats 99 on 2 L nasal cannula. GENERAL: Appears much better today. LUNGS: Clear. HEART: S1 and S2, regular rate. ABDOMEN: Soft, not distended or tender. No bladder distention. EXTREMITIES: Able to move extremities equally. Right shoulder with improvement in inflammatory changes. LABORATORY DATA: White cell count 10.2, hemoglobin 9.4, and platelets 293 with 75% neutrophils. Creatinine 0.98. Transaminases are improving. ASSESSMENT AND DISCUSSION: Ischemic cardiomyopathy, EF in the 40s, abdominal aortic aneurysm, chronic hep C untreated, methamphetamine use and heroin use history, chronic smoking, right shoulder septic arthritis due to methicillin-resistant Staphylococcus aureus, as well as retroperitoneal abscesses. The patient is clearly improving, and we would advise continuation of vancomycin. The duration of therapy has been stated previously. We will need to enter orders to Case Management. The end date of therapy would be around March 06 approximately with weekly labs including CBC, CRP, CMP, and vancomycin trough levels. Repeat imaging study of the retroperitoneal area to follow up the resolution of the abscesses would be advisable. Job ID: [id number]
[2020-01-20] MEDS ORDERED: Vancomycin 1 GM in Premix Bag 1 BAG IVPB SCH (18:00)
[2020-01-21] MEDS: Pantoprazole 40 MG VIAL IVP SCH (08:04)
[2020-01-21] MEDS: Diclofenac 1% 100 GM GEL TP SCH ×2 (08:04→12:14)
--- NOTE | 2020-01-21 08:11 | PDOC.FM ---
- Subjective Subjective: resting comfortably, no complaints. - Objective Vital Signs & Weight: Vital Signs (12 hours) Temp Pulse Resp BP Pulse Ox 01/21/20 07:37 97.8 F 62 20 154/94 H 92 L 01/21/20 04:27 94 L 01/21/20 03:45 96.8 F L 60 20 130/63 94 L 01/20/20 23:37 72 18 155/73 H 96 Weight Admit Weight 58.377 kg Weight 56.699 kg I&O: 01/20/20 01/21/20 01/22/20 06:59 06:59 06:59 Intake Total 575 1360 Output Total 500 1475 Balance 75 -115 Result Diagrams: 01/20/20 04:20 01/19/20 04:07 Phys Exam - Physical Examination Constitutional: NAD HEENT: moist MMs, sclera anicteric Neck: supple, full ROM Respiratory: no wheezing, clear to auscultation bilateral Cardiovascular: no significant murmur, irregular Gastrointestinal: soft, non-tender Musculoskeletal: pulses present Neurological: moves all 4 limbs Psychiatric: normal affect Skin: no rash, normal turgor Dx/Plan (1) Aortic valve endocarditis Code(s): I35.8 - OTHER NONRHEUMATIC AORTIC VALVE DISORDERS Status: Acute (2) MRSA bacteremia Code(s): R78.81 - BACTEREMIA; B95.62 - METHICILLIN RESIS STAPH INFCT CAUSING DISEASES CLASSD ELSWHR Status: Acute (3) Septic joint of right shoulder region Code(s): M00.9 - PYOGENIC ARTHRITIS, UNSPECIFIED Status: Acute (4) Torn rotator cuff Code(s): M75.100 - UNSP ROTATR-CUFF TEAR/RUPTR OF UNSP SHOULDER, NOT TRAUMA Status: Acute Qualifiers: Rotator cuff tear extent: unspecified tear extent Rotator cuff tear trauma status: unspecified whether traumatic Laterality: right Qualified Code(s): M75.101 - Unspecified rotator cuff tear or rupture of right shoulder, not specified as traumatic (5) Afib Code(s): I48.91 - UNSPECIFIED ATRIAL FIBRILLATION Status: Acute Qualifiers: Atrial fibrillation type: other persistent Qualified Code(s): I48.19 - Other persistent atrial fibrillation (6) CAD (coronary artery disease) Code(s): I25.10 - ATHSCL HEART DISEASE OF [place] CORONARY ARTERY W/O ANG PCTRS Status: Acute Qualifiers: Coronary Disease-Associated Artery/Lesion type: [place] artery [place] vs. transplanted heart: [place] heart Associated angina: without angina Qualified Code(s): I25.10 - Atherosclerotic heart disease of [place] coronary artery without angina pectoris (7) Hypertension Code(s): I10 - ESSENTIAL (PRIMARY) HYPERTENSION Status: Chronic Qualifiers: - Plan Plan: This is a 74 yo male with a pmh of HTN, AAA s/p repair, afib, hx of CVA, HFrEF, cad 01/21/2020 dispo: MPOA brother ended up declining hospice on discussion of DCing ABX. dispo is pending placement to the [facility]. Pt may go on hospice after completion of ABX Acute hypoxic respiratory failure A- Likely multifactorial with volume overload and poor respiratory effort 2/2 severe deconditioning. Covid test negative, Influenza negative, Viral respiratory panel negative, strep and legionella urine negative. Pt was weaned to RA and stable until 01/15 and is now requiring 4L. No complaints of SOB or cough. P- lasix decreased to 20mg daily by cards -SL morphine for air hunger MRSA bacteremia A- stable, ID consulted, appreciate recs. blood ccx: MRSA. Will need IV vanc till February 19. P- continue Vanc -f/u ID outpt Aortic Valve Endocarditis A- Cardiology, Dr. Coleman consulted, appreciate recs. P- per plan above, ABX Septic R shoulder joint A- stable and s/p washout x2. Ortho consulted, Dr. Bauer; appreciate recommendations. Likely source of primary infection vs seeding of bacteria. Went for wash out surgical procedure on 01/13 evening. Repeat arthroscopic washout 01/14. P- ABX per plan above, norco for pain -f/u ortho outpt Afib with RVR, improved rate A- Cardiology consulted, recommend holding anticoagulation indefinitely, lenient rate control P- coreg DCd as pt was having pauses -continue ASA NSTEMI type 2 A- Likely 2/2 anemia and afib. Cardiology consulted P- Continuing ASA Acute on chronic anemia A- S/P 3 units transfused, stable Hgb. GI consulted, no urgent imaging or procedures required. GI signed off P- continue protonix Physical deconditioning -PT/OT Torn rotator cuff with effusion, right A- Decreased ROM P- Continue home norco PB, resolved HTN -coreg DCd, monitor BPs Hx CVA -MD aware HFrEF A- Echo EF 30-35%, cards on board P- strict I/Os -fluid restriction -lasix daily Hep C -MD aware Hyponatremia -resolved Hypokalemia -resolved Hx of AAA - hx of graft, CT to evaluate as source of infection. See report for full details. Social -Hx of drug abuse, Hx of alcohol abuse, no recent daily use, Tobacco abuse, quit 4 months ago CODE: DNAR Addendum - Attending - Attending Attestation Date/Time: 01/21/20 1149 I personally evaluated the patient and discussed the management with Dr. Shelby. I agree with the History, Examination, Assessment and Plan documented above with any addition or exceptions noted below. Patient stable for discharge.
[2020-01-21] MEDS ORDERED: Furosemide 20 MG TAB PO SCH (09:00)
[2020-01-21] MEDS: Aspirin 81 mg Enteric Coated Tablet PO SCH (10:53)
[2020-01-21 12:09] VITALS: BP 123/58; TEMP 97.6
--- NOTE | 2020-01-21 12:36 | EKG ---
Test Reason : Blood Pressure : / mmHG Vent. Rate : 119 BPM Atrial Rate : 113 BPM P-R Int : 000 ms QRS Dur : 098 ms QT Int : 354 ms P-R-T Axes : 000 -29 032 degrees QTc Int : 497 ms Atrial fibrillation with rapid ventricular response with premature ventricular or aberrantly conducte d complexes Low voltage QRS Septal infarct , age undetermined Abnormal ECG Reconfirmed by JUSTICE CHIU, NI ([id number]), continuity editor TRACIE GANDHI ([id number]) on 01/21/2020 12:36:32 PM Referred By: Confirmed By:NI RENDON MD
--- NOTE | 2020-01-24 09:59 | DIS ---
DATE OF ADMISSION: 01/08/2020 DATE OF DISCHARGE: 01/21/2020 RESIDENT: Link Shelby MD ATTENDING: Wilbert Sandoval MD CONSULTS: 1. Cardiology. 2. Gastroenterology. 3. Infectious Disease. 4. Orthopedics. 5. Palliative care. 6. Physical therapy and occupational therapy. 7. Dietary. PROCEDURES PERFORMED: Chest x-ray on 01/18/2020. Impression, presumed congestive heart failure. Superimposed pneumonia in the lower lobes cannot be excluded. Continue surveillance. DISCHARGE MEDICATIONS: 1. Aspirin 81 mg p.o. daily. 2. Folic acid 1 mg p.o. daily. 3. Xanax 0.25 mg p.o. daily p.r.n. resumed at home. 4. Vitamin B12 of 1000 mcg p.o. daily. 5. Sertraline 100 mg p.o. daily. 6. Diclofenac sodium gel 4 g topical q.i.d. 7. Furosemide 20 mg p.o. daily. 8. Hydrocodone 5/325 one tablet p.o. q.6 hours p.r.n. 9. DuoNeb 3 mL nebulized q.4 hours p.r.n. 10. Protonix 40 mg p.o. q.12 hours. 11. Vancomycin 1 g IV piggyback daily. DISCONTINUED MEDICATIONS: 1. [place] 10 q.6 hours p.r.n. 2. Atorvastatin 20 mg p.o. daily. 3. Eliquis 5 mg p.o. b.i.d. 4. Spironolactone 25 mg p.o. daily. 5. Coreg 12.5 mg p.o. b.i.d. PRIMARY DIAGNOSES: Complicated methicillin-resistant Staphylococcus aureus infection involving bacteremia, aortic valve endocarditis and septic right shoulder joint. SECONDARY DIAGNOSES: Hypoxic respiratory failure secondary to volume overload and poor respiratory effort, chronic anemia, non-ST elevation myocardial infarction type 2, atrial fibrillation with RVR, acute kidney injury, torn rotator cuff with effusion, hypertension, history of cerebrovascular accident, heart failure with reduced ejection fraction, hepatitis C, hyponatremia, hypokalemia, history of abdominal aortic aneurysm, drug abuse. HISTORY OF PRESENT ILLNESS/HOSPITAL COURSE: This is a 74-year-old male, who was hospitalized over an extended period of time for multiple issues but mainly complications involving MRSA infection. For details of hospitalization prior to 01/16/2020, please refer to Dr. Uyen Araiza's transition of care/progress note on 01/16/2020. All other imaging and events of medical care after 01/16/2020 will be addressed in this discharge summary. The patient's hospitalization for MRSA infection was stable for the rest of the hospitalization, the patient being treated with vancomycin IV per ID recommendations with the stop date being in January. The patient was discharged with PICC line in place and plans to follow up with Infectious Disease outpatient for further management of vancomycin. The patient had increased oxygen need during this time period which was presumed to be a slight volume overload. The patient was diuresed and started on daily Lasix and improved, requiring from 4 L down to 2 L, and was discharged to [place] on oxygen on 2 L with plans to continue daily Lasix. It was also thought the hypoxic respiratory failure was in part due to poor respiratory effort and general deconditioning. Atrial fibrillation with RVR was also controlled originally with oral digoxin and Coreg. However, the patient was having frequent pauses up to 5 seconds and so was discontinued off these medications and kept on aspirin alone. The patient was stable on this medication at the time of discharge. The patient also had acute on chronic anemia, thought this was due to slow upper GI bleed. The patient had a total of 3 units transfused during entire hospital stay. Hemoglobin was stable during that time of care with patient. All other chronic conditions were stable during this hospitalization. Of note, regarding the patient's overall disposition, many conversations were had as notated in hospital documentation with the patient's MPOA, his brother Reddy Fish, and it was determined the patient at this point in his illness would prefer to be DNAR in and outside the hospital and so the necessary paperwork for this was filled out. It was also determined that the patient would want to be on hospice care. However, when hospice evaluated the patient and stated that he would need to come off his antibiotics for them to accept, the patient's brother declined hospice at this time, wanting him to continue the antibiotics for now. DISPOSITION: Acutely stable but with poor long-term prognosis. ACTIVITY: As tolerated with fall risk precautions and up with assist recommendations. DIET: Heart healthy with recommendations from Speech Therapy for aspiration risks as included with transfer documentation to the [place]. FOLLOWUP: Follow up with Dr. Heriberto Mendoza. Follow up with Dr. [place] Coleman. Follow up with Dr. Shemar Hernandez. Follow up with Dr. Burton aMck. Job ID: [id number]
--- NOTE | 2020-01-28 03:33 | PQF ---
CRISS SHAFFER JR, JUSTIN MD [id number] [id number] CLINICAL DOCUMENTATION CLARIFICATION FORM: POST DISCHARGE Addendum to original discharge summary date: ____ Late entry note date: __ DATE:01/28/2020 ATTN:JAIRO BAEZA MD Please exercise your independent, professional judgment in responding to the clarification form. Clinical indicators are provided on the bottom of this form for your review Please check appropriate box(s): [ ] Excisional Debridement: [ ] Excised [ ] Cut away [ ] Other: Depth / layer: (deepest layer of debridement) : [ ] Skin[ ] SubQ Tissue [ ] Fascia [ ] Muscle [ ] Tendon [ ] Bone Appearance of wound: (e.g., down to fresh bleeding tissue, etc.) Margins: (please specify): / x _ ____ x Instruments used: [ ] Scissors [ ] Scalpel [ ] Curette [ ] Soft tissue clipper [ ] Other: [ ] Non-excisional Debridement: (Removal by flushing, brushing, chemical, or washing) Depth / layer: (deepest layer of debridement ): [ ] Skin[ ] Subcutaneous [ ] Fascia [ ] Muscle [ ] Tendon [ ] Bone [ ] Incision and Drainage only (No Debridement): Depth:[ ] Skin [ ] Subcutaneous [ ] Fascia [ ] Muscle [ ] Tendon [ ] Bone [ ] Escharectomy [ ] Other procedure diagnosis [ ] Unable to determine For continuity of documentation, please document condition throughout progress notes and discharge summary. Thank You. CLINICAL INDICATORS - SIGNS / SYMPTOMS / LABS - Irrigation and debridement the septic shoulder-OP report, JAIRO BAEZA MD - I visualized inside the joint,saw the massive rotator cuff tear-OP report, JAIRO BAEZA MD - I then placed the portal anteriorly which would be into the area of the rotator cuff interval-OP report, JAIRO BAEZA MD - started using my shaver to suck out any tissue-OP report, JAIRO BAEZA MD - Evacuated of fluid and kind of milking from the subdeltoid space inferiorly the fluid out-OP report, JAIRO BAEZA MD - I debrided some of the soft tissue that was though out the shoulder- OP report , JAIRO BAEZA MD RISK FACTORS - Right septic shoulder-OP report, JAIRO BAEZA MD - Right massive rotator cuff tear- OP report, JAIRO BAEZA MD TREATMENTS: - IV antibiotics-OP report, JAIRO BAEZA MD (This form is maintained as a part of the permanent medical record) 2014 [employer] All Rights Reserved Ashley [email or web address]
== END 2020-01-21 13:15 | DRG 548 ==
LOC: ERS 13:37 → 2SE 21:39 → OBSVTOIN 01-08 09:18 → 2NO 01-09 10:08
PROVIDERS: ADMIT Emergency Medicine; ATTEND Emergency Medicine
PROC: 30233N1 Transfusion of Nonautologous Red Blood Cells into Peripheral Vein, Percutaneous Approach (ICD-10-PCS; 2020-01-08)
PROC: 0R9J3ZZ Drainage of Right Shoulder Joint, Percutaneous Approach (ICD-10-PCS; 2020-01-14)
PROC: 0HDBXZZ Extraction of Right Upper Arm Skin, External Approach (ICD-10-PCS; 2020-01-14)
PROC: 02HV33Z Insertion of Infusion Device into Superior Vena Cava, Percutaneous Approach (ICD-10-PCS; principal; 2020-01-15)
PROC: B548ZZA Ultrasonography of Superior Vena Cava, Guidance (ICD-10-PCS; 2020-01-15)
PROC: 0R9J4ZZ Drainage of Right Shoulder Joint, Percutaneous Endoscopic Approach (ICD-10-PCS; 2020-01-16)
PROC: 8E0ZXY6 Isolation (ICD-10-PCS; 2020-01-16)
DX: M00.811 Arthritis due to other bacteria, right shoulder (principal); J96.01 Acute respiratory failure with hypoxia; I21.A1 Myocardial infarction type 2; J18.9 Pneumonia, unspecified organism; G93.41 Metabolic encephalopathy; K68.19 Other retroperitoneal abscess; I50.22 Chronic systolic (congestive) heart failure; Z20.828 Contact with and (suspected) exposure to other viral communicable diseases; N17.9 Acute kidney failure, unspecified; E87.1 Hypo-osmolality and hyponatremia; D62 Acute posthemorrhagic anemia; I13.0 Hypertensive heart and chronic kidney disease with heart failure and stage 1 through stage 4 chronic kidney disease, or unspecified chronic kidney disease; E44.0 Moderate protein-calorie malnutrition; R64 Cachexia; Z51.5 Encounter for palliative care; R53.81 Other malaise; I25.5 Ischemic cardiomyopathy; F10.10 Alcohol abuse, uncomplicated; I35.8 Other nonrheumatic aortic valve disorders; J44.9 Chronic obstructive pulmonary disease, unspecified; R79.89 Other specified abnormal findings of blood chemistry; I25.10 Atherosclerotic heart disease of native coronary artery without angina pectoris; M75.101 Unspecified rotator cuff tear or rupture of right shoulder, not specified as traumatic; B18.2 Chronic viral hepatitis C; D63.1 Anemia in chronic kidney disease; I48.0 Paroxysmal atrial fibrillation; F14.10 Cocaine abuse, uncomplicated; B95.62 Methicillin resistant Staphylococcus aureus infection as the cause of diseases classified elsewhere; E87.6 Hypokalemia; Z79.01 Long term (current) use of anticoagulants; Z86.73 Personal history of transient ischemic attack (TIA), and cerebral infarction without residual deficits; Z87.891 Personal history of nicotine dependence; Z68.20 Body mass index [BMI] 20.0-20.9, adult
CPT/HCPCS: 36415; 36416; 36430; 36569; 70450; 71045; 72141; 74177; 80048; 80053; 80162; 80202; 80306; 80307; 81003; 81015; 82140; 82274; 82553; 82728; 82805; 82945; 83540; 83550; 84145; 84157; 84466; 84484; 85025; 85060; 85379; 86850; 86900; 86901; 87040; 87070; 87077; 87086; 87149; 87186; 87205; 87449; 87633; 87635; 87804; 87899; 89051; 89060; 93005; 93010; 93306; 94640; 94760; 96372; 96374; 96376; C1751; C9113; J0456; J0690; J0696; J1160; J1644; J1885; J1940; J2001; J2270; J2310; J2370; J2405; J2704; J2916; J3010; J3370; J3490; J7050; J7620; P9016; Q9967; U0003